=== PATIENT | male | born 1930 | race Caucasian/White ===

== ENCOUNTER 2018-02-26 09:32 | Observation (INO) ==
[2018-02-26] MEDS ORDERED: 0.9 % Sodium Chloride 1,000 ML IVC ONE (09:46)
--- NOTE | 2018-02-26 09:49 | Emergency Department Note ---
Disposition Clinical Impression: Hyponatremia Spine fracture Qualifiers: Encounter type: subsequent encounter Fracture of vertebra location: lumbar Lumbar vertebra fracture level: L1 Fracture morphology: unspecified fracture morphology Fracture healing: with routine healing Diarrhea Qualifiers: Diarrhea type: unspecified type Qualified Code(s): R19.7 - Diarrhea, unspecified Disposition: Admitted As Inpatient Condition: Good Time of Disposition: 11:49 General Adult HPI - General Stated complaint: bowel movement after taking laxative Time Seen by Provider: 02/26/18 09:39 Source: patient Mode of arrival: wheelchair Limitations: no limitations Nursing Notes Reviewed: Yes Vital Signs Reviewed: Yes - History of Present Illness HPI Narrative: Patient presents to the ED the chief complaint of diarrhea and back pain. Patient states that he started having back pain earlier this month. Has seen pain management in the past. This pain was different. After extensive medical record review, the patient has had an MRI that showed possible discitis, osteomyelitis L1-L2. He subsequently had a CT guided disc biopsy, which preliminary results do not show any infection but the final results are not back. He states that he has not had any known fall or injury. One of his CAT scan showed a possible fracture at L1. States it is been treated with pain medication, which caused him to get constipated. Was here in the ER a few days ago and prescribed GoLYTELY. States that he started taking it as prescribed and as of last night. Has had approximately 20 episodes of diarrhea associated with abdominal cramping. States he is feeling lightheaded and dizzy. States he still has back pain and nothing has been able to keep it under control. No fever or chills. No chest pain or shortness of breath. Some nausea but no vomiting. Also complaining of pain and swelling in both of his legs with equal bilaterally. No history of CHF. No melena or hematochezia Pain Scale: 9 - Related Data Home Medications Medication Instructions Recorded Confirmed Finasteride [Proscar] 5 mg PO DAILY 02/26/18 02/26/18 Gabapentin [Neurontin] 300 mg PO TID 02/26/18 02/26/18 Ibuprofen [Ibuprofen] 800 mg PO TID PRN 02/26/18 02/26/18 Losartan Potassium [Cozaar] 100 mg PO DAILY 02/26/18 02/26/18 Tamsulosin [Flomax] 0.4 mg PO DAILY 02/26/18 02/26/18 Previous Rx's Medication Instructions Recorded HYDROcodone/Acet 5/325 mg [[place] 1 tab PO Q6H PRN 2 Days #8 tab 02/10/18 5-325 mg] Allergies Allergy/AdvReac Type Severity Reaction Status Date / Time morphine AdvReac Vomiting Verified 02/26/18 09:52 Review of Systems: As reviewed in the HPI. All other systems reviewed are negative or normal. Past Medical History - Past Medical History Attestation: Yes The following information was validated with the patient. Source: patient Medical history: Reports: GERD, hyperlipidemia, hypertension Psychiatric history: Reports: no psych history - Social History Smoking Status: Former smoker Smokeless Tobacco Status: No Alcohol use: Reports: rarely Drug use: Reports: none Physical Exam CONSTITUTIONAL: [well appearing, alert and in no acute distress but does appear to be in pain] EYES: [EOMI, clear conjunctiva, PERRLA] HENT: [Normocephalic, atraumatic, dry mucus membranes, normal oropharynx] NECK: [normal inspection, full ROM, trachea midline, no obvious swelling] PULMONARY: [normal lung sounds bilaterally, normal chest rise and fall, no respiratory distress or stridor, no wheezes, no rales, no rhonchi CARDIOVASCULAR: [regular rate, regular rhythm, normal heart sounds, no murmurs, distal extremities are warm and well perfused] GASTROINSTESTINAL: [soft, mild distention (reports improving), mild diffuse tenderness, non-rigid, no guarding, no rebound, normal bowel sounds] GENITOURINARY/RECTAL: [deferred] NEUROLOGIC: [Alert, oriented x3, normal speech, moves all extremities] EXTREMITIES: [Normal inspection, full ROM, no tenderness, 1-2+ pedal edema, normal capillary refill] MUSCULOSKELETAL: [no gross deformities, atraumatic] SKIN: [No cyanosis, no diaphoresis, normal color, warm, no rash] PSYCHIATRIC: [normal mood and affect] Course Course Narrative: Patient presenting with back pain and diarrhea after GoLYTELY use. Essentially having intractable back pain. Medical record review does show potential fracture at L1. He developed constipation from opioids and has subsequently developed diarrhea from treatment. He appears uncomfortable. After further laboratory analysis. His sodium has been low and is continuing to drop. He does feel tired and weak. We will recheck labs and likely admit - Reevaluation(s) Reevaluation #1: Patient is hyponatremic and hypochloremic. BUN/creatinine ratio is elevated. We will admit for dehydration and pain control. Vital Signs Temperature 98.5 F 02/26/18 09:35 Pulse Rate 74 02/26/18 09:35 Respiratory Rate 16 02/26/18 09:35 Blood Pressure 180/87 02/26/18 09:35 O2 Sat by Pulse Oximetry 97 02/26/18 09:35 Temperature 97.9 F 02/26/18 12:37 Pulse Rate 71 02/26/18 12:37 Respiratory Rate 14 02/26/18 12:37 Blood Pressure 158/77 02/26/18 12:37 O2 Sat by Pulse Oximetry 98 02/26/18 12:37 Oxygen Delivery Oxygen Delivery Room Air Medical Decision Making - Lab Data Result diagrams: 02/26/18 09:46 02/26/18 09:46 Lab Results 02/26/18 02/26/18 02/26/18 Range/Units 09:46 09:46 09:47 WBC 9.6 (4.3-11.1) K/mcL RBC 3.44 L (4.19-5.50) M/mcL Hgb 10.5 L (12.9-16.9) g/dL Hct 30.3 L (37.5-50.1) % MCV 88.1 (83.0-100.0) fL MCH 30.5 (28.0-33.3) pg MCHC 34.7 (31.6-35.5) g/dL RDW 12.1 (11.5-14.5) % Plt Count 344 (140-400) K/mcL MPV 8.4 L (9.4-12.4) fL Immature Gran % 0.5 (0-4) % Seg Neutrophils % 76.0 % Lymphocytes % 13.1 % Monocytes % 10.1 % Eosinophils % 0.2 % Basophils % 0.1 % Neutrophils # 7.3 (1.6-8.9) K/mcL Lymphocytes # 1.3 (0.6-4.6) K/mcL Monocytes # 1.0 (0.0-1.3) K/mcL Eosinophils # 0.0 (0.0-0.6) K/mcL Basophils # 0.0 (0.0-0.2) K/mcL ESR 60 H (0-10) mm/hr Sodium 122 L (136-145) mEq/L Potassium 4.3 (3.5-5.1) mEq/L Chloride 88 L (98-107) mEq/L Carbon Dioxide 27 (23-29) mEq/L BUN 22 (8-23) mg/dL Creatinine 0.82 (0.70-1.30) mg/dL Est GFR ( Amer) > 60 (> 60) Est GFR (Non-Af Amer) > 60 (> 60) BUN/Creatinine Ratio 27 H (6-26) Glucose 120 H (70-105) mg/dL Calculated Osmolality 259 L (280-300) Calcium 8.7 (8.6-10.3) mg/dL Phosphorus (2.7-4.5) mg/dL Magnesium (1.6-2.6) mg/dL Total Bilirubin 0.5 (0.3-1.0) mg/dL AST 15 (13-39) Units/L ALT 14 (7-52) Units/L Alkaline Phosphatase 56 (34-104) Units/L Troponin I (< 0.04) ng/mL C-Reactive Protein (Less than 10) mg/L B-Natriuretic Peptide (Less than 100) pg/mL Serum Total Protein 6.5 (6.4-8.9) g/dL Albumin 3.3 L (3.5-5.7) g/dL Globulin 3.2 (2.4-3.5) g/dL Albumin/Globulin Ratio 1.0 L (1.1-2.2) Lipase 14 (11-82) Units/L 02/26/18 02/26/18 Range/Units 09:47 10:10 WBC (4.3-11.1) K/mcL RBC (4.19-5.50) M/mcL Hgb (12.9-16.9) g/dL Hct (37.5-50.1) % MCV (83.0-100.0) fL MCH (28.0-33.3) pg MCHC (31.6-35.5) g/dL RDW (11.5-14.5) % Plt Count (140-400) K/mcL MPV (9.4-12.4) fL Immature Gran % (0-4) % Seg Neutrophils % % Lymphocytes % % Monocytes % % Eosinophils % % Basophils % % Neutrophils # (1.6-8.9) K/mcL Lymphocytes # (0.6-4.6) K/mcL Monocytes # (0.0-1.3) K/mcL Eosinophils # (0.0-0.6) K/mcL Basophils # (0.0-0.2) K/mcL ESR (0-10) mm/hr Sodium (136-145) mEq/L Potassium (3.5-5.1) mEq/L Chloride (98-107) mEq/L Carbon Dioxide (23-29) mEq/L BUN (8-23) mg/dL Creatinine (0.70-1.30) mg/dL Est GFR ( Amer) (> 60) Est GFR (Non-Af Amer) (> 60) BUN/Creatinine Ratio (6-26) Glucose (70-105) mg/dL Calculated Osmolality (280-300) Calcium (8.6-10.3) mg/dL Phosphorus 3.7 (2.7-4.5) mg/dL Magnesium 1.7 (1.6-2.6) mg/dL Total Bilirubin (0.3-1.0) mg/dL AST (13-39) Units/L ALT (7-52) Units/L Alkaline Phosphatase (34-104) Units/L Troponin I < 0.03 (< 0.04) ng/mL C-Reactive Protein 63 H (Less than 10) mg/L B-Natriuretic Peptide 38 (Less than 100) pg/mL Serum Total Protein (6.4-8.9) g/dL Albumin (3.5-5.7) g/dL Globulin (2.4-3.5) g/dL Albumin/Globulin Ratio (1.1-2.2) Lipase (11-82) Units/L Attestation Statement - Attestation Attestation: I examined this patient and my medical decision-making was reviewed with the Resident Physician. I agree with the documented findings, disposition and treatment plan as described except to the extent set forth below. Findings consistent with back pain. Patient is currently being worked up for possible ostial myelitis. I would defer antibiotic therapy pending cultures at this time. The patient's back pain seems to be worsening. He concurrently has some nonspecific diarrheal complaints. We will admit for further management and workup as well as pain control.
[2018-02-26] MEDS ORDERED: Ondansetron 4 MG/2 ML VIAL IVP ONE (10:11)
[2018-02-26] MEDS ORDERED: Orphenadrine 60 MG/2 ML VIAL IV ONE (10:11)
[2018-02-26] MEDS ORDERED: *HR* HYDROmorphone (PF) 1 MG/ML SYRINGE IVP ONE (10:11)
[2018-02-26 10:16] LABS: Basophils % 0.1 %; Eosinophils % 0.2 %; Hematocrit 30.3 % (37.5-50.1); Hemoglobin 10.5 g/dL (12.9-16.9); Immature Granulocytes % 0.5 % (0-4); Lymphocytes # 1.3 K/mcL (0.6-4.6); Lymphocytes % 13.1 %; Mean Corpuscular HGB Conc 34.7 g/dL (31.6-35.5); Mean Corpuscular Hemoglobin 30.5 pg (28.0-33.3); Mean Corpuscular Volume 88.1 fL (83.0-100.0); Mean Platelet Volume 8.4 fL (9.4-12.4); Monocytes % 10.1 %; Neutrophils # 7.3 K/mcL (1.6-8.9); Platelet Count 344 K/mcL (140-400); Red Blood Count 3.44 M/mcL (4.19-5.50); Red Cell Distribution Width 12.1 % (11.5-14.5)
[2018-02-26 10:37] LABS: C-Reactive Protein 63 mg/L (Less than 10); Magnesium 1.7 mg/dL (1.6-2.6); Phosphorous 3.7 mg/dL (2.7-4.5)
[2018-02-26 10:37] LABS: Alanine Aminotransferase 14 Units/L (7-52); Albumin 3.3 g/dL (3.5-5.7); Alkaline Phosphatase 56 Units/L (34-104); Aspartate Amino Transferase 15 Units/L (13-39); BUN/Creatinine Ratio 27 (6-26); Bilirubin,Total 0.5 mg/dL (0.3-1.0); Blood Urea Nitrogen 22 mg/dL (8-23); Calcium 8.7 mg/dL (8.6-10.3); Carbon Dioxide 27 mEq/L (23-29); Chloride 88 mEq/L (98-107); Globulin 3.2 g/dL (2.4-3.5); Glucose 120 mg/dL (70-105); Lipase 14 Units/L (11-82); Osmolality,Calculated 259 (280-300); Potassium 4.3 mEq/L (3.5-5.1); Sodium 122 mEq/L (136-145); Total Protein 6.5 g/dL (6.4-8.9); eGFR For Non-African Americans > 60 (> 60)
[2018-02-26 10:38] LABS: Troponin I < 0.03 ng/mL (< 0.04)
[2018-02-26] MEDS ORDERED: *HR* LORazepam 0.5 MG TABLET PO ONE (11:40)
[2018-02-26 12:01] LABS: Bilirubin,Urine Negative (Negative); Blood,Urine Negative (Negative); Clarity,Urine Clear (Clear); Color,Urine Yellow (Yellow); Glucose,Urine (UA) Normal (Normal); Ketones,Urine Negative (Negative); Leukocyte Esterase,Urine Negative (Negative); Nitrite,Urine Negative (Negative); Protein,Urine Negative (Neg-Trace); Specific Gravity,Urine 1.013 (1.010-1.025)
[2018-02-26 12:39] VITALS: BP 158/77
--- NOTE | 2018-02-26 12:56 | Internal Med History&Physical ---
Date of Encounter: 02/26/18 Time of Encounter: 12:56 Internal Medicine - H&P: HPI History of present illness: Mr. Burkett is a 87 year old male Past Med Surg Social Fam HX - Past Medical History Medical history: GERD, hyperlipidemia, hypertension Additional medical history: prostate enlargement Psychiatric history: no psych history - Past Surgical History Additional surgical history: cervical disc surgery. pilonidal cyst - Social History Smoking Status: Former smoker Smokeless Tobacco Status: No Alcohol use: rarely Drug use: none Internal Medicine - H&P: Meds HYDROcodone/Acet 5/325 mg [[place] 5-325 mg] 1 tab PO Q6H PRN 2 Days #8 tab [Rx] Finasteride [Proscar] 5 mg PO DAILY 02/26/18 [History] Gabapentin [Neurontin] 300 mg PO TID 02/26/18 [History] Ibuprofen [Ibuprofen] 800 mg PO TID PRN 02/26/18 [History] Losartan Potassium [Cozaar] 100 mg PO DAILY 02/26/18 [History] Tamsulosin [Flomax] 0.4 mg PO DAILY 02/26/18 [History] 3 Allergy/AdvReac Type Severity Reaction Status Date / Time morphine AdvReac Vomiting Verified 02/26/18 09:52 All Systems PM: A 10-system review of systems was performed and is negative for pertinent findings except as documented above in the HPI. - Constitutional Vitals: Temp Pulse Resp BP Pulse Ox 97.9 F 71 14 158/77 98 02/26/18 12:37 02/26/18 12:37 02/26/18 12:37 02/26/18 12:37 02/26/18 12:37 Internal Med - H&P Results - Labs CBC & Chem 7: 02/26/18 09:46 02/26/18 09:46 Labs: Urine 02/26/18 Range/Units 11:46 Urine Color Yellow (Yellow) Urine Clarity Clear (Clear) Urine pH 6.0 (5.0-8.0) pH Units Ur Specific [place] 1.013 (1.010-1.025) Urine Protein Negative (Neg-Trace) mg/dL Urine Glucose (UA) Normal (Normal) mg/dL - Time Spent With Patient Total time spent is greater than 50% in coordination of care (as documented) at patient's floor/unit and/or counseling patient:
--- NOTE | 2018-02-26 14:03 | Event Note ---
Date of Encounter: 02/26/18 Time of Encounter: 13:59 Patient arrived on the floor from ED for treatment of hyponatremia with a sodium level of 122. 87M with CBP, DDD, spinal stenosis and HTN has low normal Na level 132-135 at baseline. Recently started on opioids for back pain, constipated since 02/09/18, started golytely on 02/25 AM, and had 20+ BM by 02/26 AM. He came to ER for back pain for which he received IV Dilaudid. Back pain resolved. Diarrhea has resolved as of this morning. He was admitted for IV hydration and close monitoring due to hyponatremia. On arrival to the floor, he stated that he was feeling well, and would rather not stay in the hospital. I spent more than 25 min in F2F counseling, advised admission and coordinating care on the floor. He decided to leave AMA. I advised for them to get Na level checked 02/27 AM and follow with PCP the same day. He has received 1 L of IVF in ER, and I expect Na level to be better tomorrow if indeed the cause is dehydration and volume depletion as suspected. If Na level is lower tomorrow, they agree to be readmitted.
[2018-02-27 01:38] LABS: Acinetobacter baumannii by PCR Not Detected (Not Detect); Candida albicans by PCR Not Detected (Not Detect); Candida glabrata by PCR Not Detected (Not Detect); Candida krusei by PCR Not Detected (Not Detect); Candida parapsilosis by PCR Not Detected (Not Detect); Candida tropicalis by PCR Not Detected (Not Detect); Enterobacter cloacae Cmplx PCR Not Detected (Not Detect); Enterobacteriaceae by PCR Not Detected (Not Detect); Enterococcus by PCR Not Detected (Not Detect); Escherichia coli by PCR Not Detected (Not Detect); Klebsiella oxytoca by PCR Not Detected (Not Detect); Klebsiella pneumoniae by PCR Not Detected (Not Detect); Proteus by PCR Not Detected (Not Detect); Pseudomonas aeruginosa by PCR Not Detected (Not Detect); Serratia marcescens by PCR Not Detected (Not Detect); Staphylococcus aureus by PCR Not Detected (Not Detect); Staphylococcus by PCR Not Detected (Not Detect); Streptococcus agalactiae(B)PCR Not Detected (Not Detect); Streptococcus by PCR DETECTED (Not Detect); Streptococcus pneumoniae PCR Not Detected (Not Detect); Streptococcus pyogenes (A) PCR Not Detected (Not Detect); blaKPC Carbapenem-Resist Gene Not Detected (Not Detect); mecA Methicillin-Resist Gene Not Detected (Not Detect); vanA/B Vancomycin-Resist Genes Not Detected (Not Detect)
--- NOTE | 2018-03-01 07:39 | Electrocardiograph Report ---
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
== END 2018-02-26 14:17 | disposition home or self-care (01) ==
LOC: 3ANU 09:32 → EMEROOARM 09:32 → 3ANU 12:08
PROVIDERS: ADMIT Internal Medicine; ATTEND Internal Medicine

== ENCOUNTER 2018-02-27 16:29 | Inpatient (IN) ==
--- NOTE | 2018-02-27 17:44 | Emergency Department Note ---
Disposition Clinical Impression: Osteomyelitis Disposition: Still a Patient Back Pain HPI - General Chief Complaint: ED Back Pain/Injury Stated Complaint: "blood infection" Time Seen by Provider: 02/27/18 17:08 - History of Present Illness HPI Narrative: 87 YO M presenting with back pain since 02/09/18, positive blood cultures for streptococcus, and bone biopsy showing strep gallolyticus. Patient initially presented with back pain 02/12 which has been getting progressively worse. 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 Patient was admitted on 02/26/18 to hospital for hyponatremia ( 122) but left yesterday AMA. However he returned today when his PCP called him with results of bone biopsy. Pt Subjective Complaint: back pain Onset (ago): month(s) Duration: constant Similar Symptoms Previously: No Location: lumbar spine Pain Severity: moderate, severe Quality: unable to describe Radiation: none Improves with: none - Related Data Home Medications Medication Instructions Recorded Confirmed Finasteride [Proscar] 5 mg PO DAILY 02/26/18 02/26/18 Gabapentin [Neurontin] 300 mg PO TID 02/26/18 02/26/18 Ibuprofen [Ibuprofen] 800 mg PO TID PRN 02/26/18 02/26/18 Losartan Potassium [Cozaar] 100 mg PO DAILY 02/26/18 02/26/18 Tamsulosin [Flomax] 0.4 mg PO DAILY 02/26/18 02/26/18 HYDROcodone/Acet 10/325 mg [[place] 1 tab PO Q6HR PRN 02/27/18 02/27/18 10-325 mg] Allergies Allergy/AdvReac Type Severity Reaction Status Date / Time morphine AdvReac Vomiting Verified 02/27/18 16:30 Constitutional: Denies: fever, chills, weakness, weight change, night sweats Musculoskeletal: Reports: back pain Past Medical History - Past Medical History Medical history: Reports: aortic aneurysm, GERD, hyperlipidemia, hypertension Psychiatric history: Reports: no psych history - Social History Smoking Status: Former smoker Smokeless Tobacco Status: No Alcohol use: Reports: rarely Drug use: Reports: none Physical Exam - General Limitations: no limitations General appearance: alert, in no apparent distress - Chest Chest inspection: Present: normal inspection - Respiratory Respiratory exam: Present: normal lung sounds bilaterally - Cardiovascular Cardiovascular exam: Present: regular rate, normal rhythm - Neurological Exam Neurological exam: Present: alert, oriented X3, CN II-XII intact - Psychiatric Psychiatric exam: Present: normal affect, normal mood Course Course Narrative: Based on bone biopsy showing strep patient has osteomyelitis of the vertebrae. Will admit the patient so he can be put on an antibiotic regimen. - Reevaluation(s) Reevaluation #1: Patient admitted under hospitalist service. Patient left AMA yesterday. Spoke to hospitliasts and they were oaky to accept him as long a we consulted Dr. Howell in Ortho for treatment plan. Spoke to Dr. Howell and he was okay for patient to be admitted on antibiotics. Vital Signs Temperature 98.3 F 02/27/18 16:37 Pulse Rate 73 02/27/18 16:37 Respiratory Rate 16 02/27/18 16:37 Blood Pressure 149/77 02/27/18 16:37 O2 Sat by Pulse Oximetry 98 02/27/18 16:37 Temperature 98.3 F 02/27/18 17:29 Pulse Rate 73 02/27/18 17:29 Respiratory Rate 16 02/27/18 17:29 Blood Pressure 149/77 02/27/18 17:29 O2 Sat by Pulse Oximetry 98 02/27/18 17:29 Oxygen Delivery Oxygen Delivery Room Air
--- NOTE | 2018-02-27 17:49 | Emergency Department Note ---
Disposition Clinical Impression: Positive blood culture Disposition: Still a Patient Forms: ED Satisfaction Letter General Adult HPI - General Chief complaint: ED Back Pain/Injury Stated complaint: "blood infection" Time Seen by Provider: 02/27/18 17:08 - History of Present Illness Pain Scale: 8 - Related Data Home Medications Medication Instructions Recorded Confirmed Finasteride [Proscar] 5 mg PO DAILY 02/26/18 02/26/18 Gabapentin [Neurontin] 300 mg PO TID 02/26/18 02/26/18 Ibuprofen [Ibuprofen] 800 mg PO TID PRN 02/26/18 02/26/18 Losartan Potassium [Cozaar] 100 mg PO DAILY 02/26/18 02/26/18 Tamsulosin [Flomax] 0.4 mg PO DAILY 02/26/18 02/26/18 Previous Rx's Medication Instructions Recorded HYDROcodone/Acet 5/325 mg [[place] 1 tab PO Q6H PRN 2 Days #8 tab 02/10/18 5-325 mg] Allergies Allergy/AdvReac Type Severity Reaction Status Date / Time morphine AdvReac Vomiting Verified 02/27/18 16:30 Constitutional: Denies: fever, chills, weakness, weight change, night sweats Musculoskeletal: Reports: back pain Past Medical History - Past Medical History Medical history: Reports: aortic aneurysm, GERD, hyperlipidemia, hypertension Psychiatric history: Reports: no psych history - Social History Smoking Status: Former smoker Smokeless Tobacco Status: No Alcohol use: Reports: rarely Drug use: Reports: none Physical Exam - General General appearance: alert, in no apparent distress Course - Reevaluation(s) Reevaluation #1: ED ATTESTATION NOTE: I examined this patient and my medical decision-making was reviewed with the Resident Physician/[employer] SUPERVISOR/PA/Student. I have personally performed a face to face evaluation on this patient & I agree with the documented findings, disposition and treatment plan as described except to the extent set forth below. Patient was seen with [facility] DR. SONDRA CALVIN. please see copy of her note for details of this encounter Briefly: A 7-year-old male brought in for intractable pain [address] Guerra and Dr. Lowe please see copy the notes for details on encounter patient was discharged home results from spine biopsy showed positive growth staff in addition to 1 out of 2 positive blood cultures patient having continued pain in his back patient reporting for observation and empiric antibiotics. Admission disposition pending. Patient is awake and alert is not exhibiting any objective signs of sepsis at this time. Time: 17:47 Vital Signs Temperature 98.3 F 02/27/18 16:37 Pulse Rate 73 02/27/18 16:37 Respiratory Rate 16 02/27/18 16:37 Blood Pressure 149/77 02/27/18 16:37 O2 Sat by Pulse Oximetry 98 02/27/18 16:37 Temperature 98.3 F 02/27/18 17:29 Pulse Rate 73 02/27/18 17:29 Respiratory Rate 16 02/27/18 17:29 Blood Pressure 149/77 02/27/18 17:29 O2 Sat by Pulse Oximetry 98 02/27/18 17:29 Oxygen Delivery Oxygen Delivery Room Air
[2018-02-27 18:09] LABS: Basophils % 0.1 %; Eosinophils % 0.4 %; Hematocrit 31.1 % (37.5-50.1); Hemoglobin 10.7 g/dL (12.9-16.9); Immature Granulocytes % 0.5 % (0-4); Lymphocytes # 1.1 K/mcL (0.6-4.6); Lymphocytes % 13.8 %; Mean Corpuscular HGB Conc 34.4 g/dL (31.6-35.5); Mean Corpuscular Hemoglobin 30.7 pg (28.0-33.3); Mean Corpuscular Volume 89.4 fL (83.0-100.0); Mean Platelet Volume 8.6 fL (9.4-12.4); Monocytes # 0.8 K/mcL (0.0-1.3); Monocytes % 9.1 %; Neutrophils # 6.3 K/mcL (1.6-8.9); Platelet Count 337 K/mcL (140-400); Red Blood Count 3.48 M/mcL (4.19-5.50); Red Cell Distribution Width 12.1 % (11.5-14.5); Segmented Neutrophils % 76.1 %
[2018-02-27 18:34] LABS: BUN/Creatinine Ratio 24 (6-26); Blood Urea Nitrogen 17 mg/dL (8-23); Calcium 8.9 mg/dL (8.6-10.3); Carbon Dioxide 29 mEq/L (23-29); Chloride 90 mEq/L (98-107); Glucose 113 mg/dL (70-105); Osmolality,Calculated 258 (280-300); Sodium 123 mEq/L (136-145); eGFR For Non-African Americans > 60 (> 60)
[2018-02-27] MEDS ORDERED: Naloxone 0.4 MG/ML INJ IVP PRN (21:02)
--- NOTE | 2018-02-27 21:21 | Internal Med History&Physical ---
Date of Encounter: 02/28/18 Time of Encounter: 20:30 Internal Medicine - H&P: HPI Chief complaint: osteomyelitis, hyponatremia Admitted From: Emergency Dept Plans for Post Hospital Care: Home History of present illness: Mr. Burkett is a 87 year old male Patient presented with back pain that started February 09. He does not recall any particular event that would have preceded the pain. He is normally in good health, does not take very many medications. He has never had pain like this before. Pain does not radiate, although initially it did seem to radiate down his leg. He has seen pain management for this, and has even had a bone biopsy performed. The results of the biopsy came back on the day of his admission, and indicated he has likely osteomyelitis. Of note, patient was in the emergency room yesterday, was admitted but left AMA because he stated that he felt fine. Yesterday he was found to have a sodium of 122 and that was the reason for admission. Today his sodium is slightly improved at 123. He has some history of hyponatremia, but not usually this low. Upon my assessment, patient states he is feeling okay, he denies nausea, vomiting, diarrhea, constipation. His last emergency room visit patient was given GoLYTELY because he was constipated at that time. Over the weekend he had several bouts of diarrhea which is now resolved. He had been given pain meds for his back prior to that which may have led to his constipation. Past Med Surg Social Fam HX - Past Medical History Medical history: aortic aneurysm, GERD, hyperlipidemia, hypertension Additional medical history: prostate enlargement Psychiatric history: no psych history - Past Surgical History Additional surgical history: cervical disc surgery. pilonidal cyst - Social History Smoking Status: Former smoker Smokeless Tobacco Status: No Alcohol use: rarely Drug use: none - Family History Father Living Status: Cause of : cerebral hemorrhage Internal Medicine - H&P: Meds Finasteride [Proscar] 5 mg PO DAILY 02/26/18 [History] Gabapentin [Neurontin] 300 mg PO TID 02/26/18 [History] Ibuprofen [Ibuprofen] 800 mg PO TID PRN 02/26/18 [History] Losartan Potassium [Cozaar] 100 mg PO DAILY 02/26/18 [History] Tamsulosin [Flomax] 0.4 mg PO DAILY 02/26/18 [History] HYDROcodone/Acet 10/325 mg [[place] 10-325 mg] 1 tab PO Q6HR PRN 02/27/18 [History ] 3 Allergy/AdvReac Type Severity Reaction Status Date / Time morphine AdvReac Vomiting Verified 02/27/18 16:30 All Systems PM: A 10-system review of systems was performed and is negative for pertinent findings except as documented above in the HPI. - Constitutional Vitals: Temp Pulse Resp BP Pulse Ox 98.3 F 69 16 155/87 98 02/27/18 20:04 02/27/18 20:04 02/27/18 20:04 02/27/18 20:04 02/27/18 20:04 General appearance: Present: cooperative, A&O X 3, pleasant, no acute distress, answers questions appropriately Exam: Patient answering questions appropriately follows commands oriented 3 - Head Head exam: Present: normal inspection - Eye Eye exam: Present: EOMI, normal appearance - Respiratory Respiratory exam: Present: CTAB. Absent: decreased breath sounds, respiratory distress, wheezes - Cardiovascular Cardiovascular exam: Present: RRR, systolic murmur. Absent: diastolic murmur Additional comments: systolic grade 2 murmur - GI/Abdominal GI/Abdominal exam: Present: normal bowel sounds, soft. Absent: tenderness - Extremities Exam Extremities exam: Present: pedal edema, warm, radial pulses palpable and symmetrical. Absent: tenderness Additional comments: 1+ pitting edema bilaterally in lower extremities - Back Exam Back exam: Absent: CVA tenderness (L), CVA tenderness (R), paraspinal tenderness , rash noted, tenderness, vertebral tenderness - Neurological Exam Neurological exam: Present: no focal deficits, strengths equal and symetr throughout. Absent: motor sensory deficit, facial droop, speech deficit - Skin Skin exam: Present: dry, normal color, warm Internal Med - H&P Results - Labs CBC & Chem 7: 02/28/18 01:07 02/28/18 01:07 - Assessment and plan (1) Osteomyelitis Current Visit: Yes Status: Acute Assessment and plan: Patient presented with osteomyelitis of his spine, cultures obtained on the from his bone biopsy throughout Strep gallolyticus. Patient was notified at home, after he left the hospital AMA the day before. He came into the hospital for further treatment. Vancomycin IV Follow-up repeat blood cultures drawn during this admission Dr. Gonzalez of orthopedic surgery was notified from the ER, will consult on the patient. Infectious disease consult requested from the emergency room, follow-up recommendations Monitor for worsening signs of infection. Qualifiers: Osteomyelitis type: other acute Osteomyelitis location: other site Qualified Code(s): M86.18 - Other acute osteomyelitis, other site (2) Hyponatremia Current Visit: No Status: Acute Assessment and plan: Patient's sodium was 123 today, 122 yesterday. Patient has history of mild hyponatremia. Continue to monitor with every 6 hours sodiums Obtain urine sodium and urine osmolality Fluid restriction for now, holding IV fluids Check TSH in the morning Cautiously monitor sodium rise as to avoid central pontine myelinolysis (3) Hypertension Current Visit: Yes Status: Acute Assessment and plan: Patient has history of blood pressure, takes losartan at home. Currently blood pressure is well controlled. Continue to monitor Continue home meds Qualifiers: Hypertension type: essential hypertension Qualified Code(s): I10 - Essential (primary) hypertension (4) BPH (benign prostatic hyperplasia) Current Visit: Yes Status: Acute Assessment and plan: Patient takes Flomax and finasteride at home Continue home meds Qualifiers: Lower urinary tract symptom detail: unspecified Qualified Code(s): N40.1 - Benign prostatic hyperplasia with lower urinary tract symptoms (5) DVT prophylaxis Current Visit: Yes Status: Acute Assessment and plan: Heparin subcutaneous - Time Spent With Patient Total time spent is greater than 50% in coordination of care (as documented) at patient's floor/unit and/or counseling patient: Greater than 35 minutes
[2018-02-27] MEDS: OXYCODONE Oral CONC 10 MG/0.5 ML ORAL.SYG SL PRN (21:25)
[2018-02-27] MEDS: Ibuprofen 400 MG TABLET PO PRN (22:44)
[2018-02-28 02:19] LABS: Hematocrit 27.2 % (37.5-50.1); Hemoglobin 9.2 g/dL (12.9-16.9); Mean Corpuscular HGB Conc 33.8 g/dL (31.6-35.5); Mean Corpuscular Hemoglobin 29.8 pg (28.0-33.3); Platelet Count 315 K/mcL (140-400); Red Blood Count 3.09 M/mcL (4.19-5.50)
[2018-02-28 02:32] LABS: BUN/Creatinine Ratio 20 (6-26); Blood Urea Nitrogen 15 mg/dL (8-23); Calcium 8.5 mg/dL (8.6-10.3); Carbon Dioxide 29 mEq/L (23-29); Chloride 92 mEq/L (98-107); Glucose 114 mg/dL (70-105); Osmolality,Calculated 262 (280-300); Potassium 4.4 mEq/L (3.5-5.1); Sodium 125 mEq/L (136-145); eGFR For Non-African Americans > 60 (> 60)
[2018-02-28] MEDS: *HR* Heparin 5,000 UNIT/ML VIAL SQ SCH ×2 (06:41→18:10)
[2018-02-28] MEDS: Ibuprofen 400 MG TABLET PO PRN ×3 (06:56→21:02)
[2018-02-28 06:59] LABS: BUN/Creatinine Ratio 17 (6-26); Blood Urea Nitrogen 13 mg/dL (8-23); Calcium 8.9 mg/dL (8.6-10.3); Carbon Dioxide 29 mEq/L (23-29); Chloride 94 mEq/L (98-107); Glucose 105 mg/dL (70-105); Osmolality,Calculated 264 (280-300); Potassium 4.4 mEq/L (3.5-5.1); Sodium 127 mEq/L (136-145); eGFR For Non-African Americans > 60 (> 60)
[2018-02-28 07:14] LABS: Thyroid Stimulating Hormone 1.248 mcIU/mL (0.340-5.600)
[2018-02-28] MEDS: Finasteride 5 MG TABLET PO SCH (09:09)
[2018-02-28] MEDS: OXYCODONE Oral CONC 10 MG/0.5 ML ORAL.SYG SL PRN ×2 (10:53→18:10)
--- NOTE | 2018-02-28 13:36 | Infectious Disease Consult ---
Date of Encounter: 02/28/18 Time of Encounter: 11:30 Assessment and Plan (1) Bacteremia Status: Acute Assessment and plan: Causative organism: Strep species, final ID and sensitivities pending, but likely S. gallolyticus based on bone cultures. Source unclear: OM vs. other with seeding of the spine. Concern for intra- abdominal source with possible malignancy given the causative organism. Blood cultures drawn 02/26/18 are positive 1/2 sets for Strep species per PCR. Repeat blood cultures drawn 02/27/18 are pending x [address] of the abdomen and pelvis 02/24/18 was negative for acute findings in the abdomen and pelvis, but did show a 2.1cm round lesion in the tail of pancreas that appeared grossly stable since previous exam, but assessment was limited without IV contrast. Recommend GI consult for evaluation of possible colonic malignancy and pancreas lesion given the causative organism with unclear source. Check ESR and CRP. Discontinue Vancomycin. Start Rocephin 2 grams IV daily. Duration of treatment depends on the clinical picture, but likely 6-8 weeks. Avoid insertion of long-term IV access until blood cultures are negative x 48 hours. services host to assist with discharge planning. Further antibiotic and OPAT recommendations to follow pending clinical outcomes and additional culture results. (2) Osteomyelitis Status: Acute Assessment and plan: Location: L1, L2. Causative organism: S. gallolyticus. Source unclear. The patient's symptoms started prior to the SI joint injection so I do not think that is the source. I am concerned for seeding of the spine from bacteremia of unclear source. MRI of the L-spine 02/20/18 showed osteomyelitis/discitis L1-L2. Status post bone biopsy 02/23/18. 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 Recommend Dr. Gonzalez to evaluate. Pain management per the primary team. Discontinue Vancomycin. Start Rocephin 2 grams IV daily. Duration of treatment depends on the clinical picture, but likely 6-8 weeks. Further OPAT and antibiotic recommendations to follow pending clinical outcomes and cultures results. Qualifiers: Osteomyelitis type: other acute Osteomyelitis location: other site Qualified Code(s): M86.18 - Other acute osteomyelitis, other site (3) Constipation Status: Acute Assessment and plan: Etiology unclear: Opioid induced vs. other. CT of the abdomen and pelvis 02/24/18 did not show any colonic mass, but given the causative organism of his bacteremia and osteomyelitis, concern for intra- abdominal source. Recommend GI consult. Bowel regimen per the primary team. Qualifiers: Constipation type: unspecified constipation type Qualified Code(s): K59.00 - Constipation, unspecified (4) Hyponatremia Status: Acute Assessment and plan: Etiology unclear. Further workup and management per the primary team. (5) Hypertension Status: Chronic Qualifiers: Hypertension type: essential hypertension Qualified Code(s): I10 - Essential (primary) hypertension (6) BPH (benign prostatic hyperplasia) Status: Chronic Qualifiers: Lower urinary tract symptom detail: unspecified Qualified Code(s): N40.1 - Benign prostatic hyperplasia with lower urinary tract symptoms Infectious Disease HPI - Data of Consult Patient: new to practice Consult date: 02/28/18 Requesting Physician: Nanda Gonsales MD Primary Care Provider: Flaco Robertson MD - Consult Narrative Reason for consult: Discitis History of present illness: Mr. Burkett is a 87 year old male with a past medical history of AAA, GERD, hyperlipidemia, and hypertension. The patient was admitted to the hospital February 27 for bacteremia and discitis. We are consulted February 28 for antibiotic recommendations for osteomyelitis at L1-L2 and bacteremia. Briefly, the patient is an 87-year-old male with past medical history as stated above. The patient presented to the emergency department after he was contacted by the infectious disease department to present to the ER for positive blood and bone cultures. Upon arrival to the ER, the patient was afebrile hemodynamically stable. Laboratory studies revealed a normal white blood cell count with normal kidney function. Repeat blood cultures were obtained 2 sets and are pending. He was started on IV vancomycin and admitted to the hospital for further evaluation. Since admission, the patient has remained afebrile hemodynamically stable. His white blood cell count has remained normal. Currently, he is on IV vancomycin. We have been asked to evaluate and make further recommendations. During my exam today, the patient states that he had sudden onset of back pain on February 05. He was evaluated in the emergency department on February 09. He underwent a CT of the chest, abdomen and pelvis that was essentially negative for any acute abnormality, but did show colonic diverticulosis without evidence of diverticulitis. He was discharged home with instructions to follow-up with his PCP. He reports presented to the emergency department again on February 12 with complaints of back pain. He was again discharged home and scheduled for follow-up with pain management. On February 15, he saw Dr. Cui in the office and underwent an SI joint injection. He reports no relief with that injection. He was again evaluated in the ER on February 17 and was seen by Dr. Cui again in the office on February 20. He underwent an MRI of the L- spine that showed osteomyelitis/discitis of L1-L2. He underwent a bone biopsy on February 23. Pathology was negative for osteomyelitis, but the culture grew out strep bowel icterus. He was evaluated by his PCP on February 23 due to constipation that was thought to be opioid induced as he had not had a bowel movement for 8 days. He was again evaluated on February 24 in the emergency department with complaints of back pain and constipation. He was given GoLYTELY and MiraLAX which resulted in diarrhea. He again went to the ER on February 26 and was noted to have hyponatremia. He was admitted to the hospital over the weekend, but signed out AMA. Yesterday, we were contacted by his who asked if his previously scheduled appointment with the ID office was necessary as he had been contacted and told that his bone biopsy was negative for infection. Upon my review of his cultures, they were noted to have been positive and I called the patient and advised to come back to the ER. The patient tells me that other than the back pain he has been in his usual state of health. He denies any fevers or chills or rigors. He denies any headache or neck pain. He denies any chest pain, shortness of breath, or cough. He denies any nausea or vomiting. He reports constipation since the back pain started, but states he is not having any issues with this before that. He denies any abdominal pain, but does report abdominal bloating. He denies any appetite changes or urinary frequency. He denies any dysuria or hematuria. He denies any pain in his other joints or extremities. He denies oral thrush or new skin lesions. The patient lives at home with his . 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 Denies any tobacco, alcohol, or illicit drug use. He does have a dog at home. He denies any known history of infectious diseases. He reports he last traveled in December when he went over to [place] with his . CC: Nanda Gonsales MD Past Med Surg Social Fam HX - Past Medical History Attestation: Yes The following information was validated with the patient. Source: patient, old records reviewed, nursing notes reviewed Medical history: aortic aneurysm, GERD, hyperlipidemia, hypertension Additional medical history: prostate enlargement Psychiatric history: no psych history - Past Surgical History Surgical History: no surgical history Additional surgical history: cervical disc surgery. pilonidal cyst - Social History Smoking Status: Former smoker Smokeless Tobacco Status: No Alcohol use: rarely Drug use: none Occupational status: employed Current living situation: Home - Independent Activity Level: Independent ambulation Recent Out of Country Travel Within the Last 8 Weeks: No Exposure or Possible Exposure to Illness During Travel: No - Family History Father Living Status: Cause of : cerebral hemorrhage Infectious Disease-CN:Meds Finasteride [Proscar] 5 mg PO DAILY 02/26/18 [History] Gabapentin [Neurontin] 300 mg PO TID 02/26/18 [History] Ibuprofen [Ibuprofen] 800 mg PO TID PRN 02/26/18 [History] Losartan Potassium [Cozaar] 100 mg PO DAILY 02/26/18 [History] Tamsulosin [Flomax] 0.4 mg PO DAILY 02/26/18 [History] HYDROcodone/Acet 10/325 mg [[place] 10-325 mg] 1 tab PO Q6HR PRN 02/27/18 [History ] cefTRIAXone [Rocephin] 2,000 mg IVPB DAILY #42 vial 03/01/18 [Rx] 3 Allergy/AdvReac Type Severity Reaction Status Date / Time morphine AdvReac Vomiting Verified 02/27/18 16:30 All systems: reviewed and no additional remarkable complaints except as stated Exam - Constitutional Vitals: Temp Pulse Resp BP Pulse Ox 98.4 F 67 16 166/83 97 02/28/18 12:05 02/28/18 12:05 02/28/18 12:05 02/28/18 12:05 02/28/18 12:05 General appearance: average body habitus, cooperative, no acute distress - Head Head exam: Present: atraumatic, normal inspection, normocephalic - Eye Eye exam: Present: EOMI, normal appearance, PERRL Pupils: Present: normal accommodation - ENT ENT exam: Present: mucous membranes moist - Neck Neck exam: Present: normal inspection - Respiratory Respiratory exam: Present: CTAB. Absent: rales, respiratory distress, rhonchi, wheezes - Cardiovascular Cardiovascular exam: Present: RRR, +S1, +S2 - GI/Abdominal GI/Abdominal exam: Present: distended, normal bowel sounds, soft. Absent: tenderness - Extremities Exam Extremities exam: Present: normal inspection. Absent: joint swelling, pedal edema, tenderness - Back Exam Back exam: Present: normal inspection. Absent: paraspinal tenderness, vertebral tenderness - Neurological Exam Neurological exam: Present: alert, oriented X3, no focal deficits - Psychiatric Psychiatric exam: Present: normal affect, normal mood - Skin Skin exam: Present: dry, intact, normal color, warm Infectious Disease CN: Results - Labs CBC & Chem 7: 03/01/18 00:58 03/01/18 00:58 Cultures: Cultures 02/27/18 17:57 Blood Culture - Preliminary Peripheral Venipuncture Culture is incubating and being continuously monitored for growth. Final report to follow. 02/27/18 17:50 Blood Culture - Preliminary Peripheral Venipuncture Culture is incubating and being continuously monitored for growth. Final report to follow. Consult Discharge Plan - Plan Referrals: Svitlana Garcia CNP [Advanced Practice Nurse] - 03/16/18 9:20 am Flaco Robertson MD [Primary Care Provider] - Prescriptions: cefTRIAXone [Rocephin] 2,000 mg IVPB DAILY #42 vial - Attending Attestation I examined this patient and my medical decision-making was reviewed with Svitlana Garcia CNP. I agree with the documented findings, disposition and treatment plan as described except to the extent set forth below. This is an addendum to original report dictated by Svitlana Garcia CNP. Please refer to Svitlana's note for full detail. Patient is an 87-year-old otherwise healthy gentleman who looks great for his age. He started having acute sudden back pain early February of this year. Patient was evaluated and had surgical bone biopsy and cultures on February 23 which grew Streptococcus gallolyticus Patient also was bacteremia, gram- positive cocci on February 26 it. Further questioning patient has been having severe constipation without bowel movements and had to have an enema and the second time it was 7 days and had a repeat peak and a month. Patient denies any weight loss denies any night sweats denies any nausea or vomiting denies any abdominal pain denies any other complaints. Assessment and plan: Osteomyelitis/discitis L1 - L2: The causative organism is Streptococcus, gallolyticus concern for colonic malignancy. Repeat cultures have been done and are still growing. Patient will likely need 6-8 weeks of IV antibiotics. We will put her PICC line once cultures from the blood have been negative for at least 48 hours. Consult to GI and spoke with Dr. Brunson regarding the patient and we will prep him for colonoscopy before he leaves. Monitor labs and for drug toxicity Check baseline inflammatory markers
--- NOTE | 2018-02-28 17:30 | Internal Med Progress Note ---
Hospitalist Progress Note - Encounter Date of Encounter: 02/28/18 Time of Encounter: 11:00 - Subjective Interval History: Patient seen and examined at bedside . Denies any pain or discomfort - Exam Vitals: Temp Pulse Resp BP Pulse Ox 98.2 F 68 16 163/75 98 02/28/18 15:39 02/28/18 15:39 02/28/18 15:39 02/28/18 15:39 02/28/18 15:39 Exam: General appearance: Present: cooperative, A&O X 3, pleasant, no acute distress, answers questions appropriately Exam: Patient answering questions appropriately follows commands oriented 3 - Head Head exam: Present: normal inspection - Eye Eye exam: Present: EOMI, normal appearance - Respiratory Respiratory exam: Present: CTAB. Absent: decreased breath sounds, respiratory distress, wheezes - Cardiovascular Cardiovascular exam: Present: RRR, systolic murmur. Absent: diastolic murmur Additional comments: systolic grade 2 murmur - GI/Abdominal GI/Abdominal exam: Present: normal bowel sounds, soft distended . Absent: tenderness - Extremities Exam Extremities exam: Present: pedal edema, warm, radial pulses palpable and symmetrical. Absent: tenderness Additional comments: 1+ pitting edema bilaterally in lower extremities - Back Exam Back exam: Absent: CVA tenderness (L), CVA tenderness (R), paraspinal tenderness , rash noted, tenderness, vertebral tenderness - Neurological Exam Neurological exam: Present: no focal deficits, strengths equal and symetr throughout. Absent: motor sensory deficit, facial droop, speech deficit - Assessment and Plan (1) Bacteremia Current Visit: Yes Status: Acute Assessment and Plan: Infectious disease consulted - according to note suspect strep species - likely strep gallolyticus based on bone cultures source is unclear- ID- OM vs other with seeding to spine- ID concern for intra- abdominal source with possible malignancy given the causative organism. Blood culture drawn 02/26/18 positive 12 for strep Repeat blood culture drawn 02/27/[address] of the abdomen and pelvis 02/24/18 was negative for acute findings in the abdomen and pelvis, but did show a 2.1cm round lesion in the tail of pancreas that appeared grossly stable since previous exam, but assessment was limited without IV contrast. ID recommending GI consult for possible evaluation - colonic malignancy / pancreatic lesion ? Vancomycin Discontinued per ID Rocephin started 2 grams IV daily (2) Osteomyelitis Current Visit: Yes Status: Acute Assessment and Plan: 1 Osteomyelitis of spine L1,L2 -cultures obtained bone biopsy throughout Strep gallolyticus. Patient was notified at home, after he left the hospital AMA the day before. He came into the hospital for further treatment. Intially started on Vancomycin ID consulted switched to Rocephin Repeat blood culture Dr Dean consulted ID consulted (3) BPH (benign prostatic hyperplasia) Current Visit: Yes Status: Chronic Assessment and Plan: cont home meds (4) Hypertension Current Visit: Yes Status: Chronic Assessment and Plan: cont with losartan- IV hydralazine as needed for systolic > 180 (5) Constipation Current Visit: No Status: Acute Assessment and Plan: 1 Patient was seen Tuesday in ED was given Go bhanu at home had stool all day Sat No BM Tuesday Cont to [place] of constipation,Abd soft distended BS X4 we will give 1/2 bottle mag citrate (6) Hyponatremia Current Visit: No Status: Acute Assessment and Plan: Improving 127 today cont to monitor (7) DVT prophylaxis Current Visit: Yes Status: Acute Assessment and Plan: Heparin subque - Time Spent with Patient Total time spent is greater than 50% in coordination of care (as documented) at patient's floor/unit and/or counseling patient: Internal Medicine: Result - Labs CBC & Chem 7: 02/28/18 01:07 02/28/18 06:13 Consult Discharge Plan - Plan Referrals: Flaco Robertson MD [Primary Care Provider] - (2) Osteomyelitis Qualifiers: Osteomyelitis type: other acute Osteomyelitis location: other site Qualified Code(s): M86.18 - Other acute osteomyelitis, other site (3) BPH (benign prostatic hyperplasia) Qualifiers: Lower urinary tract symptom detail: unspecified Qualified Code(s): N40.1 - Benign prostatic hyperplasia with lower urinary tract symptoms (4) Hypertension Qualifiers: Hypertension type: essential hypertension Qualified Code(s): I10 - Essential (primary) hypertension (5) Constipation Qualifiers: Constipation type: unspecified constipation type Qualified Code(s): K59.00 - Constipation, unspecified
[2018-02-28] MEDS ORDERED: Acetaminophen 325 MG TABLET PO PRN (20:57)
[2018-02-28] MEDS ORDERED: Melatonin 3 MG TABLET PO PRN (21:01)
[2018-02-28] MEDS: Gabapentin 300 MG CAPSULE PO SCH (22:31)
[2018-03-01 02:20] LABS: Basophils % 0.1 %; Eosinophils % 0.1 %; Hematocrit 28.5 % (37.5-50.1); Hemoglobin 9.9 g/dL (12.9-16.9); Immature Granulocytes % 0.4 % (0-4); Lymphocytes # 1.5 K/mcL (0.6-4.6); Lymphocytes % 19.6 %; Mean Corpuscular HGB Conc 34.7 g/dL (31.6-35.5); Mean Corpuscular Hemoglobin 30.7 pg (28.0-33.3); Mean Corpuscular Volume 88.5 fL (83.0-100.0); Mean Platelet Volume 9.1 fL (9.4-12.4); Monocytes # 0.7 K/mcL (0.0-1.3); Monocytes % 9.5 %; Neutrophils # 5.2 K/mcL (1.6-8.9); Platelet Count 310 K/mcL (140-400); Red Blood Count 3.22 M/mcL (4.19-5.50); Segmented Neutrophils % 70.3 %
[2018-03-01 02:40] LABS: BUN/Creatinine Ratio 17 (6-26); Blood Urea Nitrogen 12 mg/dL (8-23); Calcium 8.5 mg/dL (8.6-10.3); Carbon Dioxide 27 mEq/L (23-29); Chloride 94 mEq/L (98-107); Glucose 106 mg/dL (70-105); Osmolality,Calculated 264 (280-300); Potassium 4.4 mEq/L (3.5-5.1); Sodium 127 mEq/L (136-145); eGFR For Non-African Americans > 60 (> 60)
[2018-03-01] MEDS: *HR* Heparin 5,000 UNIT/ML VIAL SQ SCH ×2 (05:18→18:06)
[2018-03-01] MEDS: OXYCODONE Oral CONC 10 MG/0.5 ML ORAL.SYG SL PRN ×2 (05:19→15:48)
[2018-03-01] MEDS: cefTRIAXone 2,000 MG in Water for inj. (sterile) 20 ML 20 ML IVP SCH (07:47)
[2018-03-01] MEDS: Gabapentin 300 MG CAPSULE PO SCH (07:48)
[2018-03-01] MEDS: Finasteride 5 MG TABLET PO SCH (07:48)
[2018-03-01] MEDS: *HR* HYDROcodone/Acet 7.5/325 mg TABLET PO PRN ×2 (07:55→18:05)
[2018-03-01] MEDS ORDERED: Aminoglycoside Consult 1 EACH MC ONE (08:07)
--- NOTE | 2018-03-01 13:43 | Infectious Disease Progress No ---
Date of Encounter: 03/01/18 Time of Encounter: 10:30 - Assessment and Plan (1) Bacteremia Current Visit: Yes Status: Acute Causative organism: Strep species, final ID and sensitivities pending, but likely S. gallolyticus based on bone cultures. Source unclear: OM vs. other with seeding of the spine. Concern for intra- abdominal source with possible malignancy given the causative organism. Blood cultures drawn 02/26/18 are positive 1/2 sets for Strep species per PCR. Repeat blood cultures drawn 02/27/18 are NGTD x [address] of the abdomen and pelvis 02/24/18 was negative for acute findings in the abdomen and pelvis, but did show a 2.1cm round lesion in the tail of pancreas that appeared grossly stable since previous exam, but assessment was limited without IV contrast. Recommend GI consult for evaluation of possible colonic malignancy and pancreas lesion given the causative organism with unclear source. Discussed with the GI team and they will see him tomorrow. Check ESR and CRP. --> ESR 82, CRP 43. Continue Rocephin 2 grams IV daily. Duration of treatment depends on the clinical picture, but likely 6-8 weeks. Consult VAT for IV line placement. shipping services sales representative to assist with discharge planning. Will need weekly CBC, BUN/Cr, ESR, and CRP. Will need weekly IV care per protocol. Follow up with ID 03/16/18 at 0920. (2) Osteomyelitis Current Visit: Yes Status: Acute Location: L1, L2. Causative organism: S. gallolyticus. Source unclear. The patient's symptoms started prior to the SI joint injection so I do not think that is the source. I am concerned for seeding of the spine from bacteremia of unclear source. MRI of the L-spine 02/20/18 showed osteomyelitis/discitis L1-L2. Status post bone biopsy 02/23/18. 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 Recommend Dr. Gonzalez to evaluate. Pain management per the primary team. Continue Rocephin 2 grams IV daily. Duration of treatment depends on the clinical picture, but likely 6-8 weeks. Additional OPAT recommendations as above. Qualifiers: Osteomyelitis type: other acute Osteomyelitis location: other site Qualified Code(s): M86.18 - Other acute osteomyelitis, other site (3) Constipation Current Visit: No Status: Acute Etiology unclear: Opioid induced vs. other. CT of the abdomen and pelvis 02/24/18 did not show any colonic mass, but given the causative organism of his bacteremia and osteomyelitis, concern for intra- abdominal source. Recommend GI consult. Discussed with the GI team. Bowel regimen per the primary team. Qualifiers: Constipation type: unspecified constipation type Qualified Code(s): K59.00 - Constipation, unspecified (4) Hyponatremia Current Visit: No Status: Acute Etiology unclear. Further workup and management per the primary team. (5) Hypertension Current Visit: Yes Status: Chronic Qualifiers: Hypertension type: essential hypertension Qualified Code(s): I10 - Essential (primary) hypertension (6) BPH (benign prostatic hyperplasia) Current Visit: Yes Status: Chronic Qualifiers: Lower urinary tract symptom detail: unspecified Qualified Code(s): N40.1 - Benign prostatic hyperplasia with lower urinary tract symptoms - Subjective Interval history: Patient seen and examined. No acute events noted overnight. Patient lying in bed with at bedside. Denies fevers, chills, or rigors. Denies chest pain, shortness of breath, or cough. Denies nausea, vomiting, or diarrhea. Denies abdominal pain, but reports abdominal distention secondary to constipation. States he has not had a BM in 4 days. Denies appetite changes. Denies oral thrush or skin lesions. Reports persistent pain in his back, improved since admission, but still painful with movement or weight-bearing. Infect Dis PN-Objective Data - Labs CBC & Chem 7: 03/01/18 00:58 03/01/18 00:58 Labs: Laboratory Results - last 24 hr 03/01/18 03/01/18 03/01/18 00:58 00:58 10:50 WBC 7.5 RBC 3.22 L Hgb 9.9 L Hct 28.5 L MCV 88.5 MCH 30.7 MCHC 34.7 RDW 12.0 Plt Count 310 MPV 9.1 L Immature Gran % 0.4 Seg Neutrophils % 70.3 Lymphocytes % 19.6 Monocytes % 9.5 Eosinophils % 0.1 Basophils % 0.1 Neutrophils # 5.2 Lymphocytes # 1.5 Monocytes # 0.7 Eosinophils # 0.0 Basophils # 0.0 Sodium 127 L Potassium 4.4 Chloride 94 L Carbon Dioxide 27 BUN 12 Creatinine 0.71 Est GFR ( Amer) > 60 Est GFR (Non-Af Amer) > 60 BUN/Creatinine Ratio 17 Glucose 106 H Calculated Osmolality 264 L Calcium 8.5 L Vancomycin Trough 5 Exam - Constitutional Vitals: Temp Pulse Resp BP Pulse Ox 97.6 F 80 16 165/58 94 03/01/18 11:25 03/01/18 11:25 03/01/18 11:25 03/01/18 11:25 03/01/18 11:25 General appearance: average body habitus, cooperative, no acute distress - Head Head exam: Present: atraumatic, normal inspection, normocephalic - Eye Eye exam: Present: EOMI, normal appearance, PERRL Pupils: Present: normal accommodation - ENT ENT exam: Present: mucous membranes moist - Neck Neck exam: Present: normal inspection - Respiratory Respiratory exam: Present: CTAB. Absent: rales, respiratory distress, rhonchi, wheezes - Cardiovascular Cardiovascular exam: Present: RRR, +S1, +S2 - GI/Abdominal GI/Abdominal exam: Present: distended, normal bowel sounds, soft. Absent: tenderness - Extremities Exam Extremities exam: Present: normal inspection. Absent: joint swelling, pedal edema, tenderness - Back Exam Back exam: Present: normal inspection. Absent: paraspinal tenderness, vertebral tenderness - Neurological Exam Neurological exam: Present: alert, oriented X3, no focal deficits - Psychiatric Psychiatric exam: Present: normal affect, normal mood - Skin Skin exam: Present: dry, intact, normal color, warm Consult Discharge Plan - Plan Referrals: Flaco Robertson MD [Primary Care Provider] - Svitlana Garcia CNP [Advanced Practice Nurse] - 03/16/18 9:20 am Prescriptions: cefTRIAXone [Rocephin] 2,000 mg IVPB DAILY #42 vial - Attending Attestation I examined this patient and my medical decision-making was reviewed with the Resident Physician. I agree with the documented findings, disposition and treatment plan as described except to the extent set forth below.
--- NOTE | 2018-03-01 19:47 | Internal Med Progress Note ---
Hospitalist Progress Note - Encounter Date of Encounter: 03/01/18 Time of Encounter: 11:00 - Subjective Interval History: Patient seen and examined at bedside . Complains of constipation and is passing gas - Exam Vitals: Temp Pulse Resp BP Pulse Ox 99.3 F 86 16 131/76 95 03/01/18 19:12 03/01/18 19:12 03/01/18 19:12 03/01/18 19:12 03/01/18 19:12 Exam: General appearance: Present: cooperative, A&O X 3, pleasant, no acute distress, answers questions appropriately Exam: Patient answering questions appropriately follows commands oriented 3 - Head Head exam: Present: normal inspection - Eye Eye exam: Present: EOMI, normal appearance - Respiratory Respiratory exam: Present: CTAB. Absent: decreased breath sounds, respiratory distress, wheezes - Cardiovascular Cardiovascular exam: Present: RRR, systolic murmur. Absent: diastolic murmur Additional comments: systolic grade 2 murmur - GI/Abdominal GI/Abdominal exam: Present: normal bowel sounds, soft distended . Absent: tenderness - Extremities Exam Extremities exam: Present: pedal edema, warm, radial pulses palpable and symmetrical. Absent: tenderness Additional comments: 1+ pitting edema bilaterally in lower extremities - Back Exam Back exam: Absent: CVA tenderness (L), CVA tenderness (R), paraspinal tenderness , rash noted, tenderness, vertebral tenderness - Neurological Exam Neurological exam: Present: no focal deficits, strengths equal and symetr throughout. Absent: motor sensory deficit, facial droop, speech deficit - Assessment and Plan (1) Bacteremia Current Visit: Yes Status: Acute Assessment and Plan: Infectious disease consulted - according to note suspect strep species - likely strep gallolyticus based on bone cultures source is unclear- ID- OM vs other with seeding to spine- ID concern for intra- abdominal source with possible malignancy given the causative organism. Blood culture drawn 02/26/18 positive 12 for strep Repeat blood culture drawn 02/27/[address] of the abdomen and pelvis 02/24/18 was negative for acute findings in the abdomen and pelvis, but did show a 2.1cm round lesion in the tail of pancreas that appeared grossly stable since previous exam, but assessment was limited without IV contrast. ID recommending GI consult for possible evaluation they will see patient in am - colonic malignancy /pancreatic lesion ? Vancomycin Discontinued per ID Rocephin started 2 grams IV daily - recommending cont Rocephin for approx 6-1 weeks Consult VAT for IV line placement. social human services assistants to assist with discharge planning. Will need weekly CBC, BUN/Cr, ESR, and CRP. Will need weekly IV care per protocol. Follow up with ID 03/16/18 at 0920. (2) Osteomyelitis Current Visit: Yes Status: Acute Assessment and Plan: 1 Osteomyelitis of spine L1,L2 -cultures obtained bone biopsy throughout Strep gallolyticus. Patient was notified at home, after he left the hospital AMA the day before. He came into the hospital for further treatment. Intially started on Vancomycin ID consulted switched to Rocephin Repeat blood culture Dr Dean consulted ID consulted -Cont Rocephin for 6-8 weeks Consult VAT for IV line placement. social human services assistants to assist with discharge planning. Will need weekly CBC, BUN/Cr, ESR, and CRP. Will need weekly IV care per protocol. Follow up with ID 03/16/18 at 0920. (3) BPH (benign prostatic hyperplasia) Current Visit: Yes Status: Chronic Assessment and Plan: cont home meds (4) Hypertension Current Visit: Yes Status: Chronic Assessment and Plan: cont with losartan- IV hydralazine as needed for systolic > 180 (5) Constipation Current Visit: No Status: Acute Assessment and Plan: 1 Patient was seen Tuesday in ED was given Go bhanu at home had stool all day Sat No BM Tuesday Cont to [place] of constipation,Abd soft distended BS X4 Has been passing gas will cont with Miralax as well as stool softeners- patient is taking pain medications (6) Hyponatremia Current Visit: No Status: Acute Assessment and Plan: Improving 127 today cont to monitor - appears this chronic and his baseline is around 132 (7) DVT prophylaxis Current Visit: Yes Status: Acute Assessment and Plan: Heparin subque - Time Spent with Patient Total time spent is greater than 50% in coordination of care (as documented) at patient's floor/unit and/or counseling patient: Internal Medicine: Result - Labs CBC & Chem 7: 03/01/18 00:58 03/01/18 00:58 Labs: Short CBC 03/01/18 Range/Units 00:58 WBC 7.5 (4.3-11.1) K/mcL Hgb 9.9 L (12.9-16.9) g/dL Hct 28.5 L (37.5-50.1) % Plt Count 310 (140-400) K/mcL Neutrophils # 5.2 (1.6-8.9) K/mcL BMP 03/01/18 00:58 Sodium 127 L Potassium 4.4 Chloride 94 L Carbon Dioxide 27 BUN 12 Creatinine 0.71 Glucose 106 H Calcium 8.5 L Consult Discharge Plan - Plan Referrals: Svitlana Garcia CNP [Advanced Practice Nurse] - 03/16/18 9:20 am Flaco Robertson MD [Primary Care Provider] - Prescriptions: cefTRIAXone [Rocephin] 2,000 mg IVPB DAILY #42 vial (2) Osteomyelitis Qualifiers: Osteomyelitis type: other acute Osteomyelitis location: other site Qualified Code(s): M86.18 - Other acute osteomyelitis, other site (3) BPH (benign prostatic hyperplasia) Qualifiers: Lower urinary tract symptom detail: unspecified Qualified Code(s): N40.1 - Benign prostatic hyperplasia with lower urinary tract symptoms (4) Hypertension Qualifiers: Hypertension type: essential hypertension Qualified Code(s): I10 - Essential (primary) hypertension (5) Constipation Qualifiers: Constipation type: unspecified constipation type Qualified Code(s): K59.00 - Constipation, unspecified
[2018-03-02] MEDS: *HR* HYDROcodone/Acet 7.5/325 mg TABLET PO PRN ×2 (00:22→17:42)
[2018-03-02] MEDS ORDERED: Milk and Molasses Enema 200 ML RC ONE (02:40)
[2018-03-02] MEDS ORDERED: Simethicone 80 MG TAB.CHEW PO PRN (02:41)
[2018-03-02] MEDS: OXYCODONE Oral CONC 10 MG/0.5 ML ORAL.SYG SL PRN ×3 (03:02→20:02)
[2018-03-02 03:19] LABS: Basophils % 0.3 %; Eosinophils % 0.4 %; Hematocrit 31.1 % (37.5-50.1); Hemoglobin 10.6 g/dL (12.9-16.9); Immature Granulocytes % 0.4 % (0-4); Lymphocytes # 2.1 K/mcL (0.6-4.6); Lymphocytes % 28.3 %; Mean Corpuscular HGB Conc 34.1 g/dL (31.6-35.5); Mean Corpuscular Hemoglobin 30.4 pg (28.0-33.3); Mean Corpuscular Volume 89.1 fL (83.0-100.0); Mean Platelet Volume 8.4 fL (9.4-12.4); Monocytes # 0.9 K/mcL (0.0-1.3); Monocytes % 11.6 %; Neutrophils # 4.3 K/mcL (1.6-8.9); Platelet Count 312 K/mcL (140-400); Red Blood Count 3.49 M/mcL (4.19-5.50); Red Cell Distribution Width 12.2 % (11.5-14.5)
[2018-03-02 03:42] LABS: BUN/Creatinine Ratio 17 (6-26); Blood Urea Nitrogen 13 mg/dL (8-23); Carbon Dioxide 27 mEq/L (23-29); Chloride 93 mEq/L (98-107); Glucose 114 mg/dL (70-105); Osmolality,Calculated 265 (280-300); Potassium 4.4 mEq/L (3.5-5.1); Sodium 127 mEq/L (136-145); eGFR For Non-African Americans > 60 (> 60)
[2018-03-02] MEDS: *HR* Heparin 5,000 UNIT/ML VIAL SQ SCH ×3 (06:26→17:43)
--- NOTE | 2018-03-02 08:52 | Internal Med Progress Note ---
Hospitalist Progress Note - Encounter Date of Encounter: 03/02/18 Time of Encounter: 08:49 - Subjective Interval History: Patient seen and examined at bedside . Complains of constipation and is passing gas He was given a enema overnight - Exam Vitals: Temp Pulse Resp BP Pulse Ox 98.3 F 76 16 159/86 97 03/02/18 07:10 03/02/18 07:10 03/02/18 07:10 03/02/18 07:10 03/02/18 07:10 Exam: General appearance: Present: cooperative, A&O X 3, pleasant, no acute distress, answers questions appropriately Exam: Patient answering questions appropriately follows commands oriented 3 - Head Head exam: Present: normal inspection - Eye Eye exam: Present: EOMI, normal appearance - Respiratory Respiratory exam: Present: CTAB. Absent: decreased breath sounds, respiratory distress, wheezes - Cardiovascular Cardiovascular exam: Present: RRR, systolic murmur. Absent: diastolic murmur Additional comments: systolic grade 2 murmur - GI/Abdominal GI/Abdominal exam: Present: normal bowel sounds, soft distended . Absent: tenderness - Extremities Exam Extremities exam: Present: pedal edema, warm, radial pulses palpable and symmetrical. Absent: tenderness Additional comments: 1+ pitting edema bilaterally in lower extremities - Back Exam Back exam: Absent: CVA tenderness (L), CVA tenderness (R), paraspinal tenderness , rash noted, tenderness, vertebral tenderness - Neurological Exam Neurological exam: Present: no focal deficits, strengths equal and symetr throughout. Absent: motor sensory deficit, facial droop, speech deficit - Assessment and Plan (1) Bacteremia Current Visit: Yes Status: Acute Assessment and Plan: Infectious disease consulted - according to note suspect strep species - likely strep gallolyticus based on bone cultures source is unclear- ID- OM vs other with seeding to spine- ID concern for intra- abdominal source with possible malignancy given the causative organism. Blood culture drawn 02/26/18 positive 07/05 for strep Repeat blood culture drawn 02/27/[address] of the abdomen and pelvis 02/24/18 was negative for acute findings in the abdomen and pelvis, but did show a 2.1cm round lesion in the tail of pancreas that appeared grossly stable since previous exam, but assessment was limited without IV contrast. ID recommending GI consult for possible evaluation they will see patient in am - colonic malignancy /pancreatic lesion ? Vancomycin Discontinued per ID Rocephin started 2 grams IV daily - recommending cont Rocephin for approx 6-1 weeks Consult VAT for IV line placement. director financial services to assist with discharge planning. Will need weekly CBC, BUN/Cr, ESR, and CRP. Will need weekly IV care per protocol. Follow up with ID 03/16/18 at 0920. (2) Osteomyelitis Current Visit: Yes Status: Acute Assessment and Plan: 1 Osteomyelitis of spine L1,L2 -cultures obtained bone biopsy throughout Strep gallolyticus. Patient was notified at home, after he left the hospital AMA the day before. He came into the hospital for further treatment. Intially started on Vancomycin ID consulted switched to Rocephin Repeat blood culture Dr Dean consulted ID consulted -Cont Rocephin for 6-8 weeks Consult VAT for IV line placement. director financial services to assist with discharge planning. Will need weekly CBC, BUN/Cr, ESR, and CRP. Will need weekly IV care per protocol. Follow up with ID 03/16/18 at 0920. (3) BPH (benign prostatic hyperplasia) Current Visit: Yes Status: Chronic Assessment and Plan: cont home meds (4) Hypertension Current Visit: Yes Status: Chronic Assessment and Plan: we will switch to norvasc 5mg daily to protect kidney will be on skilled nursing vanc for approx 6 weeks (5) Constipation Current Visit: No Status: Acute Assessment and Plan: 1 Patient was seen Tuesday in ED was given Go bhanu at home had stool all day Sat No BM Tuesday Cont to [place] of constipation,Abd soft distended BS X4 Has been passing gas will cont with Miralax as well as stool softeners- patient is taking pain medications He was given enema with little relief- will obtain KUB (6) Hyponatremia Current Visit: No Status: Acute Assessment and Plan: Improving 127 today cont to monitor - appears this chronic and his baseline is around 132- will add salt tab daily and monitor closely (7) DVT prophylaxis Current Visit: Yes Status: Acute Assessment and Plan: Heparin subque - Time Spent with Patient Total time spent is greater than 50% in coordination of care (as documented) at patient's floor/unit and/or counseling patient: Internal Medicine: Result - Labs CBC & Chem 7: 03/02/18 03:13 03/02/18 03:13 Labs: Short CBC 03/02/18 Range/Units 03:13 WBC 7.3 (4.3-11.1) K/mcL Hgb 10.6 L (12.9-16.9) g/dL Hct 31.1 L (37.5-50.1) % Plt Count 312 (140-400) K/mcL Neutrophils # 4.3 (1.6-8.9) K/mcL BMP 03/02/18 03:13 Sodium 127 L Potassium 4.4 Chloride 93 L Carbon Dioxide 27 BUN 13 Creatinine 0.78 Glucose 114 H Calcium 9.0 Consult Discharge Plan - Plan Referrals: Svitlana Garcia CORE CHECKER [Advanced Practice Nurse] - 03/16/18 9:20 am Flaco Robertson MD [Primary Care Provider] - Prescriptions: cefTRIAXone [Rocephin] 2,000 mg IVPB DAILY #42 vial (2) Osteomyelitis Qualifiers: Osteomyelitis type: other acute Osteomyelitis location: other site Qualified Code(s): M86.18 - Other acute osteomyelitis, other site (3) BPH (benign prostatic hyperplasia) Qualifiers: Lower urinary tract symptom detail: unspecified Qualified Code(s): N40.1 - Benign prostatic hyperplasia with lower urinary tract symptoms (4) Hypertension Qualifiers: Hypertension type: essential hypertension Qualified Code(s): I10 - Essential (primary) hypertension (5) Constipation Qualifiers: Constipation type: unspecified constipation type Qualified Code(s): K59.00 - Constipation, unspecified
--- NOTE | 2018-03-02 09:05 | Gastroenterology Consult Note ---
<Danilo Becker - Last Filed: 03/02/18 18:43> Date of Encounter: 03/02/18 Time of Encounter: 09:03 - Assessment and plan (1) Bacteremia Current Visit: Yes Status: Acute Assessment and plan: Possibly secondary to strep gallolyticus based on bone CX - Blood CX 02/26/18: positive 1/2 for strep - Repeat blood CX 02/27/18: pending - CT abdomen 02/24: 2.1cm round lesion in the tail of pancreas, grossly stable since previous exam - Patient was originally on vancomycin; rocephin 2g IV daily has been started; will continue for 6-8w - Plan is to perform colonoscopy tomorrow morning. NPO at midnight (2) Osteomyelitis Current Visit: Yes Status: Acute Assessment and plan: Osteomyelitis of spine L1, L2 -cultures obtained bone biopsy throughout Strep gallolyticus - Intially started on Vancomycin; ID consulted switched to Rocephin - ID consulted -Cont Rocephin for 6-8 weeks - Spinal surgery consulted Qualifiers: Osteomyelitis type: other acute Osteomyelitis location: other site Qualified Code(s): M86.18 - Other acute osteomyelitis, other site (3) Constipation Current Visit: No Status: Acute Assessment and plan: Continue Miralax and stool softeners Qualifiers: Constipation type: unspecified constipation type Qualified Code(s): K59.00 - Constipation, unspecified - Time Spent With Patient Total time spent is greater than 50% in coordination of care (as documented) at patient's floor/unit and/or counseling patient: GI History of Present Illness - Data of Consult Requesting Physician: Nanda Gonsales MD - Consult Narrative Reason for consult: Strep bovis bacteremia History of present illness: Mr. Burkett is a 87 year old male with a PMH of aortic aneurysm, GERD, HLD, HTN , and BPH who presented to [facility] with the chief complaint of back pain that had been going on since february 09. He denied any precipitating events. He denied any prior history of pain like this. A bone biopsy was performed by pain management, which indicated that he likely had osteomyelitis. Patient initially had left AMA because he said that he felt fine. He was found to have a sodium of 122 and was readmitted. Patient admitted to having constipation, but denied N/V/D. Past Med Surg Social Fam HX - Past Medical History Medical history: aortic aneurysm, GERD, hyperlipidemia, hypertension Additional medical history: prostate enlargement Psychiatric history: no psych history - Past Surgical History Surgical History: no surgical history Additional surgical history: cervical disc surgery. pilonidal cyst - Social History Smoking Status: Former smoker Smokeless Tobacco Status: No Alcohol use: rarely Drug use: none - Family History Father Living Status: Cause of : cerebral hemorrhage - Constitutional Vitals: Temp Pulse Resp BP Pulse Ox 98.3 F 76 16 159/86 97 03/02/18 07:10 03/02/18 07:10 03/02/18 07:10 03/02/18 07:10 03/02/18 07:10 General appearance: Present: cooperative, A&O X 3, no acute distress, answers questions appropriately - Respiratory Respiratory exam: Present: CTAB - Cardiovascular Cardiovascular exam: Present: RRR, +S1, +S2 - GI/Abdominal GI/Abdominal exam: Present: normal bowel sounds, soft, no peritoneal signs - Neurological Exam Neurological exam: Present: no focal deficits - Skin Skin exam: Present: dry, intact, normal color, warm Results - Labs CBC & Chem 7: 03/02/18 03:13 03/02/18 03:13 Labs: Last Result ESR 82 mm/hr (0-10) H 02/28/18 01:07 Calcium 9.0 mg/dL (8.6-10.3) 03/02/18 03:13 C-Reactive Protein 43 mg/L (Less than 10) H 02/28/18 06:13 Entire Visit Hgb 10.6 g/dL (12.9-16.9) L 03/02/18 03:13 Hct 31.1 % (37.5-50.1) L 03/02/18 03:13 Consult Discharge Plan - Plan Referrals: Svitlana Garcia CNP [Advanced Practice Nurse] - 03/16/18 9:20 am Flaco Robertson MD [Primary Care Provider] - Prescriptions: cefTRIAXone [Rocephin] 2,000 mg IVPB DAILY #42 vial <Florentin Shi - Last Filed: 03/02/18 23:05> Date of Encounter: 03/02/18 Time of Encounter: 18:00 - Time Spent With Patient Total time spent is greater than 50% in coordination of care (as documented) at patient's floor/unit and/or counseling patient: GI History of Present Illness - Data of Consult Requesting Physician: Nanda Gonsales MD - Consult Narrative History of present illness: Mr. Burkett is a 87 year old male - Constitutional Vitals: Temp Pulse Resp BP Pulse Ox 97.7 F 74 16 164/84 94 03/02/18 20:26 03/02/18 20:26 03/02/18 20:26 03/02/18 20:26 03/02/18 20:26 Results - Labs CBC & Chem 7: 03/02/18 03:13 03/02/18 03:13 Labs: Last Result ESR 82 mm/hr (0-10) H 02/28/18 01:07 Calcium 9.0 mg/dL (8.6-10.3) 03/02/18 03:13 C-Reactive Protein 43 mg/L (Less than 10) H 02/28/18 06:13 Entire Visit Hgb 10.6 g/dL (12.9-16.9) L 03/02/18 03:13 Hct 31.1 % (37.5-50.1) L 03/02/18 03:13 - Impressions Impressions KUB X-Ray 03/02/18 08:47 IMPRESSION: Mild constipation. D/ / 03/02/2018 14:01:32 Marah Smith MD / abigail Interpreting Provider: Marah Smith MD - Attending Attestation I have personally performed a face to face evaluation on this patient. I have reviewed and agree with the care plan. History and Exam by me shows: Pt seen. o/E : bad soft. A: Strep Bovis bacteremia r/o gI pathology Rec: Colon am
[2018-03-02] MEDS: cefTRIAXone 2,000 MG in Water for inj. (sterile) 20 ML 20 ML IVP SCH (09:08)
[2018-03-02] MEDS: Finasteride 5 MG TABLET PO SCH (09:09)
[2018-03-02] MEDS: amLODIPine 5 MG TABLET PO SCH (09:09)
--- NOTE | 2018-03-02 13:37 | Infectious Disease Progress No ---
Date of Encounter: 03/02/18 Time of Encounter: 09:45 - Assessment and Plan (1) Bacteremia Current Visit: Yes Status: Acute Causative organism: Strep species, final ID and sensitivities pending, but likely S. gallolyticus based on bone cultures. Source unclear: OM vs. other with seeding of the spine. Concern for intra- abdominal source with possible malignancy given the causative organism. Blood cultures drawn 02/26/18 are positive 1/2 sets for Strep species per PCR. Repeat blood cultures drawn 02/27/18 are NGTD x [address] of the abdomen and pelvis 02/24/18 was negative for acute findings in the abdomen and pelvis, but did show a 2.1cm round lesion in the tail of pancreas that appeared grossly stable since previous exam, but assessment was limited without IV contrast. Recommend GI consult for evaluation of possible colonic malignancy and pancreas lesion given the causative organism with unclear source. Check ESR and CRP. --> ESR 82, CRP 43. Continue Rocephin 2 grams IV daily. Duration of treatment depends on the clinical picture, but likely 6-8 weeks. Midline placed 03/01/18. check services clerk to assist with discharge planning. Will need weekly CBC, BUN/Cr, ESR, and CRP. Will need weekly IV care per protocol. Follow up with ID 03/16/18 at 0920. (2) Osteomyelitis Current Visit: Yes Status: Acute Location: L1, L2. Causative organism: S. gallolyticus. Source unclear. The patient's symptoms started prior to the SI joint injection so I do not think that is the source. I am concerned for seeding of the spine from bacteremia of unclear source. MRI of the L-spine 02/20/18 showed osteomyelitis/discitis L1-L2. Status post bone biopsy 02/23/18. 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 Recommend Dr. Gonzalez to evaluate. Pain management per the primary team. Continue Rocephin 2 grams IV daily. Duration of treatment depends on the clinical picture, but likely 6-8 weeks. Additional OPAT recommendations as above. Qualifiers: Osteomyelitis type: other acute Osteomyelitis location: other site Qualified Code(s): M86.18 - Other acute osteomyelitis, other site (3) Constipation Current Visit: No Status: Acute Etiology unclear: Opioid induced vs. other. CT of the abdomen and pelvis 02/24/18 did not show any colonic mass, but given the causative organism of his bacteremia and osteomyelitis, concern for intra- abdominal source. GI consulted. Recommendations noted. Bowel regimen per the primary team. Qualifiers: Constipation type: unspecified constipation type Qualified Code(s): K59.00 - Constipation, unspecified (4) Hyponatremia Current Visit: No Status: Acute Etiology unclear. Further workup and management per the primary team. (5) Hypertension Current Visit: Yes Status: Chronic Qualifiers: Hypertension type: essential hypertension Qualified Code(s): I10 - Essential (primary) hypertension (6) BPH (benign prostatic hyperplasia) Current Visit: Yes Status: Chronic Qualifiers: Lower urinary tract symptom detail: unspecified Qualified Code(s): N40.1 - Benign prostatic hyperplasia with lower urinary tract symptoms - Subjective Interval history: Patient seen and examined. No acute events noted overnight. Patient lying in bed with at bedside. Denies fevers, chills, or rigors. Denies chest pain, shortness of breath, or cough. Denies nausea, vomiting, or diarrhea. Denies abdominal pain, but reports abdominal distention secondary to constipation. States he has not had a BM in 4 days. Received an enema last night with little to no results. Denies appetite changes. Denies oral thrush or skin lesions. Reports persistent pain in his back, improved since admission, but still painful with movement or weight-bearing. Infect Dis PN-Objective Data - Labs CBC & Chem 7: 03/02/18 03:13 03/02/18 03:13 Labs: Laboratory Results - last 24 hr 03/02/18 03/02/18 03:13 03:13 WBC 7.3 RBC 3.49 L Hgb 10.6 L Hct 31.1 L MCV 89.1 MCH 30.4 MCHC 34.1 RDW 12.2 Plt Count 312 MPV 8.4 L Immature Gran % 0.4 Seg Neutrophils % 59.0 Lymphocytes % 28.3 Monocytes % 11.6 Eosinophils % 0.4 Basophils % 0.3 Neutrophils # 4.3 Lymphocytes # 2.1 Monocytes # 0.9 Eosinophils # 0.0 Basophils # 0.0 Sodium 127 L Potassium 4.4 Chloride 93 L Carbon Dioxide 27 BUN 13 Creatinine 0.78 Est GFR ( Amer) > 60 Est GFR (Non-Af Amer) > 60 BUN/Creatinine Ratio 17 Glucose 114 H Calculated Osmolality 265 L Calcium 9.0 - Impressions Impressions KUB X-Ray 03/02/18 08:47 IMPRESSION: Mild constipation. D/ / Marah Smith MD / Marah Smith MD Interpreting Provider: Marah Smith MD Exam - Constitutional Vitals: Temp Pulse Resp BP Pulse Ox 97.7 F 79 20 169/83 97 03/02/18 11:36 03/02/18 11:36 03/02/18 11:36 03/02/18 11:36 03/02/18 11:36 General appearance: average body habitus, cooperative, no acute distress - Head Head exam: Present: atraumatic, normal inspection, normocephalic - Eye Eye exam: Present: EOMI, normal appearance, PERRL Pupils: Present: normal accommodation Additional comments: No subconjunctival hemorrhage noted. - ENT ENT exam: Present: mucous membranes moist - Neck Neck exam: Present: normal inspection - Respiratory Respiratory exam: Present: CTAB. Absent: rales, respiratory distress, rhonchi, wheezes - Cardiovascular Cardiovascular exam: Present: RRR, +S1, +S2 - GI/Abdominal GI/Abdominal exam: Present: distended, normal bowel sounds, soft. Absent: tenderness - Extremities Exam Extremities exam: Present: normal inspection, pedal edema (Trace BLE). Absent: joint swelling, tenderness - Back Exam Back exam: Present: normal inspection. Absent: paraspinal tenderness, vertebral tenderness - Neurological Exam Neurological exam: Present: alert, oriented X3, no focal deficits - Psychiatric Psychiatric exam: Present: normal affect, normal mood - Skin Skin exam: Present: dry, intact, normal color, warm Consult Discharge Plan - Plan Referrals: Svitlana Garcia CNP [Advanced Practice Nurse] - 03/16/18 9:20 am Flaco Robertson MD [Primary Care Provider] - Prescriptions: cefTRIAXone [Rocephin] 2,000 mg IVPB DAILY #42 vial - Attending Attestation I examined this patient and my medical decision-making was reviewed with the Resident Physician. I agree with the documented findings, disposition and treatment plan as described except to the extent set forth below.
[2018-03-02] MEDS ORDERED: SODIUM CHLORIDE/NAHCO3/KCL/PEG 4,000 ML SOLN.RECON PO ONE (18:32)
[2018-03-03] MEDS: *HR* HYDROcodone/Acet 7.5/325 mg TABLET PO PRN (01:39)
[2018-03-03 01:42] LABS: Basophils % 0.2 %; Eosinophils % 0.4 %; Hematocrit 30.6 % (37.5-50.1); Hemoglobin 10.5 g/dL (12.9-16.9); Immature Granulocytes % 0.2 % (0-4); Lymphocytes # 1.3 K/mcL (0.6-4.6); Lymphocytes % 16.5 %; Mean Corpuscular HGB Conc 34.3 g/dL (31.6-35.5); Mean Corpuscular Hemoglobin 30.5 pg (28.0-33.3); Mean Platelet Volume 8.6 fL (9.4-12.4); Monocytes # 0.9 K/mcL (0.0-1.3); Monocytes % 10.7 %; Neutrophils # 5.8 K/mcL (1.6-8.9); Platelet Count 302 K/mcL (140-400); Red Blood Count 3.44 M/mcL (4.19-5.50); Red Cell Distribution Width 12.3 % (11.5-14.5)
[2018-03-03 01:57] LABS: BUN/Creatinine Ratio 16 (6-26); Blood Urea Nitrogen 12 mg/dL (8-23); Calcium 8.9 mg/dL (8.6-10.3); Carbon Dioxide 27 mEq/L (23-29); Chloride 90 mEq/L (98-107); Glucose 117 mg/dL (70-105); Osmolality,Calculated 259 (280-300); Potassium 4.2 mEq/L (3.5-5.1); Sodium 124 mEq/L (136-145); eGFR For Non-African Americans > 60 (> 60)
[2018-03-03] MEDS: *HR* Heparin 5,000 UNIT/ML VIAL SQ SCH ×2 (06:41→17:37)
[2018-03-03] MEDS: OXYCODONE Oral CONC 10 MG/0.5 ML ORAL.SYG SL PRN ×3 (06:42→22:46)
[2018-03-03] MEDS: Finasteride 5 MG TABLET PO SCH (10:00)
[2018-03-03] MEDS: amLODIPine 5 MG TABLET PO SCH (10:00)
[2018-03-03] MEDS: cefTRIAXone 2,000 MG in Water for inj. (sterile) 20 ML 20 ML IVP SCH (10:01)
--- NOTE | 2018-03-03 10:13 | Infectious Disease Progress No ---
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 Source unclear: OM vs. other with seeding of the spine. Concern for intra- abdominal source with possible malignancy given the causative organism. Blood cultures drawn 02/26/18 are positive 1/2 sets for Strep species per PCR. Repeat blood cultures drawn 02/27/18 are NGTD x [address] of the abdomen and pelvis 02/24/18 was negative for acute findings in the abdomen and pelvis, but did show a 2.1cm round lesion in the tail of pancreas that appeared grossly stable since previous exam, but assessment was limited without IV contrast. Recommend GI consult for evaluation of possible colonic malignancy and pancreas lesion given the causative organism with unclear source. Check ESR and CRP. --> ESR 82, CRP 43. Continue Rocephin 2 grams IV daily. Duration of treatment depends on the clinical picture, but likely 6-8 weeks. Midline placed 03/01/18. instructional media services technician to assist with discharge planning. Will need weekly CBC, BUN/Cr, ESR, and CRP. Will need weekly IV care per protocol. Follow up with ID 03/16/18 at 0920. (2) Osteomyelitis Current Visit: Yes Status: Acute Location: L1, L2. Causative organism: S. gallolyticus. Source unclear. The patient's symptoms started prior to the SI joint injection so I do not think that is the source. I am concerned for seeding of the spine from bacteremia of unclear source. MRI of the L-spine 02/20/18 showed osteomyelitis/discitis L1-L2. Status post bone biopsy 02/23/18. 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 Recommend Dr. Gonzalez to evaluate. Pain management per the primary team. Continue Rocephin 2 grams IV daily. Duration of treatment depends on the clinical picture, but likely 6-8 weeks. Additional OPAT recommendations as above. Qualifiers: Osteomyelitis type: other acute Osteomyelitis location: other site Qualified Code(s): M86.18 - Other acute osteomyelitis, other site (3) Constipation Current Visit: No Status: Acute Etiology unclear: Opioid induced vs. other. CT of the abdomen and pelvis 02/24/18 did not show any colonic mass, but given the causative organism of his bacteremia and osteomyelitis, concern for intra- abdominal source. KUB 03/02/18 showed mild constipation. GI consulted. Recommendations noted. Planning for colonoscopy today. Bowel regimen per the primary team. Improved. Started having bowel movements overnight, but not clear. C-scope re- scheduled to this afternoon. Qualifiers: Constipation type: unspecified constipation type Qualified Code(s): K59.00 - Constipation, unspecified (4) Hyponatremia Current Visit: No Status: Acute Etiology unclear. Further workup and management per the primary team. (5) Hypertension Current Visit: Yes Status: Chronic Qualifiers: Hypertension type: essential hypertension Qualified Code(s): I10 - Essential (primary) hypertension (6) BPH (benign prostatic hyperplasia) Current Visit: Yes Status: Chronic Qualifiers: Lower urinary tract symptom detail: unspecified Qualified Code(s): N40.1 - Benign prostatic hyperplasia with lower urinary tract symptoms - Subjective Interval history: Patient seen and examined. No acute events noted overnight. Patient ambulating in the room. Denies fevers, chills, or rigors. Denies chest pain, shortness of breath, or cough. Denies nausea, vomiting, or diarrhea. Denies abdominal pain. Had multiple bowel movements overnight secondary to bowel prep for colonoscopy. Denies appetite changes. Denies oral thrush or skin lesions. Reports persistent pain in his back, improved since admission. Infect Dis PN-Objective Data - Labs CBC & Chem 7: 03/03/18 01:17 03/03/18 01:17 Labs: Laboratory Results - last 24 hr 03/03/18 03/03/18 01:17 01:17 WBC 8.1 RBC 3.44 L Hgb 10.5 L Hct 30.6 L MCV 89.0 MCH 30.5 MCHC 34.3 RDW 12.3 Plt Count 302 MPV 8.6 L Immature Gran % 0.2 Seg Neutrophils % 72.0 Lymphocytes % 16.5 Monocytes % 10.7 Eosinophils % 0.4 Basophils % 0.2 Neutrophils # 5.8 Lymphocytes # 1.3 Monocytes # 0.9 Eosinophils # 0.0 Basophils # 0.0 Sodium 124 L Potassium 4.2 Chloride 90 L Carbon Dioxide 27 BUN 12 Creatinine 0.74 Est GFR ( Amer) > 60 Est GFR (Non-Af Amer) > 60 BUN/Creatinine Ratio 16 Glucose 117 H Calculated Osmolality 259 L Calcium 8.9 - Impressions Impressions KUB X-Ray 03/02/18 08:47 IMPRESSION: Mild constipation. D/ / 03/02/2018 14:01:32 Marah Smith MD / abigail Interpreting Provider: Marah Smith MD Exam - Constitutional Vitals: Temp Pulse Resp BP Pulse Ox 98.6 F 69 18 161/53 95 03/03/18 06:41 03/03/18 06:41 03/03/18 06:41 03/03/18 06:41 03/03/18 06:41 General appearance: average body habitus, cooperative, no acute distress - Head Head exam: Present: atraumatic, normal inspection, normocephalic - Eye Eye exam: Present: EOMI, normal appearance, PERRL Pupils: Present: normal accommodation - ENT ENT exam: Present: mucous membranes moist - Neck Neck exam: Present: normal inspection - Respiratory Respiratory exam: Present: CTAB. Absent: rales, respiratory distress, rhonchi, wheezes - Cardiovascular Cardiovascular exam: Present: +S1, +S2, systolic murmur - GI/Abdominal GI/Abdominal exam: Present: distended, normal bowel sounds, soft. Absent: tenderness - Extremities Exam Extremities exam: Present: normal inspection, pedal edema (Trace BLE). Absent: joint swelling, tenderness - Back Exam Back exam: Present: normal inspection. Absent: paraspinal tenderness, vertebral tenderness - Neurological Exam Neurological exam: Present: alert, normal gait, oriented X3, no focal deficits - Psychiatric Psychiatric exam: Present: normal affect, normal mood - Skin Skin exam: Present: dry, intact, normal color, warm Consult Discharge Plan - Plan Referrals: Svitlana Garcia CNP [Advanced Practice Nurse] - 03/16/18 9:20 am Flaco Robertson MD [Primary Care Provider] - Prescriptions: cefTRIAXone [Rocephin] 2,000 mg IVPB DAILY #42 vial - Attending Attestation I examined this patient and my medical decision-making was reviewed with Svitlana Garcia CNP. I agree with the documented findings, disposition and treatment plan as described except to the extent set forth below.
--- NOTE | 2018-03-03 16:32 | Internal Med Progress Note ---
Hospitalist Progress Note - Encounter Date of Encounter: 03/03/18 Time of Encounter: 08:30 - Subjective Interval History: Patient seen and examined at bedside . Patient receiving bowel prep for colonoscopy today. Denies any CP or SOB, complains of being tired - Exam Vitals: Temp Pulse Resp BP Pulse Ox 98.4 F 88 18 147/71 96 03/03/18 15:17 03/03/18 15:17 03/03/18 15:17 03/03/18 15:17 03/03/18 15:17 Exam: General appearance: Present: cooperative, A&O X 3, pleasant, no acute distress, answers questions appropriately Exam: Patient answering questions appropriately follows commands oriented 3 - Head Head exam: Present: normal inspection - Eye Eye exam: Present: EOMI, normal appearance - Respiratory Respiratory exam: Present: CTAB. Absent: decreased breath sounds, respiratory distress, wheezes - Cardiovascular Cardiovascular exam: Present: RRR, systolic murmur. Absent: diastolic murmur Additional comments: systolic grade 2 murmur - GI/Abdominal GI/Abdominal exam: Present: normal bowel sounds, soft distended . Absent: tenderness - Extremities Exam Extremities exam: Present: pedal edema, warm, radial pulses palpable and symmetrical. Absent: tenderness Additional comments: 1+ pitting edema bilaterally in lower extremities - Back Exam Back exam: Absent: CVA tenderness (L), CVA tenderness (R), paraspinal tenderness , rash noted, tenderness, vertebral tenderness - Neurological Exam Neurological exam: Present: no focal deficits, strengths equal and symetr throughout. Absent: motor sensory deficit, facial droop, speech deficit - Assessment and Plan (1) Bacteremia Current Visit: Yes Status: Acute Assessment and Plan: Infectious disease consulted - according to note suspect strep species - likely strep gallolyticus based on bone cultures source is unclear- ID- OM vs other with seeding to spine- ID concern for intra- abdominal source with possible malignancy given the causative organism. Blood culture drawn 02/26/18 positive 12 for strep Repeat blood culture drawn 02/27/[address] of the abdomen and pelvis 02/24/18 was negative for acute findings in the abdomen and pelvis, but did show a 2.1cm round lesion in the tail of pancreas that appeared grossly stable since previous exam, but assessment was limited without IV contrast. ID recommending GI consult for possible evaluation - colonic malignancy / pancreatic lesion ? He will undergo colonoscopy today Vancomycin Discontinued per ID Rocephin started 2 grams IV daily - recommending cont Rocephin for approx 6- weeks PIC line placement. inpatient services rn to assist with discharge planning. Will need weekly CBC, BUN/Cr, ESR, and CRP. Will need weekly IV care per protocol. Follow up with ID 03/16/18 at 0920. (2) Osteomyelitis Current Visit: Yes Status: Acute Assessment and Plan: 1 Osteomyelitis of spine L1,L2 -cultures obtained bone biopsy throughout Strep gallolyticus. Patient was notified at home, after he left the hospital AMA the day before. He came into the hospital for further treatment. Intially started on Vancomycin ID consulted switched to Rocephin Repeat blood culture Dr Dean consulted ID consulted -Cont Rocephin for 6-8 weeks Consult VAT for IV line placement. inpatient services rn to assist with discharge planning. Will need weekly CBC, BUN/Cr, ESR, and CRP. Will need weekly IV care per protocol. Follow up with ID 03/16/18 at 0920. (3) BPH (benign prostatic hyperplasia) Current Visit: Yes Status: Chronic Assessment and Plan: cont home meds (4) Hypertension Current Visit: Yes Status: Chronic Assessment and Plan: we will switch to norvasc 5mg daily to protect kidney (5) Constipation Current Visit: No Status: Acute Assessment and Plan: 1 Patient was seen Tuesday in ED was given Go bhanu at home had stool all day Sat No BM Tuesday Cont to [place] of constipation,Abd soft distended BS X4 Has been passing gas will cont with Miralax as well as stool softeners- patient is taking pain medications KUB did show some constipation GI consulted he undergoing colonoscopy will need colon prep (6) Hyponatremia Current Visit: No Status: Acute Assessment and Plan: - appears this chronic and his baseline is around 132- cont salt tab daily- fluid restriction monitor closely (7) DVT prophylaxis Current Visit: Yes Status: Acute Assessment and Plan: Heparin subque - Time Spent with Patient Total time spent is greater than 50% in coordination of care (as documented) at patient's floor/unit and/or counseling patient: Internal Medicine: Result - Labs CBC & Chem 7: 03/03/18 01:17 03/03/18 01:17 Labs: Short CBC 03/03/18 Range/Units 01:17 WBC 8.1 (4.3-11.1) K/mcL Hgb 10.5 L (12.9-16.9) g/dL Hct 30.6 L (37.5-50.1) % Plt Count 302 (140-400) K/mcL Neutrophils # 5.8 (1.6-8.9) K/mcL BMP 03/03/18 01:17 Sodium 124 L Potassium 4.2 Chloride 90 L Carbon Dioxide 27 BUN 12 Creatinine 0.74 Glucose 117 H Calcium 8.9 Consult Discharge Plan - Plan Referrals: Svitlana Garcia CNP [Advanced Practice Nurse] - 03/16/18 9:20 am Flaco Robertson MD [Primary Care Provider] - Prescriptions: cefTRIAXone [Rocephin] 2,000 mg IVPB DAILY #42 vial (2) Osteomyelitis Qualifiers: Osteomyelitis type: other acute Osteomyelitis location: other site Qualified Code(s): M86.18 - Other acute osteomyelitis, other site (3) BPH (benign prostatic hyperplasia) Qualifiers: Lower urinary tract symptom detail: unspecified (4) Hypertension Qualifiers: Hypertension type: essential hypertension Qualified Code(s): I10 - Essential (primary) hypertension (5) Constipation Qualifiers: Constipation type: unspecified constipation type Qualified Code(s): K59.00 - Constipation, unspecified
[2018-03-03] MEDS ORDERED: Polyethylene Glycol 3350 255 GM POWDER PO ONE (17:00)
[2018-03-04] MEDS: OXYCODONE Oral CONC 10 MG/0.5 ML ORAL.SYG SL PRN ×2 (04:43→17:57)
[2018-03-04] MEDS: *HR* Heparin 5,000 UNIT/ML VIAL SQ SCH ×2 (06:06→17:53)
--- NOTE | 2018-03-04 07:53 | Anesthesia Evaluation PreOp ---
Date of Encounter: 03/04/18 Time of Encounter: 07:50 - Past History Planned Operation: Colonoscopy Cardiac History: HTN, Hyperlipidemia, Other (Hx AAA) Pulmonary History: Former smoker CHILD SUPPORT AGENT History: Denies Any Significant HX Other Medical History: GERD Anesthesia History: No Prior Anesthetic Complications Alcohol Use: rarely Drug use: none Medications and Allergies Finasteride [Proscar] 5 mg PO DAILY 02/26/18 [History] Gabapentin [Neurontin] 300 mg PO TID 02/26/18 [History] Ibuprofen [Ibuprofen] 800 mg PO TID PRN 02/26/18 [History] Losartan Potassium [Cozaar] 100 mg PO DAILY 02/26/18 [History] Tamsulosin [Flomax] 0.4 mg PO DAILY 02/26/18 [History] HYDROcodone/Acet 10/325 mg [Mary D 10-325 mg] 1 tab PO Q6HR PRN 02/27/18 [History ] cefTRIAXone [Rocephin] 2,000 mg IVPB DAILY #42 vial 03/01/18 [Rx] 3 Allergy/AdvReac Type Severity Reaction Status Date / Time morphine AdvReac Vomiting Verified 02/27/18 16:30 - Meds/Allergy Pre-op Review Medications Reviewed: Yes Allergies Reviewed: Yes Beta Blockers on Current Med List: No Anesthesia Results - Labs 03/03/18 01:17 03/03/18 01:17 Laboratory Tests 01/26/17 03/03/18 03/03/18 16:06 01:17 01:17 Hgb 10.5 L Hct 30.6 L Plt Count 302 Sodium 124 L Potassium 4.2 BUN 12 POC Creatinine 0.90 - Imaging EKG: report reviewed (SR) Anesthesia Exam O2 Sat O2 Sat by Pulse Oximetry 96 O2 Sat by Pulse Oximetry 95 O2 Sat by Pulse Oximetry 97 O2 Sat by Pulse Oximetry 96 O2 Sat by Pulse Oximetry 98 Vital Signs Temp Pulse Resp BP Pulse Ox 98.3 F 73 16 149/77 98 02/27/18 16:37 02/27/18 16:37 02/27/18 16:37 02/27/18 16:37 02/27/18 16:37 Height: 5'11 Weight: 183 lbs NPO (# of Hours): MN Pain Scale: 0 - HEENT Pupil (Motor): Pupils equal, EOMI Oral Opening: Greater than 3 - CHILD SUPPORT AGENT LOC: Oriented CHILD SUPPORT AGENT Motor: Normal RUE, Normal LUE, Normal RLE, Normal LLE, Normal Face CHILD SUPPORT AGENT Sensory: Normal: RUE, LUE, RLE, LLE, Face - Cardiac Rhythm: Regular Murmur: None JVD: No Carotid Bruit: No - Pulmonary Breath Sounds: bilateral Clear Respiratory Effort: Symmetrical Anesthesia Assess/Plan ASA Score: 3 (HTN AAA) Modified Steff Scale for Level of Consciousness: Cooperative, oriented, and tranquil Anesthetic Plan: MAC Monitoring Plan: Standard Monitors Recovery Plan: Other (Discussed MAC, agrees to proceed)
[2018-03-04] MEDS ORDERED: Propofol 500 MG/50 ML INFUS..BTL ONE (08:14)
[2018-03-04] MEDS ORDERED: Lidocaine -MPF 2% 2 ML VIAL ONE (08:14)
[2018-03-04] MEDS: cefTRIAXone 2,000 MG in Water for inj. (sterile) 20 ML 20 ML IVP SCH (09:27)
[2018-03-04] MEDS: Finasteride 5 MG TABLET PO SCH (09:28)
[2018-03-04] MEDS: amLODIPine 5 MG TABLET PO SCH (09:28)
[2018-03-04 09:39] LABS: Basophils % 0.1 %; Eosinophils % 0.1 %; Hematocrit 26.8 % (37.5-50.1); Hemoglobin 9.2 g/dL (12.9-16.9); Immature Granulocytes % 0.3 % (0-4); Lymphocytes # 0.8 K/mcL (0.6-4.6); Lymphocytes % 11.4 %; Mean Corpuscular HGB Conc 34.3 g/dL (31.6-35.5); Mean Corpuscular Hemoglobin 30.7 pg (28.0-33.3); Mean Corpuscular Volume 89.3 fL (83.0-100.0); Mean Platelet Volume 8.2 fL (9.4-12.4); Monocytes # 0.7 K/mcL (0.0-1.3); Neutrophils # 5.3 K/mcL (1.6-8.9); Platelet Count 231 K/mcL (140-400); Red Cell Distribution Width 12.2 % (11.5-14.5); Segmented Neutrophils % 78.1 %
[2018-03-04 09:59] LABS: BUN/Creatinine Ratio 14 (6-26); Blood Urea Nitrogen 10 mg/dL (8-23); Calcium 8.6 mg/dL (8.6-10.3); Carbon Dioxide 28 mEq/L (23-29); Chloride 93 mEq/L (98-107); Glucose 120 mg/dL (70-105); Osmolality,Calculated 266 (280-300); Sodium 128 mEq/L (136-145); eGFR For Non-African Americans > 60 (> 60)
--- NOTE | 2018-03-04 10:21 | Anesthesia Evaluation Post Op ---
Date of Encounter: 03/04/18 Time of Encounter: 09:00 - Vital Signs Vital Signs: Vital Signs/O2 Sat/Glucose, Most Current Temp Pulse Resp BP Pulse Ox 03/04/18 08:00 98.9 F 82 16 159/73 97 - Lungs Lungs: Clear Ascult./Percussion - Airway Airway: Non-obstructed - Cardiovascular Regular Rate - Mental Status Mental Status: Alert & Oriented, Answers Appropriately - Pain Pain Scale: 0 - Nausea Vomiting Nausea Vomiting: Not Present - Hydration Hydration: NPO - Discharge PostOp Status: Transfer Patient to floor
[2018-03-04] MEDS: *HR* HYDROcodone/Acet 7.5/325 mg TABLET PO PRN (10:44)
--- NOTE | 2018-03-04 16:54 | Internal Med Progress Note ---
Hospitalist Progress Note - Encounter Date of Encounter: 03/04/18 Time of Encounter: 16:50 - Subjective Interval History: Patient seen and examined at bedside . Patient underwent Colonoscopy and tolerated procedure well - Exam Vitals: Temp Pulse Resp BP Pulse Ox 98.3 F 102 18 151/73 94 03/04/18 12:25 03/04/18 12:25 03/04/18 12:25 03/04/18 12:25 03/04/18 12:25 Exam: General appearance: Present: cooperative, A&O X 3, pleasant, no acute distress, answers questions appropriately Exam: Patient answering questions appropriately follows commands oriented 3 - Head Head exam: Present: normal inspection - Eye Eye exam: Present: EOMI, normal appearance - Respiratory Respiratory exam: Present: CTAB. Absent: decreased breath sounds, respiratory distress, wheezes - Cardiovascular Cardiovascular exam: Present: RRR, systolic murmur. Absent: diastolic murmur Additional comments: systolic grade 2 murmur - GI/Abdominal GI/Abdominal exam: Present: normal bowel sounds, soft distended . Absent: tenderness - Extremities Exam Extremities exam: Present: pedal edema, warm, radial pulses palpable and symmetrical. Absent: tenderness Additional comments: 1+ pitting edema bilaterally in lower extremities - Back Exam Back exam: Absent: CVA tenderness (L), CVA tenderness (R), paraspinal tenderness , rash noted, tenderness, vertebral tenderness - Neurological Exam Neurological exam: Present: no focal deficits, strengths equal and symetr throughout. Absent: motor sensory deficit, facial droop, speech deficit - Assessment and Plan (1) Bacteremia Current Visit: Yes Status: Acute Assessment and Plan: Infectious disease consulted - according to note suspect strep species - likely strep gallolyticus based on bone cultures source is unclear- ID- OM vs other with seeding to spine- ID concern for intra- abdominal source with possible malignancy given the causative organism. Blood culture drawn 02/26/18 positive 12 for strep Repeat blood culture drawn 02/27/[address] of the abdomen and pelvis 02/24/18 was negative for acute findings in the abdomen and pelvis, but did show a 2.1cm round lesion in the tail of pancreas that appeared grossly stable since previous exam, but assessment was limited without IV contrast. ID recommending GI consult for possible evaluation - colonic malignancy / pancreatic lesion-colonoscopy results - multiple small and large mouthed diverticula were found in the sigmoid colon a 30mm polypoid lesion was found in the mid ascending colon. this was biopsied and Dr Dean consulted Dr Dean will see patient as outpatient Vancomycin Discontinued per ID Rocephin started 2 grams IV daily - recommending cont Rocephin for approx 6- weeks PIC line placement. senior administrative services officer to assist with discharge planning. Will need weekly CBC, BUN/Cr, ESR, and CRP. Will need weekly IV care per protocol. Follow up with ID 03/16/18 at 0920. (2) Osteomyelitis Current Visit: Yes Status: Acute Assessment and Plan: 1 Osteomyelitis of spine L1,L2 -cultures obtained bone biopsy throughout Strep gallolyticus. Patient was notified at home, after he left the hospital AMA the day before. He came into the hospital for further treatment. Intially started on Vancomycin ID consulted switched to Rocephin Repeat blood culture Dr Dean consulted ID consulted -Cont Rocephin for 6-8 weeks Consult VAT for IV line placement.-completed senior administrative services officer to assist with discharge planning. Will need weekly CBC, BUN/Cr, ESR, and CRP. Will need weekly IV care per protocol. Follow up with ID 03/16/18 at 0920. (3) BPH (benign prostatic hyperplasia) Current Visit: Yes Status: Chronic Assessment and Plan: cont home meds (4) Hypertension Current Visit: Yes Status: Chronic Assessment and Plan: we will switch to norvasc 5mg daily to protect kidney (5) Constipation Current Visit: No Status: Acute Assessment and Plan: 1 Patient was seen Tuesday in ED was given Go bhanu at home had stool all day Sat No BM Tuesday Cont to [place] of constipation,Abd soft distended BS X4 Has been passing gas will cont with Miralax as well as stool softeners- patient is taking pain medications KUB did show some constipation He was given colonoscopy prep and sx improved we will cont with coalce and miralax (6) Hyponatremia Current Visit: No Status: Acute Assessment and Plan: - appears this chronic and his baseline is around 132- increase salt tab to BID - fluid restriction monitor closely (7) DVT prophylaxis Current Visit: Yes Status: Acute Assessment and Plan: Heparin subque - Time Spent with Patient Total time spent is greater than 50% in coordination of care (as documented) at patient's floor/unit and/or counseling patient: Internal Medicine: Result - Labs CBC & Chem 7: 03/04/18 07:42 03/04/18 07:42 Labs: Short CBC 03/04/18 Range/Units 07:42 WBC 6.8 (4.3-11.1) K/mcL Hgb 9.2 L (12.9-16.9) g/dL Hct 26.8 L (37.5-50.1) % Plt Count 231 (140-400) K/mcL Neutrophils # 5.3 (1.6-8.9) K/mcL BMP 03/04/18 07:42 Sodium 128 L Potassium 4.0 Chloride 93 L Carbon Dioxide 28 BUN 10 Creatinine 0.73 Glucose 120 H Calcium 8.6 Consult Discharge Plan - Plan Referrals: Oscar Dean MD [Partnered Physician] - (Web request sent 03/04/18 at 1500. Enrique' s office will call and schedule an appointment with patient. ) Svitlana Garcia CNP [Advanced Practice Nurse] - 03/16/18 9:20 am Flaco Robertson MD [Primary Care Provider] - Prescriptions: cefTRIAXone [Rocephin] 2,000 mg IVPB DAILY #42 vial (2) Osteomyelitis Qualifiers: Osteomyelitis type: other acute Osteomyelitis location: other site Qualified Code(s): M86.18 - Other acute osteomyelitis, other site (3) BPH (benign prostatic hyperplasia) Qualifiers: Lower urinary tract symptom detail: unspecified (4) Hypertension Qualifiers: Hypertension type: essential hypertension Qualified Code(s): I10 - Essential (primary) hypertension (5) Constipation Qualifiers: Constipation type: unspecified constipation type Qualified Code(s): K59.00 - Constipation, unspecified
[2018-03-04] MEDS: Sennosides/Docusate Sodium TABLET PO SCH (21:08)
[2018-03-05] MEDS: *HR* HYDROcodone/Acet 7.5/325 mg TABLET PO PRN ×2 (02:16→09:09)
[2018-03-05] MEDS: OXYCODONE Oral CONC 10 MG/0.5 ML ORAL.SYG SL PRN ×2 (05:12→12:31)
[2018-03-05] MEDS: *HR* Heparin 5,000 UNIT/ML VIAL SQ SCH (05:13)
--- NOTE | 2018-03-05 08:19 | Discharge Summary ---
- NOTES TO OUTPATIENT PROVIDER Notes to Outpatient Provider: he is receiving 6 weeks IV Rocephin for osteomyelitis in back follow up with ID. Has had low sodium- on salt tabs- monitor chem 7. EGD did show 30mm polypoid lesion in ascending colon, follow up with Dr Nunez- outpatient Orders not resulted at time of discharge: Pending orders 03/04/18 08:40 Surgical Pathology [PTH] Routine 03/05/18 07:05 CBC [Complete Blood Count] [HEME] Routine Chem 7 [Basic Metabolic Panel] Routine Date of Encounter: 03/05/18 Time of Encounter: 08:11 - Discharge Diagnosis (1) Bacteremia Priority: Primary Status: Acute (2) Osteomyelitis Priority: Primary Status: Acute Qualifiers: Osteomyelitis type: other acute Osteomyelitis location: other site Qualified Code(s): M86.18 - Other acute osteomyelitis, other site (3) BPH (benign prostatic hyperplasia) Priority: Secondary Status: Chronic Qualifiers: Lower urinary tract symptom presence: unspecified whether lower urinary tract symptoms present Qualified Code(s): N40.0 - Benign prostatic hyperplasia without lower urinary tract symptoms (4) Hypertension Priority: Secondary Status: Chronic Qualifiers: Hypertension type: essential hypertension Qualified Code(s): I10 - Essential (primary) hypertension Hospital course: Mr. Burkett is a 87 year old male pst medical hx of AAA GERD HLD HTN The patient was admitted to the hospital February 27 for for bacteremia and MRI of the L-spine 02/20/18 osteomylitis of L1-L2 . ID was consulted bone biopsy . 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 concerned for seeding of the spine from bacteremia of unclear source. He was placed on Rocephin and GI consulted for coloscopy. Patient did have some constipation from narcotic use. He also had hyponatremia which appears to ce somewhat chronic however he is significantly lower than his baseline. He was placed on fluid restriction and given salt Tabs which slowly increased sodium. Colonoscopy did reveal a 30 mm polypoid lesion in the mid ascending colon. Dr Nunez consulted and will see patient as outpatient Patient is currently hemodynamically stable - he will have home prashant for IV infusion 6 weeks . He will follow up with surgery, ID and his PCP. I did send him home with percocet prescription for pain, Oarrs report has been reviewed . I also sent prescription for pericolace miralax and salt tabs - Time Spent with Patient Total time spent providing and/or coordinating discharge services: - Discharge Medications Prescriptions: Oxycodone HCl/Acetaminophen [Percocet 5-325 mg Tablet] 1 each PO Q6HR 4 Days # 20 tablet cefTRIAXone [Rocephin] 2,000 mg IVPB DAILY #42 vial Polyethylene Glycol 3350 [MiraLAX] 17 gm PO DAILY #30 powd.pack Sennosides/Docusate Sodium [Senna Plus] 1 each PO BID #30 tablet Simethicone [Gas-X] 80 mg PO TID PRN #30 tab.chew PRN Reason: Dyspepsia Sodium Chloride 1,000 mg MC BID 3 Days #6 tablet.valentine Home Medications: Finasteride [Proscar] 5 mg PO DAILY 02/26/18 [History] Gabapentin [Neurontin] 300 mg PO TID 02/26/18 [History] Ibuprofen [Ibuprofen] 800 mg PO TID PRN 02/26/18 [History] Losartan Potassium [Cozaar] 100 mg PO DAILY 02/26/18 [History] Tamsulosin [Flomax] 0.4 mg PO DAILY 02/26/18 [History] HYDROcodone/Acet 10/325 mg [[place] 10-325 mg] 1 tab PO Q6HR PRN 02/27/18 [History ] cefTRIAXone [Rocephin] 2,000 mg IVPB DAILY #42 vial 03/01/18 [Rx] Oxycodone HCl/Acetaminophen [Percocet 5-325 mg Tablet] 1 each PO Q6HR 4 Days # 20 tablet 03/05/18 [Rx] Polyethylene Glycol 3350 [MiraLAX] 17 gm PO DAILY #30 powd.pack 03/05/18 [Rx] Sennosides/Docusate Sodium [Senna Plus] 1 each PO BID #30 tablet 03/05/18 [Rx] Simethicone [Gas-X] 80 mg PO TID PRN #30 tab.chew 03/05/18 [Rx] Sodium Chloride 1,000 mg MC BID 3 Days #6 tablet.valentine 03/05/18 [Rx] Allergies/Adverse Reactions: 3 Allergy/AdvReac Type Severity Reaction Status Date / Time morphine AdvReac Vomiting Verified 02/27/18 16:30 Date of admission: 02/28/18 12:41 Primary care physician: Flaco Robertson MD Consults: 03/01/18 14:00 Consult to Gastroenterology [CONS] Routine Consulting Provider: Gastroenterology [facility] Reason for Consult: Concern for colonic malignancy due to Strep bacteremia Time Notified: 14:01 Call Completed: Yes Consult to Invasive Line Access Team [CONS] Routine Reason for Consult: Rocephin 6 weeks Line Type: Midline 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 Med/Antibiotic Time Notified: 14:00 Call Completed: Yes Discharging clinician: Saira Mast Anticipated date of discharge: 03/05/18 - Constitutional Vitals: Temp Pulse Resp BP Pulse Ox 99.3 F 81 18 150/75 96 03/05/18 06:58 03/05/18 06:58 03/05/18 06:58 03/05/18 06:58 03/05/18 06:58 General appearance: Present: cooperative, A&O X 3, pleasant, no acute distress, answers questions appropriately Exam: General appearance: Present: cooperative, A&O X 3, pleasant, no acute distress, answers questions appropriately Exam: Patient answering questions appropriately follows commands oriented 3 - Head Head exam: Present: normal inspection - Eye Eye exam: Present: EOMI, normal appearance - Respiratory Respiratory exam: Present: CTAB. Absent: decreased breath sounds, respiratory distress, wheezes - Cardiovascular Cardiovascular exam: Present: RRR, systolic murmur. Absent: diastolic murmur Additional comments: systolic grade 2 murmur - GI/Abdominal GI/Abdominal exam: Present: normal bowel sounds, soft distended . Absent: tenderness - Extremities Exam Extremities exam: Present: pedal edema, warm, radial pulses palpable and symmetrical. Absent: tenderness Additional comments: 1+ pitting edema bilaterally in lower extremities - Back Exam Back exam: Absent: CVA tenderness (L), CVA tenderness (R), paraspinal tenderness , rash noted, tenderness, vertebral tenderness - Neurological Exam Neurological exam: Present: no focal deficits, strengths equal and symetr throughout. Absent: motor sensory deficit, facial droop, speech deficit - Patient Status Disposition: Home Health Service Condition: Good Functional capacity at discharge: independent ambulation Overall status at discharge: patient is back to baseline - Discharge Instructions Follow Up With: Oscar Nunez MD [Partnered Physician] - (Web request sent 03/04/18 at 1500. Enrique' s office will call and schedule an appointment with patient. ) Svitlana Garcia CNP [Advanced Practice Nurse] - 03/16/18 9:20 am Flaco Robertson MD [Primary Care Provider] -
[2018-03-05] MEDS: Sennosides/Docusate Sodium TABLET PO SCH (08:45)
[2018-03-05] MEDS: Finasteride 5 MG TABLET PO SCH (08:46)
[2018-03-05] MEDS: amLODIPine 5 MG TABLET PO SCH (08:46)
[2018-03-05] MEDS: cefTRIAXone 2,000 MG in Water for inj. (sterile) 20 ML 20 ML IVP SCH (08:46)
[2018-03-05 10:45] LABS: Basophils % 0.4 %; Eosinophils % 0.7 %; Hematocrit 30.3 % (37.5-50.1); Hemoglobin 10.2 g/dL (12.9-16.9); Immature Granulocytes % 0.4 % (0-4); Immature Platelets 1.3 % (1.1-6.1); Lymphocytes # 1.3 K/mcL (0.6-4.6); Lymphocytes % 21.9 %; Mean Corpuscular HGB Conc 33.7 g/dL (31.6-35.5); Mean Corpuscular Hemoglobin 30.4 pg (28.0-33.3); Mean Corpuscular Volume 90.2 fL (83.0-100.0); Monocytes # 0.6 K/mcL (0.0-1.3); Monocytes % 11.2 %; Neutrophils # 3.7 K/mcL (1.6-8.9); Platelet Count 296 K/mcL (140-400); Red Blood Count 3.36 M/mcL (4.19-5.50); Red Cell Distribution Width 12.3 % (11.5-14.5); Segmented Neutrophils % 65.4 %
[2018-03-05 10:55] LABS: BUN/Creatinine Ratio 14 (6-26); Blood Urea Nitrogen 11 mg/dL (8-23); Calcium 8.9 mg/dL (8.6-10.3); Carbon Dioxide 26 mEq/L (23-29); Chloride 95 mEq/L (98-107); Glucose 137 mg/dL (70-105); Osmolality,Calculated 270 (280-300); Potassium 3.8 mEq/L (3.5-5.1); Sodium 129 mEq/L (136-145); eGFR For Non-African Americans > 60 (> 60)
[2018-03-05 11:04] VITALS: BP 126/76
--- NOTE | 2018-03-05 11:29 | Physician Discharge Referral ---
Home Health/Hosp Referral Info Transfer to: Home Health Attending Provider: Saira Mast Provider in Charge Post Discharge: PCP - Diagnosis (1) Bacteremia Priority: Primary Status: Acute (2) Osteomyelitis Priority: Primary Status: Acute (3) BPH (benign prostatic hyperplasia) Priority: Secondary Status: Chronic (4) Hypertension Priority: Secondary Status: Chronic - Respiratory Orders Smoking Cessation: Smoking cessation has been advised. For more information, call the [place] Tobacco Quit Line at 1-064-INYH-NOW. - Diet/Nutrition Diet/Nutrition Orders: Regular - Activity Activity Orders: Up ad daniel - Services Needed Following services are medically necessary services: Nursing, Home Infusion - Transfer Medications Prescriptions: Oxycodone HCl/Acetaminophen [Percocet 5-325 mg Tablet] 1 each PO Q6HR 4 Days # 20 tablet cefTRIAXone [Rocephin] 2,000 mg IVPB DAILY #42 vial Polyethylene Glycol 3350 [MiraLAX] 17 gm PO DAILY #30 powd.pack Sennosides/Docusate Sodium [Senna Plus] 1 each PO BID #30 tablet Simethicone [Gas-X] 80 mg PO TID PRN #30 tab.chew PRN Reason: Dyspepsia Sodium Chloride 1,000 mg MC BID 3 Days #6 tablet.valentine Home Medications: Finasteride [Proscar] 5 mg PO DAILY 02/26/18 [History] Gabapentin [Neurontin] 300 mg PO TID 02/26/18 [History] Ibuprofen [Ibuprofen] 800 mg PO TID PRN 02/26/18 [History] Losartan Potassium [Cozaar] 100 mg PO DAILY 02/26/18 [History] Tamsulosin [Flomax] 0.4 mg PO DAILY 02/26/18 [History] HYDROcodone/Acet 10/325 mg [[place] 10-325 mg] 1 tab PO Q6HR PRN 02/27/18 [History ] cefTRIAXone [Rocephin] 2,000 mg IVPB DAILY #42 vial 03/01/18 [Rx] Oxycodone HCl/Acetaminophen [Percocet 5-325 mg Tablet] 1 each PO Q6HR 4 Days # 20 tablet 03/05/18 [Rx] Polyethylene Glycol 3350 [MiraLAX] 17 gm PO DAILY #30 powd.pack 03/05/18 [Rx] Sennosides/Docusate Sodium [Senna Plus] 1 each PO BID #30 tablet 03/05/18 [Rx] Simethicone [Gas-X] 80 mg PO TID PRN #30 tab.chew 03/05/18 [Rx] Sodium Chloride 1,000 mg MC BID 3 Days #6 tablet.valentine 03/05/18 [Rx] Allergies/Adverse Reactions: 3 Allergy/AdvReac Type Severity Reaction Status Date / Time morphine AdvReac Vomiting Verified 02/27/18 16:30 Certification: Further, I certify that my clinical findings support that this patient is homebound (i.e. absences from home require considerable and taxing effort and are for medical reasons or yazdanism services or infrequently or short duration when for other reasons) because: Homebound Reason: Leaving home requires considerable and taxing effort due to condition Attestation: My signature below is to certify that this patient is under my care and that I, or nurse practitioner, or a physician's offset press assistant working with me, has a face-to -face encounter with this patient.
== END 2018-03-05 12:57 | disposition home health service (06) | DRG 540 ==
LOC: 3NENU 16:29 → EMEROOARM 16:29 → 3NENU 19:51
PROVIDERS: ADMIT Internal Medicine; ATTEND Internal Medicine
PROC: ENDOCBX (2018-03-04 08:00)

== ENCOUNTER 2018-03-30 17:04 | Inpatient (IN) ==
[2018-03-30] MEDS ORDERED: *HR* FentaNYL (PF) 100 MCG/2 ML VIAL IVP ONE ×2 (17:21→23:21)
--- NOTE | 2018-03-30 17:22 | Emergency Department Note ---
Disposition Clinical Impression: Lower extremity edema, Lumbar back pain Osteomyelitis Qualifiers: Osteomyelitis type: unspecified type Osteomyelitis location: unspecified site Qualified Code(s): M86.9 - Osteomyelitis, unspecified Hypertension Qualifiers: Hypertension type: unspecified Qualified Code(s): I10 - Essential (primary) hypertension Disposition: Admitted As Inpatient Condition: Fair Forms: ED Satisfaction Letter Time of Disposition: 17:28 Back Pain HPI - General Chief Complaint: ED Back Pain/Injury Stated Complaint: Back Pain From Dr Shipley for Admission Time Seen by Provider: 03/30/18 17:11 Source: patient, family Mode of arrival: ambulatory Limitations: no limitations Nursing Notes Reviewed: Yes Vital Signs Reviewed: Yes - History of Present Illness HPI Narrative: Patient presenting to the ED at the request of his primary care physician and infectious disease for admission. 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 Patient had a biopsy from his spine that showed sensitivity to Rocephin. He has been on that for 4 weeks. He has not had any pain relief. Denies any fever. Back pain has been chronic and unchanged. No numbness, weakness or tingling in his extremities. He has had bilateral pedal edema which is been ongoing for the last several weeks. His primary care physician just discontinued his amlodipine. Secondary to this and started him on another medication. States that he called his primary care physician today and was seen and they spoke with infectious disease who recommended coming to the ER for admission. - Related Data Home Medications Medication Instructions Recorded Confirmed Finasteride [Proscar] 5 mg PO DAILY 02/26/18 03/22/18 Ibuprofen [Ibuprofen] 800 mg PO TID PRN 02/26/18 03/22/18 Tamsulosin [Flomax] 0.4 mg PO DAILY 02/26/18 03/22/18 Pregabalin [Lyrica] 50 mg PO DAILY 03/22/18 03/22/18 amLODIPine [Norvasc] 5 mg PO DAILY 03/22/18 03/22/18 Previous Rx's Medication Instructions Recorded cefTRIAXone [Rocephin] 2,000 mg IVPB DAILY #42 vial 03/01/18 Oxycodone HCl/Acetaminophen 1 each PO Q6HR 4 Days #20 tablet 03/05/18 [Percocet 5-325 mg Tablet] Polyethylene Glycol 3350 [MiraLAX] 17 gm PO DAILY #30 powd.pack 03/05/18 Sennosides/Docusate Sodium [Senna 1 each PO BID #30 tablet 03/05/18 Plus] Simethicone [Gas-X] 80 mg PO TID PRN #30 tab.chew 03/05/18 Sodium Chloride 1,000 mg MC BID 3 Days #6 03/05/18 tablet.valentine OxyCODONE Immed Rel [Roxicodone 10 10 mg PO Q6H 1 Days #4 tab 03/27/18 MG] Allergies Allergy/AdvReac Type Severity Reaction Status Date / Time morphine AdvReac Vomiting Verified 03/28/18 21:40 Review of Systems: As reviewed in the HPI. All other systems reviewed are negative or normal. Past Medical History - Past Medical History Attestation: Yes The following information was validated with the patient. Source: patient Medical history: Reports: aortic aneurysm, cancer, GERD, hyperlipidemia, hypertension Surgical history: Reports: no surgical history Psychiatric history: Reports: no psych history - Social History Smoking Status: Former smoker Smokeless Tobacco Status: No Alcohol use: Reports: rarely Drug use: Reports: none Physical Exam CONSTITUTIONAL: [well appearing, alert and in no acute distress] EYES: [EOMI, clear conjunctiva, PERRLA] HENT: [Normocephalic, atraumatic, moist mucus membranes, normal oropharynx] NECK: [normal inspection, full ROM, trachea midline, no obvious swelling] PULMONARY: [normal lung sounds bilaterally, normal chest rise and fall, no respiratory distress or stridor, no wheezes, no rales, no rhonchi CARDIOVASCULAR: [regular rate, regular rhythm, normal heart sounds, no murmurs, distal extremities are warm and well perfused] GASTROINSTESTINAL: [soft, non-tender, non-rigid, non-distended, no guarding, no rebound, normal bowel sounds] GENITOURINARY/RECTAL: [deferred] NEUROLOGIC: [Alert, oriented x3, normal speech, moves all extremities] EXTREMITIES: [Normal inspection, full ROM, no tenderness, no pedal edema, normal capillary refill] MUSCULOSKELETAL: [no gross deformities, atraumatic, midline and bilateral lumbar back pain that is unchanged from previous] SKIN: [No cyanosis, no diaphoresis, normal color, warm, no rash] PSYCHIATRIC: [normal mood and affect] Course Course Narrative: Patient presenting for admission for infectious disease consult. Basic labs and inflammatory markers ordered. Blood cultures ordered. Patient admitted to the hospitalist service Vital Signs Temperature 97.8 F 03/30/18 17:08 Pulse Rate 67 03/30/18 17:08 Respiratory Rate 16 03/30/18 17:08 Blood Pressure 168/99 03/30/18 17:08 O2 Sat by Pulse Oximetry 98 03/30/18 17:08 Temperature 97.8 F 03/30/18 17:08 Pulse Rate 67 03/30/18 17:08 Respiratory Rate 16 03/30/18 17:08 Blood Pressure 168/99 03/30/18 17:08 O2 Sat by Pulse Oximetry 98 03/30/18 17:08 Oxygen Delivery Oxygen Delivery Room Air
[2018-03-30 17:52] LABS: Basophils % 0.3 %; Eosinophils # 0.1 K/mcL (0.0-0.6); Eosinophils % 1.2 %; Hematocrit 29.2 % (37.5-50.1); Hemoglobin 9.6 g/dL (12.9-16.9); Immature Granulocytes % 0.3 % (0-4); Lymphocytes # 1.1 K/mcL (0.6-4.6); Lymphocytes % 18.8 %; Mean Corpuscular HGB Conc 32.9 g/dL (31.6-35.5); Mean Corpuscular Hemoglobin 28.9 pg (28.0-33.3); Mean Platelet Volume 8.8 fL (9.4-12.4); Monocytes # 0.6 K/mcL (0.0-1.3); Monocytes % 10.7 %; Neutrophils # 4.1 K/mcL (1.6-8.9); Platelet Count 207 K/mcL (140-400); Red Blood Count 3.32 M/mcL (4.19-5.50); Red Cell Distribution Width 12.5 % (11.5-14.5); Segmented Neutrophils % 68.7 %
[2018-03-30 18:12] LABS: BUN/Creatinine Ratio 19 (6-26); Blood Urea Nitrogen 15 mg/dL (8-23); Calcium 9.1 mg/dL (8.6-10.3); Carbon Dioxide 29 mEq/L (23-29); Chloride 91 mEq/L (98-107); Glucose 132 mg/dL (70-105); Osmolality,Calculated 265 (280-300); Sodium 126 mEq/L (136-145); eGFR For Non-African Americans > 60 (> 60)
[2018-03-30] MEDS ORDERED: Bisacodyl 10 MG RECTAL SUPPOSITORY RC PRN (18:46)
[2018-03-30] MEDS ORDERED: Naloxone 0.4 MG/ML INJ IVP PRN (18:53)
[2018-03-30] MEDS ORDERED: Acetaminophen 325 MG TABLET PO PRN (19:03)
[2018-03-30 19:24] LABS: C-Reactive Protein 38 mg/L (Less than 10)
--- NOTE | 2018-03-30 20:13 | Internal Med History&Physical ---
Date of Encounter: 03/30/18 Time of Encounter: 19:00 Internal Medicine - H&P: HPI Chief complaint: Severe low back pain Admitted From: Home Plans for Post Hospital Care: Home History of present illness: The patient is an 87-year-old man. It was on February 09 of this year when he suddenly developed her low back pain. MRI of lumbar spine done on February 20 revealed vertebral osteomyelitis in the area of L1-L2. 2 days later he had a biopsy of that lesion. It showed infection with strep gallolyticus. The patient was put on IV Rocephin at 2 g every morning. He is supervised by Dr. Aguero, infectious disease. He had a colonoscopy done on March 04. It showed humor of the ascending colon. The patient is scheduled for abdominal surgery on April 03. The patient started seeing his oncologist, Dr Kearney shortly after colonoscopy. He has had worsening of his low back pain for the last 5 days; especially in the last 24 hours. He takes when necessary oxycodone at home. He does have severe constipation. He could not move his bowels for 18 days recently. His last bowel movement was about 5 days ago. Denies abdominal pain , nausea and vomiting. He has normal urination. He developed swelling of his lower legs/feet recently. His amlodipine was discontinued yesterday. The patient was put on twice a day labetalol tablets. Denies fever and chills. He may have lost a few pounds from his weight recently. He has been treated for hypertension and BPH. REVIEW OF SYSTEMS: All 14 organ systems were reviewed by me with the patient. Positive and pertinent negative findings are listed above. The rest of organ systems is negative. PHYSICAL EXAM: Skin: Free of rash and discoloration. Musculoskeletal: He has tenderness at palpation of upper portion of lumbar spine. Eyes: Sclera is white. There is no discharge from eyes. ENMT: Oral/pharyngeal mucosa is normal in appearance. There is no discharge from nose or ears. Respiratory: Normal breath sounds with no crackles and wheezes bilaterally. CV: Heart is regular with no gallop or murmur. He does have mild swelling of lower legs/feet. GI: Abdomen is flat and soft with no palpable mass or visceromegaly. : There is no tenderness in patient's flanks bilaterally. Neuro exam: He has good strength in upper and lower extremities. He has normal eye movements. Psychiatric: He has normal affect. His thought process is appropriate to the situation. His hemoglobin is 9.6; with normal WBC and platelet count. Biochemistry panel reveals sodium of 126 with a potassium of 4.0. BUN and creatinine are 15 and 0.79 respectively. Random glucose is 132. Calcium is 9.1. A/P: Intractable low back pain secondary to vertebral osteomyelitis. I will switch him to scheduled OxyContin with when necessary Ultracet. Severe constipation. Secondary to opiates. We will give him double dose of MiraLAX and rectal Dulcolax. Hyponatremia. Chronic/asymptomatic. We will give him 2 L of IV normal saline. The fluid should help some for his constipation. His hyponatremia is likely secondary to his underlying malignancy. Mild anemia. Likely secondary to his underlying malignancy. Vertebral osteomyelitis of lumbar spine. We will continue IV Rocephin. Infectious diseases is consulted. Hypertension. We will continue labetalol. BPH. We will continue Flomax and Proscar. Past Med Surg Social Fam HX - Past Medical History Medical history: aortic aneurysm, cancer, GERD, hyperlipidemia, hypertension Additional medical history: prostate enlargement Psychiatric history: no psych history - Past Surgical History Surgical History: no surgical history Additional surgical history: cervical disc surgery. pilonidal cyst - Social History Smoking Status: Former smoker Smokeless Tobacco Status: No Alcohol use: rarely Drug use: none - Family History Father History Unknown: Yes Living Status: Mother Living Status: Internal Medicine - H&P: Meds Finasteride [Proscar] 5 mg PO DAILY 02/26/18 [History] Ibuprofen [Ibuprofen] 800 mg PO TID PRN 02/26/18 [History] Tamsulosin [Flomax] 0.4 mg PO DAILY 02/26/18 [History] cefTRIAXone [Rocephin] 2,000 mg IVPB DAILY #42 vial 03/01/18 [Rx] Oxycodone HCl/Acetaminophen [Percocet 5-325 mg Tablet] 1 each PO Q6HR 4 Days # 20 tablet 03/05/18 [Rx] Polyethylene Glycol 3350 [MiraLAX] 17 gm PO DAILY #30 powd.pack 03/05/18 [Rx] Sennosides/Docusate Sodium [Senna Plus] 1 each PO BID #30 tablet 03/05/18 [Rx] Simethicone [Gas-X] 80 mg PO TID PRN #30 tab.chew 03/05/18 [Rx] Sodium Chloride 1,000 mg MC BID 3 Days #6 tablet.valentine 03/05/18 [Rx] Pregabalin [Lyrica] 50 mg PO DAILY 03/22/18 [History] amLODIPine [Norvasc] 5 mg PO DAILY 03/22/18 [History] OxyCODONE Immed Rel [Roxicodone 10 MG] 10 mg PO Q6H 1 Days #4 tab 03/27/18 [Rx] 3 Allergy/AdvReac Type Severity Reaction Status Date / Time morphine AdvReac Vomiting Verified 03/30/18 17:37 - Constitutional Vitals: Temp Pulse Resp BP Pulse Ox 98.7 F 73 14 165/82 96 03/30/18 19:51 03/30/18 19:51 03/30/18 19:51 03/30/18 19:51 03/30/18 19:51 General appearance: Present: A&O X 3, answers questions appropriately Exam: xx Internal Med - H&P Results - Labs CBC & Chem 7: 03/30/18 17:36 03/30/18 17:36 - Assessment and plan (1) Low back pain Current Visit: Yes Status: Acute Qualifiers: Chronicity: acute Back pain laterality: midline Sciatica presence: without sciatica Qualified Code(s): M54.5 - Low back pain (2) Constipation due to opioid therapy Current Visit: Yes Status: Acute (3) Hyponatremia Current Visit: Yes Status: Acute (4) Anemia Current Visit: Yes Status: Acute Qualifiers: Anemia type: other cause Other causes of anemia: other cause, not classified Qualified Code(s): D64.89 - Other specified anemias (5) Vertebral osteomyelitis Current Visit: Yes Status: Acute (6) Hypertension Current Visit: Yes Status: Chronic Qualifiers: Hypertension type: essential hypertension Qualified Code(s): I10 - Essential (primary) hypertension (7) BPH without urinary obstruction Current Visit: Yes Status: Acute - Time Spent With Patient Total time spent is greater than 50% in coordination of care (as documented) at patient's floor/unit and/or counseling patient: 25 - 35 minutes
[2018-03-30] MEDS: traMADol 50 MG TABLET PO PRN (20:15)
[2018-03-30] MEDS: 0.9 % Sodium Chloride 1,000 ML IVC SCH (20:16)
[2018-03-30] MEDS: *HR* OxyCODONE ER (12 HR) 20 MG TABLET PO SCH (21:50)
[2018-03-30] MEDS ORDERED: Milk and Molasses Enema 200 ML RC ONE (23:21)
[2018-03-31] MEDS: *HR* OxyCODONE ER (12 HR) 20 MG TABLET PO SCH (05:41)
[2018-03-31] MEDS ORDERED: *HR* OxyCODONE ER (12 HR) 20 MG TABLET PO SCH (06:00)
[2018-03-31] MEDS ORDERED: Simethicone 80 MG TAB.CHEW PO PRN (06:39)
[2018-03-31] MEDS: Finasteride 5 MG TABLET PO SCH (08:21)
[2018-03-31] MEDS: traMADol 50 MG TABLET PO PRN (08:21)
[2018-03-31] MEDS: cefTRIAXone 2,000 MG in Water for inj. (sterile) 20 ML 20 ML IVPB SCH (08:24)
[2018-03-31] MEDS: 0.9 % Sodium Chloride 1,000 ML IVC SCH (08:29)
[2018-03-31] MEDS ORDERED: Sennosides/Docusate Sodium TABLET PO SCH (09:00)
[2018-03-31] MEDS: *HR* OxyCODONE Immed Rel 5 MG TABLET PO PRN ×3 (11:43→20:22)
--- NOTE | 2018-03-31 13:14 | Event Note ---
Date of Encounter: 03/31/18 Time of Encounter: 13:11 Spoke with hospitalist (I am at [place] [facility] and unable to see patient). He is in for intractable back pain. Will start clears tomorrow and do bowel prep (miralax bowel prep) and dulcolax po. If patient is not clear stools tuesday will repeat bowel prep until clear. Will still keep on OR schedule for Tuesday afternoon for colon resection and re-evaluate tuesday am. NPO midnight Tuesday -> Tuesday.
[2018-03-31] MEDS ORDERED: Gadolinium Contrast Agent (WT Based) IV PRN (15:04)
[2018-03-31] MEDS: *HR* OxyCODONE ER (12 HR) 10 MG TABLET PO SCH (17:45)
--- NOTE | 2018-03-31 18:02 | Infectious Disease Consult ---
Date of Encounter: 03/31/18 Time of Encounter: 18:00 Assessment and Plan (1) Osteomyelitis Status: Acute Assessment and plan: Location: L1, L2. Causative organism: S. gallolyticus. Source unclear. The patient's symptoms started prior to the SI joint injection so I do not think that is the source. I am concerned for seeding of the spine from bacteremia of unclear source. MRI of the L-spine 02/20/18 showed osteomyelitis/discitis L1-L2. Status post bone biopsy 02/23/18. 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 Was discharged on Rocephin 2 g IV daily with plan to treat for at least 6 weeks Patient was also evaluated by GI because Streptococcus gallolyticus is associated with colon malignancy Continue to have worsening back pain and worsening inflammatory markers so patient was asked to come to the ED for evaluation and was admitted At this point I will repeat MRI of the back Consult orthopedics Check inflammatory markers Continue Rocephin for now Might need to repeat a biopsy if there are new findings on the MRI Qualifiers: Osteomyelitis type: unspecified type Osteomyelitis location: unspecified site Qualified Code(s): M86.9 - Osteomyelitis, unspecified (2) Primary adenocarcinoma of ascending colon Status: Acute Assessment and plan: Well to moderately differentiated adenocarcinoma of the ascending colon with carcinoma limited to the mucosa. Patient was scheduled for surgery 04/03/2018 Surgery has been consulted and appreciate Dr. Cates's recommendation Patient has been started on clear liquid diet and bowel prep Per hematology/oncology prognosis is good and his situation (3) BPH without urinary obstruction Status: Acute Infectious Disease HPI - Data of Consult Patient: known to practice within the last 3 years Consult date: 03/31/18 Requesting Physician: Aakash Durand Primary Care Provider: Flaco Robertson MD - Consult Narrative Reason for consult: osteomyelitis History of present illness: Mr. Burkett is a 87 year old male Patient is an 87-year-old gentleman well-known to our service that was sent here as directed admission for worsening back pain and increasing inflammatory markers. We were asked to see him for antibiotics recommendation and further testing. Briefly, the patient is an 87-year-old male with past medical history as stated below. The patient was admitted to the hospital 02/27/18 for bacteremia and discitis. Initially, the patient was evaluated multiple times in the emergency department and by an original pain management for this sudden onset of back pain that occurred back at the beginning of February. The patient had undergone an MRI that showed findings consistent with osteomyelitis. He underwent a CT- guided bone biopsy on February 23 that came back positive for strep gallolyticus per culture. He was evaluated in the emergency department on February 26 and was noted to have hyponatremia. Blood cultures were obtained at that time, but before the cultures came back positive, the patient signed out AMA. Our office was actually contacted by the patient's who wanted to know if his referral appointment with us was still necessary since they were told that his bone cultures were negative. I got in and reviewed the chart and he was noted to have positive bone cultures. I called him personally and advised patient to come to the ER for admission. Upon arrival to the ER, the patient was afebrile hemodynamically stable. Laboratory studies revealed a normal white blood cell count and normal kidney function. Repeat blood cultures obtained 02/27/18 were negative. The patient's review of systems was positive for persistent constipation since the onset of back pain, which was originally thought to have been an secondary to chronic opioid use. Based on the type of bacteria but came back on the cultures, there was a high index of suspicion for malignancy, so we had GI see the patient and he underwent a colonoscopy that was positive for adenocarcinoma of the ascending colon. He has been referred to Gen. surgery scheduled to go a colectomy on April 03. He was discharged home to complete a 6 -8 week course of IV Rocephin. While at home patient continued to have worsening back pain and his inflammatory markers continue to increase. I did receive a phone call from hematology/oncology because they were concerned about the patient. My theory was it is either there is multiple organisms and Rocephin was not working or the other option would be that he continues to have seeding of his back and there is source control issue. Patient eventually came to the hospital for evaluation Currently patient is actually standing up side his bed tells me he continues to have significant back pain. is at bedside. They were a little bit unhappy with the fact that somebody put him on clear liquid diet and she saying that his surgery is not till Tuesday he is given a be completely weak and unable to recall her because of not feeding him. CC: Aakash Durand Past Med Surg Social Fam HX - Past Medical History Medical history: aortic aneurysm, cancer, GERD, hyperlipidemia, hypertension Additional medical history: prostate enlargement Psychiatric history: no psych history - Past Surgical History Surgical History: no surgical history Additional surgical history: cervical disc surgery. pilonidal cyst - Social History Smoking Status: Former smoker Smokeless Tobacco Status: No Alcohol use: rarely Drug use: none - Family History Father History Unknown: Yes Living Status: Mother Living Status: Infectious Disease-CN:Meds Finasteride [Proscar] 5 mg PO DAILY 02/26/18 [History] Tamsulosin [Flomax] 0.4 mg PO DAILY 02/26/18 [History] cefTRIAXone [Rocephin] 2,000 mg IVPB DAILY #42 vial 03/01/18 [Rx] Polyethylene Glycol 3350 [MiraLAX] 17 gm PO DAILY #30 powd.pack 03/05/18 [Rx] Sennosides/Docusate Sodium [Senna Plus] 1 each PO BID #30 tablet 03/05/18 [Rx] Simethicone [Gas-X] 80 mg PO TID PRN #30 tab.chew 03/05/18 [Rx] OxyCODONE Immed Rel [Roxicodone 10 MG] 10 - 20 mg PO Q6H PRN 03/30/18 [History] Sodium Chloride 1,000 mg MC DAILY 03/30/18 [History] 3 Allergy/AdvReac Type Severity Reaction Status Date / Time morphine AdvReac Vomiting Verified 03/30/18 17:37 Review of systems: 10 point review of systems done, negative other for what is mentioned in history of present illness Exam - Constitutional Vitals: Temp Pulse Resp BP Pulse Ox 98.4 F 78 17 163/83 97 03/31/18 15:52 03/31/18 15:52 03/31/18 15:52 03/31/18 15:52 03/31/18 15:52 General appearance: no acute distress, no febrile - Head Head exam: Present: atraumatic, normocephalic - Eye Eye exam: Present: EOMI, PERRL, sclera anicteric - ENT ENT exam: Present: mucous membranes dry Additional comments: No oral lesions - Neck Neck exam: Present: full ROM. Absent: meningismus - Respiratory Respiratory exam: Present: CTAB. Absent: wheezes - Cardiovascular Cardiovascular exam: Present: RRR, +S1, +S2 - GI/Abdominal GI/Abdominal exam: Present: distended, tenderness. Absent: firm, guarding - Extremities Exam Extremities exam: Present: normal inspection. Absent: joint swelling - Back Exam Additional comments: Tenderness over the thoracic or lumbar spine - Neurological Exam Neurological exam: Present: alert, oriented X3 Additional comments: No focal deficit lower extremity - Psychiatric Psychiatric exam: Present: normal affect, normal mood - Skin Skin exam: Present: normal color. Absent: rash Infectious Disease CN: Results - Labs CBC & Chem 7: 03/30/18 17:36 03/30/18 17:36 Consult Discharge Plan - Plan Referrals: Flaco Robertson MD [Primary Care Provider] -
[2018-03-31] MEDS ORDERED: traMADol 50 MG TABLET PO ONE (22:38)
--- NOTE | 2018-03-31 23:18 | Internal Med Progress Note ---
Hospitalist Progress Note - Encounter Date of Encounter: 03/31/18 Time of Encounter: 15:00 - Subjective Interval History: SUBJECTIVE: The patient continues to have significant low back pain. OxyContin 20 mg by mouth twice a day and when necessary Ultracet did not help his pain. He ambulates on his own. He continues to be constipated. Denies nausea and vomiting. OBJECTIVE: Skin: Free of rash and discoloration. ENMT: Oral/pharyngeal mucosa is normal in appearance. Eyes: Sclera is white. There is no discharge from eyes. Respiratory: Normal breath sounds; no crackles or wheezes. CV: Heart is regular; no gallop or murmur. GI: Abdomen is soft and not tender. There is no palpable mass or visceromegaly. Neuro: There is no focal deficits. ASSESSMENT AND PLAN: Intractable low back pain secondary to vertebral osteomyelitis. I increased his dose of OxyContin - 30 mg by mouth twice a day. I stopped Ultracet. He will get when necessary Roxicodone at 5 mg every 4 hours, if needed. We will try lidocaine patch. We did MRI of lumbar spine. It showed severe inflammatory changes without any evidence for compression fracture or severe spinal canal stenosis. We appreciate help from infectious diseases. Severe constipation. He had one watery bowel movement last night. He will get MiraLAX bowel prep tomorrow. Dulcolax 10 mg by mouth daily. Clear liquids. Adenocarcinoma of ascending colon. The patient is scheduled for surgery on April 03. I discussed my findings with Dr. Cates, the general surgeon who is to do surgery. The patient will be in the hospital when getting bowel prep for the surgery. - Exam Vitals: Temp Pulse Resp BP Pulse Ox 98.0 F 70 16 175/67 97 03/31/18 21:28 03/31/18 21:28 03/31/18 21:28 03/31/18 21:28 03/31/18 15:52 Exam: xx - Assessment and Plan (1) Low back pain Current Visit: Yes Status: Acute (2) Constipation due to opioid therapy Current Visit: Yes Status: Acute (3) Hyponatremia Current Visit: Yes Status: Acute (4) Anemia Current Visit: Yes Status: Acute (5) Vertebral osteomyelitis Current Visit: Yes Status: Acute (6) Hypertension Current Visit: Yes Status: Chronic (7) BPH without urinary obstruction Current Visit: Yes Status: Acute - Time Spent with Patient Total time spent is greater than 50% in coordination of care (as documented) at patient's floor/unit and/or counseling patient: 25 - 35 minutes Plan of Care Discussed with: patient (and family..) Internal Medicine: Result - Labs CBC & Chem 7: 03/30/18 17:36 03/30/18 17:36 Consult Discharge Plan - Plan Referrals: Flaco Robertson MD [Primary Care Provider] - (1) Low back pain Qualifiers: Chronicity: acute Back pain laterality: midline Sciatica presence: without sciatica Qualified Code(s): M54.5 - Low back pain (4) Anemia Qualifiers: Anemia type: other cause Other causes of anemia: other cause, not classified Qualified Code(s): D64.89 - Other specified anemias (6) Hypertension Qualifiers: Hypertension type: essential hypertension Qualified Code(s): I10 - Essential (primary) hypertension
[2018-04-01] MEDS: *HR* OxyCODONE Immed Rel 5 MG TABLET PO PRN ×2 (00:21→12:40)
[2018-04-01] MEDS: *HR* OxyCODONE ER (12 HR) 10 MG TABLET PO SCH ×2 (05:16→17:41)
[2018-04-01 07:47] LABS: Basophils % 0.4 %; Eosinophils # 0.1 K/mcL (0.0-0.6); Eosinophils % 1.9 %; Hematocrit 26.6 % (37.5-50.1); Hemoglobin 8.8 g/dL (12.9-16.9); Immature Granulocytes % 0.2 % (0-4); Lymphocytes # 1.3 K/mcL (0.6-4.6); Lymphocytes % 27.1 %; Mean Corpuscular HGB Conc 33.1 g/dL (31.6-35.5); Mean Corpuscular Volume 87.8 fL (83.0-100.0); Monocytes # 0.6 K/mcL (0.0-1.3); Monocytes % 13.4 %; Neutrophils # 2.7 K/mcL (1.6-8.9); Platelet Count 183 K/mcL (140-400); Red Blood Count 3.03 M/mcL (4.19-5.50); Red Cell Distribution Width 12.8 % (11.5-14.5)
[2018-04-01 07:57] LABS: BUN/Creatinine Ratio 13 (6-26); Blood Urea Nitrogen 8 mg/dL (8-23); Calcium 8.7 mg/dL (8.6-10.3); Carbon Dioxide 29 mEq/L (23-29); Chloride 95 mEq/L (98-107); Glucose 94 mg/dL (70-105); Magnesium 1.8 mg/dL (1.6-2.6); Osmolality,Calculated 266 (280-300); Potassium 4.2 mEq/L (3.5-5.1); Sodium 129 mEq/L (136-145); eGFR For Non-African Americans > 60 (> 60)
[2018-04-01] MEDS ORDERED: Polyethylene Glycol 3350 255 GM POWDER PO ONE (09:00)
[2018-04-01] MEDS: Finasteride 5 MG TABLET PO SCH (10:52)
[2018-04-01] MEDS: cefTRIAXone 2,000 MG in Water for inj. (sterile) 20 ML 20 ML IVPB SCH (10:52)
--- NOTE | 2018-04-01 15:10 | Emergency Department Note ---
Disposition Clinical Impression: Lower extremity edema, Lumbar back pain Osteomyelitis Qualifiers: Osteomyelitis type: unspecified type Osteomyelitis location: unspecified site Qualified Code(s): M86.9 - Osteomyelitis, unspecified Hypertension Qualifiers: Hypertension type: essential hypertension Qualified Code(s): I10 - Essential ( primary) hypertension Disposition: Admitted As Inpatient Condition: Fair General Adult HPI - General Chief complaint: ED Back Pain/Injury Stated complaint: Back Pain From Dr Shipley for Admission Time Seen by Provider: 03/30/18 17:11 Source: patient, family Mode of arrival: ambulatory Limitations: no limitations - History of Present Illness Pain Scale: 4 - Related Data Home Medications Medication Instructions Recorded Confirmed Finasteride [Proscar] 5 mg PO DAILY 02/26/18 03/30/18 Tamsulosin [Flomax] 0.4 mg PO DAILY 02/26/18 03/30/18 OxyCODONE Immed Rel [Roxicodone 10 10 - 20 mg PO Q6H PRN 03/30/18 03/30/18 MG] Sodium Chloride 1,000 mg MC DAILY 03/30/18 03/30/18 Previous Rx's Medication Instructions Recorded cefTRIAXone [Rocephin] 2,000 mg IVPB DAILY #42 vial 03/01/18 Polyethylene Glycol 3350 [MiraLAX] 17 gm PO DAILY #30 powd.pack 03/05/18 Sennosides/Docusate Sodium [Senna 1 each PO BID #30 tablet 03/05/18 Plus] Simethicone [Gas-X] 80 mg PO TID PRN #30 tab.chew 03/05/18 Allergies Allergy/AdvReac Type Severity Reaction Status Date / Time morphine AdvReac Vomiting Verified 03/30/18 17:37 Past Medical History - Past Medical History Medical history: Reports: aortic aneurysm, cancer, GERD, hyperlipidemia, hypertension Surgical history: Reports: no surgical history Psychiatric history: Reports: no psych history - Social History Smoking Status: Former smoker Smokeless Tobacco Status: No Alcohol use: Reports: rarely Drug use: Reports: none Physical Exam - General Limitations: no limitations General appearance: alert Course Vital Signs Temperature 97.8 F 03/30/18 17:08 Pulse Rate 67 03/30/18 17:08 Respiratory Rate 16 03/30/18 17:08 Blood Pressure 168/99 03/30/18 17:08 O2 Sat by Pulse Oximetry 98 03/30/18 17:08 Temperature 98.0 F 04/01/18 11:06 Pulse Rate 78 04/01/18 11:06 Respiratory Rate 18 04/01/18 11:06 Blood Pressure 163/76 04/01/18 11:06 O2 Sat by Pulse Oximetry 97 04/01/18 11:06 Oxygen Delivery Oxygen Delivery Room Air Medical Decision Making - Lab Data Result diagrams: 04/01/18 07:24 04/01/18 07:24 Lab Results 03/30/18 03/30/18 03/30/18 Range/Units 17:36 17:36 17:36 WBC 5.9 (4.3-11.1) K/mcL RBC 3.32 L (4.19-5.50) M/mcL Hgb 9.6 L (12.9-16.9) g/dL Hct 29.2 L (37.5-50.1) % MCV 88.0 (83.0-100.0) fL MCH 28.9 (28.0-33.3) pg MCHC 32.9 (31.6-35.5) g/dL RDW 12.5 (11.5-14.5) % Plt Count 207 (140-400) K/mcL MPV 8.8 L (9.4-12.4) fL Immature Gran % 0.3 (0-4) % Seg Neutrophils % 68.7 % Lymphocytes % 18.8 % Monocytes % 10.7 % Eosinophils % 1.2 % Basophils % 0.3 % Neutrophils # 4.1 (1.6-8.9) K/mcL Lymphocytes # 1.1 (0.6-4.6) K/mcL Monocytes # 0.6 (0.0-1.3) K/mcL Eosinophils # 0.1 (0.0-0.6) K/mcL Basophils # 0.0 (0.0-0.2) K/mcL ESR 68 H (0-10) mm/hr Sodium 126 L (136-145) mEq/L Potassium 4.0 (3.5-5.1) mEq/L Chloride 91 L (98-107) mEq/L Carbon Dioxide 29 (23-29) mEq/L BUN 15 (8-23) mg/dL Creatinine 0.79 (0.70-1.30) mg/dL Est GFR ( Amer) > 60 (> 60) Est GFR (Non-Af Amer) > 60 (> 60) BUN/Creatinine Ratio 19 (6-26) Glucose 132 H (70-105) mg/dL Calculated Osmolality 265 L (280-300) Calcium 9.1 (8.6-10.3) mg/dL C-Reactive Protein 38 H (Less than 10) mg/L 03/31/18 03/31/18 Range/Units 16:25 16:25 WBC (4.3-11.1) K/mcL RBC (4.19-5.50) M/mcL Hgb (12.9-16.9) g/dL Hct (37.5-50.1) % MCV (83.0-100.0) fL MCH (28.0-33.3) pg MCHC (31.6-35.5) g/dL RDW (11.5-14.5) % Plt Count (140-400) K/mcL MPV (9.4-12.4) fL Immature Gran % (0-4) % Seg Neutrophils % % Lymphocytes % % Monocytes % % Eosinophils % % Basophils % % Neutrophils # (1.6-8.9) K/mcL Lymphocytes # (0.6-4.6) K/mcL Monocytes # (0.0-1.3) K/mcL Eosinophils # (0.0-0.6) K/mcL Basophils # (0.0-0.2) K/mcL ESR 63 H (0-10) mm/hr Sodium (136-145) mEq/L Potassium (3.5-5.1) mEq/L Chloride (98-107) mEq/L Carbon Dioxide (23-29) mEq/L BUN (8-23) mg/dL Creatinine (0.70-1.30) mg/dL Est GFR ( Amer) (> 60) Est GFR (Non-Af Amer) (> 60) BUN/Creatinine Ratio (6-26) Glucose (70-105) mg/dL Calculated Osmolality (280-300) Calcium (8.6-10.3) mg/dL C-Reactive Protein 29 H (Less than 10) mg/L Attestation Statement - Attestation Attestation: I examined this patient and my medical decision-making was reviewed with the Resident Physician. I agree with the documented findings, disposition and treatment plan as described.
[2018-04-01] MEDS: *HR* Heparin 5,000 UNIT/ML VIAL SQ SCH (17:41)
--- NOTE | 2018-04-01 18:19 | Internal Med Progress Note ---
Hospitalist Progress Note - Encounter Date of Encounter: 04/01/18 Time of Encounter: 18:17 - Subjective Interval History: SUBJECTIVE: He is a low back pain seems to be under better control. He is on increased dose of OxyContin - 30 mg by mouth twice a day. He takes when necessary oxycodone at lower dose of 5 mg. He ambulates on his own. He started MiraLAX bowel prep today morning. He had a large amount of soft stool in the early afternoon. Denies having significant abdominal pain. Denies nausea and vomiting. OBJECTIVE: Skin: Free of rash and discoloration. ENMT: Oral/pharyngeal mucosa is normal in appearance. Eyes: Sclera is white. There is no discharge from eyes. Respiratory: Normal breath sounds; no crackles or wheezes. CV: Heart is regular; no gallop or murmur. GI: Abdomen is soft and not tender. There is no palpable mass or visceromegaly. Neuro: There is no focal deficits. ASSESSMENT AND PLAN: Intractable low back pain secondary to vertebral osteomyelitis. We will continue OxyContin at 30 mg by mouth twice a day. I stopped Ultracet. We will continue when necessary Roxicodone at 5 mg every 4 hours. He is on lidocaine patch. See results of CT and MRI of lumbar spine. See infectious diseases consult. Severe constipation. Secondary to taking narcotic medications. We got some success with MiraLAX bowel prep and scheduled Dulcolax tablets. We may need to repeat MiraLAX bowel prep tomorrow - to get him ready for abdominal surgery scheduled for Tuesday. Adenocarcinoma of ascending colon. The patient is scheduled for surgery on April 03. I discussed my findings with Dr. Cates, the general surgeon who is to do surgery. The patient will be in the hospital, when getting bowel prep for the surgery. - Exam Vitals: Temp Pulse Resp BP Pulse Ox 98.3 F 77 16 164/80 97 04/01/18 16:51 04/01/18 16:51 04/01/18 16:51 04/01/18 16:51 04/01/18 16:51 Exam: xx - Assessment and Plan (1) Low back pain Current Visit: Yes Status: Acute (2) Vertebral osteomyelitis Current Visit: Yes Status: Acute (3) Adenocarcinoma of colon Current Visit: Yes Status: Acute (4) Constipation due to opioid therapy Current Visit: Yes Status: Acute (5) Hyponatremia Current Visit: Yes Status: Acute (6) Anemia Current Visit: Yes Status: Acute (7) Hypertension Current Visit: Yes Status: Chronic (8) BPH without urinary obstruction Current Visit: Yes Status: Acute - Time Spent with Patient Total time spent is greater than 50% in coordination of care (as documented) at patient's floor/unit and/or counseling patient: 25 - 35 minutes Plan of Care Discussed with: patient Internal Medicine: Result - Labs CBC & Chem 7: 04/01/18 07:24 04/01/18 07:24 Labs: Short CBC 04/01/18 Range/Units 07:24 WBC 4.7 (4.3-11.1) K/mcL Hgb 8.8 L (12.9-16.9) g/dL Hct 26.6 L (37.5-50.1) % Plt Count 183 (140-400) K/mcL Neutrophils # 2.7 (1.6-8.9) K/mcL BMP 04/01/18 07:24 Sodium 129 L Potassium 4.2 Chloride 95 L Carbon Dioxide 29 BUN 8 Creatinine 0.62 L Glucose 94 Calcium 8.7 Consult Discharge Plan - Plan Referrals: Flaco Robertson MD [Primary Care Provider] - (1) Low back pain Qualifiers: Chronicity: acute Back pain laterality: midline Sciatica presence: without sciatica Qualified Code(s): M54.5 - Low back pain (6) Anemia Qualifiers: Anemia type: other cause Other causes of anemia: other cause, not classified Qualified Code(s): D64.89 - Other specified anemias (7) Hypertension Qualifiers: Hypertension type: essential hypertension Qualified Code(s): I10 - Essential (primary) hypertension
[2018-04-02] MEDS: *HR* OxyCODONE Immed Rel 5 MG TABLET PO PRN ×2 (00:20→04:51)
[2018-04-02] MEDS: *HR* OxyCODONE ER (12 HR) 10 MG TABLET PO SCH ×2 (06:16→17:29)
[2018-04-02] MEDS: *HR* Heparin 5,000 UNIT/ML VIAL SQ SCH ×2 (06:16→17:29)
[2018-04-02 06:33] LABS: Basophils % 0.2 %; Eosinophils # 0.1 K/mcL (0.0-0.6); Hematocrit 30.6 % (37.5-50.1); Hemoglobin 10.3 g/dL (12.9-16.9); Immature Granulocytes % 0.2 % (0-4); Lymphocytes # 1.3 K/mcL (0.6-4.6); Lymphocytes % 25.5 %; Mean Corpuscular HGB Conc 33.7 g/dL (31.6-35.5); Mean Corpuscular Hemoglobin 29.1 pg (28.0-33.3); Mean Corpuscular Volume 86.4 fL (83.0-100.0); Mean Platelet Volume 8.6 fL (9.4-12.4); Monocytes # 0.8 K/mcL (0.0-1.3); Monocytes % 14.3 %; Neutrophils # 3.1 K/mcL (1.6-8.9); Platelet Count 222 K/mcL (140-400); Red Blood Count 3.54 M/mcL (4.19-5.50); Red Cell Distribution Width 12.3 % (11.5-14.5); Segmented Neutrophils % 58.8 %
[2018-04-02 06:59] LABS: BUN/Creatinine Ratio 11 (6-26); Blood Urea Nitrogen 7 mg/dL (8-23); Calcium 9.1 mg/dL (8.6-10.3); Carbon Dioxide 31 mEq/L (23-29); Chloride 94 mEq/L (98-107); Glucose 78 mg/dL (70-105); Magnesium 1.8 mg/dL (1.6-2.6); Osmolality,Calculated 267 (280-300); Potassium 4.1 mEq/L (3.5-5.1); Sodium 130 mEq/L (136-145); eGFR For Non-African Americans > 60 (> 60)
[2018-04-02] MEDS: cefTRIAXone 2,000 MG in Water for inj. (sterile) 20 ML 20 ML IVPB SCH (09:47)
[2018-04-02] MEDS: Finasteride 5 MG TABLET PO SCH (09:48)
[2018-04-02] MEDS ORDERED: Polyethylene Glycol 3350 255 GM POWDER PO ONE (09:55)
[2018-04-02] MEDS: Furosemide 20 MG TABLET PO SCH (10:08)
--- NOTE | 2018-04-02 15:39 | Internal Med Progress Note ---
Hospitalist Progress Note - Encounter Date of Encounter: 04/02/18 Time of Encounter: 15:00 - Subjective Interval History: SUBJECTIVE: He is a low back pain seems to be under better control. He is on increased dose of OxyContin - 30 mg by mouth twice a day. He takes when necessary oxycodone at lower dose of 5 mg. He ambulates on his own. He had MiraLAX bowel prep yesterday. We decided to give him and another one today morning. He made large amounts of stool yesterday and today morning. However, he continues to expel fair amounts of pasty brown stool. Denies abdominal pain, nausea and vomiting. He has no problems with urination. OBJECTIVE: Skin: Free of rash and discoloration. ENMT: Oral/pharyngeal mucosa is normal in appearance. Eyes: Sclera is white. There is no discharge from eyes. Respiratory: Normal breath sounds; no crackles or wheezes. CV: Heart is regular; no gallop or murmur. GI: Abdomen is soft and not tender. There is no palpable mass or visceromegaly. Neuro: There is no focal deficits. ASSESSMENT AND PLAN: Intractable low back pain secondary to vertebral osteomyelitis. We will continue OxyContin at 30 mg by mouth twice a day. We will continue when necessary Roxicodone at 5 mg every 4 hours. He is on lidocaine patch. See results of CT and MRI of lumbar spine. See infectious diseases consult. Severe constipation. Secondary to taking narcotic medications. We got some success with MiraLAX bowel prep and scheduled Dulcolax tablets. We decided to repeat it today - to get him ready for abdominal surgery scheduled for Tuesday. Adenocarcinoma of ascending colon. The patient is scheduled for surgery on April 03. I discussed my findings with Dr. Cates, the general surgeon who is to do surgery. The patient will be in the hospital, when getting bowel prep for the surgery. He is scheduled to be nothing by mouth after midnight. - Exam Vitals: Temp Pulse Resp BP Pulse Ox 98.0 F 81 16 162/83 96 04/02/18 15:03 04/02/18 15:03 04/02/18 15:03 04/02/18 15:03 04/02/18 15:03 Exam: xx - Assessment and Plan (1) Low back pain Current Visit: Yes Status: Acute (2) Vertebral osteomyelitis Current Visit: Yes Status: Acute (3) Adenocarcinoma of colon Current Visit: Yes Status: Acute (4) Constipation due to opioid therapy Current Visit: Yes Status: Acute (5) Hyponatremia Current Visit: Yes Status: Acute (6) Anemia Current Visit: Yes Status: Acute (7) Hypertension Current Visit: Yes Status: Chronic (8) BPH without urinary obstruction Current Visit: Yes Status: Acute - Time Spent with Patient Total time spent is greater than 50% in coordination of care (as documented) at patient's floor/unit and/or counseling patient: 25 - 35 minutes Plan of Care Discussed with: patient (and nurse..) Internal Medicine: Result - Labs CBC & Chem 7: 04/02/18 06:14 04/02/18 06:14 Labs: Short CBC 04/02/18 Range/Units 06:14 WBC 5.3 (4.3-11.1) K/mcL Hgb 10.3 L D (12.9-16.9) g/dL Hct 30.6 L (37.5-50.1) % Plt Count 222 (140-400) K/mcL Neutrophils # 3.1 (1.6-8.9) K/mcL BMP 04/02/18 06:14 Sodium 130 L Potassium 4.1 Chloride 94 L Carbon Dioxide 31 H BUN 7 L Creatinine 0.64 L Glucose 78 Calcium 9.1 Consult Discharge Plan - Plan Referrals: Flaco Robertson MD [Primary Care Provider] - (1) Low back pain Qualifiers: Chronicity: acute Back pain laterality: midline Sciatica presence: without sciatica Qualified Code(s): M54.5 - Low back pain (6) Anemia Qualifiers: Anemia type: other cause Other causes of anemia: other cause, not classified Qualified Code(s): D64.89 - Other specified anemias (7) Hypertension Qualifiers: Hypertension type: essential hypertension Qualified Code(s): I10 - Essential (primary) hypertension
[2018-04-03] MEDS: *HR* OxyCODONE Immed Rel 5 MG TABLET PO PRN ×2 (01:20→13:33)
[2018-04-03 05:28] LABS: Basophils % 0.4 %; Eosinophils # 0.1 K/mcL (0.0-0.6); Eosinophils % 1.4 %; Hematocrit 28.8 % (37.5-50.1); Hemoglobin 9.5 g/dL (12.9-16.9); Immature Granulocytes % 0.2 % (0-4); Lymphocytes # 1.4 K/mcL (0.6-4.6); Mean Corpuscular Hemoglobin 28.7 pg (28.0-33.3); Mean Platelet Volume 8.7 fL (9.4-12.4); Monocytes # 0.7 K/mcL (0.0-1.3); Monocytes % 13.9 %; Neutrophils # 2.9 K/mcL (1.6-8.9); Platelet Count 217 K/mcL (140-400); Red Blood Count 3.31 M/mcL (4.19-5.50); Red Cell Distribution Width 12.4 % (11.5-14.5); Segmented Neutrophils % 57.1 %
[2018-04-03 05:54] LABS: BUN/Creatinine Ratio 9 (6-26); Blood Urea Nitrogen 6 mg/dL (8-23); Calcium 9.4 mg/dL (8.6-10.3); Carbon Dioxide 29 mEq/L (23-29); Chloride 94 mEq/L (98-107); Glucose 108 mg/dL (70-105); Osmolality,Calculated 266 (280-300); Potassium 4.2 mEq/L (3.5-5.1); Sodium 129 mEq/L (136-145); eGFR For Non-African Americans > 60 (> 60)
[2018-04-03] MEDS: *HR* OxyCODONE ER (12 HR) 10 MG TABLET PO SCH ×2 (06:18→17:19)
[2018-04-03] MEDS: *HR* Heparin 5,000 UNIT/ML VIAL SQ SCH ×2 (06:18→17:20)
[2018-04-03] MEDS: Furosemide 20 MG TABLET PO SCH (08:37)
[2018-04-03] MEDS: Finasteride 5 MG TABLET PO SCH (08:37)
[2018-04-03] MEDS: cefTRIAXone 2,000 MG in Water for inj. (sterile) 20 ML 20 ML IVPB SCH (08:38)
--- NOTE | 2018-04-03 09:22 | General Surgery Consult Note ---
Addendum entered and electronically signed by Maya Couch 04/03/18 16:44: We appreciate Dr Gonzalez's recommendations - plan for OR as add on tomorrow with Dr Cates for a open partial colectomy. Patient may have clear liquids today and NPO at midnight. I discussed this with patient and his - they are agreeable. I reviewed the risk and he signed the consent form. Original Note: <Chelly Denson - Last Filed: 04/03/18 09:52> Date of Encounter: 04/03/18 Time of Encounter: 09:09 Assessment and Plan (1) Adenocarcinoma of colon Current Visit: Yes Status: Acute Surgery for today has been cancelled d/t abnormal MRI. Dr. Howell has been notified. Recommend patient remain NPO until seen by Dr. Howell. Further recommendations pending neuro/spine plan (2) Osteomyelitis Current Visit: Yes Status: Acute See A/P above MR/MR lumbar spine wo/w con IMPRESSION: Severe discitis/osteomyelitis at L1-L2. There is surrounding paravertebral phlegmon at this level with associated inflammation of both psoas muscles. No paraspinal or psoas abscess is identified however. There is mild enhancing tissue within the epidural space circumferentially at L1-L2 compatible with extension of the infectious process. No epidural abscess however is appreciated. Moderate central canal stenosis at L2-L3 and L3-L4. Mild central canal stenosis at L1-L2 and L4-L5. Severe diffuse degenerative disc disease within the lumbar spine with associated moderate multilevel neural foraminal stenosis. Qualifiers: Osteomyelitis type: unspecified type Osteomyelitis location: unspecified site Qualified Code(s): M86.9 - Osteomyelitis, unspecified History of Present Illness Consult date: 03/31/18 (Dr. Krissy Cates) Reason for consult: other Requesting physician: Debra Aguero History of present illness: Kvng is an 87-year-old male admitted on 03/31 2018 for severe low back pain. He has a known descending colon mass for which he had seen Dr. Cates on and is recommended to undergo open versus robotic right colectomy. He has a known history of osteomyelitis that is been followed by ID feels it was okay to proceed with colectomy. He was on the schedule for April 03, 2018 to allow more time for antibiotic treatment however given his severe low back pain , a CT of the abdomen and pelvis as well as an MRI was completed which noted a possible phlegmon. Dr. Gonzalez has been consulted. Surgery has been consulted accordingly regarding his planned elective case on April 03, 2018. He denies fever, chills, nausea, vomiting, constipation, diarrhea, abdominal pain, changes in urinary signs or symptoms endorses chronic frequent urination and nighttime urination). He reports severe low back pain that is worse than normal. He denies recent falls. He endorses continued leg pain and joint pain when walking. Past Med Surg Social Fam HX - Past Medical History Medical history: aortic aneurysm, cancer, GERD, hyperlipidemia, hypertension Additional medical history: prostate enlargement Psychiatric history: no psych history - Past Surgical History Surgical History: no surgical history Additional surgical history: cervical disc surgery. pilonidal cyst - Social History Smoking Status: Former smoker Smokeless Tobacco Status: No Alcohol use: rarely Drug use: none - Family History Father History Unknown: Yes Living Status: Mother Living Status: Medications and Allergies Finasteride [Proscar] 5 mg PO DAILY 02/26/18 [History] Tamsulosin [Flomax] 0.4 mg PO DAILY 02/26/18 [History] cefTRIAXone [Rocephin] 2,000 mg IVPB DAILY #42 vial 03/01/18 [Rx] Polyethylene Glycol 3350 [MiraLAX] 17 gm PO DAILY #30 powd.pack 03/05/18 [Rx] Sennosides/Docusate Sodium [Senna Plus] 1 each PO BID #30 tablet 03/05/18 [Rx] Simethicone [Gas-X] 80 mg PO TID PRN #30 tab.chew 03/05/18 [Rx] OxyCODONE Immed Rel [Roxicodone 10 MG] 10 - 20 mg PO Q6H PRN 03/30/18 [History] Sodium Chloride 1,000 mg MC DAILY 03/30/18 [History] Labetalol [Trandate] 100 mg PO BID 04/02/18 [History] 3 Allergy/AdvReac Type Severity Reaction Status Date / Time morphine AdvReac Vomiting Verified 03/30/18 17:37 Review of Systems All systems PM: reviewed and no additional remarkable complaints except as stated All systems PM: The remainder of the systems were reviewed and are negative General Surgery Exam Initial Vital Signs Temp Pulse Resp BP Pulse Ox 97.8 F 67 16 168/99 98 03/30/18 17:08 03/30/18 17:08 03/30/18 17:08 03/30/18 17:08 03/30/18 17:08 Vital Signs Temp Pulse Resp BP Pulse Ox 04/03/18 06:31 98.4 F 75 14 139/73 97 04/03/18 02:47 98.9 F 70 14 132/65 96 04/02/18 22:15 98.4 F 81 15 145/81 97 04/02/18 18:44 98.9 F 78 15 161/83 98 04/02/18 15:03 98.0 F 81 16 162/83 96 04/02/18 10:24 98.1 F 85 16 167/88 98 Intake and Output 04/02/18 04/03/18 04/03/18 23:59 07:59 15:59 Intake Total 700 / 700 0 / 0 Output Total 600 / 600 1150 / 1150 Balance 100 / 100 -1150 / -1150 Intake: Oral 700 / 700 0 / 0 Output: Urine 600 / 600 550 / 550 Stool 600 / 600 Other: Meal Dinner Stool Size Small Stool Consistency liquid liquid Stool Color Brown Brown # Voids 1 # Bowel Movements 1 0 Weight 79.2 kg 79 kg Blood Glucose* 116 Patient Weight 04/03/18 23:59 Weight 79 kg VITAL SIGNS: Reviewed. See [facility] GENERAL: In no apparent distress. HEENT: Normocephalic, atraumatic, pupils are equal and reactive, there is no neck adenopathy or JVD noted. CHEST/RESPIRATORY: The thorax is free from signs of trauma. Lung sounds: clear to auscultation, normal respiratory effort CARDIAC: Regular rate and rhythm. Normal S1 and S2, without murmurs, gallops, or rubs. VASCULAR: No Edema. 2+ peripheral pulses. ABDOMEN: soft, distended, active bowel sounds, nontender MUSCULOSKELETAL: sitting upright in the bed. NEUROLOGIC EXAM: Alert and oriented x 3. Speech normal. Follows commands. PSYCHIATRIC: Mood normal. SKIN: No rash or lesions. Exam Initial Vital Signs Temp Pulse Resp BP Pulse Ox 97.8 F 67 16 168/99 98 03/30/18 17:08 03/30/18 17:08 03/30/18 17:08 03/30/18 17:08 03/30/18 17:08 Results - Labs 04/03/18 05:04 04/03/18 05:04 Abnormal lab results RBC 3.31 M/mcL (4.19-5.50) L 04/03/18 05:04 Hgb 9.5 g/dL (12.9-16.9) L 04/03/18 05:04 Hct 28.8 % (37.5-50.1) L 04/03/18 05:04 MPV 8.7 fL (9.4-12.4) L 04/03/18 05:04 ESR 63 mm/hr (0-10) H 03/31/18 16:25 Sodium 129 mEq/L (136-145) L 04/03/18 05:04 Chloride 94 mEq/L (98-107) L 04/03/18 05:04 BUN 6 mg/dL (8-23) L 04/03/18 05:04 Creatinine 0.66 mg/dL (0.70-1.30) L 04/03/18 05:04 Glucose 108 mg/dL (70-105) H 04/03/18 05:04 POC Glucose 116 mg/dL (70-99) H 04/03/18 05:14 Calculated Osmolality 266 (280-300) L 04/03/18 05:04 C-Reactive Protein 29 mg/L (Less than 10) H 03/31/18 16:25 Diabetes panel 04/03/18 Range/Units 05:04 Sodium 129 L (136-145) mEq/L Potassium 4.2 (3.5-5.1) mEq/L Chloride 94 L (98-107) mEq/L Carbon Dioxide 29 (23-29) mEq/L BUN 6 L (8-23) mg/dL Creatinine 0.66 L (0.70-1.30) mg/dL Glucose 108 H (70-105) mg/dL Calcium 9.4 (8.6-10.3) mg/dL Calcium panel 04/03/18 Range/Units 05:04 Calcium 9.4 (8.6-10.3) mg/dL Pituitary panel 04/03/18 Range/Units 05:04 Sodium 129 L (136-145) mEq/L Potassium 4.2 (3.5-5.1) mEq/L Chloride 94 L (98-107) mEq/L Carbon Dioxide 29 (23-29) mEq/L BUN 6 L (8-23) mg/dL Creatinine 0.66 L (0.70-1.30) mg/dL Glucose 108 H (70-105) mg/dL Calcium 9.4 (8.6-10.3) mg/dL Adrenal panel 04/03/18 Range/Units 05:04 Sodium 129 L (136-145) mEq/L Potassium 4.2 (3.5-5.1) mEq/L Chloride 94 L (98-107) mEq/L Carbon Dioxide 29 (23-29) mEq/L BUN 6 L (8-23) mg/dL Creatinine 0.66 L (0.70-1.30) mg/dL Glucose 108 H (70-105) mg/dL Calcium 9.4 (8.6-10.3) mg/dL All other labs normal. Consult Discharge Plan - Plan Referrals: Flaco Robertson MD [Primary Care Provider] - <Krissy Cates - Last Filed: 04/05/18 13:36> Date of Encounter: 04/03/18 Assessment and Plan (1) DVT prophylaxis Current Visit: No Status: Acute (2) Vertebral osteomyelitis Current Visit: Yes Status: Acute (3) Adenocarcinoma of colon Current Visit: Yes Status: Acute patient with midascending colon cancer. was planning colectomy today but in light of MRI findings will hold surgery and consult ortho spine. continue npo until Dr Gonzalez input patient has already been consented and discussion regarding surgical intervention done as outpatient Review of Systems All systems PM: The remainder of the systems were reviewed and are negative General Surgery Exam Initial Vital Signs Temp Pulse Resp BP Pulse Ox 97.8 F 67 16 168/99 98 03/30/18 17:08 03/30/18 17:08 03/30/18 17:08 03/30/18 17:08 03/30/18 17:08 Exam Initial Vital Signs Temp Pulse Resp BP Pulse Ox 97.8 F 67 16 168/99 98 03/30/18 17:08 03/30/18 17:08 03/30/18 17:08 03/30/18 17:08 03/30/18 17:08 Results - Labs 04/05/18 05:36 04/05/18 05:36 Abnormal lab results RBC 2.95 M/mcL (4.19-5.50) L 04/05/18 05:36 Hgb 8.5 g/dL (12.9-16.9) L 04/05/18 05:36 Hct 25.9 % (37.5-50.1) L 04/05/18 05:36 MPV 8.9 fL (9.4-12.4) L 04/05/18 05:36 ESR 63 mm/hr (0-10) H 03/31/18 16:25 Sodium 130 mEq/L (136-145) L 04/05/18 05:36 Creatinine 0.67 mg/dL (0.70-1.30) L 04/05/18 05:36 Glucose 133 mg/dL (70-105) H 04/05/18 05:36 POC Glucose 131 mg/dL (70-99) H 04/05/18 05:55 Calculated Osmolality 271 (280-300) L 04/05/18 05:36 Calcium 8.4 mg/dL (8.6-10.3) L 04/05/18 05:36 C-Reactive Protein 29 mg/L (Less than 10) H 03/31/18 16:25 Diabetes panel 04/05/18 Range/Units 05:36 Sodium 130 L (136-145) mEq/L Potassium 4.3 (3.5-5.1) mEq/L Chloride 98 (98-107) mEq/L Carbon Dioxide 23 (23-29) mEq/L BUN 11 (8-23) mg/dL Creatinine 0.67 L (0.70-1.30) mg/dL Glucose 133 H (70-105) mg/dL Calcium 8.4 L (8.6-10.3) mg/dL Calcium panel 04/05/18 04/05/18 Range/Units 05:36 05:36 Calcium 8.4 L (8.6-10.3) mg/dL Phosphorus 4.4 (2.7-4.5) mg/dL Pituitary panel 04/05/18 Range/Units 05:36 Sodium 130 L (136-145) mEq/L Potassium 4.3 (3.5-5.1) mEq/L Chloride 98 (98-107) mEq/L Carbon Dioxide 23 (23-29) mEq/L BUN 11 (8-23) mg/dL Creatinine 0.67 L (0.70-1.30) mg/dL Glucose 133 H (70-105) mg/dL Calcium 8.4 L (8.6-10.3) mg/dL Adrenal panel 04/05/18 Range/Units 05:36 Sodium 130 L (136-145) mEq/L Potassium 4.3 (3.5-5.1) mEq/L Chloride 98 (98-107) mEq/L Carbon Dioxide 23 (23-29) mEq/L BUN 11 (8-23) mg/dL Creatinine 0.67 L (0.70-1.30) mg/dL Glucose 133 H (70-105) mg/dL Calcium 8.4 L (8.6-10.3) mg/dL All other labs normal. - Attending Attestation I have personally performed a face to face evaluation on this patient. I have reviewed and agree with the care plan. History and Exam by me shows:
--- NOTE | 2018-04-03 16:15 | Spinal Consult Note ---
Date of Encounter: 04/03/18 Time of Encounter: 16:12 Assessment and Plan (1) Discitis of lumbar region Current Visit: Yes Status: Chronic On examination he is awake and alert in mild distress secondary to back pain. Afebrile vital signs stable. He has mild limitation with range of motion of his lumbar spine. His hips move symmetrically. He has not had a negative straight leg raise. He is neurovascularly intact with regard to his bilateral lower extremities. He is able to heel walk and toe walk. Has no clubbing cyanosis or edema. MRI of the lumbar spine reveals evidence of discitis/osteomyelitis at the L1-2 level. There is some paravertebral soft tissue extension to the psoas muscles. There is no epidural abscess. There is no impending collapse/destruction of the vertebrae. Multilevel degenerative changes. Laboratory indices including ESR and CRP were reviewed temporally. The overall trend from his initial laboratory markers is that they are stable or trending downward. These were reviewed in conjunction with Dr. Cates. This suggests some response to antibiotic treatment. Impression: 1) adenocarcinoma of the colon 2) discitis/osteomyelitis L1 to with soft tissue/psoas involvement Plan: The patient has known causative organism and I agree with continued intravenous antibiotics for approximately 8 week course. I also am in agreement with following serial infectious markers such as CRP, ESR, CBC with differential to assess response to treatment. As long as they are stable and are trending downward I see no reason not to proceed with elective colectomy as this may lower the risk of getting superinfection with additional organisms. The only reason to delay surgery from my standpoint is that the patient was actively septic/toxic or bacteremic, and the patient is clinically stable and afebrile and does not exhibit these concerns. His back pain is likely to improve as he continues to respond to antibiotic treatment and his infection improves. I agree with continued analgesics at this time. A repeat MRI of the lumbar spine with contrast would be reasonable in the next 3 weeks to assess for any significant changes. He should follow-up in my office as an outpatient around that time for review after the affirmation study. History of Present Illness Chief complaint: Back pain HPI: Mr. Burkett is a 87 year old male Who is admitted with back pain who has known colon CA and has been on intravenous antibiotics for discitis and osteomyelitis per the infectious disease service. Patient has planned partial colectomy plan with Dr. Eddy, but MRI evaluation revealed continuation of the discitis and osteomyelitis and concerning findings. We are asked to see regarding current treatment plan for his back pain and spinal issues. He denies fevers, chills or bladder or urinary incontinence. He denies weakness in the lower extremities. Past Med Surg Social Fam HX - Past Medical History Medical history: aortic aneurysm, cancer, GERD, hyperlipidemia, hypertension Additional medical history: prostate enlargement Psychiatric history: no psych history - Past Surgical History Surgical History: no surgical history Additional surgical history: cervical disc surgery. pilonidal cyst - Social History Smoking Status: Former smoker Smokeless Tobacco Status: No Alcohol use: rarely Drug use: none - Family History Father History Unknown: Yes Living Status: Mother Living Status: Medications and Allergies Finasteride [Proscar] 5 mg PO DAILY 02/26/18 [History] Tamsulosin [Flomax] 0.4 mg PO DAILY 02/26/18 [History] cefTRIAXone [Rocephin] 2,000 mg IVPB DAILY #42 vial 03/01/18 [Rx] Polyethylene Glycol 3350 [MiraLAX] 17 gm PO DAILY #30 powd.pack 03/05/18 [Rx] Sennosides/Docusate Sodium [Senna Plus] 1 each PO BID #30 tablet 03/05/18 [Rx] Simethicone [Gas-X] 80 mg PO TID PRN #30 tab.chew 03/05/18 [Rx] OxyCODONE Immed Rel [Roxicodone 10 MG] 10 - 20 mg PO Q6H PRN 03/30/18 [History] Sodium Chloride 1,000 mg MC DAILY 03/30/18 [History] Labetalol [Trandate] 100 mg PO BID 04/02/18 [History] 3 Allergy/AdvReac Type Severity Reaction Status Date / Time morphine AdvReac Vomiting Verified 03/30/18 17:37 Results - Labs Result Diagrams: 04/03/18 05:04 04/03/18 05:04 Labs: Abnormal lab results RBC 3.31 M/mcL (4.19-5.50) L 04/03/18 05:04 Hgb 9.5 g/dL (12.9-16.9) L 04/03/18 05:04 Hct 28.8 % (37.5-50.1) L 04/03/18 05:04 MPV 8.7 fL (9.4-12.4) L 04/03/18 05:04 ESR 63 mm/hr (0-10) H 03/31/18 16:25 Sodium 129 mEq/L (136-145) L 04/03/18 05:04 Chloride 94 mEq/L (98-107) L 04/03/18 05:04 BUN 6 mg/dL (8-23) L 04/03/18 05:04 Creatinine 0.66 mg/dL (0.70-1.30) L 04/03/18 05:04 Glucose 108 mg/dL (70-105) H 04/03/18 05:04 POC Glucose 116 mg/dL (70-99) H 04/03/18 05:14 Calculated Osmolality 266 (280-300) L 04/03/18 05:04 C-Reactive Protein 29 mg/L (Less than 10) H 03/31/18 16:25 H & H 04/03/18 Range/Units 05:04 Hgb 9.5 L (12.9-16.9) g/dL Hct 28.8 L (37.5-50.1) % All other labs normal. Consult Discharge Plan - Plan Referrals: Flaco Robertson MD [Primary Care Provider] -
--- NOTE | 2018-04-03 16:53 | Infectious Disease Progress No ---
Date of Encounter: 04/03/18 Time of Encounter: 11:00 - Assessment and Plan (1) Osteomyelitis Current Visit: Yes Status: Acute Location: L1, L2. Causative organism: S. gallolyticus. Likely secondary to seeding from the abdomen given the patient's recent finding of colon cancer. MRI of the L-spine 02/20/18 showed osteomyelitis/discitis L1-L2. Status post bone biopsy 02/23/18. 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 Pathology was positive for Adenocarcinom. Continue to have worsening back pain and worsening inflammatory markers so patient was asked to come to the ED for evaluation and was admitted. MRI of the lumbar spine showed severe discitis/Tristin minus that L1-L2 with surrounding paravertebral phlegmon at this level with associated inflammation of both psoas muscles. No paraspinal or psoas abscess was identified. There was also noted to be mild enhancing tissue within the epidural space circumferentially at L1-L2 compatible with extension of the infectious process, but no epidural abscess was appreciated. Consult orthopedics. Dr. Aguero spoke with Dr. Gonzalez. We will await his recommendations. Check inflammatory markers. --> improved from last week. Discontinue Rocephin. Start PCN G 4 million units Q4H. Duration of treatment depends on the clinical picture. Monitor renal function and dose-adjust antibiotics. Qualifiers: Osteomyelitis type: unspecified type Osteomyelitis location: unspecified site Qualified Code(s): M86.9 - Osteomyelitis, unspecified (2) Bacteremia Current Visit: No Status: Resolved Causative organism: S. gallolyticus. Source likely intra-abdominal. Blood cultures drawn 03/30/18 are NGTD x 2 sets. (3) Lumbar back pain Current Visit: Yes Status: Acute Likely secondary to discitis/osteomyelitis. Pain management per the primary team. (4) Anemia Current Visit: Yes Status: Acute Qualifiers: Anemia type: other cause Other causes of anemia: other cause, not classified Qualified Code(s): D64.89 - Other specified anemias (5) BPH without urinary obstruction Current Visit: Yes Status: Acute (6) Adenocarcinoma of colon Current Visit: Yes Status: Acute General surgery consulted to perform colectomy. Surgery on hold pending evaluation by Ortho-Spine. - Subjective Interval history: Patient seen and examined. No acute events noted overnight. Patient states overall he feels okay. He states his back pain was improved yesterday, but he had an acute onset of worsening pain overnight. Denies any fevers or chills or rigors. Denies chest pain, shortness of breath, or cough. Denies nausea, vomiting, diarrhea, constipation. He does report multiple loose stools during bowel prep for possible surgery today. He denies any urinary complaints. He denies any numbness or tingling or incontinence. He denies any oral thrush or any skin lesions. Infect Dis PN-Objective Data - Labs CBC & Chem 7: 04/04/18 07:26 04/04/18 07:26 Labs: Laboratory Results - last 24 hr 04/03/18 04/03/18 04/03/18 05:04 05:04 05:14 WBC 5.1 RBC 3.31 L Hgb 9.5 L Hct 28.8 L MCV 87.0 MCH 28.7 MCHC 33.0 RDW 12.4 Plt Count 217 MPV 8.7 L Immature Gran % 0.2 Seg Neutrophils % 57.1 Lymphocytes % 27.0 Monocytes % 13.9 Eosinophils % 1.4 Basophils % 0.4 Neutrophils # 2.9 Lymphocytes # 1.4 Monocytes # 0.7 Eosinophils # 0.1 Basophils # 0.0 Sodium 129 L Potassium 4.2 Chloride 94 L Carbon Dioxide 29 BUN 6 L Creatinine 0.66 L Est GFR ( Amer) > 60 Est GFR (Non-Af Amer) > 60 BUN/Creatinine Ratio 9 Glucose 108 H POC Glucose 116 H Calculated Osmolality 266 L Calcium 9.4 Magnesium 2.0 Exam - Constitutional Vitals: Temp Pulse Resp BP Pulse Ox 98.2 F 70 14 126/63 96 04/03/18 14:38 04/03/18 14:38 04/03/18 14:38 04/03/18 14:38 04/03/18 14:38 General appearance: average body habitus, cooperative, no acute distress - Head Head exam: Present: atraumatic, normal inspection, normocephalic - Eye Eye exam: Present: EOMI, normal appearance, PERRL Pupils: Present: normal accommodation - ENT ENT exam: Present: mucous membranes moist - Neck Neck exam: Present: normal inspection - Respiratory Respiratory exam: Present: CTAB. Absent: rales, respiratory distress, rhonchi, wheezes - Cardiovascular Cardiovascular exam: Present: RRR, +S1, +S2 - GI/Abdominal GI/Abdominal exam: Present: distended, normal bowel sounds, soft. Absent: tenderness - Extremities Exam Extremities exam: Present: normal inspection. Absent: joint swelling, pedal edema, tenderness - Back Exam Back exam: Present: normal inspection. Absent: paraspinal tenderness, vertebral tenderness - Neurological Exam Neurological exam: Present: alert, oriented X3, no focal deficits - Psychiatric Psychiatric exam: Present: normal affect, normal mood - Skin Skin exam: Present: dry, intact, normal color, warm Consult Discharge Plan - Plan Referrals: Flaco Robertson MD [Primary Care Provider] - - Attending Attestation I examined this patient and my medical decision-making was reviewed with the Resident Physician. I agree with the documented findings, disposition and treatment plan as described except to the extent set forth below.
--- NOTE | 2018-04-03 17:50 | Internal Med Progress Note ---
Hospitalist Progress Note - Encounter Date of Encounter: 04/03/18 Time of Encounter: 17:49 - Subjective Interval History: SUBJECTIVE: His low back pain seems to be under fair control. He is on increased dose of OxyContin - 30 mg by mouth twice a day. He takes when necessary oxycodone at lower dose of 5 mg. He ambulates on his own. His low back pain has been radiating to the upper portions of his posterior thighs since yesterday afternoon. It started yesterday afternoon, when he was straining with his bowel movement. Denies chest pain. Denies difficulty breathing. Denies abdominal pain, nausea and vomiting. He makes good amounts of urine. OBJECTIVE: Skin: Free of rash and discoloration. ENMT: Oral/pharyngeal mucosa is normal in appearance. Eyes: Sclera is white. There is no discharge from eyes. Respiratory: Normal breath sounds; no crackles or wheezes. CV: Heart is regular; no gallop or murmur. GI: Abdomen is soft and not tender. There is no palpable mass or visceromegaly. Neuro: There is no focal deficits. ASSESSMENT AND PLAN: Intractable low back pain secondary to vertebral osteomyelitis. We will continue OxyContin at 30 mg by mouth twice a day. We will continue when necessary Roxicodone at 5 mg every 4 hours. He is on lidocaine patch. See results of CT and MRI of lumbar spine. See infectious diseases consult. His surgery has been canceled; awaiting evaluation of his spine by Dr. Gonzalez, orthopedic surgery. We will keep him on clear liquids. Severe constipation. Secondary to taking narcotic medications. He was getting MiraLAX bowel prep for the last 2 days. He still seems to be pretty clear. Adenocarcinoma of ascending colon. The surgery is on hold pending evaluation by Dr. Gonzalez, orthopedic surgery. - Exam Vitals: Temp Pulse Resp BP Pulse Ox 98.2 F 70 14 126/63 96 04/03/18 14:38 04/03/18 14:38 04/03/18 14:38 04/03/18 14:38 04/03/18 14:38 Exam: xx - Assessment and Plan (1) Low back pain Current Visit: Yes Status: Acute (2) Vertebral osteomyelitis Current Visit: Yes Status: Acute (3) Adenocarcinoma of colon Current Visit: Yes Status: Acute (4) Constipation due to opioid therapy Current Visit: Yes Status: Acute (5) Hyponatremia Current Visit: Yes Status: Acute (6) Anemia Current Visit: Yes Status: Acute (7) Hypertension Current Visit: Yes Status: Chronic (8) BPH without urinary obstruction Current Visit: Yes Status: Acute - Time Spent with Patient Total time spent is greater than 50% in coordination of care (as documented) at patient's floor/unit and/or counseling patient: 25 - 35 minutes Plan of Care Discussed with: patient (family and nurse..) Internal Medicine: Result - Labs CBC & Chem 7: 04/03/18 05:04 04/03/18 05:04 Labs: Short CBC 04/03/18 Range/Units 05:04 WBC 5.1 (4.3-11.1) K/mcL Hgb 9.5 L (12.9-16.9) g/dL Hct 28.8 L (37.5-50.1) % Plt Count 217 (140-400) K/mcL Neutrophils # 2.9 (1.6-8.9) K/mcL BMP 04/03/18 05:04 Sodium 129 L Potassium 4.2 Chloride 94 L Carbon Dioxide 29 BUN 6 L Creatinine 0.66 L Glucose 108 H Calcium 9.4 Consult Discharge Plan - Plan Referrals: Flaco Robertson MD [Primary Care Provider] - (1) Low back pain Qualifiers: Chronicity: acute Back pain laterality: midline Sciatica presence: without sciatica Qualified Code(s): M54.5 - Low back pain (6) Anemia Qualifiers: Anemia type: other cause Other causes of anemia: other cause, not classified Qualified Code(s): D64.89 - Other specified anemias (7) Hypertension Qualifiers: Hypertension type: essential hypertension Qualified Code(s): I10 - Essential (primary) hypertension
--- NOTE | 2018-04-03 20:11 | Anesthesia Evaluation PreOp ---
Date of Encounter: 04/03/18 Time of Encounter: 20:10 - Past History Planned Operation: Open R colectomy Cardiac History: HTN, Hyperlipidemia, Other (thoracic aortic aneurysm 4.7cm stable) Pulmonary History: Former smoker COPPER TAPPER History: Denies Any Significant HX Other Medical History: GERD, Other (colon ca) Anesthesia History: No Prior Anesthetic Complications, Past Anesthesia ( colonoscopy, pilonidal cystectomy, cervical disc) Alcohol Use: rarely Drug use: none Medications and Allergies Finasteride [Proscar] 5 mg PO DAILY 02/26/18 [History] Tamsulosin [Flomax] 0.4 mg PO DAILY 02/26/18 [History] cefTRIAXone [Rocephin] 2,000 mg IVPB DAILY #42 vial 03/01/18 [Rx] Polyethylene Glycol 3350 [MiraLAX] 17 gm PO DAILY #30 powd.pack 03/05/18 [Rx] Sennosides/Docusate Sodium [Senna Plus] 1 each PO BID #30 tablet 03/05/18 [Rx] Simethicone [Gas-X] 80 mg PO TID PRN #30 tab.chew 03/05/18 [Rx] OxyCODONE Immed Rel [Roxicodone 10 MG] 10 - 20 mg PO Q6H PRN 03/30/18 [History] Sodium Chloride 1,000 mg MC DAILY 03/30/18 [History] Labetalol [Trandate] 100 mg PO BID 04/02/18 [History] 3 Allergy/AdvReac Type Severity Reaction Status Date / Time morphine AdvReac Vomiting Verified 03/30/18 17:37 - Meds/Allergy Pre-op Review Medications Reviewed: Yes Allergies Reviewed: Yes Beta Blockers on Current Med List: No Anesthesia Results - Labs 04/03/18 05:04 04/03/18 05:04 - Imaging EKG: report reviewed (SINUS RHYTHM WITH FIRST DEGREE AV BLOCK MARKED LEFT AXIS DEVIATION POSSIBLE SEPTAL MYOCARDIAL INFARCTION, PROBABLY OLD Electronically Signed On 03-31-2018 0:40:31 EDT by Sindy Larson) Anesthesia Exam Vital Signs/O2 Sat, Most Current Temp Pulse Resp BP Pulse Ox 98.5 F 68 16 134/62 98 04/03/18 18:49 04/03/18 18:49 04/03/18 18:49 04/03/18 18:49 04/03/18 18:49 Weight: 79kg NPO (# of Hours): MN - HEENT Pupil (Motor): Pupils equal, EOMI Mallampati: III Teeth: Edentulous Denture Type: Upper: Complete, Lower: Complete Oral Opening: Greater than 3 - COPPER TAPPER LOC: Oriented COPPER TAPPER Motor: Normal RUE, Normal LUE, Normal RLE, Normal LLE, Normal Face COPPER TAPPER Sensory: Normal: RUE, LUE, RLE, LLE, Face - Cardiac Rhythm: Regular - Pulmonary Breath Sounds: bilateral Clear Respiratory Effort: Symmetrical Anesthesia Assess/Plan ASA Score: 3 (colon ca,HTN, hyperlipidemia, 4.7 thoracic aortic aneurysm) Modified Orla Scale for Level of Consciousness: Cooperative, oriented, and tranquil Anesthetic Plan: General Monitoring Plan: Standard Monitors, A-Line
[2018-04-03] MEDS: Penicillin G Potassium 4,000,000 UNIT in 0.9 % Sodium Chloride 100 ML IVPB SCH (22:02)
[2018-04-04] MEDS: *HR* OxyCODONE Immed Rel 5 MG TABLET PO PRN ×3 (00:44→13:16)
[2018-04-04] MEDS: Penicillin G Potassium 4,000,000 UNIT in 0.9 % Sodium Chloride 100 ML IVPB SCH ×3 (01:56→11:24)
[2018-04-04] MEDS: *HR* OxyCODONE ER (12 HR) 10 MG TABLET PO SCH (05:57)
[2018-04-04] MEDS: Finasteride 5 MG TABLET PO SCH (08:06)
[2018-04-04] MEDS: Furosemide 20 MG TABLET PO SCH (08:06)
[2018-04-04 08:19] LABS: BUN/Creatinine Ratio 10 (6-26); Blood Urea Nitrogen 7 mg/dL (8-23); Calcium 8.9 mg/dL (8.6-10.3); Carbon Dioxide 29 mEq/L (23-29); Chloride 95 mEq/L (98-107); Glucose 115 mg/dL (70-105); Magnesium 1.9 mg/dL (1.6-2.6); Osmolality,Calculated 269 (280-300); Sodium 130 mEq/L (136-145); eGFR For Non-African Americans > 60 (> 60)
[2018-04-04 08:37] LABS: Basophils % 0.5 %; Eosinophils # 0.1 K/mcL (0.0-0.6); Eosinophils % 1.9 %; Hematocrit 25.7 % (37.5-50.1); Hemoglobin 8.6 g/dL (12.9-16.9); Immature Granulocytes % 0.2 % (0-4); Lymphocytes # 0.9 K/mcL (0.6-4.6); Lymphocytes % 21.5 %; Mean Corpuscular HGB Conc 33.5 g/dL (31.6-35.5); Mean Corpuscular Hemoglobin 28.9 pg (28.0-33.3); Mean Corpuscular Volume 86.2 fL (83.0-100.0); Monocytes # 0.6 K/mcL (0.0-1.3); Monocytes % 14.8 %; Neutrophils # 2.6 K/mcL (1.6-8.9); Platelet Count 192 K/mcL (140-400); Red Blood Count 2.98 M/mcL (4.19-5.50); Red Cell Distribution Width 12.8 % (11.5-14.5); Segmented Neutrophils % 61.1 %
--- NOTE | 2018-04-04 11:56 | Event Note ---
Date of Encounter: 04/04/18 Time of Encounter: 11:30 Patient reports a liquid output with small amounts of Brown flex. He is adamantly refusing postponing surgery. I did review the risks of an incompletely clear: with him including increased risk for stool spillage and postoperative infection. Patient acknowledges understanding of risks and wishes to proceed. We did place an order for a double volume enema to be given per rectum at this time. Further reviewed with patient that his procedure will be an open right colon. Patient is agreeable to proceed.
--- NOTE | 2018-04-04 12:54 | Internal Med Progress Note ---
Hospitalist Progress Note - Encounter Date of Encounter: 04/06/18 Time of Encounter: 13:42 - Subjective Interval History: Patient complains of distension, denies abdominal pain, n/v, diarrhea. - Exam Vitals: Temp Pulse Resp BP Pulse Ox 98.2 F 66 14 135/69 98 04/04/18 11:05 04/04/18 11:05 04/04/18 11:05 04/04/18 11:05 04/04/18 11:05 Exam: Gen: NAD, pleasant CVS: RRR Lungs: CTAB Abd: soft, limited palpation as patient with typical post-op tenderness in mid abdomen, normal bowel sounds. Mildly distended abdomen. Ext: no cyanosis, no edema - Assessment and Plan (1) Hypertension Current Visit: Yes Status: Chronic Assessment and Plan: PO Labetolol (2) Low back pain Current Visit: Yes Status: Acute Assessment and Plan: Intractable low back pain secondary to vertebral osteomyelitis and discitis. See results of CT and MRI of lumbar spine. See infectious diseases consult. Continue antibiotics and pain medications. (3) Constipation due to opioid therapy Current Visit: Yes Status: Acute Assessment and Plan: Colace NPO for likely surgery today (4) Hyponatremia Current Visit: Yes Status: Acute Assessment and Plan: Continue to monitor. (5) Anemia Current Visit: Yes Status: Acute Assessment and Plan: Stable, will recheck in AM. 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 s/p right open colectomy 04/04/18 Biopsy results pending. - Time Spent with Patient Total time spent is greater than 50% in coordination of care (as documented) at patient's floor/unit and/or counseling patient: Internal Medicine: Result - Labs CBC & Chem 7: 04/06/18 06:05 04/06/18 06:05 Labs: Short CBC 04/04/18 Range/Units 07:26 WBC 4.3 (4.3-11.1) K/mcL Hgb 8.6 L (12.9-16.9) g/dL Hct 25.7 L (37.5-50.1) % Plt Count 192 (140-400) K/mcL Neutrophils # 2.6 (1.6-8.9) K/mcL BMP 04/04/18 07:26 Sodium 130 L Potassium 4.0 Chloride 95 L Carbon Dioxide 29 BUN 7 L Creatinine 0.71 Glucose 115 H Calcium 8.9 Consult Discharge Plan - Plan Referrals: Flaco oRbertson MD [Primary Care Provider] - (1) Hypertension Qualifiers: Hypertension type: essential hypertension Qualified Code(s): I10 - Essential (primary) hypertension (2) Low back pain Qualifiers: Chronicity: acute Back pain laterality: midline Sciatica presence: without sciatica Qualified Code(s): M54.5 - Low back pain (5) Anemia Qualifiers: Anemia type: other cause Other causes of anemia: other cause, not classified Qualified Code(s): D64.89 - Other specified anemias
[2018-04-04] MEDS ORDERED: Neostigmine Methylsulfate 3 MG/3 ML SYRINGE ONE ×2 (15:52→17:47)
[2018-04-04] MEDS ORDERED: Lidocaine -MPF 4% 5 ML AMPUL ONE (15:52)
[2018-04-04] MEDS ORDERED: *HR* FentaNYL (PF) 100 MCG/2 ML VIAL ONE (15:52)
[2018-04-04] MEDS ORDERED: Ondansetron 4 MG/2 ML VIAL ONE (15:52)
[2018-04-04] MEDS ORDERED: Lidocaine -MPF 2% 2 ML VIAL ONE (15:52)
[2018-04-04] MEDS ORDERED: *HR* Succinylcholine 200 MG/10 ML VIAL IVP ONE (15:52)
[2018-04-04] MEDS ORDERED: *HR* Rocuronium Bromide 50 MG/5 ML VIAL ONE (15:52)
[2018-04-04] MEDS ORDERED: Dexamethasone 4 MG/ML VIAL ONE ×2 (15:52→18:08)
[2018-04-04] MEDS ORDERED: *HR* Propofol 200 MG/20 ML VIAL IVP ONE (15:53)
[2018-04-04] MEDS ORDERED: *HR* HYDROmorphone 2 MG/ML SYRINGE ONE (16:38)
[2018-04-04] MEDS ORDERED: Acetaminophen IV 1,000 MG/100 ML INFUS..BTL ONE (16:38)
[2018-04-04] MEDS ORDERED: *HR* PHENYLEPHRINE 1,000 MCG/10 ML SYRINGE IVP ONE (17:03)
[2018-04-04] MEDS ORDERED: *HR* Labetalol 20 MG/4 ML SYRINGE IVP PRN (17:52)
[2018-04-04] MEDS ORDERED: Ondansetron 4 MG/2 ML VIAL IVP PRN ×2 (17:52→19:51)
[2018-04-04] MEDS ORDERED: ROPIVACAINE HCL/PF 0.5% 30 ML VIAL ONE (18:08)
--- NOTE | 2018-04-04 18:33 | Operative Note ---
Date of procedure: 04/04/18 Pre-op diagnosis: ascending colon cancer Post-op diagnosis: same Procedure: Open right colectomy Complications: none immediate Anesthesia: HEATHERA Surgeon: Krissy Cates Was there an contact center assistant present: Yes Electric Power Line Repairer: Janeth Wharton Estimated blood loss (cc): 10 Specimen: right colon Condition: stable Disposition: PACU Procedure in Detail: Patient was brought into the operating suite and placed supine on the operating table. Sign in was performed and everyone was in agreement. Anesthesia was induced and patient was endotracheally intubated by anesthesia without incident. Melissa catheter was placed by the circulating nurse. An NG tube was placed by anesthesia. The abdomen was shaved. The abdomen was prepped and draped in the usual sterile fashion. Timeout was performed again everyone was in agreement. Midline incision through the skin into the subcutaneous tissue was made with a 15 blade. The fascia was split with the Bovie. Kike's are placed on either side of the fascia for retraction and the abdominal incision along the fascia was extended with the Bovie. Bookwalter was placed for exposure and retraction. Small bowel was placed in the left lower quadrant with a wet towel. The tattoo at the mid to distal descending colon was identified. The right colon was taken down off the right lateral sidewall beginning at the white line of [place] in a distal to proximal direction down around the cecum. The right colon was elevated off the retroperitoneum with gentle blunt dissection and the Bovie. The duodenum was located and kept out of harm's way. The middle colic vessels were located and an opening in the mesentery beneath the transverse colon at the right branch of the middle colic vessel was made with the Bovie. An opening in the omentum at the site was made with the Bovie and impact LigaSure. The transverse colon was transected with a linear JILLIAN-75 stapler blue load. A site of the distal small bowel was chosen for transection this was several centimeters away from the cecum and an opening in the mesentery beneath the small bowel was made with the Bovie. The small bowel was transected with the linear JILLIAN-75 stapler blue load. The mesentery of the right colon and proximal transverse colon was taken down with the impact LigaSure. The specimen was placed off to the back table for pathology. A side- to-side small bowel to transverse colon anastomosis was constructed first with a linear JILLIAN-75 stapler blue load then a TX-60 stapler blue load closing the common channel. The common staple line was reinforced with 3-0 silk figure-of- eight stitches. A 3-0 silk crotch stitch was placed. The abdomen was irrigated with sterile saline. The omentum was wrapped around the anastomosis and the bowel placed back within the abdominal cavity. [place]'s are placed on either side of the fascia for retraction and the fascia was reapproximated with 2 separate #1 non-looped PDS running stitches meeting in the middle. The subcutaneous tissue was irrigated with sterile saline. The subcutaneous tissue was reapproximated with 3-0 Vicryl interrupted stitches. The skin was closed with lizzette. 4 x 4 gauze and Medipore tape were applied as a dressing. All lap and instrument counts are correct at the end of the case and the patient tolerated the procedure well. The Melissa catheter remained with the patient. The patient was awoken by anesthesia and extubated without incident. Patient was taken to PACU in stable condition.
[2018-04-04] MEDS: *HR* HYDROmorphone (PF) 1 MG/ML SYRINGE IVP PRN ×2 (18:46→18:56)
--- NOTE | 2018-04-04 18:47 | Anesthesia Procedures ---
Date of Encounter: 04/04/18 Time of Encounter: 18:25 Procedures: Anesthesia - Nerve Block Procedure Date: 04/04/18 Time: 18:25 Allergies/Adv Reactions: morphine Pre-op Diagnosis: colon ca Surgical Procedure: open colectomy Checklist: Correct Patient Identifier, Correct procedure, History checked Blood Thinner: No Monitor Applied: EKG, BP, Pulse Oximetry Supplemental Oxygen via Nasal Cannula (L/min): 2 (GETA) Indication: Post Op Analgesia Pre-op Neuro Deficits: No Block Type: Other (bilateral tap 30ml each side) Catheter placed: No Sterile Technique: Yes Ultrasound used: Yes Anatomy identified: Yes Visual spread of Local: Yes Neuro Stimulation: No Blood on Needle Aspiration: No Smooth Injection of Local: Yes Pain with Injection of Local: No Prep: Chlorhexadine Needle: 21 x 100 mm Stimuplex (echogenic) Local: Ropivacaine (0.25%), Other (decadron 8mg per side) Volume (cc): 60 Number of Attempts: 1 Complications: None/effective block Vitals: see anesthetic record
--- NOTE | 2018-04-04 19:17 | Anesthesia Evaluation Post Op ---
Date of Encounter: 04/04/18 Time of Encounter: 19:16 - Discharge PostOp Status: Transfer Patient to floor (Patient's vital signs have been reviewed. Patient is stable postoperatively and has adequately recovered from anesthesia. Patient is determined to have stable airway patency and respiratory function including respiratory rate and oxygen saturation. Patient has a stable heart rate, blood pressure and adequate hydration. Patients mental status is acceptable. Patients temperature is appropriate. Pain and nausea are adequately controlled.)
[2018-04-04] MEDS ORDERED: *HR* HYDROmorphone 20 MG/20 ML PCA IVC PRN (19:51)
[2018-04-04] MEDS ORDERED: Naloxone 0.4 MG/ML INJ IVP PRN (19:51)
[2018-04-04] MEDS: 0.9 % Sodium Chloride 1,000 ML IVC SCH (21:07)
[2018-04-04] MEDS: *HR* HYDROmorphone 20 MG/20 ML PCA IVC PRN (21:38)
[2018-04-05] MEDS: Penicillin G Potassium 4,000,000 UNIT in 0.9 % Sodium Chloride 100 ML IVPB SCH ×7 (00:19→22:20)
[2018-04-05] MEDS: Acetaminophen IV 1,000 MG/100 ML INFUS..BTL IVPB SCH ×4 (00:33→23:33)
[2018-04-05] MEDS: *HR* Heparin 5,000 UNIT/ML VIAL SQ SCH ×2 (06:06→18:03)
[2018-04-05 06:30] LABS: Hematocrit 25.9 % (37.5-50.1); Hemoglobin 8.5 g/dL (12.9-16.9); Immature Granulocytes % 0.5 % (0-4); Lymphocytes # 0.6 K/mcL (0.6-4.6); Lymphocytes % 9.6 %; Mean Corpuscular HGB Conc 32.8 g/dL (31.6-35.5); Mean Corpuscular Hemoglobin 28.8 pg (28.0-33.3); Mean Corpuscular Volume 87.8 fL (83.0-100.0); Mean Platelet Volume 8.9 fL (9.4-12.4); Monocytes # 0.2 K/mcL (0.0-1.3); Monocytes % 3.2 %; Neutrophils # 5.2 K/mcL (1.6-8.9); Platelet Count 195 K/mcL (140-400); Red Blood Count 2.95 M/mcL (4.19-5.50); Red Cell Distribution Width 12.5 % (11.5-14.5); Segmented Neutrophils % 86.7 %
[2018-04-05] MEDS: Famotidine 20 MG/2 ML VIAL IVP SCH ×2 (06:38→18:03)
[2018-04-05 06:45] LABS: Magnesium 1.8 mg/dL (1.6-2.6); Phosphorous 4.4 mg/dL (2.7-4.5)
[2018-04-05 06:47] LABS: BUN/Creatinine Ratio 16 (6-26); Blood Urea Nitrogen 11 mg/dL (8-23); Calcium 8.4 mg/dL (8.6-10.3); Carbon Dioxide 23 mEq/L (23-29); Chloride 98 mEq/L (98-107); Glucose 133 mg/dL (70-105); Osmolality,Calculated 271 (280-300); Potassium 4.3 mEq/L (3.5-5.1); Sodium 130 mEq/L (136-145); eGFR For Non-African Americans > 60 (> 60)
[2018-04-05] MEDS: Finasteride 5 MG TABLET PO SCH (09:11)
--- NOTE | 2018-04-05 10:05 | General Surgery Progress Note ---
Date of Encounter: 04/05/18 Time of Encounter: 09:45 - Assessment and Plan (1) Adenocarcinoma of colon Current Visit: Yes Status: Acute POD #1 Open right colectomy with Dr. Cates Pathology pending May have limited clear liquids today- 200ml every 8 hours IV fluids- 75ml/hour Supportive care/pain control Out of bed to chair with assistance Continue Melissa catheter for strict I&Os/hx of BPH PPI therapy daily DVT prophylaxis IS every 1 hour while awake Abdominal binder Daily incision care Repeat am labs- CBC, BMP (2) Vertebral osteomyelitis Current Visit: Yes Status: Acute Spine recommendations: continue IV antibiotics, serial lab markers, repeat MRI in 3 weeks and follow-up in outpatient office. No acute indication for surgical intervention at this time (3) DVT prophylaxis Current Visit: No Status: Acute Heparin 5,000 units SQ twice daily for DVT prophylaxis EPCDs to bilateral lower extremities for DVT prophylaxis Ambulate TID with assistance Subjective Patient reports: no new complaints, still having pain (minimal, expected post- operative), no flatus, no bowel movement, afebrile, other (Patient out of bed to chair with no complaints) Objective Vital Signs - Last 8 Hours Temp Pulse Resp BP Pulse Ox 04/05/18 07:17 98.8 F 79 18 118/60 94 04/05/18 03:20 98.8 F 81 16 112/61 94 Intake and Output 04/04/18 04/05/18 04/05/18 23:59 07:59 15:59 Intake Total 200 / 200 420 / 420 100 / 100 Output Total 310 / 310 400 / 400 825 / 825 Balance -110 / -110 20 / 20 -725 / -725 Intake: IV Fluids 300 / 300 100 / 100 Ofirmev 1,000 mg/100 ml 1,000 100 / 100 100 / 100 mg In 100 ml @ 400 mls/hr IVPB Q8HR [place] Rx#:[id number] Pfizerpen 4,000,000 UNIT In 0.9 200 / 200 % Sodium Chloride 100 ML @ 100 mls/hr IVPB Q4HR [place] Rx#: [id number] Oral 200 / 200 120 / 120 Output: Urine 200 / 200 Estimated Blood Loss Urine Amount (Catheter) 300 / 300 Catheter 200 / 200 825 / 825 Other: Weight 81.5 kg Blood Glucose* 131 Patient Weight 04/05/18 23:59 Weight 81.5 kg - General physical appearance well developed, well nourished, no distress - Eyes normal ocular movement - ENT normal mucosa, atraumatic, normocephalic - Neck Neck exam: trachea midline - Respiratory normal respiratory effort, clear to auscultation - Cardiovascular Cardiovascular exam: Present: RRR, murmurs - Abdomen Abdomen: Present: soft, tender (expected post-operative tenderness, minimal) - Incision Incision: Present: clean and dry, intact - Genitourinary other (Melissa catheter to SD with clear, yellow urine noted (1025ml since midnight)) - Neurologic CN 2-12 grossly intact - Psychiatric oriented to time, oriented to person, oriented to place, speech is normal, memory intact - Labs 04/05/18 05:36 04/05/18 05:36 Diabetes panel 04/05/18 Range/Units 05:36 Sodium 130 L (136-145) mEq/L Potassium 4.3 (3.5-5.1) mEq/L Chloride 98 (98-107) mEq/L Carbon Dioxide 23 (23-29) mEq/L BUN 11 (8-23) mg/dL Creatinine 0.67 L (0.70-1.30) mg/dL Glucose 133 H (70-105) mg/dL Calcium 8.4 L (8.6-10.3) mg/dL Calcium panel 04/05/18 04/05/18 Range/Units 05:36 05:36 Calcium 8.4 L (8.6-10.3) mg/dL Phosphorus 4.4 (2.7-4.5) mg/dL Pituitary panel 04/05/18 Range/Units 05:36 Sodium 130 L (136-145) mEq/L Potassium 4.3 (3.5-5.1) mEq/L Chloride 98 (98-107) mEq/L Carbon Dioxide 23 (23-29) mEq/L BUN 11 (8-23) mg/dL Creatinine 0.67 L (0.70-1.30) mg/dL Glucose 133 H (70-105) mg/dL Calcium 8.4 L (8.6-10.3) mg/dL Adrenal panel 04/05/18 Range/Units 05:36 Sodium 130 L (136-145) mEq/L Potassium 4.3 (3.5-5.1) mEq/L Chloride 98 (98-107) mEq/L Carbon Dioxide 23 (23-29) mEq/L BUN 11 (8-23) mg/dL Creatinine 0.67 L (0.70-1.30) mg/dL Glucose 133 H (70-105) mg/dL Calcium 8.4 L (8.6-10.3) mg/dL Consult Discharge Plan - Plan Referrals: Flaco Robertson MD [Primary Care Provider] -
--- NOTE | 2018-04-05 13:44 | Infectious Disease Progress No ---
Date of Encounter: 04/05/18 Time of Encounter: 11:40 - Assessment and Plan (1) Osteomyelitis Current Visit: Yes Status: Acute Location: L1, L2. Causative organism: S. gallolyticus. Likely secondary to seeding from the abdomen given the patient's recent finding of colon cancer. MRI of the L-spine 02/20/18 showed osteomyelitis/discitis L1-L2. Status post bone biopsy 02/23/18. 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 Pathology was positive for Adenocarcinoma. Continue to have worsening back pain and worsening inflammatory markers so patient was asked to come to the ED for evaluation and was admitted. MRI of the lumbar spine showed severe discitis/Tristin minus that L1-L2 with surrounding paravertebral phlegmon at this level with associated inflammation of both psoas muscles. No paraspinal or psoas abscess was identified. There was also noted to be mild enhancing tissue within the epidural space circumferentially at L1-L2 compatible with extension of the infectious process, but no epidural abscess was appreciated. Ortho-spine consulted. No surgical intervention required at this time. Check inflammatory markers. --> improved from last week. Continue PCN G 4 million units Q4H. Duration of treatment depends on the clinical picture. Monitor renal function and dose-adjust antibiotics. Qualifiers: Osteomyelitis type: unspecified type Osteomyelitis location: unspecified site Qualified Code(s): M86.9 - Osteomyelitis, unspecified (2) Bacteremia Current Visit: No Status: Resolved Causative organism: S. gallolyticus. Source likely intra-abdominal. Blood cultures drawn 03/30/18 are negative x 2 sets. (3) Lumbar back pain Current Visit: Yes Status: Acute Likely secondary to discitis/osteomyelitis. Improved. Pain management per the primary team. (4) Anemia Current Visit: Yes Status: Acute Qualifiers: Anemia type: other cause Other causes of anemia: other cause, not classified Qualified Code(s): D64.89 - Other specified anemias (5) BPH without urinary obstruction Current Visit: Yes Status: Acute (6) Adenocarcinoma of colon Current Visit: Yes Status: Resolved General surgery consulted to perform colectomy. Status post open colectomy 04/04/[address] Cates. - Subjective Interval history: Patient seen and examined. Status post open colectomy 04/04/18. No acute events noted overnight. Patient states overall he feels okay. He states his back pain is improved and he is having minimal pain at the surgical site. Denies any fevers or chills or rigors. Denies chest pain, shortness of breath, or cough. Denies nausea, vomiting, diarrhea, constipation. No BM or flatus since surgery. He denies any urinary complaints. He denies any numbness or tingling or incontinence. He denies any oral thrush or any skin lesions. Infect Dis PN-Objective Data - Labs CBC & Chem 7: 04/06/18 06:05 04/06/18 06:05 Labs: Laboratory Results - last 24 hr 04/04/18 04/04/18 04/05/18 05:52 11:07 00:01 WBC RBC Hgb Hct MCV MCH MCHC RDW Plt Count MPV Immature Gran % Seg Neutrophils % Lymphocytes % Monocytes % Eosinophils % Basophils % Neutrophils # Lymphocytes # Monocytes # Eosinophils # Basophils # Sodium Potassium Chloride Carbon Dioxide BUN Creatinine Est GFR ( Amer) Est GFR (Non-Af Amer) BUN/Creatinine Ratio Glucose POC Glucose 113 H 127 H 131 H Calculated Osmolality Calcium Phosphorus Magnesium 04/05/18 04/05/18 04/05/18 05:36 05:36 05:36 WBC 6.0 RBC 2.95 L Hgb 8.5 L Hct 25.9 L MCV 87.8 MCH 28.8 MCHC 32.8 RDW 12.5 Plt Count 195 MPV 8.9 L Immature Gran % 0.5 Seg Neutrophils % 86.7 Lymphocytes % 9.6 Monocytes % 3.2 Eosinophils % 0.0 Basophils % 0.0 Neutrophils # 5.2 Lymphocytes # 0.6 Monocytes # 0.2 Eosinophils # 0.0 Basophils # 0.0 Sodium 130 L Potassium 4.3 Chloride 98 Carbon Dioxide 23 BUN 11 Creatinine 0.67 L Est GFR ( Amer) > 60 Est GFR (Non-Af Amer) > 60 BUN/Creatinine Ratio 16 Glucose 133 H POC Glucose Calculated Osmolality 271 L Calcium 8.4 L Phosphorus 4.4 Magnesium 1.8 04/05/18 05:55 WBC RBC Hgb Hct MCV MCH MCHC RDW Plt Count MPV Immature Gran % Seg Neutrophils % Lymphocytes % Monocytes % Eosinophils % Basophils % Neutrophils # Lymphocytes # Monocytes # Eosinophils # Basophils # Sodium Potassium Chloride Carbon Dioxide BUN Creatinine Est GFR ( Amer) Est GFR (Non-Af Amer) BUN/Creatinine Ratio Glucose POC Glucose 131 H Calculated Osmolality Calcium Phosphorus Magnesium Exam - Constitutional Vitals: Temp Pulse Resp BP Pulse Ox 98.2 F 69 16 118/79 93 04/05/18 11:21 04/05/18 11:21 04/05/18 11:21 04/05/18 11:21 04/05/18 11:21 General appearance: average body habitus, cooperative, no acute distress - Head Head exam: Present: atraumatic, normal inspection, normocephalic - Eye Eye exam: Present: EOMI, normal appearance, PERRL Pupils: Present: normal accommodation - ENT ENT exam: Present: mucous membranes moist - Neck Neck exam: Present: normal inspection - Respiratory Respiratory exam: Present: CTAB. Absent: rales, respiratory distress, rhonchi, wheezes - Cardiovascular Cardiovascular exam: Present: RRR, +S1, +S2 - GI/Abdominal GI/Abdominal exam: Present: distended, hypoactive bowel sounds, soft, tenderness (generalized, mild) Additional comments: Midline abdominal incision with dressing intact. Abdominal binder intact. - Extremities Exam Extremities exam: Present: normal inspection. Absent: joint swelling, pedal edema, tenderness - Neurological Exam Neurological exam: Present: alert, oriented X3, no focal deficits - Psychiatric Psychiatric exam: Present: normal affect, normal mood - Skin Skin exam: Present: dry, intact, normal color, warm Consult Discharge Plan - Plan Referrals: Flaco Robertson MD [Primary Care Provider] - - Attending Attestation I examined this patient and my medical decision-making was reviewed with the Resident Physician. I agree with the documented findings, disposition and treatment plan as described except to the extent set forth below.
[2018-04-05] MEDS: 0.9 % Sodium Chloride 1,000 ML IVC SCH (13:45)
--- NOTE | 2018-04-05 13:47 | Internal Med Progress Note ---
Hospitalist Progress Note - Encounter Date of Encounter: 04/05/18 Time of Encounter: 13:47 - Exam Vitals: Temp Pulse Resp BP Pulse Ox 98.2 F 69 16 118/79 93 04/05/18 11:21 04/05/18 11:21 04/05/18 11:21 04/05/18 11:21 04/05/18 11:21 Exam: Gen: NAD, pleasant CVS: RRR Lungs: CTAB Abd: soft, limited palpation as patient with typical post-op tenderness in mid abdomen, normal bowel sounds. Mildly distended abdomen. Ext: no cyanosis, no edema - Assessment and Plan (1) Low back pain Current Visit: Yes Status: Acute Assessment and Plan: Intractable low back pain secondary to vertebral osteomyelitis and discitis. See results of CT and MRI of lumbar spine. See infectious diseases consult. He is POD #1 open right colectomy. States his symptoms are much better now. He is also on a Dilaudid [employer]. (2) Hypertension Current Visit: Yes Status: Chronic Assessment and Plan: Labetolol PO (3) Constipation due to opioid therapy Current Visit: Yes Status: Acute Assessment and Plan: Colace He is being advanced to clear liquid diet. (4) Hyponatremia Current Visit: Yes Status: Acute (5) Anemia Current Visit: Yes Status: Acute Assessment and Plan: Stable, will recheck in AM. (6) Vertebral osteomyelitis Current Visit: Yes Status: Acute Assessment and Plan: As seen on MRI 02/20/18 with discitis Secondary to S gallolyticus, Currently on Penicillin G 4 million units q4h ID following, recommendations appreciated (7) BPH without urinary obstruction Current Visit: Yes Status: Acute Assessment and Plan: Flomax, finesteride (8) Adenocarcinoma of colon Current Visit: Yes Status: Acute Assessment and Plan: See above. s/p right open colectomy 04/04/18 Biopsy results pending. (9) Bacteremia Current Visit: No Status: Resolved Assessment and Plan: Secondary to S. gallolyticus. 03/30/18 blood cultures negative ID following, recommendations appreciated. - Time Spent with Patient Total time spent is greater than 50% in coordination of care (as documented) at patient's floor/unit and/or counseling patient: Internal Medicine: Result - Labs CBC & Chem 7: 04/05/18 05:36 04/05/18 05:36 Labs: Short CBC 10/03/18 Range/Units 05:36 WBC 6.0 (4.3-11.1) K/mcL Hgb 8.5 L (12.9-16.9) g/dL Hct 25.9 L (37.5-50.1) % Plt Count 195 (140-400) K/mcL Neutrophils # 5.2 (1.6-8.9) K/mcL BMP 04/05/18 05:36 Sodium 130 L Potassium 4.3 Chloride 98 Carbon Dioxide 23 BUN 11 Creatinine 0.67 L Glucose 133 H Calcium 8.4 L Consult Discharge Plan - Plan Referrals: Flaco Robertson MD [Primary Care Provider] - (1) Low back pain Qualifiers: Chronicity: acute Back pain laterality: midline Sciatica presence: without sciatica Qualified Code(s): M54.5 - Low back pain (2) Hypertension Qualifiers: Hypertension type: essential hypertension Qualified Code(s): I10 - Essential (primary) hypertension (5) Anemia Qualifiers: Anemia type: other cause Other causes of anemia: other cause, not classified Qualified Code(s): D64.89 - Other specified anemias
[2018-04-05] MEDS: Simethicone 80 MG TAB.CHEW PO PRN (22:31)
[2018-04-06] MEDS: Penicillin G Potassium 4,000,000 UNIT in 0.9 % Sodium Chloride 100 ML IVPB SCH ×6 (03:56→21:05)
[2018-04-06] MEDS: 0.9 % Sodium Chloride 1,000 ML IVC SCH (03:56)
[2018-04-06] MEDS: *HR* Heparin 5,000 UNIT/ML VIAL SQ SCH ×2 (05:58→18:49)
[2018-04-06] MEDS: Famotidine 20 MG/2 ML VIAL IVP SCH ×2 (05:58→18:49)
[2018-04-06 06:19] LABS: Basophils % 0.2 %; Eosinophils % 0.7 %; Hematocrit 28.6 % (37.5-50.1); Hemoglobin 9.2 g/dL (12.9-16.9); Immature Granulocytes % 0.5 % (0-4); Lymphocytes # 1.5 K/mcL (0.6-4.6); Lymphocytes % 23.9 %; Mean Corpuscular HGB Conc 32.2 g/dL (31.6-35.5); Mean Corpuscular Hemoglobin 28.7 pg (28.0-33.3); Mean Corpuscular Volume 89.1 fL (83.0-100.0); Mean Platelet Volume 8.5 fL (9.4-12.4); Monocytes # 0.6 K/mcL (0.0-1.3); Monocytes % 9.3 %; Platelet Count 201 K/mcL (140-400); Red Blood Count 3.21 M/mcL (4.19-5.50); Red Cell Distribution Width 12.7 % (11.5-14.5); Segmented Neutrophils % 65.4 %
[2018-04-06 06:34] LABS: BUN/Creatinine Ratio 24 (6-26); Blood Urea Nitrogen 15 mg/dL (8-23); Calcium 8.5 mg/dL (8.6-10.3); Carbon Dioxide 26 mEq/L (23-29); Chloride 99 mEq/L (98-107); Glucose 101 mg/dL (70-105); Osmolality,Calculated 275 (280-300); Sodium 132 mEq/L (136-145); eGFR For Non-African Americans > 60 (> 60)
[2018-04-06] MEDS: *HR* HYDROmorphone 20 MG/20 ML PCA IVC PRN (06:51)
--- NOTE | 2018-04-06 08:21 | General Surgery Progress Note ---
Date of Encounter: 04/06/18 Time of Encounter: 08:18 - Assessment and Plan (1) DVT prophylaxis Current Visit: No Status: Acute heparin sq (2) Vertebral osteomyelitis Current Visit: Yes Status: Acute continue antibiotics and management per ID appreciate ortho spine input (3) Adenocarcinoma of colon Current Visit: Yes Status: Resolved await pathology (4) S/P right colectomy Current Visit: Yes Status: Acute pod 2 open right colectomy over last 24 hrs patient has become more distended with increased abdominal pain CT shows postoperative ileus which is not an unexpected event given his surgery and other comorbidities ngt to LIWS await return of bowel function, currently no flatus prn antiemetics decrease ivf to 60 cc/hr PICC/TPN continue gaytan for accurate I/O's serial abdominal exams (5) Ileus, postoperative Current Visit: Yes Status: Acute placing ngt to liws, hob [address] and start TPN (6) Hypertension Current Visit: Yes Status: Chronic stop po lopressor, start scheduled iv lopressor, monitor prn hydralazine Qualifiers: Hypertension type: essential hypertension Qualified Code(s): I10 - Essential (primary) hypertension (7) BPH (benign prostatic hyperplasia) Current Visit: No Status: Chronic ok to hold home meds due to ileus Qualifiers: Lower urinary tract symptom presence: unspecified whether lower urinary tract symptoms present Qualified Code(s): N40.0 - Benign prostatic hyperplasia without lower urinary tract symptoms Subjective Narrative: no nausea or emesis, distended, some abdominal and back pain, less distended currently than overnight, no flatus or bm Objective Vital Signs - Last 8 Hours Temp Pulse Resp BP Pulse Ox 04/06/18 06:38 98.3 F 75 15 178/85 93 Intake and Output 04/05/18 04/06/18 04/06/18 23:59 07:59 15:59 Intake Total 450 / 450 1100 / 1100 Output Total 1050 / 1050 Balance 450 / 450 50 / 50 Intake: IV Fluids 400 / 400 1100 / 1100 0.9 % Sodium Chloride 1,000 ML 1000 / 1000 @ 75 mls/hr IVC .[id number] [place] Rx #:[id number] Ofirmev 1,000 mg/100 ml 1,000 200 / 200 mg In 100 ml @ 400 mls/hr IVPB Q8HR [place] Rx#:[id number] Pfizerpen 4,000,000 UNIT In 0.9 200 / 200 100 / 100 % Sodium Chloride 100 ML @ 100 mls/hr IVPB Q4HR [place] Rx#: [id number] Oral 50 / 50 0 / 0 Output: Catheter 1050 / 1050 Other: Meal Dinner Percent of Meal Consumed 0% # Bowel Movements 0 Blood Glucose* 105 - General physical appearance well developed, no distress, moderate pain - Eyes PERRL, normal ocular movement - ENT normal mucosa, normocephalic - Neck Neck exam: trachea midline - Respiratory normal expansion, clear to auscultation - Cardiovascular Cardiovascular exam: Present: RRR, no murmurs/rubs/gallops - Abdomen Abdomen: Present: bowel sounds present, soft, distended, tender. Absent: guarding, rebound - Incision Incision: Present: clean and dry, intact - Integumentary no rash, no growths - Neurologic CN 2-12 grossly intact - Musculoskeletal normal posture - Psychiatric oriented to time, oriented to person, oriented to place, speech is normal, memory intact - Labs 04/06/18 06:05 04/06/18 06:05 Vital Signs Temp Pulse Resp BP Pulse Ox 04/06/18 06:38 98.3 F 75 15 178/85 93 04/05/18 20:00 97.8 F 69 15 152/70 97 04/05/18 15:05 98.0 F 63 15 143/73 95 04/05/18 11:21 98.2 F 69 16 118/79 93 Intake and Output 04/05/18 04/06/18 04/06/18 23:59 07:59 15:59 Intake Total 450 / 450 1100 / 1100 Output Total 1050 / 1050 Balance 450 / 450 50 / 50 Intake: IV Fluids 400 / 400 1100 / 1100 0.9 % Sodium Chloride 1,000 ML 1000 / 1000 @ 75 mls/hr IVC .[id number] [facility] Rx #:[id number] Ofirmev 1,000 mg/100 ml 1,000 200 / 200 mg In 100 ml @ 400 mls/hr IVPB Q8HR [facility] Rx#:[id number] Pfizerpen 4,000,000 UNIT In 0.9 200 / 200 100 / 100 % Sodium Chloride 100 ML @ 100 mls/hr IVPB Q4HR [facility] Rx#: [id number] Oral 50 / 50 0 / 0 Output: Catheter 1050 / 1050 Other: Meal Dinner Percent of Meal Consumed 0% # Bowel Movements 0 Blood Glucose* 105 Short CBC 04/06/18 Range/Units 06:05 WBC 6.1 (4.3-11.1) K/mcL Hgb 9.2 L (12.9-16.9) g/dL Hct 28.6 L (37.5-50.1) % Plt Count 201 (140-400) K/mcL Neutrophils # 4.0 (1.6-8.9) K/mcL BMP 04/06/18 Range/Units 06:05 Sodium 132 L (136-145) mEq/L Potassium 4.0 (3.5-5.1) mEq/L Chloride 99 (98-107) mEq/L Carbon Dioxide 26 (23-29) mEq/L BUN 15 (8-23) mg/dL Creatinine 0.62 L (0.70-1.30) mg/dL Glucose 101 (70-105) mg/dL Calcium 8.5 L (8.6-10.3) mg/dL - Imaging CT scan - abdomen: report reviewed, image reviewed CT scan - pelvis: report reviewed, image reviewed Consult Discharge Plan - Plan Referrals: Flaco Robertson MD [Primary Care Provider] -
[2018-04-06] MEDS ORDERED: 0.9 % Sodium Chloride 1,000 ML IVC SCH (08:28)
[2018-04-06] MEDS ORDERED: *HR* Metoprolol 5 MG/5 ML VIAL IVP SCH ×2 (08:30→14:00)
[2018-04-06] MEDS: Acetaminophen IV 1,000 MG/100 ML INFUS..BTL IVPB SCH ×3 (08:45→23:49)
[2018-04-06] MEDS ORDERED: Lidocaine -MPF 1% 5 ML AMPUL INFILT ONE (08:56)
[2018-04-06] MEDS ORDERED: D10% in Water 500 ML IVC PRN (11:07)
--- NOTE | 2018-04-06 11:33 | Internal Med Progress Note ---
Hospitalist Progress Note - Encounter Date of Encounter: 04/06/18 Time of Encounter: 11:45 - Subjective Interval History: Patient had distension and KUB this AM images was consistent with ileus. He is now NPO. Complains of distension, otherwise no complaints. - Exam Vitals: Temp Pulse Resp BP Pulse Ox 98.0 F 70 14 159/79 93 04/06/18 10:01 04/06/18 10:01 04/06/18 10:01 04/06/18 10:01 04/06/18 10:01 Exam: Gen: NAD, pleasant CVS: RRR Lungs: CTAB Abd: soft, limited palpation as patient with typical post-op tenderness in mid abdomen, normal bowel sounds. Mildly distended abdomen. Ext: no cyanosis, no edema - Assessment and Plan (1) Low back pain Current Visit: Yes Status: Acute Assessment and Plan: Intractable low back pain secondary to vertebral osteomyelitis and discitis. See results of CT and MRI of lumbar spine. See infectious diseases consult. He is POD #2 open right colectomy. States his symptoms are much better now. He is also on a Dilaudid [employer]GRAM [employer]EL[employer]MENT [employer]IST. (2) Hypertension Current Visit: Yes Status: Chronic Assessment and Plan: Was on PO Labetolol Since NPO right now, will switch to IV antihypertensives. (3) Constipation due to opioid therapy Current Visit: Yes Status: Acute Assessment and Plan: Colace Currently patient NPO for post op ileus. (4) Hyponatremia Current Visit: Yes Status: Acute Assessment and Plan: improved today to 132. Plan is for TPN, will monitor. (5) Anemia Current Visit: Yes Status: Acute Assessment and Plan: Stable, will recheck in AM. 8.5 yesterday, today 9.2 (6) Vertebral osteomyelitis Current Visit: Yes Status: Acute Assessment and Plan: As seen on MRI 02/20/18 with discitis Secondary to S gallolyticus, Currently on Penicillin G 4 million units q4h ID following, recommendations appreciated (7) BPH without urinary obstruction Current Visit: Yes Status: Acute Assessment and Plan: Flomax, finesteride (8) Adenocarcinoma of colon Current Visit: Yes Status: Resolved Assessment and Plan: See above. s/p right open colectomy 04/04/18 Biopsy results pending. (9) Bacteremia Current Visit: No Status: Resolved Assessment and Plan: Secondary to S. gallolyticus. 03/30/18 blood cultures negative ID following, recommendations appreciated. (10) Ileus, postoperative Current Visit: Yes Status: Acute Assessment and Plan: Now NPO PICC placement for TPN - Time Spent with Patient Total time spent is greater than 50% in coordination of care (as documented) at patient's floor/unit and/or counseling patient: Internal Medicine: Result - Labs CBC & Chem 7: 04/06/18 06:05 04/06/18 06:05 Labs: Short CBC 04/06/18 Range/Units 06:05 WBC 6.1 (4.3-11.1) K/mcL Hgb 9.2 L (12.9-16.9) g/dL Hct 28.6 L (37.5-50.1) % Plt Count 201 (140-400) K/mcL Neutrophils # 4.0 (1.6-8.9) K/mcL BMP 04/06/18 06:05 Sodium 132 L Potassium 4.0 Chloride 99 Carbon Dioxide 26 BUN 15 Creatinine 0.62 L Glucose 101 Calcium 8.5 L - Impressions Impressions Abdomen/Pelvis CT 04/06/18 06:57 IMPRESSION: 1. Interval laparotomy with changes suggestive of right hemicolectomy. There is some residual pockets of free intraperitoneal air and small amount of free fluid. 2. Mild small bowel ileus. 3. Stable benign findings including bilateral renal cysts and left lobe of liver cyst. 4. Redemonstration of L1-L2 destructive changes centered at the disc space as described above. Suggestive of discitis/osteomyelitis. D/ / Terry Michelle MD / Terry Michelle MD Interpreting Provider: Terry Michelle MD Consult Discharge Plan - Plan Referrals: Flaco Robertson MD [Primary Care Provider] - (1) Low back pain Qualifiers: Chronicity: acute Back pain laterality: midline Sciatica presence: without sciatica Qualified Code(s): M54.5 - Low back pain (2) Hypertension Qualifiers: Hypertension type: essential hypertension Qualified Code(s): I10 - Essential (primary) hypertension (5) Anemia Qualifiers: Anemia type: other cause Other causes of anemia: other cause, not classified Qualified Code(s): D64.89 - Other specified anemias
[2018-04-06] MEDS: Finasteride 5 MG TABLET PO SCH (14:39)
--- NOTE | 2018-04-06 15:31 | Infectious Disease Progress No ---
Date of Encounter: 04/06/18 Time of Encounter: 15:30 - Assessment and Plan (1) Osteomyelitis Current Visit: Yes Status: Acute Location: L1, L2. Causative organism: S. gallolyticus. Likely secondary to seeding from the abdomen given the patient's recent finding of colon cancer. MRI of the L-spine 02/20/18 showed osteomyelitis/discitis L1-L2. Status post bone biopsy 02/23/18. 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 Pathology was positive for Adenocarcinoma. Continue to have worsening back pain and worsening inflammatory markers so patient was asked to come to the ED for evaluation and was admitted. MRI of the lumbar spine showed severe discitis/Tristin minus that L1-L2 with surrounding paravertebral phlegmon at this level with associated inflammation of both psoas muscles. No paraspinal or psoas abscess was identified. There was also noted to be mild enhancing tissue within the epidural space circumferentially at L1-L2 compatible with extension of the infectious process, but no epidural abscess was appreciated. Ortho-spine consulted. No surgical intervention required at this time. Check inflammatory markers. --> improved from last week. Continue PCN G 4 million units Q4H. Duration of treatment depends on the clinical picture. Monitor renal function and dose-adjust antibiotics. Qualifiers: Osteomyelitis type: unspecified type Osteomyelitis location: unspecified site Qualified Code(s): M86.9 - Osteomyelitis, unspecified (2) Bacteremia Current Visit: No Status: Resolved Causative organism: S. gallolyticus. Source likely intra-abdominal. Blood cultures drawn 03/30/18 are negative x 2 sets. (3) Lumbar back pain Current Visit: Yes Status: Acute Likely secondary to discitis/osteomyelitis. Improved. Pain management per the primary team. (4) Anemia Current Visit: Yes Status: Acute Qualifiers: Anemia type: other cause Other causes of anemia: other cause, not classified Qualified Code(s): D64.89 - Other specified anemias (5) BPH without urinary obstruction Current Visit: Yes Status: Acute (6) Adenocarcinoma of colon Current Visit: Yes Status: Resolved General surgery consulted to perform colectomy. Status post open colectomy 04/04/[address] Cates. - Subjective Interval history: Patient seen and examined. Status post open colectomy 04/04/18. Was having abdominal pain and distention. Repeat CT scan revealed ileus Status post NG tube placement and patient tells me he is feeling better. 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 Still not passing any gas Rest of the review of systems unremarkable Infect Dis PN-Objective Data - Labs CBC & Chem 7: 04/06/18 06:05 04/06/18 06:05 Labs: Laboratory Results - last 24 hr 04/05/18 04/05/18 04/06/18 11:16 17:06 06:05 WBC 6.1 RBC 3.21 L Hgb 9.2 L Hct 28.6 L MCV 89.1 MCH 28.7 MCHC 32.2 RDW 12.7 Plt Count 201 MPV 8.5 L Immature Gran % 0.5 Seg Neutrophils % 65.4 Lymphocytes % 23.9 Monocytes % 9.3 Eosinophils % 0.7 Basophils % 0.2 Neutrophils # 4.0 Lymphocytes # 1.5 Monocytes # 0.6 Eosinophils # 0.0 Basophils # 0.0 Sodium Potassium Chloride Carbon Dioxide BUN Creatinine Est GFR ( Amer) Est GFR (Non-Af Amer) BUN/Creatinine Ratio Glucose POC Glucose 123 H 105 H Calculated Osmolality Calcium 04/06/18 06:05 WBC RBC Hgb Hct MCV MCH MCHC RDW Plt Count MPV Immature Gran % Seg Neutrophils % Lymphocytes % Monocytes % Eosinophils % Basophils % Neutrophils # Lymphocytes # Monocytes # Eosinophils # Basophils # Sodium 132 L Potassium 4.0 Chloride 99 Carbon Dioxide 26 BUN 15 Creatinine 0.62 L Est GFR ( Amer) > 60 Est GFR (Non-Af Amer) > 60 BUN/Creatinine Ratio 24 Glucose 101 POC Glucose Calculated Osmolality 275 L Calcium 8.5 L - Impressions Impressions Abdomen/Pelvis CT 04/06/18 06:57 IMPRESSION: 1. Interval laparotomy with changes suggestive of right hemicolectomy. There is some residual pockets of free intraperitoneal air and small amount of free fluid. 2. Mild small bowel ileus. 3. Stable benign findings including bilateral renal cysts and left lobe of liver cyst. 4. Redemonstration of L1-L2 destructive changes centered at the disc space as described above. Suggestive of discitis/osteomyelitis. D/ / Terry Michelle MD / Terry Michelle MD Interpreting Provider: Terry Michelle MD X-Ray 04/06/18 11:05 IMPRESSION: Side port of NG tube lies within the distal esophagus. NGT should be advanced at least 6 cm. The findings were sent to the Radiology Results Communication [facility] at 11:34 am on 04/06/2018to be communicated to a licensed caregiver. D/ / Kavon Real MD / Kavon Real MD Interpreting Provider: Kavon Real MD Exam - Constitutional Vitals: Temp Pulse Resp BP Pulse Ox 98.2 F 78 16 186/81 93 04/06/18 14:08 04/06/18 14:08 04/06/18 14:08 04/06/18 14:08 04/06/18 14:08 General appearance: no acute distress, no febrile - Head Head exam: Present: atraumatic, normocephalic - Respiratory Respiratory exam: Present: CTAB. Absent: wheezes - Cardiovascular Cardiovascular exam: Present: RRR, +S1, +S2 - GI/Abdominal GI/Abdominal exam: Present: distended, hypoactive bowel sounds, tenderness - Extremities Exam Extremities exam: Present: full ROM, normal inspection - Neurological Exam Neurological exam: Present: alert, oriented X3 Consult Discharge Plan - Plan Referrals: Flaco Robertson MD [Primary Care Provider] -
[2018-04-06] MEDS: *HR* Metoprolol 5 MG/5 ML VIAL IVP SCH ×3 (16:02→23:49)
[2018-04-06] MEDS ORDERED: Clinimix E 5%-15% SOLUTION 2,000 ML with MVI, adult with vitamin K 10 ML, Trace Eleme... IVC SCH (17:00)
[2018-04-06] MEDS: Simethicone 80 MG TAB.CHEW PO PRN (22:06)
[2018-04-07] MEDS ORDERED: Chloraseptic Spray 177 ML BOTTLE MM PRN (00:16)
[2018-04-07] MEDS: Penicillin G Potassium 4,000,000 UNIT in 0.9 % Sodium Chloride 100 ML IVPB SCH ×7 (00:33→23:49)
[2018-04-07 02:08] LABS: Basophils % 0.1 %; Eosinophils % 0.5 %; Hematocrit 27.6 % (37.5-50.1); Hemoglobin 8.8 g/dL (12.9-16.9); Immature Granulocytes % 0.4 % (0-4); Lymphocytes # 1.4 K/mcL (0.6-4.6); Mean Corpuscular HGB Conc 31.9 g/dL (31.6-35.5); Mean Corpuscular Hemoglobin 28.3 pg (28.0-33.3); Mean Corpuscular Volume 88.7 fL (83.0-100.0); Mean Platelet Volume 8.9 fL (9.4-12.4); Monocytes # 0.8 K/mcL (0.0-1.3); Monocytes % 10.1 %; Neutrophils # 5.3 K/mcL (1.6-8.9); Platelet Count 217 K/mcL (140-400); Red Blood Count 3.11 M/mcL (4.19-5.50); Red Cell Distribution Width 12.6 % (11.5-14.5); Segmented Neutrophils % 70.9 %
[2018-04-07 02:24] LABS: Alanine Aminotransferase 7 Units/L (7-52); Albumin 2.7 g/dL (3.5-5.7); Albumin/Globulin Ratio 1.1 (1.1-2.2); Alkaline Phosphatase 55 Units/L (34-104); Aspartate Amino Transferase 14 Units/L (13-39); BUN/Creatinine Ratio 22 (6-26); Bilirubin,Total 0.3 mg/dL (0.3-1.0); Blood Urea Nitrogen 13 mg/dL (8-23); Calcium 8.2 mg/dL (8.6-10.3); Carbon Dioxide 29 mEq/L (23-29); Chloride 97 mEq/L (98-107); Globulin 2.5 g/dL (2.4-3.5); Glucose 140 mg/dL (70-105); Magnesium 1.8 mg/dL (1.6-2.6); Osmolality,Calculated 274 (280-300); Potassium 3.9 mEq/L (3.5-5.1); Sodium 131 mEq/L (136-145); Total Protein 5.2 g/dL (6.4-8.9); Triglycerides 105 mg/dL (< 150); eGFR For Non-African Americans > 60 (> 60)
[2018-04-07 02:25] LABS: BUN/Creatinine Ratio 22 (6-26); Blood Urea Nitrogen 13 mg/dL (8-23); Calcium 8.2 mg/dL (8.6-10.3); Carbon Dioxide 29 mEq/L (23-29); Chloride 97 mEq/L (98-107); Glucose 140 mg/dL (70-105); Osmolality,Calculated 274 (280-300); Potassium 3.9 mEq/L (3.5-5.1); Sodium 131 mEq/L (136-145); eGFR For Non-African Americans > 60 (> 60)
[2018-04-07 05:40] LABS: VBG Ionized Calcium 1.16 mmol/L (1.15-1.35)
[2018-04-07] MEDS: Famotidine 20 MG/2 ML VIAL IVP SCH ×2 (06:08→17:48)
[2018-04-07] MEDS: *HR* Metoprolol 5 MG/5 ML VIAL IVP SCH ×4 (06:08→23:48)
[2018-04-07] MEDS: *HR* Heparin 5,000 UNIT/ML VIAL SQ SCH ×2 (06:08→17:44)
[2018-04-07] MEDS: Simethicone 80 MG TAB.CHEW PO PRN (06:15)
[2018-04-07] MEDS ORDERED: 0.9 % Sodium Chloride 1,000 ML IVC SCH (07:20)
[2018-04-07] MEDS ORDERED: Furosemide 20 MG/2 ML VIAL IVP ONE (07:20)
[2018-04-07] MEDS: Acetaminophen IV 1,000 MG/100 ML INFUS..BTL IVPB SCH ×3 (08:32→23:22)
[2018-04-07] MEDS ORDERED: Bisacodyl 10 MG RECTAL SUPPOSITORY RC ONE (09:00)
--- NOTE | 2018-04-07 10:17 | Internal Med Progress Note ---
Hospitalist Progress Note - Encounter Date of Encounter: 04/07/18 Time of Encounter: 10:17 - Subjective Interval History: He is seen and examined at the bedside POD 3 He is yet to have a BM Now on TPN, no new complains - Exam Vitals: Temp Pulse Resp BP Pulse Ox 98.7 F 65 14 154/81 97 04/07/18 02:34 04/07/18 02:34 04/07/18 02:34 04/07/18 02:34 04/07/18 02:34 Exam: General: Alert and oriented. Skin:Normal color, no rash. Cardiovascular:Normal S1 & S2, no rubs, murmurs or gallops. No JVD. Rhythm irregular. Lungs:Breath sounds distant and decreased, no wheezes or crackles. Abdomen:Soft, non-tender, no rigidity. BS present, dressing intact, not tender Extremities:No deformity, tenderness, clubbing. 2+ pitting edema to bilateral lower extremities. Neurological:Normal cognition and motor skills. Pulses:Carotid and radial pulses normal +2. : gaytan with clear urine Rest of the physical exam is non contributory. - Assessment and Plan (1) Hypertension Current Visit: Yes Status: Chronic Assessment and Plan: Uncontrolled on current regimen, po meds on hold since patient is NPO and has an NG tube Continue hydralazine and metoprolol 15 and 10mg q6hr respectively Ensure pain control and titrate meds prn (2) Low back pain Current Visit: Yes Status: Acute Assessment and Plan: Intractable low back pain secondary to vertebral osteomyelitis and discitis. See results of CT and MRI of lumbar spine. See infectious diseases consult. Continue antibiotics and pain medications. (3) Constipation due to opioid therapy Current Visit: Yes Status: Acute Assessment and Plan: Colace NPO due to ileus (4) Hyponatremia Current Visit: Yes Status: Acute Assessment and Plan: Continue to monitor. Stable at between 130-132 (5) Anemia Current Visit: Yes Status: Acute Assessment and Plan: Stable, continue to monito, HB between 8-9 for the past 72 hrs (6) Vertebral osteomyelitis Current Visit: Yes Status: Acute Assessment and Plan: As seen on MRI 02/20/18 with discitis Secondary to S gallolyticus, Currently on Penicillin G 4 million units q4h ID following, recommendations appreciated (7) BPH without urinary obstruction Current Visit: Yes Status: Chronic Assessment and Plan: Flomax, finesteride (8) Adenocarcinoma of colon Current Visit: Yes Status: Acute Assessment and Plan: See above. s/p right open colectomy 04/04/18 Biopsy results pending. (9) Ileus, postoperative Current Visit: Yes Status: Acute Assessment and Plan: Has BM, no flatus, no BM Continue NPO status, mgt per surgery - Time Spent with Patient Total time spent is greater than 50% in coordination of care (as documented) at patient's floor/unit and/or counseling patient: Plan of Care Discussed with: patient Internal Medicine: Result - Labs CBC & Chem 7: 04/07/18 01:08 04/07/18 01:08 Labs: Short CBC 04/07/18 Range/Units 01:08 WBC 7.5 (4.3-11.1) K/mcL Hgb 8.8 L (12.9-16.9) g/dL Hct 27.6 L (37.5-50.1) % Plt Count 217 (140-400) K/mcL Neutrophils # 5.3 (1.6-8.9) K/mcL BMP 04/07/18 04/07/18 01:08 01:08 Sodium 131 L 131 L Potassium 3.9 3.9 Chloride 97 L 97 L Carbon Dioxide 29 29 BUN 13 13 Creatinine 0.58 L 0.58 L Glucose 140 H 140 H Calcium 8.2 L 8.2 L Liver Function 04/07/18 Range/Units 01:08 Total Bilirubin 0.3 (0.3-1.0) mg/dL AST 14 (13-39) Units/L ALT 7 (7-52) Units/L Alkaline Phosphatase 55 (34-104) Units/L Albumin 2.7 L (3.5-5.7) g/dL - Impressions Impressions KUB X-Ray 04/06/18 11:05 IMPRESSION: Side port of NG tube lies within the distal esophagus. NGT should be advanced at least 6 cm. The findings were sent to the Radiology Results Communication [facility] at 11:34 am on 04/06/2018to be communicated to a licensed caregiver. D/ / Kavon Real MD / Kavon Real MD Interpreting Provider: Kavon Real MD Consult Discharge Plan - Plan Referrals: Flaco Robertson MD [Primary Care Provider] - (1) Hypertension Qualifiers: Hypertension type: essential hypertension Qualified Code(s): I10 - Essential (primary) hypertension (2) Low back pain Qualifiers: Chronicity: acute Back pain laterality: midline Sciatica presence: without sciatica Qualified Code(s): M54.5 - Low back pain (5) Anemia Qualifiers: Anemia type: other cause Other causes of anemia: other cause, not classified Qualified Code(s): D64.89 - Other specified anemias
[2018-04-07] MEDS: Finasteride 5 MG TABLET PO SCH (10:57)
[2018-04-07] MEDS: Metoclopramide 10 MG/2 ML VIAL IVP SCH ×4 (10:59→23:48)
[2018-04-07] MEDS: Lidocaine Viscous Oral Soln 15 ML SOLUTION MM SCH ×3 (11:00→20:14)
[2018-04-07] MEDS: *HR* FentaNYL PATCH 25 MCG PATCH TD SCH (12:36)
--- NOTE | 2018-04-07 13:21 | General Surgery Progress Note ---
Date of Encounter: 04/07/18 Time of Encounter: 07:20 - Assessment and Plan (1) DVT prophylaxis Current Visit: No Status: Acute heparin sq (2) Vertebral osteomyelitis Current Visit: Yes Status: Acute continue antibiotics and management per ID appreciate ortho spine input (3) Adenocarcinoma of colon Current Visit: Yes Status: Resolved await pathology (4) S/P right colectomy Current Visit: Yes Status: Acute pod 3 open right colectomy continue ngt to LIWS await return of bowel function, currently no flatus prn antiemetics PICC/TPN continue gaytan for accurate I/O's serial abdominal exams ambulate/OOB to chair BID (5) Ileus, postoperative Current Visit: Yes Status: Acute continue ngt to liws, hob 30 npo except ice continue TPN ileus is not an unexpected outcome of surgery (6) Hypertension Current Visit: Yes Status: Chronic increased scheduled iv lopressor, monitor prn hydralazine Qualifiers: Hypertension type: essential hypertension Qualified Code(s): I10 - Essential (primary) hypertension (7) BPH (benign prostatic hyperplasia) Current Visit: No Status: Chronic ok to hold home meds due to ileus Qualifiers: Lower urinary tract symptom presence: unspecified whether lower urinary tract symptoms present Qualified Code(s): N40.0 - Benign prostatic hyperplasia without lower urinary tract symptoms Subjective Patient reports: feels better, still having pain, pain is less, no flatus, no bowel movement, afebrile Narrative: still distended but less so than yesterday Objective Vital Signs - Last 8 Hours Temp Pulse Resp BP Pulse Ox 04/07/18 12:00 75 167/82 04/07/18 10:00 98.4 F 67 12 174/88 97 Intake and Output 04/06/18 04/07/18 04/07/18 23:59 07:59 15:59 Intake Total 926 / 926 550 / 550 200 / 200 Output Total 1475 / 1475 935 / 935 1219 / 1219 Balance -549 / -549 -385 / -385 -1019 / -1019 Intake: IV Fluids 926 / 926 550 / 550 200 / 200 0.9 % Sodium Chloride 1,000 ML 526 / 526 @ 75 mls/hr IVC .[id number] [facility] Rx #:[id number] Ofirmev 1,000 mg/100 ml 1,000 100 / 100 100 / 100 100 / 100 mg In 100 ml @ 400 mls/hr IVPB Q8HR [facility] Rx#:[id number] Intralipid 20% 250 ML @ 21 mls/ 250 / 250 hr IVPB DAILY@1700 [facility] Rx#: [id number] Pfizerpen 4,000,000 UNIT In 0.9 300 / 300 200 / 200 100 / 100 % Sodium Chloride 100 ML @ 100 mls/hr IVPB Q4HR [facility] Rx#: [id number] Oral 0 / 0 0 / 0 Output: Urine 650 / 650 Gastric Tube Lavage Amount 50 / 50 85 / 85 Right Nare 50 / 50 85 / 85 Catheter 775 / 775 850 / 850 1219 / 1219 Urethral (Gaytan) 775 / 775 Gastric Drainage 0 / 0 Other: # Bowel Movements 0 0 Weight 80.4 kg Blood Glucose* 136 115 163 Patient Weight 04/07/18 23:59 Weight 80.4 kg - General physical appearance well developed, well nourished, no distress - Eyes normal ocular movement - ENT normal mucosa - Neck Neck exam: trachea midline - Respiratory normal expansion, normal respiratory effort - Cardiovascular Cardiovascular exam: Present: RRR, no murmurs/rubs/gallops - Abdomen Abdomen: Present: bowel sounds present, soft, tender (generalized expected post op tenderness). Absent: guarding, rebound - Incision Incision: Present: clean and dry, intact - Integumentary no rash, no growths - Neurologic CN 2-12 grossly intact - Musculoskeletal normal posture - Psychiatric oriented to time, oriented to person, oriented to place, speech is normal, memory intact - Labs 04/07/18 01:08 04/07/18 01:08 Short CBC 04/07/18 Range/Units 01:08 WBC 7.5 (4.3-11.1) K/mcL Hgb 8.8 L (12.9-16.9) g/dL Hct 27.6 L (37.5-50.1) % Plt Count 217 (140-400) K/mcL Neutrophils # 5.3 (1.6-8.9) K/mcL BMP 04/07/18 04/07/18 Range/Units 01:08 01:08 Sodium 131 L 131 L (136-145) mEq/L Potassium 3.9 3.9 (3.5-5.1) mEq/L Chloride 97 L 97 L (98-107) mEq/L Carbon Dioxide 29 29 (23-29) mEq/L BUN 13 13 (8-23) mg/dL Creatinine 0.58 L 0.58 L (0.70-1.30) mg/dL Glucose 140 H 140 H (70-105) mg/dL Calcium 8.2 L 8.2 L (8.6-10.3) mg/dL Liver Function 04/07/18 Range/Units 01:08 Total Bilirubin 0.3 (0.3-1.0) mg/dL AST 14 (13-39) Units/L ALT 7 (7-52) Units/L Alkaline Phosphatase 55 (34-104) Units/L Albumin 2.7 L (3.5-5.7) g/dL Vital Signs Temp Pulse Resp BP Pulse Ox 04/07/18 12:00 75 167/82 04/07/18 10:00 98.4 F 67 12 174/88 97 04/07/18 02:34 98.7 F 65 14 154/81 97 04/06/18 23:12 98.4 F 77 14 156/79 97 04/06/18 18:54 76 172/77 04/06/18 14:08 98.2 F 78 16 186/81 93 Intake and Output 04/06/18 04/07/18 04/07/18 23:59 07:59 15:59 Intake Total 926 / 926 550 / 550 200 / 200 Output Total 1475 / 1475 935 / 935 1219 / 1219 Balance -549 / -549 -385 / -385 -1019 / -1019 Intake: IV Fluids 926 / 926 550 / 550 200 / 200 0.9 % Sodium Chloride 1,000 ML 526 / 526 @ 75 mls/hr IVC .[id number] [facility] Rx #:[id number] Ofirmev 1,000 mg/100 ml 1,000 100 / 100 100 / 100 100 / 100 mg In 100 ml @ 400 mls/hr IVPB Q8HR [facility] Rx#:[id number] Intralipid 20% 250 ML @ 21 mls/ 250 / 250 hr IVPB DAILY@1700 [facility] Rx#: [id number] Pfizerpen 4,000,000 UNIT In 0.9 300 / 300 200 / 200 100 / 100 % Sodium Chloride 100 ML @ 100 mls/hr IVPB Q4HR [facility] Rx#: [id number] Oral 0 / 0 0 / 0 Output: Urine 650 / 650 Gastric Tube Lavage Amount 50 / 50 85 / 85 Right Nare 50 / 50 85 / 85 Catheter 775 / 775 850 / 850 1219 / 1219 Urethral (Gaytan) 775 / 775 Gastric Drainage 0 / 0 Other: # Bowel Movements 0 0 Weight 80.4 kg Blood Glucose* 136 115 163 Patient Weight 04/07/18 23:59 Weight 80.4 kg Consult Discharge Plan - Plan Referrals: Flaco Robertson MD [Primary Care Provider] -
--- NOTE | 2018-04-07 13:54 | Infectious Disease Progress No ---
Date of Encounter: 04/07/18 Time of Encounter: 13:52 - Assessment and Plan (1) Osteomyelitis Current Visit: Yes Status: Acute Location: L1, L2. Causative organism: S. gallolyticus. Likely secondary to seeding from the abdomen given the patient's recent finding of colon cancer. MRI of the L-spine 02/20/18 showed osteomyelitis/discitis L1-L2. Status post bone biopsy 02/23/18. 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 Pathology was positive for Adenocarcinoma. Continue to have worsening back pain and worsening inflammatory markers so patient was asked to come to the ED for evaluation and was admitted. MRI of the lumbar spine showed severe discitis/Tristin minus that L1-L2 with surrounding paravertebral phlegmon at this level with associated inflammation of both psoas muscles. No paraspinal or psoas abscess was identified. There was also noted to be mild enhancing tissue within the epidural space circumferentially at L1-L2 compatible with extension of the infectious process, but no epidural abscess was appreciated. Ortho-spine consulted. No surgical intervention required at this time. Check inflammatory markers. --> improved from last week. Continue PCN G 4 million units Q4H. Duration of treatment depends on the clinical picture, but likely a total of 6- 8 weeks. Monitor renal function and dose-adjust antibiotics. Qualifiers: Osteomyelitis type: unspecified type Osteomyelitis location: unspecified site Qualified Code(s): M86.9 - Osteomyelitis, unspecified (2) Bacteremia Current Visit: No Status: Resolved Causative organism: S. gallolyticus. Source likely intra-abdominal. Blood cultures drawn 03/30/18 are negative x 2 sets. (3) Lumbar back pain Current Visit: Yes Status: Acute Likely secondary to discitis/osteomyelitis. Improved. Pain management per the primary team. (4) Anemia Current Visit: Yes Status: Acute Qualifiers: Anemia type: other cause Other causes of anemia: other cause, not classified Qualified Code(s): D64.89 - Other specified anemias (5) BPH without urinary obstruction Current Visit: Yes Status: Chronic (6) Adenocarcinoma of colon Current Visit: Yes Status: Acute General surgery consulted to perform colectomy. Status post open colectomy 04/04/[address] Catse. (7) Ileus, postoperative Current Visit: Yes Status: Acute CT of the abdomen and pelvis 04/06/18 showed findings consistent with mild post- op ileus. NG tube placed to LIWS. Management per the general surgery team. - Subjective Interval history: Patient seen and examined. Status post open colectomy 04/04/18. No acute events noted overnight. Patient states overall he feels okay. He states his back pain is improved and he is having minimal pain at the surgical site. Denies any fevers or chills or rigors. Denies chest pain, shortness of breath, or cough. Denies vomiting, diarrhea, constipation. BM this morning. Had some nausea earlier, but none at this time. He denies any urinary complaints. He denies any numbness or tingling or incontinence. He denies any oral thrush or any skin lesions. Infect Dis PN-Objective Data - Labs CBC & Chem 7: 04/07/18 01:08 04/07/18 01:08 Labs: Laboratory Results - last 24 hr 04/06/18 04/06/18 04/07/18 17:11 23:11 01:08 WBC 7.5 RBC 3.11 L Hgb 8.8 L Hct 27.6 L MCV 88.7 MCH 28.3 MCHC 31.9 RDW 12.6 Plt Count 217 MPV 8.9 L Immature Gran % 0.4 Seg Neutrophils % 70.9 Lymphocytes % 18.0 Monocytes % 10.1 Eosinophils % 0.5 Basophils % 0.1 Neutrophils # 5.3 Lymphocytes # 1.4 Monocytes # 0.8 Eosinophils # 0.0 Basophils # 0.0 Sodium Potassium Chloride Carbon Dioxide BUN Creatinine Est GFR ( Amer) Est GFR (Non-Af Amer) BUN/Creatinine Ratio Glucose POC Glucose 95 136 H Calculated Osmolality Calcium Venous Ioniz Calcium Phosphorus Magnesium Total Bilirubin AST ALT Alkaline Phosphatase Serum Total Protein Albumin Globulin Albumin/Globulin Ratio Triglycerides 04/07/18 04/07/18 04/07/18 01:08 01:08 05:22 WBC RBC Hgb Hct MCV MCH MCHC RDW Plt Count MPV Immature Gran % Seg Neutrophils % Lymphocytes % Monocytes % Eosinophils % Basophils % Neutrophils # Lymphocytes # Monocytes # Eosinophils # Basophils # Sodium 131 L 131 L Potassium 3.9 3.9 Chloride 97 L 97 L Carbon Dioxide 29 29 BUN 13 13 Creatinine 0.58 L 0.58 L Est GFR ( Amer) > 60 > 60 Est GFR (Non-Af Amer) > 60 > 60 BUN/Creatinine Ratio 22 22 Glucose 140 H 140 H POC Glucose 137 H Calculated Osmolality 274 L 274 L Calcium 8.2 L 8.2 L Venous Ioniz Calcium Phosphorus 3.0 Magnesium 1.8 Total Bilirubin 0.3 AST 14 ALT 7 Alkaline Phosphatase 55 Serum Total Protein 5.2 L Albumin 2.7 L Globulin 2.5 Albumin/Globulin Ratio 1.1 Triglycerides 105 04/07/18 04/07/18 04/07/18 05:34 07:30 11:48 WBC RBC Hgb Hct MCV MCH MCHC RDW Plt Count MPV Immature Gran % Seg Neutrophils % Lymphocytes % Monocytes % Eosinophils % Basophils % Neutrophils # Lymphocytes # Monocytes # Eosinophils # Basophils # Sodium Potassium Chloride Carbon Dioxide BUN Creatinine Est GFR ( Amer) Est GFR (Non-Af Amer) BUN/Creatinine Ratio Glucose POC Glucose 115 H 163 H Calculated Osmolality Calcium Venous Ioniz Calcium 1.16 Phosphorus Magnesium Total Bilirubin AST ALT Alkaline Phosphatase Serum Total Protein Albumin Globulin Albumin/Globulin Ratio Triglycerides Exam - Constitutional Vitals: Temp Pulse Resp BP Pulse Ox 98.4 F 75 12 167/82 97 04/07/18 10:00 04/07/18 12:00 04/07/18 10:00 04/07/18 12:00 04/07/18 10:00 General appearance: average body habitus, cooperative, no acute distress - Head Head exam: Present: atraumatic, normal inspection, normocephalic - Eye Eye exam: Present: EOMI, normal appearance, PERRL Pupils: Present: normal accommodation - ENT ENT exam: Present: mucous membranes moist - Neck Neck exam: Present: normal inspection - Respiratory Respiratory exam: Present: CTAB. Absent: rales, respiratory distress, rhonchi, wheezes - Cardiovascular Cardiovascular exam: Present: RRR, +S1, +S2 - GI/Abdominal GI/Abdominal exam: Present: distended, normal bowel sounds, soft. Absent: tenderness Additional comments: Midline abdominal incision dressing C/D/I. Abdominal binder intact. NG tube to LIWS. Melissa catheter noted to be draining clear yellow urine. - Extremities Exam Extremities exam: Present: normal inspection. Absent: joint swelling, pedal edema, tenderness - Neurological Exam Neurological exam: Present: alert, oriented X3, no focal deficits - Psychiatric Psychiatric exam: Present: normal affect, normal mood - Skin Skin exam: Present: dry, intact, normal color, warm Consult Discharge Plan - Plan Referrals: Flaco Robertson MD [Primary Care Provider] - - Attending Attestation I examined this patient and my medical decision-making was reviewed with the Resident Physician. I agree with the documented findings, disposition and treatment plan as described except to the extent set forth below.
[2018-04-07] MEDS ORDERED: Clinimix E 5%-15% SOLUTION 2,000 ML with MVI, adult with vitamin K 10 ML, Trace Eleme... IVC SCH (17:00)
[2018-04-07] MEDS: OXYCODONE Oral CONC 10 MG/0.5 ML ORAL.SYG SL PRN (20:14)
[2018-04-08 01:34] LABS: Basophils % 0.1 %; Eosinophils # 0.1 K/mcL (0.0-0.6); Eosinophils % 0.9 %; Hematocrit 26.6 % (37.5-50.1); Hemoglobin 8.8 g/dL (12.9-16.9); Immature Granulocytes % 0.3 % (0-4); Lymphocytes # 1.5 K/mcL (0.6-4.6); Lymphocytes % 21.6 %; Mean Corpuscular HGB Conc 33.1 g/dL (31.6-35.5); Mean Corpuscular Volume 87.8 fL (83.0-100.0); Mean Platelet Volume 8.7 fL (9.4-12.4); Monocytes # 0.8 K/mcL (0.0-1.3); Monocytes % 11.1 %; Neutrophils # 4.5 K/mcL (1.6-8.9); Platelet Count 216 K/mcL (140-400); Red Blood Count 3.03 M/mcL (4.19-5.50); Red Cell Distribution Width 12.5 % (11.5-14.5)
[2018-04-08 01:52] LABS: Magnesium 1.7 mg/dL (1.6-2.6); Phosphorous 3.1 mg/dL (2.7-4.5)
[2018-04-08 01:56] LABS: Alanine Aminotransferase 7 Units/L (7-52); Albumin 2.8 g/dL (3.5-5.7); Albumin/Globulin Ratio 1.1 (1.1-2.2); Alkaline Phosphatase 55 Units/L (34-104); Aspartate Amino Transferase 13 Units/L (13-39); BUN/Creatinine Ratio 26 (6-26); Bilirubin,Direct 0.1 mg/dL (0.0-0.2); Bilirubin,Indirect 0.2 mg/dL (0.0-1.2); Bilirubin,Total 0.3 mg/dL (0.3-1.0); Blood Urea Nitrogen 14 mg/dL (8-23); Calcium 8.3 mg/dL (8.6-10.3); Carbon Dioxide 28 mEq/L (23-29); Chloride 97 mEq/L (98-107); Chol/HDL Ratio 3.2 (0-4.9); Cholesterol 112 mg/dL (< 200); Globulin 2.5 g/dL (2.4-3.5); Glucose 128 mg/dL (70-105); HDL Cholesterol 35 mg/dL (40-59); LDL Cholesterol,Calculated 55 mg/dL (0-99); Osmolality,Calculated 274 (280-300); Potassium 3.5 mEq/L (3.5-5.1); Sodium 131 mEq/L (136-145); Total Protein 5.3 g/dL (6.4-8.9); Triglycerides 108 mg/dL (< 150); eGFR For Non-African Americans > 60 (> 60)
[2018-04-08] MEDS: Penicillin G Potassium 4,000,000 UNIT in 0.9 % Sodium Chloride 100 ML IVPB SCH ×5 (04:07→20:54)
[2018-04-08] MEDS: *HR* Metoprolol 5 MG/5 ML VIAL IVP SCH ×3 (05:14→17:13)
[2018-04-08] MEDS: Famotidine 20 MG/2 ML VIAL IVP SCH ×2 (05:15→17:13)
[2018-04-08] MEDS: Metoclopramide 10 MG/2 ML VIAL IVP SCH ×4 (05:15→17:13)
[2018-04-08] MEDS: *HR* Heparin 5,000 UNIT/ML VIAL SQ SCH ×2 (05:15→17:12)
[2018-04-08] MEDS: OXYCODONE Oral CONC 10 MG/0.5 ML ORAL.SYG SL PRN ×4 (05:59→22:23)
[2018-04-08] MEDS: Finasteride 5 MG TABLET PO SCH (09:24)
[2018-04-08] MEDS: Acetaminophen IV 1,000 MG/100 ML INFUS..BTL IVPB SCH ×2 (09:25→15:57)
[2018-04-08] MEDS: Lidocaine Viscous Oral Soln 15 ML SOLUTION MM SCH ×3 (09:26→20:54)
--- NOTE | 2018-04-08 09:26 | Internal Med Progress Note ---
Hospitalist Progress Note - Encounter Date of Encounter: 04/08/18 Time of Encounter: 09:26 - Subjective Interval History: He is seen and examined at the bedside with his partner POD 4 s/p R hemicolectomy for suspected adenocarcinoma, he also had bacteremia , which has resolevd and vertebral OM which is improving He had one episode of flatus yesterday and had 2 'smears" of BM as documented after a suppository he is frustrated about his "tubes" and inability to eat He denies any new complains Blood pressure control is not optimal, he denies active pain - Exam Vitals: Temp Pulse Resp BP Pulse Ox 98.8 F 65 16 163/80 96 04/08/18 07:21 04/08/18 07:21 04/08/18 07:21 04/08/18 07:21 04/08/18 07:21 Exam: General: Alert and oriented. Skin:Normal color, no rash. Cardiovascular:Normal S1 & S2, no rubs, murmurs or gallops. No JVD. Rhythm regular Lungs:CTAB Abdomen:Soft, non-tender, no rigidity. BS present, dressing intact, not tender Extremities:No deformity, tenderness, clubbing. No edema Neurological:Normal cognition and motor skills. Pulses:Carotid and radial pulses normal +2. : gaytan with clear urine Rest of the physical exam is non contributory. - Assessment and Plan (1) Hypertension Current Visit: Yes Status: Chronic Assessment and Plan: Uncontrolled on current regimen, po meds on hold since patient is NPO and has an NG tube Continue hydralazine and metoprolol 15 and 10mg q6hr respectively Increased hydralazine to 15mg q6hr prn Ensure pain control and titrate meds prn (2) Low back pain Current Visit: Yes Status: Acute Assessment and Plan: Intractable low back pain secondary to vertebral osteomyelitis and discitis. See results of CT and MRI of lumbar spine. See infectious diseases consult. Continue antibiotics and pain medications. (3) Constipation due to opioid therapy Current Visit: Yes Status: Acute Assessment and Plan: Colace NPO due to ileus (4) Hyponatremia Current Visit: Yes Status: Acute Assessment and Plan: Continue to monitor. Stable at between 130-132 (5) Anemia Current Visit: Yes Status: Acute Assessment and Plan: Stable, continue to monito, HB between 8-9 for the past 72 hrs (6) Vertebral osteomyelitis Current Visit: Yes Status: Acute Assessment and Plan: As seen on MRI 02/20/18 with discitis Secondary to S gallolyticus, bacteremia resolved since last admission and there was no bacteremia in this admission Currently on Penicillin G 4 million units q4h ID following, recommendations appreciated (7) BPH without urinary obstruction Current Visit: Yes Status: Chronic Assessment and Plan: Flomax, finesteride (8) Adenocarcinoma of colon Current Visit: Yes Status: Acute Assessment and Plan: See above. s/p right open colectomy 04/04/18 Biopsy results pending. (9) Ileus, postoperative Current Visit: Yes Status: Acute Assessment and Plan: Has BM, no flatus, no BM Continue NPO status, mgt per surgery - Time Spent with Patient Total time spent is greater than 50% in coordination of care (as documented) at patient's floor/unit and/or counseling patient: Plan of Care Discussed with: patient Internal Medicine: Result - Labs CBC & Chem 7: 04/08/18 01:20 04/08/18 01:20 Labs: Short CBC 04/08/18 Range/Units 01:20 WBC 6.8 (4.3-11.1) K/mcL Hgb 8.8 L (12.9-16.9) g/dL Hct 26.6 L (37.5-50.1) % Plt Count 216 (140-400) K/mcL Neutrophils # 4.5 (1.6-8.9) K/mcL BMP 04/08/18 01:20 Sodium 131 L Potassium 3.5 Chloride 97 L Carbon Dioxide 28 BUN 14 Creatinine 0.54 L Glucose 128 H Calcium 8.3 L Liver Function 04/08/18 Range/Units 01:20 Total Bilirubin 0.3 (0.3-1.0) mg/dL Direct Bilirubin 0.1 (0.0-0.2) mg/dL AST 13 (13-39) Units/L ALT 7 (7-52) Units/L Alkaline Phosphatase 55 (34-104) Units/L Albumin 2.8 L (3.5-5.7) g/dL Consult Discharge Plan - Plan Referrals: Flaco Robertson MD [Primary Care Provider] - (1) Hypertension Qualifiers: Hypertension type: essential hypertension Qualified Code(s): I10 - Essential (primary) hypertension (2) Low back pain Qualifiers: Chronicity: acute Back pain laterality: midline Sciatica presence: without sciatica Qualified Code(s): M54.5 - Low back pain (5) Anemia Qualifiers: Anemia type: other cause Other causes of anemia: other cause, not classified Qualified Code(s): D64.89 - Other specified anemias
--- NOTE | 2018-04-08 11:19 | General Surgery Progress Note ---
<Maya Couch - Last Filed: 04/08/18 13:20> Date of Encounter: 04/08/18 Time of Encounter: 11:17 - Assessment and Plan (1) S/P right colectomy Current Visit: Yes Status: Acute POD 4 open right colectomy for colon adenocarcinoma - currently NPO except ice and Popsicle ( not red) ; awaiting return of bowel function - NG out put 85 ml yesterday dark, none yet today - increased reglan - continue supportive care and pain management - continue TPN - start daily suppository - continue gaytan - serial abdominal exams - prn anitemetics - ambulate and up to chair bid (2) Primary adenocarcinoma of ascending colon Current Visit: Yes Status: Acute see above (3) Ileus, postoperative Current Visit: No Status: Acute common complication of surgical procedure - see above (4) Anxiety Current Visit: Yes Status: Acute Agitation over medical conditions - start ativan 0.5 q6 prn anxiety and insomnia Subjective Patient reports: still having pain (He rates back pain worse than abdominal pain -both worse with movement. No nausea. Patient expresses wis to leave), no flatus, no bowel movement, afebrile Objective Vital Signs - Last 8 Hours Temp Pulse Resp BP Pulse Ox 04/08/18 10:55 98.4 F 67 16 161/82 97 04/08/18 07:21 98.8 F 65 16 163/80 96 04/08/18 03:28 98.8 F 78 14 164/83 97 Intake and Output 04/07/18 04/08/18 04/08/18 23:59 07:59 15:59 Intake Total 400 / 400 200 / 200 350 / 350 Output Total 750 / 750 450 / 450 250 / 250 Balance -350 / -350 -250 / -250 100 / 100 Intake: IV Fluids 400 / 400 200 / 200 350 / 350 Ofirmev 1,000 mg/100 ml 1,000 200 / 200 100 / 100 mg In 100 ml @ 400 mls/hr IVPB Q8HR [facility] Rx#:[id number] Intralipid 20% 250 ML @ 21 mls/ 250 / 250 hr IVPB DAILY@1700 [facility] Rx#: [id number] Pfizerpen 4,000,000 UNIT In 0.9 200 / 200 200 / 200 % Sodium Chloride 100 ML @ 100 mls/hr IVPB Q4HR [facility] Rx#: [id number] Oral 0 / 0 0 / 0 Output: Urine 400 / 400 250 / 250 Catheter 450 / 450 Gastric Drainage 350 / 350 Other: Meal NPO Stool Size Small Stool Consistency soft Stool Characteristics [place] Stool Color Brown # Bowel Movements 0 0 Blood Glucose* 140 151 134 - General physical appearance well developed, well nourished, moderate distress - Eyes normal ocular movement - ENT normal pinna, normal nares, normal mucosa, no congestion - Respiratory normal expansion, normal respiratory effort, clear to auscultation - Cardiovascular Cardiovascular exam: Present: RRR, no murmurs/rubs/gallops - Abdomen Abdomen: Present: bowel sounds present (decreased), soft Abdominal Tenderness: epigastic Hernia: none - Incision Incision: Present: clean and dry, intact, approximated. Absent: swollen, inflamed - Integumentary no rash, no growths, no abnormal pigmentation - Neurologic CN 2-12 grossly intact, normal coordination, normal sensation - Musculoskeletal normal posture - Psychiatric oriented to time, oriented to person, oriented to place, speech is normal, memory intact, other (agitated) - Labs 04/08/18 01:20 04/08/18 01:20 Diabetes panel 04/08/18 Range/Units 01:20 Sodium 131 L (136-145) mEq/L Potassium 3.5 (3.5-5.1) mEq/L Chloride 97 L (98-107) mEq/L Carbon Dioxide 28 (23-29) mEq/L BUN 14 (8-23) mg/dL Creatinine 0.54 L (0.70-1.30) mg/dL Glucose 128 H (70-105) mg/dL Calcium 8.3 L (8.6-10.3) mg/dL AST 13 (13-39) Units/L ALT 7 (7-52) Units/L Alkaline Phosphatase 55 (34-104) Units/L Albumin 2.8 L (3.5-5.7) g/dL Triglycerides 108 (< 150) mg/dL HDL Cholesterol 35 L (40-59) mg/dL Calcium panel 04/08/18 04/08/18 Range/Units 01:20 01:20 Calcium 8.3 L (8.6-10.3) mg/dL Phosphorus 3.1 (2.7-4.5) mg/dL Albumin 2.8 L (3.5-5.7) g/dL Pituitary panel 04/08/18 Range/Units 01:20 Sodium 131 L (136-145) mEq/L Potassium 3.5 (3.5-5.1) mEq/L Chloride 97 L (98-107) mEq/L Carbon Dioxide 28 (23-29) mEq/L BUN 14 (8-23) mg/dL Creatinine 0.54 L (0.70-1.30) mg/dL Glucose 128 H (70-105) mg/dL Calcium 8.3 L (8.6-10.3) mg/dL Adrenal panel 04/08/18 Range/Units 01:20 Sodium 131 L (136-145) mEq/L Potassium 3.5 (3.5-5.1) mEq/L Chloride 97 L (98-107) mEq/L Carbon Dioxide 28 (23-29) mEq/L BUN 14 (8-23) mg/dL Creatinine 0.54 L (0.70-1.30) mg/dL Glucose 128 H (70-105) mg/dL Calcium 8.3 L (8.6-10.3) mg/dL Total Bilirubin 0.3 (0.3-1.0) mg/dL AST 13 (13-39) Units/L ALT 7 (7-52) Units/L Alkaline Phosphatase 55 (34-104) Units/L Albumin 2.8 L (3.5-5.7) g/dL Consult Discharge Plan - Plan Referrals: Flaco Robertson MD [Primary Care Provider] - <Curtis Henry - Last Filed: 04/09/18 07:02> Date of Encounter: 04/08/18 Objective Vital Signs - Last 8 Hours Temp Pulse Resp BP Pulse Ox 04/09/18 04:10 98.5 F 71 16 164/84 97 Intake and Output 04/08/18 04/08/18 04/09/18 15:59 23:59 07:59 Intake Total 550 / 550 360 / 360 0 / 0 Output Total 850 / 850 350 / 350 950 / 950 Balance -300 / -300 -950 / -950 Intake: IV Fluids 550 / 550 300 / 300 Ofirmev 1,000 mg/100 ml 1,000 100 / 100 100 / 100 mg In 100 ml @ 400 mls/hr IVPB Q8HR [facility] Rx#:[id number] Intralipid 20% 250 ML @ 21 mls/ 250 / 250 hr IVPB DAILY@1700 [facility] Rx#: [id number] Pfizerpen 4,000,000 UNIT In 0.9 200 / 200 200 / 200 % Sodium Chloride 100 ML @ 100 mls/hr IVPB Q4HR [facility] Rx#: [id number] Oral 60 / 60 0 / 0 Output: Urine 250 / 250 Catheter 250 / 250 750 / 750 Gastric Drainage 600 / 600 100 / 100 200 / 200 Other: Meal NPO npo Percent of Meal Consumed 0% 0% Stool Size Small Stool Characteristics Mucoid [place] Stool Color Brown Weight 81.8 kg Blood Glucose* 160 152 163 Patient Weight 04/09/18 23:59 Weight 81.8 kg - Labs 04/08/18 01:20 04/08/18 01:20 - Attending Attestation I examined this patient and my medical decision-making was reviewed with the Resident Physician. I agree with the documented findings, disposition and treatment plan as described except to the extent set forth below. Review the above assessment and evaluation and agree with the above-mentioned plan.
[2018-04-08] MEDS: *HR* LORazepam 2 MG/ML VIAL IVP PRN ×2 (14:54→20:57)
[2018-04-08] MEDS: Bisacodyl 10 MG RECTAL SUPPOSITORY RC SCH (14:57)
[2018-04-08] MEDS ORDERED: PARENTERAL AMINO ACID 10% IVC SCH (17:00)
[2018-04-08] MEDS ORDERED: CLINIMIX E IVC SCH (17:00)
[2018-04-08] MEDS ORDERED: [UNRECOGNIZED DRUG - OTHER] IVC SCH (17:00)
[2018-04-08] MEDS ORDERED: MVI IVC SCH (17:00)
[2018-04-09] MEDS: Acetaminophen IV 1,000 MG/100 ML INFUS..BTL IVPB SCH ×4 (00:23→23:48)
[2018-04-09] MEDS: OXYCODONE Oral CONC 10 MG/0.5 ML ORAL.SYG SL PRN ×4 (02:00→17:02)
[2018-04-09] MEDS: Penicillin G Potassium 4,000,000 UNIT in 0.9 % Sodium Chloride 100 ML IVPB SCH ×6 (04:19→19:47)
[2018-04-09] MEDS: *HR* Metoprolol 5 MG/5 ML VIAL IVP SCH ×5 (04:25→23:44)
[2018-04-09] MEDS: Metoclopramide 10 MG/2 ML VIAL IVP SCH ×5 (04:25→23:41)
[2018-04-09] MEDS: *HR* Heparin 5,000 UNIT/ML VIAL SQ SCH ×2 (06:10→17:04)
[2018-04-09] MEDS: Famotidine 20 MG/2 ML VIAL IVP SCH ×2 (06:13→17:04)
[2018-04-09] MEDS: Finasteride 5 MG TABLET PO SCH (08:17)
[2018-04-09] MEDS: Lidocaine Viscous Oral Soln 15 ML SOLUTION MM SCH ×3 (08:17→19:48)
[2018-04-09] MEDS: Bisacodyl 10 MG RECTAL SUPPOSITORY RC SCH ×2 (08:40→15:03)
--- NOTE | 2018-04-09 09:01 | Internal Med Progress Note ---
Hospitalist Progress Note - Encounter Date of Encounter: 04/09/18 Time of Encounter: 08:55 - Subjective Interval History: He is seen and examined at the bedside POD 5 s/p R hemicolectomy for suspected adenocarcinoma, he also had bacteremia , which has resolved and vertebral OM which is improving He denies any new complains He is still NPO and asking to have his NG tube out He did have some smears following rectal suppositories Surgery is co-managing Patient is hemodynamically stable at this time of review - Exam Vitals: Temp Pulse Resp BP Pulse Ox 98.4 F 70 16 150/74 97 04/09/18 08:33 04/09/18 08:33 04/09/18 08:33 04/09/18 08:33 04/09/18 08:33 Exam: General: Alert and oriented. Skin:Normal color, no rash. Cardiovascular:Normal S1 & S2, no rubs, murmurs or gallops. No JVD. Rhythm regular Lungs:CTAB Abdomen:Soft, non-tender, no rigidity. BS present in all quadrants, dressing intact, not tender Extremities:No deformity, tenderness, clubbing. No edema Neurological:Normal cognition and motor skills. Pulses:Carotid and radial pulses normal +2. : gaytan with clear urine - Assessment and Plan (1) Hypertension Current Visit: Yes Status: Chronic Assessment and Plan: Now controlled on current regimen, po meds on hold since patient is NPO and has an NG tube Continue hydralazine and metoprolol 15 and 15mg q6hr respectively Ensure pain control and titrate meds prn (2) Low back pain Current Visit: Yes Status: Acute Assessment and Plan: Intractable low back pain secondary to vertebral osteomyelitis and discitis. See results of CT and MRI of lumbar spine. See infectious diseases consult. Pain is improving, Continue antibiotics and pain medications. (3) Constipation due to opioid therapy Current Visit: Yes Status: Acute Assessment and Plan: Colace NPO due to ileus (4) Hyponatremia Current Visit: Yes Status: Acute Assessment and Plan: Continue to monitor. Stable at between 130-132 (5) Anemia Current Visit: Yes Status: Acute Assessment and Plan: Stable, continue to monitor, HB between 8-9 for the past 72 hrs (6) Vertebral osteomyelitis Current Visit: Yes Status: Acute Assessment and Plan: As seen on MRI 02/20/18 with discitis Secondary to S gallolyticus, bacteremia resolved since last admission and there was no bacteremia in this admission Currently on Penicillin G 4 million units q4h ID following, recommendations appreciated (7) BPH without urinary obstruction Current Visit: Yes Status: Chronic Assessment and Plan: Flomax, finesteride (8) Adenocarcinoma of colon Current Visit: Yes Status: Acute Assessment and Plan: See above. s/p right open colectomy 04/04/18 Biopsy results pending. (9) Ileus, postoperative Current Visit: Yes Status: Acute Assessment and Plan: Has BM, no flatus, no BM Continue NPO status, mgt per surgery - Time Spent with Patient Total time spent is greater than 50% in coordination of care (as documented) at patient's floor/unit and/or counseling patient: Plan of Care Discussed with: patient Internal Medicine: Result - Labs CBC & Chem 7: 04/08/18 01:20 04/09/18 10:00 Consult Discharge Plan - Plan Referrals: Flaco Robertson MD [Primary Care Provider] - (1) Hypertension Qualifiers: Hypertension type: essential hypertension Qualified Code(s): I10 - Essential (primary) hypertension (2) Low back pain Qualifiers: Chronicity: acute Back pain laterality: midline Sciatica presence: without sciatica Qualified Code(s): M54.5 - Low back pain (5) Anemia Qualifiers: Anemia type: other cause Other causes of anemia: other cause, not classified Qualified Code(s): D64.89 - Other specified anemias
[2018-04-09 10:28] LABS: BUN/Creatinine Ratio 34 (6-26); Blood Urea Nitrogen 19 mg/dL (8-23); Calcium 8.3 mg/dL (8.6-10.3); Carbon Dioxide 28 mEq/L (23-29); Chloride 96 mEq/L (98-107); Glucose 135 mg/dL (70-105); Magnesium 1.7 mg/dL (1.6-2.6); Osmolality,Calculated 276 (280-300); Phosphorous 3.5 mg/dL (2.7-4.5); Potassium 3.8 mEq/L (3.5-5.1); Sodium 131 mEq/L (136-145); eGFR For Non-African Americans > 60 (> 60)
[2018-04-09] MEDS: *HR* LORazepam 2 MG/ML VIAL IVP PRN ×2 (11:16→23:37)
--- NOTE | 2018-04-09 12:27 | General Surgery Progress Note ---
Date of Encounter: 04/09/18 Time of Encounter: 12:24 - Assessment and Plan (1) S/P right colectomy Current Visit: Yes Status: Acute Postoperative day 5 from open right colectomy. NG tube still in place. Due to minimal NG tube output will place NG tube to gravity drainage. Can continue with Reglan. Waiting for bowel return. Continue with Melissa catheter at this time. Patient is getting daily suppositories. Continue with out of bed and ambulation. Subjective Patient reports: other (Patient agitated. Complains of issues with the NG tube. Denies any nausea or vomiting. Admits to some mild distention. States he has passed flatus and had a bowel movement following suppository yesterday.) Objective Vital Signs - Last 8 Hours Temp Pulse Resp BP Pulse Ox 04/09/18 08:33 98.4 F 70 16 150/74 97 Intake and Output 04/08/18 04/09/18 04/09/18 23:59 07:59 15:59 Intake Total 360 / 360 200 / 200 100 / 100 Output Total 350 / 350 950 / 950 700 / 700 Balance -750 / -750 -600 / -600 Intake: IV Fluids 300 / 300 200 / 200 100 / 100 Ofirmev 1,000 mg/100 ml 1,000 100 / 100 100 / 100 100 / 100 mg In 100 ml @ 400 mls/hr IVPB Q8HR [facility] Rx#:[id number] Pfizerpen 4,000,000 UNIT In 0.9 200 / 200 100 / 100 % Sodium Chloride 100 ML @ 100 mls/hr IVPB Q4HR [facility] Rx#: [id number] Oral 60 / 60 0 / 0 0 / 0 Output: Catheter 250 / 250 750 / 750 400 / 400 Gastric Drainage 100 / 100 200 / 200 300 / 300 Other: Meal npo Percent of Meal Consumed 0% Stool Size Small Stool Characteristics Mucoid [place] Stool Color Brown Weight 81.8 kg Blood Glucose* 152 163 135 Patient Weight 04/09/18 23:59 Weight 81.8 kg - General physical appearance no distress - Abdomen Abdomen: Present: bowel sounds present, soft, distended (Mild distention) - Labs 04/08/18 01:20 04/09/18 10:00 Diabetes panel 04/09/18 Range/Units 10:00 Sodium 131 L (136-145) mEq/L Potassium 3.8 (3.5-5.1) mEq/L Chloride 96 L (98-107) mEq/L Carbon Dioxide 28 (23-29) mEq/L BUN 19 (8-23) mg/dL Creatinine 0.56 L (0.70-1.30) mg/dL Glucose 135 H (70-105) mg/dL Calcium 8.3 L (8.6-10.3) mg/dL Calcium panel 04/09/18 Range/Units 10:00 Calcium 8.3 L (8.6-10.3) mg/dL Phosphorus 3.5 (2.7-4.5) mg/dL Pituitary panel 04/09/18 Range/Units 10:00 Sodium 131 L (136-145) mEq/L Potassium 3.8 (3.5-5.1) mEq/L Chloride 96 L (98-107) mEq/L Carbon Dioxide 28 (23-29) mEq/L BUN 19 (8-23) mg/dL Creatinine 0.56 L (0.70-1.30) mg/dL Glucose 135 H (70-105) mg/dL Calcium 8.3 L (8.6-10.3) mg/dL Adrenal panel 04/09/18 Range/Units 10:00 Sodium 131 L (136-145) mEq/L Potassium 3.8 (3.5-5.1) mEq/L Chloride 96 L (98-107) mEq/L Carbon Dioxide 28 (23-29) mEq/L BUN 19 (8-23) mg/dL Creatinine 0.56 L (0.70-1.30) mg/dL Glucose 135 H (70-105) mg/dL Calcium 8.3 L (8.6-10.3) mg/dL Consult Discharge Plan - Plan Referrals: Flaco Robertson MD [Primary Care Provider] -
[2018-04-09] MEDS ORDERED: MVI IVC SCH (17:00)
[2018-04-09] MEDS ORDERED: [UNRECOGNIZED DRUG - OTHER] IVC SCH (17:00)
[2018-04-09] MEDS ORDERED: PARENTERAL AMINO ACID 10% IVC SCH (17:00)
[2018-04-09] MEDS ORDERED: CLINIMIX E IVC SCH (17:00)
[2018-04-09] MEDS: *HR* Morphine Soln 10 MG/5 ML UDC PO PRN (20:22)
[2018-04-09] MEDS ORDERED: Ketorolac 30 MG/ML VIAL IVP ONE (21:09)
[2018-04-10] MEDS: Penicillin G Potassium 4,000,000 UNIT in 0.9 % Sodium Chloride 100 ML IVPB SCH ×6 (00:07→22:51)
[2018-04-10 03:31] LABS: Basophils % 0.2 %; Eosinophils % 0.7 %; Hematocrit 25.4 % (37.5-50.1); Hemoglobin 8.1 g/dL (12.9-16.9); Immature Granulocytes % 0.4 % (0-4); Lymphocytes # 1.3 K/mcL (0.6-4.6); Lymphocytes % 22.3 %; Mean Corpuscular HGB Conc 31.9 g/dL (31.6-35.5); Mean Corpuscular Volume 87.9 fL (83.0-100.0); Mean Platelet Volume 8.9 fL (9.4-12.4); Monocytes # 0.9 K/mcL (0.0-1.3); Monocytes % 15.6 %; Neutrophils # 3.5 K/mcL (1.6-8.9); Platelet Count 206 K/mcL (140-400); Red Blood Count 2.89 M/mcL (4.19-5.50); Red Cell Distribution Width 12.7 % (11.5-14.5); Segmented Neutrophils % 60.8 %
[2018-04-10 03:46] LABS: Magnesium 1.7 mg/dL (1.6-2.6); Phosphorous 3.5 mg/dL (2.7-4.5)
[2018-04-10 03:47] LABS: BUN/Creatinine Ratio 37 (6-26); Blood Urea Nitrogen 20 mg/dL (8-23); Calcium 8.1 mg/dL (8.6-10.3); Carbon Dioxide 28 mEq/L (23-29); Chloride 98 mEq/L (98-107); Glucose 107 mg/dL (70-105); Osmolality,Calculated 273 (280-300); Potassium 3.6 mEq/L (3.5-5.1); Sodium 130 mEq/L (136-145); eGFR For Non-African Americans > 60 (> 60)
[2018-04-10] MEDS: OXYCODONE Oral CONC 10 MG/0.5 ML ORAL.SYG SL PRN ×3 (04:19→18:52)
[2018-04-10] MEDS: *HR* Heparin 5,000 UNIT/ML VIAL SQ SCH ×2 (05:13→17:17)
[2018-04-10] MEDS: Famotidine 20 MG/2 ML VIAL IVP SCH ×2 (05:14→17:12)
[2018-04-10] MEDS: *HR* Metoprolol 5 MG/5 ML VIAL IVP SCH ×3 (05:18→17:10)
[2018-04-10] MEDS: Metoclopramide 10 MG/2 ML VIAL IVP SCH ×3 (05:19→17:13)
[2018-04-10] MEDS: *HR* Morphine Soln 10 MG/5 ML UDC PO PRN (06:50)
[2018-04-10] MEDS: Acetaminophen IV 1,000 MG/100 ML INFUS..BTL IVPB SCH ×2 (08:10→16:49)
[2018-04-10] MEDS: Finasteride 5 MG TABLET PO SCH (08:14)
[2018-04-10] MEDS: Lidocaine Viscous Oral Soln 15 ML SOLUTION MM SCH ×3 (08:19→22:51)
[2018-04-10] MEDS: *HR* LORazepam 2 MG/ML VIAL IVP PRN (09:19)
--- NOTE | 2018-04-10 11:33 | Internal Med Progress Note ---
Hospitalist Progress Note - Encounter Date of Encounter: 04/10/18 Time of Encounter: 11:33 - Subjective Interval History: He is seen and examined at the bedside POD 6 s/p R hemicolectomy for suspected adenocarcinoma, he also had bacteremia , which has resolved and vertebral OM which is improving Patient is not having any new complains Yet to have a BM, passing flatus NG tube has been disconnected from suction, patient is still frustrated about having an NG tube in, he is ambulatory and does get OOB to chair He also reports one episode of cough that he feels worsened his abdominal pain, abdomen looks a bit more distended than on exam 04/09 Surgery is following and patient is still on TPN, he is afebrile - Exam Vitals: Temp Pulse Resp BP Pulse Ox 98.3 F 66 15 126/65 97 04/10/18 11:09 04/10/18 11:09 04/10/18 11:09 04/10/18 11:09 04/10/18 11:09 Exam: General: Alert and oriented. Skin:Normal color, no rash. HEENT: NG tube, on gravity Cardiovascular:Normal S1 & S2, no rubs, murmurs or gallops. No JVD. Rhythm regular Lungs:CTAB Abdomen:Soft, mildly distended non-tender, no rigidity. BS present in all quadrants Extremities:No deformity, tenderness, clubbing. No edema Neurological:Normal cognition and motor skills. Pulses:Carotid and radial pulses normal +2. : gaytan with clear urine - Assessment and Plan (1) Hypertension Current Visit: Yes Status: Chronic Assessment and Plan: Now controlled on current regimen, po meds on hold since patient is NPO and has an NG tube Continue hydralazine and metoprolol 15 and 15mg q6hr respectively Ensure pain control and titrate meds prn (2) Low back pain Current Visit: Yes Status: Acute Assessment and Plan: Intractable low back pain secondary to vertebral osteomyelitis and discitis. See results of CT and MRI of lumbar spine. See infectious diseases consult. Pain is improving, Continue antibiotics and pain medications. (3) Constipation due to opioid therapy Current Visit: Yes Status: Acute Assessment and Plan: Colace NPO due to ileus (4) Hyponatremia Current Visit: Yes Status: Acute Assessment and Plan: Continue to monitor. Stable at between 130-132 (5) Anemia Current Visit: Yes Status: Acute Assessment and Plan: Stable, continue to monitor, HB between 8-9 for > 4 days, HB 8.1 this a.m, continue to monitor (6) Vertebral osteomyelitis Current Visit: Yes Status: Acute Assessment and Plan: As seen on MRI 02/20/18 with discitis Secondary to S gallolyticus, bacteremia resolved since last admission and there was no bacteremia in this admission Currently on Penicillin G 4 million units q4h ID following, recommendations appreciated (7) BPH without urinary obstruction Current Visit: Yes Status: Chronic Assessment and Plan: Flomax, finesteride (8) Adenocarcinoma of colon Current Visit: Yes Status: Acute Assessment and Plan: See above. s/p right open colectomy 04/04/18 Biopsy results still pending. (9) Ileus, postoperative Current Visit: Yes Status: Acute Assessment and Plan: POD 6 Has BM, no flatus, no BM Continue NPO status, mgt per surgery - Time Spent with Patient Total time spent is greater than 50% in coordination of care (as documented) at patient's floor/unit and/or counseling patient: Plan of Care Discussed with: patient Internal Medicine: Result - Labs CBC & Chem 7: 04/10/18 03:00 04/10/18 03:00 Labs: Short CBC 04/10/18 Range/Units 03:00 WBC 5.7 (4.3-11.1) K/mcL Hgb 8.1 L (12.9-16.9) g/dL Hct 25.4 L (37.5-50.1) % Plt Count 206 (140-400) K/mcL Neutrophils # 3.5 (1.6-8.9) K/mcL BMP 04/10/18 03:00 Sodium 130 L Potassium 3.6 Chloride 98 Carbon Dioxide 28 BUN 20 Creatinine 0.54 L Glucose 107 H Calcium 8.1 L Consult Discharge Plan - Plan Referrals: Flaco Robertson MD [Primary Care Provider] - (1) Hypertension Qualifiers: Hypertension type: essential hypertension Qualified Code(s): I10 - Essential (primary) hypertension (2) Low back pain Qualifiers: Chronicity: acute Back pain laterality: midline Sciatica presence: without sciatica Qualified Code(s): M54.5 - Low back pain (5) Anemia Qualifiers: Anemia type: other cause Other causes of anemia: other cause, not classified Qualified Code(s): D64.89 - Other specified anemias
[2018-04-10] MEDS: *HR* FentaNYL PATCH 25 MCG PATCH TD SCH (11:42)
--- NOTE | 2018-04-10 12:55 | Infectious Disease Progress No ---
Date of Encounter: 04/10/18 Time of Encounter: 12:53 - Assessment and Plan (1) Osteomyelitis Current Visit: Yes Status: Acute Location: L1, L2. Causative organism: S. gallolyticus. Likely secondary to seeding from the abdomen given the patient's recent finding of colon cancer. MRI of the L-spine 02/20/18 showed osteomyelitis/discitis L1-L2. Status post bone biopsy 02/23/18. 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 Pathology was positive for Adenocarcinoma. Continue to have worsening back pain and worsening inflammatory markers so patient was asked to come to the ED for evaluation and was admitted. MRI of the lumbar spine showed severe discitis/[place]ristin minus that L1-L2 with surrounding paravertebral phlegmon at this level with associated inflammation of both psoas muscles. No paraspinal or psoas abscess was identified. There was also noted to be mild enhancing tissue within the epidural space circumferentially at L1-L2 compatible with extension of the infectious process, but no epidural abscess was appreciated. Ortho-spine consulted. No surgical intervention required at this time. Repeat ESR and CRP/ Continue PCN G 4 million units Q4H. Duration of treatment depends on the clinical picture, but likely a total of 6- 8 weeks. Monitor renal function and dose-adjust antibiotics. Qualifiers: Osteomyelitis type: unspecified type Osteomyelitis location: unspecified site Qualified Code(s): M86.9 - Osteomyelitis, unspecified (2) Bacteremia Current Visit: No Status: Resolved Causative organism: S. gallolyticus. Source likely intra-abdominal. Blood cultures drawn 03/30/18 are negative x 2 sets. (3) Lumbar back pain Current Visit: Yes Status: Acute Likely secondary to discitis/osteomyelitis. Improved. Pain management per the primary team. (4) Anemia Current Visit: Yes Status: Acute Qualifiers: Anemia type: other cause Other causes of anemia: other cause, not classified Qualified Code(s): D64.89 - Other specified anemias (5) BPH without urinary obstruction Current Visit: Yes Status: Chronic (6) Adenocarcinoma of colon Current Visit: Yes Status: Acute General surgery consulted to perform colectomy. Status post open colectomy 04/04/[address] Cates. (7) Ileus, postoperative Current Visit: Yes Status: Acute CT of the abdomen and pelvis 04/06/18 showed findings consistent with mild post- op ileus. NG tube placed to straight drain. Management per the general surgery team. - Subjective Interval history: Patient seen and examined. Status post open colectomy 04/04/18. No acute events noted overnight. Patient states overall he feels okay. He states his back pain is improved and he is having minimal pain at the surgical site. Denies any fevers or chills or rigors. Denies chest pain, shortness of breath, or cough. Denies vomiting, diarrhea, constipation. No BM or flatus. He denies any urinary complaints. He denies any numbness or tingling or incontinence. He denies any oral thrush or any skin lesions. NG tube remains to straight drain. Infect Dis PN-Objective Data - Labs CBC & Chem 7: 04/10/18 03:00 04/10/18 03:00 Labs: Laboratory Results - last 24 hr 04/09/18 04/09/18 04/09/18 12:35 16:26 19:52 WBC RBC Hgb Hct MCV MCH MCHC RDW Plt Count MPV Immature Gran % Seg Neutrophils % Lymphocytes % Monocytes % Eosinophils % Basophils % Neutrophils # Lymphocytes # Monocytes # Eosinophils # Basophils # Sodium Potassium Chloride Carbon Dioxide BUN Creatinine Est GFR ( Amer) Est GFR (Non-Af Amer) BUN/Creatinine Ratio Glucose POC Glucose 164 H 137 H 106 H Calculated Osmolality Calcium Phosphorus Magnesium 04/09/18 04/10/18 04/10/18 23:19 03:00 03:00 WBC RBC Hgb Hct MCV MCH MCHC RDW Plt Count MPV Immature Gran % Seg Neutrophils % Lymphocytes % Monocytes % Eosinophils % Basophils % Neutrophils # Lymphocytes # Monocytes # Eosinophils # Basophils # Sodium 130 L Potassium 3.6 Chloride 98 Carbon Dioxide 28 BUN 20 Creatinine 0.54 L Est GFR ( Amer) > 60 Est GFR (Non-Af Amer) > 60 BUN/Creatinine Ratio 37 H Glucose 107 H POC Glucose 137 H Calculated Osmolality 273 L Calcium 8.1 L Phosphorus 3.5 Magnesium 1.7 04/10/18 04/10/18 04/10/18 03:00 04:19 08:07 WBC 5.7 RBC 2.89 L Hgb 8.1 L Hct 25.4 L MCV 87.9 MCH 28.0 MCHC 31.9 RDW 12.7 Plt Count 206 MPV 8.9 L Immature Gran % 0.4 Seg Neutrophils % 60.8 Lymphocytes % 22.3 Monocytes % 15.6 Eosinophils % 0.7 Basophils % 0.2 Neutrophils # 3.5 Lymphocytes # 1.3 Monocytes # 0.9 Eosinophils # 0.0 Basophils # 0.0 Sodium Potassium Chloride Carbon Dioxide BUN Creatinine Est GFR ( Amer) Est GFR (Non-Af Amer) BUN/Creatinine Ratio Glucose POC Glucose 133 H 127 H Calculated Osmolality Calcium Phosphorus Magnesium 04/10/18 11:37 WBC RBC Hgb Hct MCV MCH MCHC RDW Plt Count MPV Immature Gran % Seg Neutrophils % Lymphocytes % Monocytes % Eosinophils % Basophils % Neutrophils # Lymphocytes # Monocytes # Eosinophils # Basophils # Sodium Potassium Chloride Carbon Dioxide BUN Creatinine Est GFR ( Amer) Est GFR (Non-Af Amer) BUN/Creatinine Ratio Glucose POC Glucose 159 H Calculated Osmolality Calcium Phosphorus Magnesium Exam - Constitutional Vitals: Temp Pulse Resp BP Pulse Ox 98.3 F 66 15 126/65 97 04/10/18 11:09 04/10/18 11:09 04/10/18 11:09 04/10/18 11:09 04/10/18 11:09 General appearance: average body habitus, cooperative, no acute distress - Head Head exam: Present: atraumatic, normal inspection, normocephalic - Eye Eye exam: Present: EOMI, normal appearance, PERRL Pupils: Present: normal accommodation - ENT ENT exam: Present: mucous membranes moist - Neck Neck exam: Present: normal inspection - Respiratory Respiratory exam: Present: CTAB. Absent: rales, respiratory distress, rhonchi, wheezes - Cardiovascular Cardiovascular exam: Present: RRR, +S1, +S2 - GI/Abdominal GI/Abdominal exam: Present: distended, firm, hypoactive bowel sounds. Absent: tenderness Additional comments: NGT to straight drain. Melissa catheter noted to be draining clear yellow urine. Midline abdominal incision with dressing C/D/I. - Extremities Exam Extremities exam: Present: normal inspection. Absent: joint swelling, pedal edema, tenderness - Neurological Exam Neurological exam: Present: alert, oriented X3, no focal deficits - Psychiatric Psychiatric exam: Present: normal affect, normal mood - Skin Skin exam: Present: dry, intact, normal color, warm Consult Discharge Plan - Plan Referrals: Flaco Robertson MD [Primary Care Provider] - - Attending Attestation I examined this patient and my medical decision-making was reviewed with the Resident Physician. I agree with the documented findings, disposition and treatment plan as described except to the extent set forth below.
--- NOTE | 2018-04-10 15:16 | General Surgery Progress Note ---
Date of Encounter: 04/10/18 Time of Encounter: 08:30 - Assessment and Plan (1) DVT prophylaxis Current Visit: No Status: Acute heparin sq (2) Vertebral osteomyelitis Current Visit: Yes Status: Acute continue antibiotics and management per ID (3) Adenocarcinoma of colon Current Visit: Yes Status: Acute stage 1, all nodes negative (4) S/P right colectomy Current Visit: Yes Status: Acute pod 6 open right colectomy continue ngt to LIWS some return of bowel function but still distended prn antiemetics PICC/TPN continue gaytan for accurate I/O's serial abdominal exams ambulate/OOB to chair BID (5) Ileus, postoperative Current Visit: Yes Status: Acute continue ngt to liws, hob 30 npo except ice/popcicles continue TPN ileus is not an unexpected outcome of surgery (6) Hypertension Current Visit: Yes Status: Chronic controlled on current regimen continue Qualifiers: Hypertension type: essential hypertension Qualified Code(s): I10 - Essential (primary) hypertension (7) BPH (benign prostatic hyperplasia) Current Visit: No Status: Chronic ok to hold home meds due to ileus Qualifiers: Lower urinary tract symptom presence: unspecified whether lower urinary tract symptoms present Qualified Code(s): N40.0 - Benign prostatic hyperplasia without lower urinary tract symptoms Subjective Patient reports: feels better, still having pain, pain is less, no flatus, no bowel movement, afebrile Narrative: denies nausea or emesis still distended Objective Vital Signs - Last 8 Hours Temp Pulse Resp BP Pulse Ox 04/10/18 14:52 98.7 F 74 15 142/69 98 04/10/18 11:09 98.3 F 66 15 126/65 97 Intake and Output 04/09/18 04/10/18 04/10/18 23:59 07:59 15:59 Intake Total 525 / 525 1385 / 1385 200 / 200 Output Total 850 / 850 350 / 350 550 / 550 Balance -325 / -325 1035 / 1035 -350 / -350 Intake: IV Fluids 200 / 200 550 / 550 200 / 200 Ofirmev 1,000 mg/100 ml 1,000 100 / 100 100 / 100 mg In 100 ml @ 400 mls/hr IVPB Q8HR [facility] Rx#:[id number] Intralipid 20% 250 ML @ 21 mls/ 250 / 250 hr IVPB DAILY@1700 [facility] Rx#: [id number] Pfizerpen 4,000,000 UNIT In 0.9 200 / 200 200 / 200 100 / 100 % Sodium Chloride 100 ML @ 100 mls/hr IVPB Q4HR [facility] Rx#: [id number] Oral 60 / 60 0 / 0 0 / 0 Other 265 / 265 835 / 835 Output: Catheter 850 / 850 250 / 250 450 / 450 Gastric Drainage 100 / 100 100 / 100 Other: Meal NPO Weight 82 kg Blood Glucose* 137 159 Patient Weight 04/10/18 23:59 Weight 82 kg - General physical appearance well developed, well nourished, no distress - Eyes normal ocular movement - ENT normal mucosa, normocephalic - Neck Neck exam: trachea midline - Respiratory normal expansion, normal respiratory effort - Cardiovascular Cardiovascular exam: Present: RRR - Abdomen Abdomen: Present: bowel sounds present, soft, non tender (minimal post op tenderness), distended. Absent: guarding, rebound - Incision Incision: Present: clean and dry, intact - Integumentary no rash, no growths - Neurologic CN 2-12 grossly intact - Musculoskeletal normal posture - Psychiatric oriented to time, oriented to person, oriented to place, speech is normal, memory intact - Labs 04/10/18 03:00 04/10/18 03:00 Diabetes panel 04/10/18 Range/Units 03:00 Sodium 130 L (136-145) mEq/L Potassium 3.6 (3.5-5.1) mEq/L Chloride 98 (98-107) mEq/L Carbon Dioxide 28 (23-29) mEq/L BUN 20 (8-23) mg/dL Creatinine 0.54 L (0.70-1.30) mg/dL Glucose 107 H (70-105) mg/dL Calcium 8.1 L (8.6-10.3) mg/dL Calcium panel 04/10/18 04/10/18 Range/Units 03:00 03:00 Calcium 8.1 L (8.6-10.3) mg/dL Phosphorus 3.5 (2.7-4.5) mg/dL Pituitary panel 04/10/18 Range/Units 03:00 Sodium 130 L (136-145) mEq/L Potassium 3.6 (3.5-5.1) mEq/L Chloride 98 (98-107) mEq/L Carbon Dioxide 28 (23-29) mEq/L BUN 20 (8-23) mg/dL Creatinine 0.54 L (0.70-1.30) mg/dL Glucose 107 H (70-105) mg/dL Calcium 8.1 L (8.6-10.3) mg/dL Adrenal panel 04/10/18 Range/Units 03:00 Sodium 130 L (136-145) mEq/L Potassium 3.6 (3.5-5.1) mEq/L Chloride 98 (98-107) mEq/L Carbon Dioxide 28 (23-29) mEq/L BUN 20 (8-23) mg/dL Creatinine 0.54 L (0.70-1.30) mg/dL Glucose 107 H (70-105) mg/dL Calcium 8.1 L (8.6-10.3) mg/dL Consult Discharge Plan - Plan Referrals: Flaco Robertson MD [Primary Care Provider] -
[2018-04-10] MEDS: Bisacodyl 10 MG RECTAL SUPPOSITORY RC SCH (16:53)
[2018-04-10] MEDS ORDERED: Clinimix E 5%-15% SOLUTION 2,000 ML with MVI, adult with vitamin K 10 ML IVC SCH (17:00)
[2018-04-11] MEDS: *HR* Metoprolol 5 MG/5 ML VIAL IVP SCH ×4 (00:51→18:18)
[2018-04-11] MEDS: Penicillin G Potassium 4,000,000 UNIT in 0.9 % Sodium Chloride 100 ML IVPB SCH ×6 (00:51→21:22)
[2018-04-11] MEDS: Acetaminophen IV 1,000 MG/100 ML INFUS..BTL IVPB SCH ×3 (00:52→18:12)
[2018-04-11] MEDS: Metoclopramide 10 MG/2 ML VIAL IVP SCH ×4 (00:53→18:18)
[2018-04-11] MEDS: OXYCODONE Oral CONC 10 MG/0.5 ML ORAL.SYG SL PRN ×5 (01:06→19:17)
[2018-04-11 05:21] LABS: Basophils % 0.2 %; Eosinophils % 0.5 %; Hematocrit 27.4 % (37.5-50.1); Hemoglobin 8.7 g/dL (12.9-16.9); Immature Granulocytes % 0.5 % (0-4); Lymphocytes # 1.2 K/mcL (0.6-4.6); Lymphocytes % 18.6 %; Mean Corpuscular HGB Conc 31.8 g/dL (31.6-35.5); Mean Corpuscular Volume 88.1 fL (83.0-100.0); Mean Platelet Volume 9.4 fL (9.4-12.4); Monocytes # 1.1 K/mcL (0.0-1.3); Monocytes % 17.1 %; Neutrophils # 4.2 K/mcL (1.6-8.9); Platelet Count 229 K/mcL (140-400); Red Blood Count 3.11 M/mcL (4.19-5.50); Red Cell Distribution Width 13.1 % (11.5-14.5); Segmented Neutrophils % 63.1 %
[2018-04-11 05:47] LABS: Magnesium 1.9 mg/dL (1.6-2.6); Phosphorous 3.6 mg/dL (2.7-4.5)
[2018-04-11 05:48] LABS: Alanine Aminotransferase 12 Units/L (7-52); Albumin 2.8 g/dL (3.5-5.7); Alkaline Phosphatase 64 Units/L (34-104); Aspartate Amino Transferase 13 Units/L (13-39); BUN/Creatinine Ratio 40 (6-26); Bilirubin,Total 0.6 mg/dL (0.3-1.0); Blood Urea Nitrogen 22 mg/dL (8-23); Calcium 8.3 mg/dL (8.6-10.3); Carbon Dioxide 26 mEq/L (23-29); Chloride 97 mEq/L (98-107); Chol/HDL Ratio 2.8 (0-4.9); Cholesterol 88 mg/dL (< 200); Globulin 2.9 g/dL (2.4-3.5); Glucose 112 mg/dL (70-105); HDL Cholesterol 32 mg/dL (40-59); LDL Cholesterol,Calculated 40 mg/dL (0-99); Osmolality,Calculated 272 (280-300); Potassium 3.8 mEq/L (3.5-5.1); Sodium 129 mEq/L (136-145); Total Protein 5.7 g/dL (6.4-8.9); Triglycerides 80 mg/dL (< 150); eGFR For Non-African Americans > 60 (> 60)
[2018-04-11] MEDS: *HR* Heparin 5,000 UNIT/ML VIAL SQ SCH ×2 (06:07→18:32)
[2018-04-11] MEDS: Famotidine 20 MG/2 ML VIAL IVP SCH ×2 (06:07→18:18)
[2018-04-11] MEDS ORDERED: *HR* LORazepam 2 MG/ML VIAL IVP PRN (07:40)
[2018-04-11] MEDS: Simethicone 80 MG TAB.CHEW PO PRN (09:59)
[2018-04-11] MEDS: Bisacodyl 10 MG RECTAL SUPPOSITORY RC SCH (09:59)
[2018-04-11] MEDS: Lidocaine Viscous Oral Soln 15 ML SOLUTION MM SCH ×3 (09:59→21:26)
[2018-04-11] MEDS: Finasteride 5 MG TABLET PO SCH (09:59)
--- NOTE | 2018-04-11 10:34 | Internal Med Progress Note ---
Hospitalist Progress Note - Encounter Date of Encounter: 04/11/18 Time of Encounter: 10:34 - Subjective Interval History: He is seen and examined at the bedside POD 7 s/p R hemicolectomy for suspected adenocarcinoma, he also had bacteremia , which has resolved and vertebral OM which is improving Patient is not having any new complains Yet to have a BM, passing flatus NG tube has been disconnected from suction, patient is still frustrated about having an NG tube in, he is ambulatory and does get OOB to chair This a.m, patient complained of feeling uncomfortable and wanting to walk, back pain is controlled with current meds He is currently controlled on his blood pressure, labs are unremarkable, hyponatremia is stable Nutrition, Surgery, ID is following - Exam Vitals: Temp Pulse Resp BP Pulse Ox 98.1 F 69 15 146/73 97 04/11/18 07:21 04/11/18 07:21 04/11/18 07:21 04/11/18 07:21 04/11/18 07:21 Exam: General: Alert and oriented. Skin:Normal color, no rash. HEENT: NG tube, on gravity Cardiovascular:Normal S1 & S2, no rubs, murmurs or gallops. No JVD. Rhythm regular Lungs:CTAB Abdomen:Soft, mildly distended non-tender, no rigidity. BS present in all quadrants Extremities:trace piting pedal edema Neurological:Normal cognition and motor skills. Pulses:Carotid and radial pulses normal +2. : gaytan with clear urine - Assessment and Plan (1) Hypertension Current Visit: Yes Status: Chronic Assessment and Plan: Now controlled on current regimen, po meds on hold since patient is NPO and has an NG tube Continue hydralazine and metoprolol 15 and 15mg q6hr respectively Ensure pain control and titrate meds prn (2) Low back pain Current Visit: Yes Status: Acute Assessment and Plan: Intractable low back pain secondary to vertebral osteomyelitis and discitis. See results of CT and MRI of lumbar spine. See infectious diseases consult. Pain is improving, Continue antibiotics and pain medications. (3) Constipation due to opioid therapy Current Visit: Yes Status: Acute Assessment and Plan: Colace NPO due to ileus (4) Hyponatremia Current Visit: Yes Status: Acute Assessment and Plan: Continue to monitor. 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 s/p right open colectomy 04/04/18 Biopsy results still pending. (9) Ileus, postoperative Current Visit: Yes Status: Acute Assessment and Plan: POD 7 Has BM, no flatus, no BM Continue NPO status, mgt per surgery - Time Spent with Patient Total time spent is greater than 50% in coordination of care (as documented) at patient's floor/unit and/or counseling patient: Plan of Care Discussed with: patient Internal Medicine: Result - Labs CBC & Chem 7: 04/11/18 03:57 04/11/18 03:57 Labs: Short CBC 04/11/18 Range/Units 03:57 WBC 6.6 (4.3-11.1) K/mcL Hgb 8.7 L (12.9-16.9) g/dL Hct 27.4 L (37.5-50.1) % Plt Count 229 (140-400) K/mcL Neutrophils # 4.2 (1.6-8.9) K/mcL BMP 04/11/18 03:57 Sodium 129 L Potassium 3.8 Chloride 97 L Carbon Dioxide 26 BUN 22 Creatinine 0.55 L Glucose 112 H Calcium 8.3 L Liver Function 04/11/18 Range/Units 03:57 Total Bilirubin 0.6 (0.3-1.0) mg/dL AST 13 (13-39) Units/L ALT 12 (7-52) Units/L Alkaline Phosphatase 64 (34-104) Units/L Albumin 2.8 L (3.5-5.7) g/dL Consult Discharge Plan - Plan Referrals: Flaco Robertson MD [Primary Care Provider] - (1) Hypertension Qualifiers: Hypertension type: essential hypertension Qualified Code(s): I10 - Essential (primary) hypertension (2) Low back pain Qualifiers: Chronicity: acute Back pain laterality: midline Sciatica presence: without sciatica Qualified Code(s): M54.5 - Low back pain (5) Anemia Qualifiers: Anemia type: other cause Other causes of anemia: other cause, not classified Qualified Code(s): D64.89 - Other specified anemias
--- NOTE | 2018-04-11 10:58 | Infectious Disease Progress No ---
Date of Encounter: 04/11/18 Time of Encounter: 10:56 - Assessment and Plan (1) Osteomyelitis Current Visit: Yes Status: Acute Location: L1, L2. Causative organism: S. gallolyticus. Likely secondary to seeding from the abdomen given the patient's recent finding of colon cancer. MRI of the L-spine 02/20/18 showed osteomyelitis/discitis L1-L2. Status post bone biopsy 02/23/18. 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 Pathology was positive for Adenocarcinoma. Continue to have worsening back pain and worsening inflammatory markers so patient was asked to come to the ED for evaluation and was admitted. MRI of the lumbar spine showed severe discitis/Tristin minus that L1-L2 with surrounding paravertebral phlegmon at this level with associated inflammation of both psoas muscles. No paraspinal or psoas abscess was identified. There was also noted to be mild enhancing tissue within the epidural space circumferentially at L1-L2 compatible with extension of the infectious process, but no epidural abscess was appreciated. Ortho-spine consulted. No surgical intervention required at this time. Repeat ESR and CRP--> ESR 47, CRP 154. Continue PCN G 4 million units Q4H. Duration of treatment depends on the clinical picture, but likely a total of 6- 8 weeks. Monitor renal function and dose-adjust antibiotics. Qualifiers: Osteomyelitis type: unspecified type Osteomyelitis location: unspecified site Qualified Code(s): M86.9 - Osteomyelitis, unspecified (2) Bacteremia Current Visit: No Status: Resolved Causative organism: S. gallolyticus. Source likely intra-abdominal. Blood cultures drawn 03/30/18 are negative x 2 sets. (3) Lumbar back pain Current Visit: Yes Status: Acute Likely secondary to discitis/osteomyelitis. Improved initially, but had worsening overnight. Pain management per the primary team. (4) Anemia Current Visit: Yes Status: Acute Qualifiers: Anemia type: other cause Other causes of anemia: other cause, not classified Qualified Code(s): D64.89 - Other specified anemias (5) BPH without urinary obstruction Current Visit: Yes Status: Chronic (6) Adenocarcinoma of colon Current Visit: Yes Status: Acute General surgery consulted to perform colectomy. Status post open colectomy 04/04/[address] Cates. (7) Ileus, postoperative Current Visit: Yes Status: Acute CT of the abdomen and pelvis 04/06/18 showed findings consistent with mild post- op ileus. NG tube placed to straight drain. AAS completed this morning is pending. Management per the general surgery team. (8) Generalized weakness Current Visit: Yes Status: Acute Recommend PT/OT to evaluate and treat. - Subjective Interval history: Patient seen and examined. Status post open colectomy 04/04/18. No acute events noted overnight. Patient states overall he feels okay. He states his back pain is worse today and he is having minimal pain at the surgical site. Denies any fevers or chills or rigors. Denies chest pain, shortness of breath, or cough. Denies vomiting, diarrhea, constipation. Reports that he thought he was going to have a BM yesterday, but did not. REport flatus yesterday, non today. He denies any urinary complaints. He denies any numbness or tingling or incontinence. He denies any oral thrush or any skin lesions. NG tube remains to straight drain. Melissa catheter remains patent. Infect Dis PN-Objective Data - Labs CBC & Chem 7: 04/11/18 03:57 04/11/18 03:57 Labs: Laboratory Results - last 24 hr 04/10/18 04/10/18 04/10/18 11:37 14:20 14:20 WBC RBC Hgb Hct MCV MCH MCHC RDW Plt Count MPV Immature Gran % Seg Neutrophils % Lymphocytes % Monocytes % Eosinophils % Basophils % Neutrophils # Lymphocytes # Monocytes # Eosinophils # Basophils # ESR 47 H Sodium Potassium Chloride Carbon Dioxide BUN Creatinine Est GFR ( Amer) Est GFR (Non-Af Amer) BUN/Creatinine Ratio Glucose POC Glucose 159 H Calculated Osmolality Calcium Phosphorus Magnesium Total Bilirubin AST ALT Alkaline Phosphatase C-Reactive Protein 154 H Serum Total Protein Albumin Globulin Albumin/Globulin Ratio Triglycerides Cholesterol LDL Cholesterol, Calc VLDL Cholesterol, Calc HDL Cholesterol Cholesterol/HDL Ratio 04/10/18 04/10/18 04/11/18 16:21 21:02 03:57 WBC 6.6 RBC 3.11 L Hgb 8.7 L Hct 27.4 L MCV 88.1 MCH 28.0 MCHC 31.8 RDW 13.1 Plt Count 229 MPV 9.4 Immature Gran % 0.5 Seg Neutrophils % 63.1 Lymphocytes % 18.6 Monocytes % 17.1 Eosinophils % 0.5 Basophils % 0.2 Neutrophils # 4.2 Lymphocytes # 1.2 Monocytes # 1.1 Eosinophils # 0.0 Basophils # 0.0 ESR Sodium Potassium Chloride Carbon Dioxide BUN Creatinine Est GFR ( Amer) Est GFR (Non-Af Amer) BUN/Creatinine Ratio Glucose POC Glucose 130 H 135 H Calculated Osmolality Calcium Phosphorus Magnesium Total Bilirubin AST ALT Alkaline Phosphatase C-Reactive Protein Serum Total Protein Albumin Globulin Albumin/Globulin Ratio Triglycerides Cholesterol LDL Cholesterol, Calc VLDL Cholesterol, Calc HDL Cholesterol Cholesterol/HDL Ratio 04/11/18 04/11/18 04/11/18 03:57 03:57 08:08 WBC RBC Hgb Hct MCV MCH MCHC RDW Plt Count MPV Immature Gran % Seg Neutrophils % Lymphocytes % Monocytes % Eosinophils % Basophils % Neutrophils # Lymphocytes # Monocytes # Eosinophils # Basophils # ESR Sodium 129 L Potassium 3.8 Chloride 97 L Carbon Dioxide 26 BUN 22 Creatinine 0.55 L Est GFR ( Amer) > 60 Est GFR (Non-Af Amer) > 60 BUN/Creatinine Ratio 40 H Glucose 112 H POC Glucose 125 H Calculated Osmolality 272 L Calcium 8.3 L Phosphorus 3.6 Magnesium 1.9 Total Bilirubin 0.6 AST 13 ALT 12 Alkaline Phosphatase 64 C-Reactive Protein Serum Total Protein 5.7 L Albumin 2.8 L Globulin 2.9 Albumin/Globulin Ratio 1.0 L Triglycerides 80 Cholesterol 88 LDL Cholesterol, Calc 40 VLDL Cholesterol, Calc 16 HDL Cholesterol 32 L Cholesterol/HDL Ratio 2.8 Exam - Constitutional Vitals: Temp Pulse Resp BP Pulse Ox 98.1 F 69 15 146/73 97 04/11/18 07:21 04/11/18 07:21 04/11/18 07:21 04/11/18 07:21 04/11/18 07:21 General appearance: average body habitus, cooperative, no acute distress - Head Head exam: Present: atraumatic, normal inspection, normocephalic - Eye Eye exam: Present: EOMI, normal appearance, PERRL Pupils: Present: normal accommodation - ENT ENT exam: Present: mucous membranes moist - Neck Neck exam: Present: normal inspection - Respiratory Respiratory exam: Present: CTAB. Absent: rales, respiratory distress, rhonchi, wheezes - Cardiovascular Cardiovascular exam: Present: RRR, +S1, +S2 - GI/Abdominal GI/Abdominal exam: Present: distended, normal bowel sounds, soft, tenderness ( mild, generalized) Additional comments: NG tube to straight drain. Melissa catheter noted to be draining clear yellow urine. - Extremities Exam Extremities exam: Present: normal inspection. Absent: joint swelling, pedal edema, tenderness - Back Exam Back exam: Present: normal inspection. Absent: paraspinal tenderness, vertebral tenderness - Neurological Exam Neurological exam: Present: alert, oriented X3, no focal deficits - Psychiatric Psychiatric exam: Present: normal affect, normal mood - Skin Skin exam: Present: dry, intact, normal color, warm - Additional findings Additional findings: PICC line noted to the RUE with transparent dressing C/D/I. Consult Discharge Plan - Plan Referrals: Flaco Robertson MD [Primary Care Provider] - - Attending Attestation I examined this patient and my medical decision-making was reviewed with the Resident Physician. I agree with the documented findings, disposition and treatment plan as described except to the extent set forth below.
--- NOTE | 2018-04-11 11:35 | General Surgery Progress Note ---
<Krissy Cates Clara - Last Filed: 04/11/18 12:47> Date of Encounter: 04/11/18 - Assessment and Plan (1) DVT prophylaxis Current Visit: No Status: Acute heparin sq (2) Vertebral osteomyelitis Current Visit: Yes Status: Acute continue antibiotics per ID (3) Adenocarcinoma of colon Current Visit: Yes Status: Acute stage 1 per pathology (4) S/P right colectomy Current Visit: Yes Status: Acute pod 7 open right colectomy posto[ ileus passing some flatus no bm;s no nausea still distended continue npo ok ice chips gaytan for accurate I/O's patient has been unable to take his BPH medication serial abodminal exams ambulate TPN continue pt is afebrile, wbc wnl, distended but minimal abdominal discomfort and complains of no abdominal pain (5) Ileus, postoperative Current Visit: Yes Status: Acute (6) Hypertension Current Visit: Yes Status: Chronic controlled, continue current regimen, monitor Qualifiers: Hypertension type: essential hypertension Qualified Code(s): I10 - Essential (primary) hypertension Objective Vital Signs - Last 8 Hours Temp Pulse Resp BP Pulse Ox 04/11/18 10:15 99.0 F 78 15 171/78 96 04/11/18 07:21 98.1 F 69 15 146/73 97 Intake and Output 04/10/18 04/11/18 04/11/18 23:59 07:59 15:59 Intake Total 300 / 300 470 / 470 120 / 120 Output Total 350 / 350 700 / 700 200 / 200 Balance -50 / -50 -230 / -230 -80 / -80 Intake: IV Fluids 300 / 300 350 / 350 Ofirmev 1,000 mg/100 ml 1,000 100 / 100 mg In 100 ml @ 400 mls/hr IVPB Q8HR [facility] Rx#:[id number] Intralipid 20% 250 ML @ 21 mls/ 250 / 250 hr IVPB DAILY@1700 [facility] Rx#: [id number] Pfizerpen 4,000,000 UNIT In 0.9 200 / 200 100 / 100 % Sodium Chloride 100 ML @ 100 mls/hr IVPB Q4HR [facility] Rx#: [id number] Oral 0 / 0 120 / 120 120 / 120 Output: Urine 0 / 0 Catheter 350 / 350 700 / 700 200 / 200 Urethral (Gaytan) 350 / 350 Other: Meal NPO NPO # Bowel Movements 0 0 Weight 82.4 kg Blood Glucose* 135 146 168 Patient Weight 04/11/18 23:59 Weight 82.4 kg - General physical appearance well developed, well nourished, no distress - Eyes normal ocular movement - ENT normal mucosa - Neck Neck exam: trachea midline - Respiratory normal expansion, clear to auscultation - Cardiovascular Cardiovascular exam: Present: RRR - Abdomen Abdomen: Present: bowel sounds present, soft, distended, tender (minimally) Hernia: none - Incision Incision: Present: clean and dry, intact, erythema (slight erythema at middle of wound, two lizzette removed with serosang drainage/? purulent, packed with 1/4 " iodoform packing, covered with 4x4 gauze and medipore tape) - Integumentary no rash, no growths - Neurologic CN 2-12 grossly intact - Musculoskeletal normal posture - Psychiatric oriented to time, oriented to person, oriented to place, speech is normal - Labs 04/11/18 03:57 04/11/18 03:57 Diabetes panel 04/11/18 Range/Units 03:57 Sodium 129 L (136-145) mEq/L Potassium 3.8 (3.5-5.1) mEq/L Chloride 97 L (98-107) mEq/L Carbon Dioxide 26 (23-29) mEq/L BUN 22 (8-23) mg/dL Creatinine 0.55 L (0.70-1.30) mg/dL Glucose 112 H (70-105) mg/dL Calcium 8.3 L (8.6-10.3) mg/dL AST 13 (13-39) Units/L ALT 12 (7-52) Units/L Alkaline Phosphatase 64 (34-104) Units/L Albumin 2.8 L (3.5-5.7) g/dL Triglycerides 80 (< 150) mg/dL HDL Cholesterol 32 L (40-59) mg/dL Calcium panel 04/11/18 04/11/18 Range/Units 03:57 03:57 Calcium 8.3 L (8.6-10.3) mg/dL Phosphorus 3.6 (2.7-4.5) mg/dL Albumin 2.8 L (3.5-5.7) g/dL Pituitary panel 04/11/18 Range/Units 03:57 Sodium 129 L (136-145) mEq/L Potassium 3.8 (3.5-5.1) mEq/L Chloride 97 L (98-107) mEq/L Carbon Dioxide 26 (23-29) mEq/L BUN 22 (8-23) mg/dL Creatinine 0.55 L (0.70-1.30) mg/dL Glucose 112 H (70-105) mg/dL Calcium 8.3 L (8.6-10.3) mg/dL Adrenal panel 04/11/18 Range/Units 03:57 Sodium 129 L (136-145) mEq/L Potassium 3.8 (3.5-5.1) mEq/L Chloride 97 L (98-107) mEq/L Carbon Dioxide 26 (23-29) mEq/L BUN 22 (8-23) mg/dL Creatinine 0.55 L (0.70-1.30) mg/dL Glucose 112 H (70-105) mg/dL Calcium 8.3 L (8.6-10.3) mg/dL Total Bilirubin 0.6 (0.3-1.0) mg/dL AST 13 (13-39) Units/L ALT 12 (7-52) Units/L Alkaline Phosphatase 64 (34-104) Units/L Albumin 2.8 L (3.5-5.7) g/dL - Imaging Abdominal x-ray: report reviewed, image reviewed Consult Discharge Plan - Plan Referrals: Flaco Robertson MD [Primary Care Provider] - - Attending Attestation I examined this patient and my medical decision-making was reviewed with the Resident Physician. I agree with the documented findings, disposition and treatment plan as described except to the extent set forth below. <Maya Couch - Last Filed: 04/11/18 13:14> Date of Encounter: 04/11/18 Time of Encounter: 11:31 - Assessment and Plan (1) S/P right colectomy Current Visit: Yes Status: Acute POD 4 open right colectomy for colon adenocarcinoma; - currently NPO except ice and Popsicle ( not red) - hold NG tube, okay replace only if patient vomit - continue daily suppository - continue reglan - continue supportive care and pain management - continue TPN - continue gaytan - serial abdominal exams - prn anitemetics - ambulate and up to chair bid Still awaiting return of adequate bowel function, further recommendations to follow... (2) Primary adenocarcinoma of ascending colon Current Visit: Yes Status: Acute see above (3) Ileus, postoperative Current Visit: Yes Status: Acute common complication of surgical procedure - see above (4) Anxiety Current Visit: Yes Status: Acute Agitation over medical conditions - continue ativan 0.5 q6 prn anxiety and insomnia Subjective Patient reports: pain is less, flatus, no bowel movement, other (NG fell out while on walk) Objective Vital Signs - Last 8 Hours Temp Pulse Resp BP Pulse Ox 04/11/18 10:15 99.0 F 78 15 171/78 96 04/11/18 07:21 98.1 F 69 15 146/73 97 04/11/18 03:33 98.5 F 72 16 155/61 96 Intake and Output 04/10/18 04/11/18 04/11/18 23:59 07:59 15:59 Intake Total 300 / 300 470 / 470 120 / 120 Output Total 350 / 350 700 / 700 200 / 200 Balance -50 / -50 -230 / -230 -80 / -80 Intake: IV Fluids 300 / 300 350 / 350 Ofirmev 1,000 mg/100 ml 1,000 100 / 100 mg In 100 ml @ 400 mls/hr IVPB Q8HR [facility] Rx#:[id number] Intralipid 20% 250 ML @ 21 mls/ 250 / 250 hr IVPB DAILY@1700 [facility] Rx#: [id number] Pfizerpen 4,000,000 UNIT In 0.9 200 / 200 100 / 100 % Sodium Chloride 100 ML @ 100 mls/hr IVPB Q4HR [facility] Rx#: [id number] Oral 0 / 0 120 / 120 120 / 120 Output: Urine 0 / 0 Catheter 350 / 350 700 / 700 200 / 200 Urethral (Gaytan) 350 / 350 Other: Meal NPO NPO # Bowel Movements 0 0 Weight 82.4 kg Blood Glucose* 135 146 125 Patient Weight 04/11/18 23:59 Weight 82.4 kg - General physical appearance well developed, well nourished, no distress - Eyes normal ocular movement - ENT normal pinna, normal nares, normal mucosa - Respiratory normal expansion, normal respiratory effort, clear to auscultation - Cardiovascular Cardiovascular exam: Present: RRR, no murmurs/rubs/gallops - Abdomen Abdomen: Present: bowel sounds present (decreased), soft, distended Abdominal Tenderness: RLQ Hernia: none - Incision Incision: Present: clean and dry, approximated. Absent: draining, inflamed, erythema - Integumentary no rash, no growths, no abnormal pigmentation - Neurologic CN 2-12 grossly intact, normal coordination, normal sensation - Musculoskeletal normal gait, normal posture - Psychiatric oriented to time, oriented to person, oriented to place, speech is normal, memory intact - Labs 04/11/18 03:57 04/11/18 03:57 Diabetes panel 04/11/18 Range/Units 03:57 Sodium 129 L (136-145) mEq/L Potassium 3.8 (3.5-5.1) mEq/L Chloride 97 L (98-107) mEq/L Carbon Dioxide 26 (23-29) mEq/L BUN 22 (8-23) mg/dL Creatinine 0.55 L (0.70-1.30) mg/dL Glucose 112 H (70-105) mg/dL Calcium 8.3 L (8.6-10.3) mg/dL AST 13 (13-39) Units/L ALT 12 (7-52) Units/L Alkaline Phosphatase 64 (34-104) Units/L Albumin 2.8 L (3.5-5.7) g/dL Triglycerides 80 (< 150) mg/dL HDL Cholesterol 32 L (40-59) mg/dL Calcium panel 04/11/18 04/11/18 Range/Units 03:57 03:57 Calcium 8.3 L (8.6-10.3) mg/dL Phosphorus 3.6 (2.7-4.5) mg/dL Albumin 2.8 L (3.5-5.7) g/dL Pituitary panel 04/11/18 Range/Units 03:57 Sodium 129 L (136-145) mEq/L Potassium 3.8 (3.5-5.1) mEq/L Chloride 97 L (98-107) mEq/L Carbon Dioxide 26 (23-29) mEq/L BUN 22 (8-23) mg/dL Creatinine 0.55 L (0.70-1.30) mg/dL Glucose 112 H (70-105) mg/dL Calcium 8.3 L (8.6-10.3) mg/dL Adrenal panel 04/11/18 Range/Units 03:57 Sodium 129 L (136-145) mEq/L Potassium 3.8 (3.5-5.1) mEq/L Chloride 97 L (98-107) mEq/L Carbon Dioxide 26 (23-29) mEq/L BUN 22 (8-23) mg/dL Creatinine 0.55 L (0.70-1.30) mg/dL Glucose 112 H (70-105) mg/dL Calcium 8.3 L (8.6-10.3) mg/dL Total Bilirubin 0.6 (0.3-1.0) mg/dL AST 13 (13-39) Units/L ALT 12 (7-52) Units/L Alkaline Phosphatase 64 (34-104) Units/L Albumin 2.8 L (3.5-5.7) g/dL
[2018-04-11] MEDS ORDERED: Isovue-370 500 ML INFUS..BTL IV ONE (12:48)
[2018-04-11] MEDS ORDERED: Methylnaltrexone 12 MG/0.6 ML SYRINGE SQ ONE (13:02)
[2018-04-11] MEDS ORDERED: Clinimix E 5%-20% SOLUTION 2,000 ML with MVI, adult with vitamin K 10 ML IVC SCH (17:00)
[2018-04-12] MEDS: OXYCODONE Oral CONC 10 MG/0.5 ML ORAL.SYG SL PRN ×6 (00:18→23:21)
[2018-04-12] MEDS: *HR* Metoprolol 5 MG/5 ML VIAL IVP SCH ×5 (00:19→23:16)
[2018-04-12] MEDS: Acetaminophen IV 1,000 MG/100 ML INFUS..BTL IVPB SCH ×4 (00:20→23:16)
[2018-04-12] MEDS: Metoclopramide 10 MG/2 ML VIAL IVP SCH ×5 (00:20→23:17)
[2018-04-12] MEDS: Penicillin G Potassium 4,000,000 UNIT in 0.9 % Sodium Chloride 100 ML IVPB SCH ×7 (02:25→23:54)
[2018-04-12] MEDS: *HR* Heparin 5,000 UNIT/ML VIAL SQ SCH ×2 (05:41→17:14)
[2018-04-12] MEDS: Famotidine 20 MG/2 ML VIAL IVP SCH ×2 (05:41→17:14)
[2018-04-12 05:52] LABS: Basophils % 0.2 %; Eosinophils # 0.1 K/mcL (0.0-0.6); Eosinophils % 1.8 %; Hematocrit 26.2 % (37.5-50.1); Hemoglobin 8.2 g/dL (12.9-16.9); Immature Granulocytes % 0.6 % (0-4); Lymphocytes # 0.9 K/mcL (0.6-4.6); Lymphocytes % 17.4 %; Mean Corpuscular HGB Conc 31.3 g/dL (31.6-35.5); Mean Corpuscular Volume 89.4 fL (83.0-100.0); Mean Platelet Volume 9.5 fL (9.4-12.4); Monocytes # 0.9 K/mcL (0.0-1.3); Neutrophils # 3.2 K/mcL (1.6-8.9); Platelet Count 227 K/mcL (140-400); Red Blood Count 2.93 M/mcL (4.19-5.50); Red Cell Distribution Width 12.9 % (11.5-14.5)
[2018-04-12 06:09] LABS: Alanine Aminotransferase 12 Units/L (7-52); Albumin 2.6 g/dL (3.5-5.7); Alkaline Phosphatase 72 Units/L (34-104); Aspartate Amino Transferase 12 Units/L (13-39); BUN/Creatinine Ratio 35 (6-26); Bilirubin,Total 0.5 mg/dL (0.3-1.0); Blood Urea Nitrogen 21 mg/dL (8-23); Calcium 8.4 mg/dL (8.6-10.3); Carbon Dioxide 26 mEq/L (23-29); Chloride 99 mEq/L (98-107); Globulin 2.7 g/dL (2.4-3.5); Glucose 115 mg/dL (70-105); Osmolality,Calculated 276 (280-300); Potassium 4.1 mEq/L (3.5-5.1); Sodium 131 mEq/L (136-145); Total Protein 5.3 g/dL (6.4-8.9); eGFR For Non-African Americans > 60 (> 60)
[2018-04-12] MEDS: Lidocaine Viscous Oral Soln 15 ML SOLUTION MM SCH ×4 (08:10→19:59)
[2018-04-12] MEDS: Bisacodyl 10 MG RECTAL SUPPOSITORY RC SCH (08:23)
[2018-04-12] MEDS: Finasteride 5 MG TABLET PO SCH (08:23)
--- NOTE | 2018-04-12 09:41 | Internal Med Progress Note ---
Hospitalist Progress Note - Encounter Date of Encounter: 04/12/18 Time of Encounter: 09:40 - Subjective Interval History: He is seen and examined at the bedside POD 8 s/p R hemicolectomy for suspected adenocarcinoma, he also had bacteremia , which has resolved and vertebral OM which is improving No new complains He is taking po contrast, awaiting Abd/pelvis CT scan Abdomen remains distended, patient is not in pain at time of review - Exam Vitals: Temp Pulse Resp BP Pulse Ox 97.3 F L 64 17 153/75 98 04/12/18 05:00 04/12/18 05:00 04/12/18 05:00 04/12/18 05:00 04/12/18 05:00 Exam: General: Alert and oriented. Skin:Normal color, no rash. HEENT: NG tube, on gravity Cardiovascular:Normal S1 & S2, no rubs, murmurs or gallops. No JVD. Rhythm regular Lungs:CTAB Abdomen:Soft, mildly distended non-tender, abd binder on, no rigidity. BS present in all quadrants Extremities:1+ pitting pedal edema bilaterally Neurological:Normal cognition and motor skills. Pulses:Carotid and radial pulses normal +2. : gaytan with clear urine - Assessment and Plan (1) Hypertension Current Visit: Yes Status: Chronic Assessment and Plan: Controlled NG tube has been removed Resume po meds Continue PRN IV meds (2) Low back pain Current Visit: Yes Status: Acute Assessment and Plan: Intractable low back pain secondary to vertebral osteomyelitis and discitis. See results of CT and MRI of lumbar spine. See infectious diseases consult. Pain is improving, Continue antibiotics and pain medications. (3) Constipation due to opioid therapy Current Visit: Yes Status: Acute Assessment and Plan: Colace NPO due to ileus (4) Hyponatremia Current Visit: Yes Status: Acute Assessment and Plan: Continue to monitor. 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 s/p right open colectomy 04/04/18 Biopsy results noted-invasive adenocarcinoma, invading muscularis propria, nodes negative Will consult oncology after speaking with surgery (9) Ileus, postoperative Current Visit: Yes Status: Acute Assessment and Plan: POD 8 Had a BM yesterday 04/[address] scan scheduled by surgery today Continue NPO status, mgt per surgery - Time Spent with Patient Total time spent is greater than 50% in coordination of care (as documented) at patient's floor/unit and/or counseling patient: Plan of Care Discussed with: patient Internal Medicine: Result - Labs CBC & Chem 7: 04/12/18 04:33 04/12/18 04:33 Labs: Short CBC 04/12/18 Range/Units 04:33 WBC 5.1 (4.3-11.1) K/mcL Hgb 8.2 L (12.9-16.9) g/dL Hct 26.2 L (37.5-50.1) % Plt Count 227 (140-400) K/mcL Neutrophils # 3.2 (1.6-8.9) K/mcL BMP 04/12/18 04:33 Sodium 131 L Potassium 4.1 Chloride 99 Carbon Dioxide 26 BUN 21 Creatinine 0.60 L Glucose 115 H Calcium 8.4 L Liver Function 04/12/18 Range/Units 04:33 Total Bilirubin 0.5 (0.3-1.0) mg/dL AST 12 L (13-39) Units/L ALT 12 (7-52) Units/L Alkaline Phosphatase 72 (34-104) Units/L Albumin 2.6 L (3.5-5.7) g/dL - Impressions Impressions Chest/Abdomen X-ray 04/11/18 07:42 IMPRESSION: 1. Atelectasis in the left lower lobe 2. Abdominal ileus suspected. D/ / Raza Garcia / Raza Garcia Interpreting Provider: Raza Garcia Consult Discharge Plan - Plan Referrals: Flaco Robertson MD [Primary Care Provider] - (1) Hypertension Qualifiers: Hypertension type: essential hypertension Qualified Code(s): I10 - Essential (primary) hypertension (2) Low back pain Qualifiers: Chronicity: acute Back pain laterality: midline Sciatica presence: without sciatica Qualified Code(s): M54.5 - Low back pain (5) Anemia Qualifiers: Anemia type: other cause Other causes of anemia: other cause, not classified Qualified Code(s): D64.89 - Other specified anemias
--- NOTE | 2018-04-12 11:45 | General Surgery Progress Note ---
<Lizet Medel Markus - Last Filed: 04/12/18 11:46> Date of Encounter: 04/12/18 Time of Encounter: 10:30 - Assessment and Plan (1) Adenocarcinoma of colon Current Visit: Yes Status: Acute POD #8 Open right colectomy with Dr. Cates Pathology- Colon: invasive adenocarcinoma, invading muscularis propria, nodes negative NPO TPN for nutritional support- 75ml/hour CT scan of abdomen/pelvis today Supportive care/pain control Out of bed to chair with assistance Continue Gaytan catheter- remove today PPI therapy daily DVT prophylaxis IS every 1 hour while awake Abdominal binder Placement of wound vac today Repeat am labs- CBC, BMP (2) Ileus, postoperative Current Visit: Yes Status: Acute Continue reglan every 6 hours Methylnaltrexone given X 1 yesterday and patient did have a bowel movement (3) Vertebral osteomyelitis Current Visit: Yes Status: Acute Spine recommendations: continue IV antibiotics, serial lab markers, repeat MRI in 2 weeks and follow-up in outpatient office. No acute indication for surgical intervention at this time ID following for management of antibiotics (4) DVT prophylaxis Current Visit: No Status: Acute Heparin 5,000 units SQ twice daily for DVT prophylaxis EPCDs to bilateral lower extremities for DVT prophylaxis Ambulate TID with assistance Subjective Patient reports: no new complaints, feels better, still having pain, pain is less, flatus, bowel movement, afebrile, other (bloating improved after bowel movement) Objective Vital Signs - Last 8 Hours Temp Pulse Resp BP Pulse Ox 04/12/18 10:00 97.0 F L 69 17 160/77 95 04/12/18 05:00 97.3 F L 64 17 153/75 98 Intake and Output 04/11/18 04/12/18 04/12/18 23:59 07:59 15:59 Intake Total 500 / 500 650 / 650 100 / 100 Output Total 1150 / 1150 400 / 400 650 / 650 Balance -650 / -650 250 / 250 -550 / -550 Intake: IV Fluids 200 / 200 650 / 650 100 / 100 Ofirmev 1,000 mg/100 ml 1,000 100 / 100 100 / 100 100 / 100 mg In 100 ml @ 400 mls/hr IVPB Q8HR [facility] Rx#:[id number] Intralipid 20% 250 ML @ 21 mls/ 250 / 250 hr IVPB DAILY@1700 [facility] Rx#: [id number] Pfizerpen 4,000,000 UNIT In 0.9 100 / 100 300 / 300 % Sodium Chloride 100 ML @ 100 mls/hr IVPB Q4HR [facility] Rx#: [id number] Oral 300 / 300 0 / 0 0 / 0 Output: Urine 0 / 0 0 / 0 Catheter 1150 / 1150 400 / 400 650 / 650 Other: Meal Breakfast NPO Percent of Meal Consumed 0% Stool Size Moderate Stool Consistency soft Stool Color Brown # Bowel Movements 1 Weight 86 kg Blood Glucose* 138 142 179 Patient Weight 04/12/18 23:59 Weight 86 kg - General physical appearance well developed, no distress - Eyes normal ocular movement - ENT normal mucosa - Neck Neck exam: trachea midline - Respiratory normal respiratory effort, clear to auscultation - Cardiovascular Cardiovascular exam: Present: RRR - Abdomen Abdomen: Present: bowel sounds present, soft, tender (expected post-operative tenderness mild)), wound (Midline with open area draining serous drainage ( moderate amount)) - Incision Incision: Present: open (Midline with small open area draining moderate amount of serous drainage (no odor), erythema minimal without induraiton) - Genitourinary other (gaytan catheter to SD) - Neurologic CN 2-12 grossly intact - Musculoskeletal other (physical deconditioning noted) - Psychiatric oriented to time, oriented to person, oriented to place, speech is normal, memory intact - Labs 04/12/18 04:33 04/12/18 04:33 Diabetes panel 04/12/18 Range/Units 04:33 Sodium 131 L (136-145) mEq/L Potassium 4.1 (3.5-5.1) mEq/L Chloride 99 (98-107) mEq/L Carbon Dioxide 26 (23-29) mEq/L BUN 21 (8-23) mg/dL Creatinine 0.60 L (0.70-1.30) mg/dL Glucose 115 H (70-105) mg/dL Calcium 8.4 L (8.6-10.3) mg/dL AST 12 L (13-39) Units/L ALT 12 (7-52) Units/L Alkaline Phosphatase 72 (34-104) Units/L Albumin 2.6 L (3.5-5.7) g/dL Calcium panel 04/12/18 Range/Units 04:33 Calcium 8.4 L (8.6-10.3) mg/dL Albumin 2.6 L (3.5-5.7) g/dL Pituitary panel 04/12/18 Range/Units 04:33 Sodium 131 L (136-145) mEq/L Potassium 4.1 (3.5-5.1) mEq/L Chloride 99 (98-107) mEq/L Carbon Dioxide 26 (23-29) mEq/L BUN 21 (8-23) mg/dL Creatinine 0.60 L (0.70-1.30) mg/dL Glucose 115 H (70-105) mg/dL Calcium 8.4 L (8.6-10.3) mg/dL Adrenal panel 04/12/18 Range/Units 04:33 Sodium 131 L (136-145) mEq/L Potassium 4.1 (3.5-5.1) mEq/L Chloride 99 (98-107) mEq/L Carbon Dioxide 26 (23-29) mEq/L BUN 21 (8-23) mg/dL Creatinine 0.60 L (0.70-1.30) mg/dL Glucose 115 H (70-105) mg/dL Calcium 8.4 L (8.6-10.3) mg/dL Total Bilirubin 0.5 (0.3-1.0) mg/dL AST 12 L (13-39) Units/L ALT 12 (7-52) Units/L Alkaline Phosphatase 72 (34-104) Units/L Albumin 2.6 L (3.5-5.7) g/dL Consult Discharge Plan - Plan Referrals: Flaco Robertson MD [Primary Care Provider] - - Attending Attestation For this encounter, I have reviewed the IT PROGRAM AUDITOR or PA documentation, treatment plan, and medical decision making; and I have had face to face time with this patient. <Krissy Cates - Last Filed: 04/13/18 14:35> Date of Encounter: 04/12/18 Time of Encounter: 12:30 - Assessment and Plan (1) DVT prophylaxis Current Visit: No Status: Acute (2) Vertebral osteomyelitis Current Visit: Yes Status: Acute (3) Adenocarcinoma of colon Current Visit: Yes Status: Acute (4) S/P right colectomy Current Visit: Yes Status: Acute (5) Ileus, postoperative Current Visit: Yes Status: Acute (6) Hypertension Current Visit: Yes Status: Chronic Qualifiers: Hypertension type: essential hypertension Qualified Code(s): I10 - Essential (primary) hypertension Subjective Patient reports: no new complaints, feels better, pain is less, flatus, bowel movement, afebrile Objective Vital Signs - Last 8 Hours Temp Pulse Resp BP Pulse Ox 04/13/18 14:02 97.9 F 72 18 138/65 95 04/13/18 10:00 98.5 F 67 16 129/68 95 04/13/18 07:13 98.3 F 63 14 109/61 97 Intake and Output 04/12/18 04/13/18 04/13/18 23:59 07:59 15:59 Intake Total 780 / 780 260 / 260 300 / 300 Output Total 920 / 920 250 / 250 150 / 150 Balance -140 / -140 150 / 150 Intake: IV Fluids 720 / 720 200 / 200 300 / 300 Clinimix E 5%-20% SOLUTION 2, 320 / 320 000 ML @ 70 mls/hr IVC .Q24H [facility] with [facility] Adult 10 ml Rx# :[id number] Ofirmev 1,000 mg/100 ml 1,000 200 / 200 100 / 100 mg In 100 ml @ 400 mls/hr IVPB Q8HR [facility] Rx#:[id number] Pfizerpen 4,000,000 UNIT In 0.9 200 / 200 200 / 200 200 / 200 % Sodium Chloride 100 ML @ 100 mls/hr IVPB Q4HR [facility] Rx#: [id number] Oral 60 / 60 60 / 60 0 / 0 Output: Urine 800 / 800 250 / 250 150 / 150 Wound Drainage 120 / 120 Midline Abd 120 / 120 Other: Meal ice chips NPO Breakfast. Percent of Meal Consumed 0% # Bowel Movements 0 0 Weight 87.2 kg Blood Glucose* 154 166 146 Patient Weight 04/13/18 23:59 Weight 87.2 kg - General physical appearance well developed, no distress - Eyes normal ocular movement - ENT normal mucosa, normocephalic - Neck Neck exam: trachea midline - Respiratory normal expansion, normal respiratory effort - Cardiovascular Cardiovascular exam: Present: RRR - Abdomen Abdomen: Present: bowel sounds present, soft, tender, wound - Integumentary no rash, no growths - Neurologic CN 2-12 grossly intact - Psychiatric oriented to time, oriented to person, oriented to place, speech is normal, memory intact - Labs 04/13/18 04:16 04/13/18 04:16 Diabetes panel 04/13/18 Range/Units 04:16 Sodium 130 L (136-145) mEq/L Potassium 4.3 (3.5-5.1) mEq/L Chloride 99 (98-107) mEq/L Carbon Dioxide 26 (23-29) mEq/L BUN 22 (8-23) mg/dL Creatinine 0.65 L (0.70-1.30) mg/dL Glucose 155 H (70-105) mg/dL Calcium 8.3 L (8.6-10.3) mg/dL AST 9 L (13-39) Units/L ALT 10 (7-52) Units/L Alkaline Phosphatase 67 (34-104) Units/L Albumin 2.4 L (3.5-5.7) g/dL Calcium panel 04/13/18 Range/Units 04:16 Calcium 8.3 L (8.6-10.3) mg/dL Albumin 2.4 L (3.5-5.7) g/dL Pituitary panel 04/13/18 Range/Units 04:16 Sodium 130 L (136-145) mEq/L Potassium 4.3 (3.5-5.1) mEq/L Chloride 99 (98-107) mEq/L Carbon Dioxide 26 (23-29) mEq/L BUN 22 (8-23) mg/dL Creatinine 0.65 L (0.70-1.30) mg/dL Glucose 155 H (70-105) mg/dL Calcium 8.3 L (8.6-10.3) mg/dL Adrenal panel 04/13/18 Range/Units 04:16 Sodium 130 L (136-145) mEq/L Potassium 4.3 (3.5-5.1) mEq/L Chloride 99 (98-107) mEq/L Carbon Dioxide 26 (23-29) mEq/L BUN 22 (8-23) mg/dL Creatinine 0.65 L (0.70-1.30) mg/dL Glucose 155 H (70-105) mg/dL Calcium 8.3 L (8.6-10.3) mg/dL Total Bilirubin 0.5 (0.3-1.0) mg/dL AST 9 L (13-39) Units/L ALT 10 (7-52) Units/L Alkaline Phosphatase 67 (34-104) Units/L Albumin 2.4 L (3.5-5.7) g/dL - Attending Attestation I have personally performed a face to face evaluation on this patient. I have reviewed and agree with the care plan. History and Exam by me shows:
[2018-04-12] MEDS ORDERED: Clinimix E 5%-20% SOLUTION 2,000 ML with MVI, adult with vitamin K 10 ML, Trace Eleme... IVC SCH (17:00)
--- NOTE | 2018-04-12 17:32 | Infectious Disease Progress No ---
Date of Encounter: 04/12/18 Time of Encounter: 11:45 - Assessment and Plan (1) Osteomyelitis Current Visit: Yes Status: Acute Location: L1, L2. Causative organism: S. gallolyticus. Likely secondary to seeding from the abdomen given the patient's recent finding of colon cancer. MRI of the L-spine 02/20/18 showed osteomyelitis/discitis L1-L2. Status post bone biopsy 02/23/18. 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 Pathology was positive for Adenocarcinoma. Continue to have worsening back pain and worsening inflammatory markers so patient was asked to come to the ED for evaluation and was admitted. MRI of the lumbar spine showed severe discitis/Tristin minus that L1-L2 with surrounding paravertebral phlegmon at this level with associated inflammation of both psoas muscles. No paraspinal or psoas abscess was identified. There was also noted to be mild enhancing tissue within the epidural space circumferentially at L1-L2 compatible with extension of the infectious process, but no epidural abscess was appreciated. Ortho-spine consulted. No surgical intervention required at this time. Repeat ESR and CRP--> ESR 47, CRP 154. Continue PCN G 4 million units Q4H. Duration of treatment depends on the clinical picture, but likely a total of 6- 8 weeks. Monitor renal function and dose-adjust antibiotics. Qualifiers: Osteomyelitis type: unspecified type Osteomyelitis location: unspecified site Qualified Code(s): M86.9 - Osteomyelitis, unspecified (2) Bacteremia Current Visit: No Status: Resolved Causative organism: S. gallolyticus. Source likely intra-abdominal. Blood cultures drawn 03/30/18 are negative x 2 sets. (3) Lumbar back pain Current Visit: Yes Status: Acute Likely secondary to discitis/osteomyelitis. Improved today. Pain management per the primary team. (4) Anemia Current Visit: Yes Status: Acute Qualifiers: Anemia type: other cause Other causes of anemia: other cause, not classified Qualified Code(s): D64.89 - Other specified anemias (5) BPH without urinary obstruction Current Visit: Yes Status: Chronic (6) Adenocarcinoma of colon Current Visit: Yes Status: Acute General surgery consulted to perform colectomy. Status post open colectomy 04/04/[address] Cates. (7) Ileus, postoperative Current Visit: Yes Status: Acute CT of the abdomen and pelvis 04/06/18 showed findings consistent with mild post- op ileus. NG tube removed by the patient. Patient had bowel movement and has active bowel sounds this morning. Management per the general surgery team. (8) Generalized weakness Current Visit: Yes Status: Acute Recommend PT/OT to evaluate and treat. - Subjective Interval history: Patient seen and examined with Lili Medel CNP at the bedside. Status post open colectomy 04/04/18. No acute events noted overnight. Patient states overall he feels okay. He states his back pain is better today and he is having minimal pain at the surgical site. Denies any fevers or chills or rigors. Denies chest pain, shortness of breath, or cough. Denies vomiting, diarrhea, constipation. Report BM today. He denies any urinary complaints. He denies any numbness or tingling or incontinence. He denies any oral thrush or any skin lesions. NG tube accidentally pulled out by the patient yesterday. Melissa catheter remains patent. Infect Dis PN-Objective Data - Labs CBC & Chem 7: 04/12/18 04:33 04/12/18 04:33 Labs: Laboratory Results - last 24 hr 04/11/18 04/11/18 04/11/18 06:01 20:59 23:30 WBC RBC Hgb Hct MCV MCH MCHC RDW Plt Count MPV Immature Gran % Seg Neutrophils % Lymphocytes % Monocytes % Eosinophils % Basophils % Neutrophils # Lymphocytes # Monocytes # Eosinophils # Basophils # Sodium Potassium Chloride Carbon Dioxide BUN Creatinine Est GFR ( Amer) Est GFR (Non-Af Amer) BUN/Creatinine Ratio Glucose POC Glucose 146 H 145 H 138 H Calculated Osmolality Calcium Total Bilirubin AST ALT Alkaline Phosphatase Serum Total Protein Albumin Globulin Albumin/Globulin Ratio 04/12/18 04/12/18 04/12/18 03:32 04:33 04:33 WBC 5.1 RBC 2.93 L Hgb 8.2 L Hct 26.2 L MCV 89.4 MCH 28.0 MCHC 31.3 L RDW 12.9 Plt Count 227 MPV 9.5 Immature Gran % 0.6 Seg Neutrophils % 62.0 Lymphocytes % 17.4 Monocytes % 18.0 Eosinophils % 1.8 Basophils % 0.2 Neutrophils # 3.2 Lymphocytes # 0.9 Monocytes # 0.9 Eosinophils # 0.1 Basophils # 0.0 Sodium 131 L Potassium 4.1 Chloride 99 Carbon Dioxide 26 BUN 21 Creatinine 0.60 L Est GFR ( Amer) > 60 Est GFR (Non-Af Amer) > 60 BUN/Creatinine Ratio 35 H Glucose 115 H POC Glucose 153 H Calculated Osmolality 276 L Calcium 8.4 L Total Bilirubin 0.5 AST 12 L ALT 12 Alkaline Phosphatase 72 Serum Total Protein 5.3 L Albumin 2.6 L Globulin 2.7 Albumin/Globulin Ratio 1.0 L 04/12/18 04/12/18 07:49 11:04 WBC RBC Hgb Hct MCV MCH MCHC RDW Plt Count MPV Immature Gran % Seg Neutrophils % Lymphocytes % Monocytes % Eosinophils % Basophils % Neutrophils # Lymphocytes # Monocytes # Eosinophils # Basophils # Sodium Potassium Chloride Carbon Dioxide BUN Creatinine Est GFR ( Amer) Est GFR (Non-Af Amer) BUN/Creatinine Ratio Glucose POC Glucose 142 H 179 H Calculated Osmolality Calcium Total Bilirubin AST ALT Alkaline Phosphatase Serum Total Protein Albumin Globulin Albumin/Globulin Ratio - Impressions Impressions Abdomen/Pelvis CT 04/12/18 11:00 IMPRESSION: 1. Small foci of free intraperitoneal air and free fluid in the abdomen, likely postoperative given recent surgery. 2. Subtle delayed left nephrogram. No identifiable renal vein thrombus or obstructive uropathy. Delayed nephrogram may be due to diminished left renal function compared to right. 3. Cholelithiasis with mild distention of the gallbladder. If patient has right upper quadrant abdominal pain, consider HIDA scan for further evaluation. 4. Sigmoid diverticulosis. No evidence of diverticulitis. 5. Small bilateral pleural effusions with bibasilar compressive atelectasis. 6. Prostatomegaly. 7. Mild circumferential thickening of the rectum. Please correlate with clinical symptoms of proctitis. 8. Bony erosions at the endplates of L1-L2, compatible with discitis osteomyelitis as was seen on prior MR. D/ / 04/12/2018 14:56:05 Isaiah Tracey MD / gilma Interpreting Provider: Isaiah Tracey MD Exam - Constitutional Vitals: Temp Pulse Resp BP Pulse Ox 97.8 F 71 16 158/80 98 04/12/18 14:56 04/12/18 14:56 04/12/18 14:56 04/12/18 14:56 04/12/18 14:56 General appearance: average body habitus, cooperative, no acute distress - Head Head exam: Present: atraumatic, normal inspection, normocephalic - Eye Eye exam: Present: EOMI, normal appearance, PERRL Pupils: Present: normal accommodation - ENT ENT exam: Present: mucous membranes moist - Neck Neck exam: Present: normal inspection - Respiratory Respiratory exam: Present: CTAB. Absent: rales, respiratory distress, rhonchi, wheezes - Cardiovascular Cardiovascular exam: Present: RRR, +S1, +S2 - GI/Abdominal GI/Abdominal exam: Present: distended, normal bowel sounds, soft, tenderness ( mild, generalized) Additional comments: Midline abdominal incision with lizzette intact. Moderate amount of serous drainage noted on the dressing. Small area of wound dehiscence overlying the umbilical area with packing noted. No surrounding erythema or warmth noted. Melissa catheter noted to be draining clear yellow urine. - Extremities Exam Extremities exam: Present: normal inspection. Absent: joint swelling, pedal edema, tenderness - Neurological Exam Neurological exam: Present: alert, oriented X3, no focal deficits - Psychiatric Psychiatric exam: Present: normal affect, normal mood - Skin Skin exam: Present: dry, intact, normal color, warm Consult Discharge Plan - Plan Referrals: Flaco Robertson MD [Primary Care Provider] - - Attending Attestation I examined this patient and my medical decision-making was reviewed with the Resident Physician. I agree with the documented findings, disposition and treatment plan as described except to the extent set forth below.
[2018-04-12] MEDS: Simethicone 80 MG TAB.CHEW PO PRN (23:08)
[2018-04-13] MEDS: *HR* Morphine Soln 10 MG/5 ML UDC PO PRN (01:42)
[2018-04-13] MEDS: Penicillin G Potassium 4,000,000 UNIT in 0.9 % Sodium Chloride 100 ML IVPB SCH ×6 (04:18→23:06)
[2018-04-13 04:41] LABS: Basophils % 0.2 %; Eosinophils % 0.3 %; Hematocrit 23.8 % (37.5-50.1); Hemoglobin 7.7 g/dL (12.9-16.9); Immature Granulocytes % 0.9 % (0-4); Lymphocytes # 0.8 K/mcL (0.6-4.6); Lymphocytes % 12.7 %; Mean Corpuscular HGB Conc 32.4 g/dL (31.6-35.5); Mean Corpuscular Hemoglobin 28.3 pg (28.0-33.3); Mean Corpuscular Volume 87.5 fL (83.0-100.0); Mean Platelet Volume 9.2 fL (9.4-12.4); Monocytes # 0.9 K/mcL (0.0-1.3); Monocytes % 14.3 %; Neutrophils # 4.7 K/mcL (1.6-8.9); Platelet Count 225 K/mcL (140-400); Red Blood Count 2.72 M/mcL (4.19-5.50); Segmented Neutrophils % 71.6 %
[2018-04-13] MEDS: OXYCODONE Oral CONC 10 MG/0.5 ML ORAL.SYG SL PRN ×4 (04:52→21:26)
[2018-04-13 05:01] LABS: Alanine Aminotransferase 10 Units/L (7-52); Albumin 2.4 g/dL (3.5-5.7); Albumin/Globulin Ratio 0.9 (1.1-2.2); Alkaline Phosphatase 67 Units/L (34-104); Aspartate Amino Transferase 9 Units/L (13-39); BUN/Creatinine Ratio 34 (6-26); Bilirubin,Total 0.5 mg/dL (0.3-1.0); Blood Urea Nitrogen 22 mg/dL (8-23); Calcium 8.3 mg/dL (8.6-10.3); Carbon Dioxide 26 mEq/L (23-29); Chloride 99 mEq/L (98-107); Globulin 2.7 g/dL (2.4-3.5); Glucose 155 mg/dL (70-105); Osmolality,Calculated 276 (280-300); Potassium 4.3 mEq/L (3.5-5.1); Sodium 130 mEq/L (136-145); Total Protein 5.1 g/dL (6.4-8.9); eGFR For Non-African Americans > 60 (> 60)
[2018-04-13] MEDS: *HR* Heparin 5,000 UNIT/ML VIAL SQ SCH ×2 (05:34→17:56)
[2018-04-13] MEDS: *HR* Metoprolol 5 MG/5 ML VIAL IVP SCH (05:34)
[2018-04-13] MEDS: Metoclopramide 10 MG/2 ML VIAL IVP SCH ×4 (05:36→23:06)
[2018-04-13] MEDS: Famotidine 20 MG/2 ML VIAL IVP SCH ×2 (05:37→17:48)
[2018-04-13] MEDS: Simethicone 80 MG TAB.CHEW PO PRN ×2 (05:38→09:38)
[2018-04-13] MEDS ORDERED: Methylnaltrexone 12 MG/0.6 ML SYRINGE SQ ONE ×2 (08:00→08:07)
[2018-04-13] MEDS ORDERED: Ketorolac 15 MG/ML VIAL IVP ONE (08:05)
[2018-04-13 08:06] LABS: Iron < 10 mcg/dL (65-175); Transferrin 124 mg/dL (203-362)
--- NOTE | 2018-04-13 08:07 | General Surgery Progress Note ---
Date of Encounter: 04/13/18 Time of Encounter: 07:55 - Assessment and Plan (1) Adenocarcinoma of colon Current Visit: Yes Status: Acute Date of procedure: 04/04/18 Pre-op diagnosis: ascending colon cancer Post-op diagnosis: same Procedure: Open right colectomy Complications: none immediate POD #9 as above. Final pathology notes Colon: invasive adenocarcinoma, invading muscularis propria, nodes negative; AJCC 8th edition pathologic stage: pT2, pN0 (stage I ) Noted postoperative ileus. received methylnatlrexone 04/11 with resultant BM. Reports his abdomen is sore, but improving. Denies flatus or further BM. Denies n/v. States he feels swollen everywhere. He reports ambulating yesterday. [place] is in place. Hypoactive BS noted. 2-3+ pitting edema to the knee BLLE (management per primary team). CT of the abdomen and pelvis with IV and oral contrast on notes a small foci free air consistent with postoperative course, no evidence of bowel obstruction or perforation, very small fat containing right inguinal hernia, cholelithiasis (noted patient is pain-free in the right upper quadrant), sigmoid diverticulosis, small bilateral pleural effusions with compressive atelectasis, prostatomegaly. *Given edema to the LE and findings per CT, OK/recc for diuresis, per primary team, from a surgical perspective. Plan: -continue supportive care and discomfort management while awaiting full return of bowel function -repeat methylnaltrexone now -continue ice chips -continue TPN for severe protein calorie malnutrition while NPO -continue scheduled Ofirmev -ambulate TID per PT and OT recommendations -out of bed to chair at least 3 times daily -continue G.I. and DVT prophylaxis -continue IS Q1H while awake (2) Ileus, postoperative Current Visit: Yes Status: Acute See A/P above (3) Fluid overload Current Visit: Yes Status: Acute Recc/OK to diures from a surgical standpoint given BLLE edema and finding per CT ; will defer to primary team Qualifiers: Hypervolemia type: unspecified Qualified Code(s): E87.70 - Fluid overload, unspecified (4) Osteomyelitis Current Visit: Yes Status: Acute Management per infectious disease. Her spine recommendations continue IV antibiotics, repeat MRI in 2 weeks, no acute surgical indication Qualifiers: Osteomyelitis type: unspecified type Osteomyelitis location: unspecified site Qualified Code(s): M86.9 - Osteomyelitis, unspecified (5) Anemia, chronic disease Current Visit: Yes Status: Acute Hemoglobin 7.7, hematocrit 23.8, RBC 2.72, MPV 9.2. No evidence for concern of acute bleed. Iron less than 10, unable to calculate saturation due to severely low iron, transferrin 124. Will order Venofer 250 mg daily for 5 days Objective Vital Signs - Last 8 Hours Temp Pulse Resp BP Pulse Ox 04/13/18 07:13 98.3 F 63 14 109/61 97 04/13/18 03:21 98.8 F 69 16 109/57 94 Intake and Output 04/12/18 04/12/18 04/13/18 15:59 23:59 07:59 Intake Total 1588 / 1588 780 / 780 260 / 260 Output Total 1300 / 1300 920 / 920 250 / 250 Balance 288 / 288 -140 / -140 Intake: IV Fluids 1588 / 1588 720 / 720 200 / 200 Clinimix E 5%-20% SOLUTION 2, 1288 / 1288 320 / 320 000 ML @ 70 mls/hr IVC .Q24H [place] with M.v.i. Adult 10 ml Rx# :[id number] Ofirmev 1,000 mg/100 ml 1,000 100 / 100 200 / 200 mg In 100 ml @ 400 mls/hr IVPB Q8HR [place] Rx#:[id number] Pfizerpen 4,000,000 UNIT In 0.9 200 / 200 200 / 200 200 / 200 % Sodium Chloride 100 ML @ 100 mls/hr IVPB Q4HR [place] Rx#: [id number] Oral 0 / 0 60 / 60 60 / 60 Output: Urine 200 / 200 800 / 800 250 / 250 Catheter 1100 / 1100 Wound Drainage 120 / 120 Midline Abd 120 / 120 Other: Meal NPO ice chips Percent of Meal Consumed 0% # Bowel Movements 0 0 0 Weight 87.2 kg Blood Glucose* 179 154 166 Patient Weight 04/13/18 23:59 Weight 87.2 kg - Labs 04/13/18 04:16 04/13/18 04:16 Diabetes panel 04/13/18 Range/Units 04:16 Sodium 130 L (136-145) mEq/L Potassium 4.3 (3.5-5.1) mEq/L Chloride 99 (98-107) mEq/L Carbon Dioxide 26 (23-29) mEq/L BUN 22 (8-23) mg/dL Creatinine 0.65 L (0.70-1.30) mg/dL Glucose 155 H (70-105) mg/dL Calcium 8.3 L (8.6-10.3) mg/dL AST 9 L (13-39) Units/L ALT 10 (7-52) Units/L Alkaline Phosphatase 67 (34-104) Units/L Albumin 2.4 L (3.5-5.7) g/dL Calcium panel 04/13/18 Range/Units 04:16 Calcium 8.3 L (8.6-10.3) mg/dL Albumin 2.4 L (3.5-5.7) g/dL Pituitary panel 04/13/18 Range/Units 04:16 Sodium 130 L (136-145) mEq/L Potassium 4.3 (3.5-5.1) mEq/L Chloride 99 (98-107) mEq/L Carbon Dioxide 26 (23-29) mEq/L BUN 22 (8-23) mg/dL Creatinine 0.65 L (0.70-1.30) mg/dL Glucose 155 H (70-105) mg/dL Calcium 8.3 L (8.6-10.3) mg/dL Adrenal panel 04/13/18 Range/Units 04:16 Sodium 130 L (136-145) mEq/L Potassium 4.3 (3.5-5.1) mEq/L Chloride 99 (98-107) mEq/L Carbon Dioxide 26 (23-29) mEq/L BUN 22 (8-23) mg/dL Creatinine 0.65 L (0.70-1.30) mg/dL Glucose 155 H (70-105) mg/dL Calcium 8.3 L (8.6-10.3) mg/dL Total Bilirubin 0.5 (0.3-1.0) mg/dL AST 9 L (13-39) Units/L ALT 10 (7-52) Units/L Alkaline Phosphatase 67 (34-104) Units/L Albumin 2.4 L (3.5-5.7) g/dL Consult Discharge Plan - Plan Referrals: Flaco Robertson MD [Primary Care Provider] -
[2018-04-13] MEDS ORDERED: *HR* Labetalol 20 MG/4 ML SYRINGE IVP PRN (08:22)
[2018-04-13] MEDS: Lidocaine Viscous Oral Soln 15 ML SOLUTION MM SCH ×3 (09:19→12:14)
[2018-04-13] MEDS: Bisacodyl 10 MG RECTAL SUPPOSITORY RC SCH (09:20)
[2018-04-13] MEDS: Finasteride 5 MG TABLET PO SCH (09:20)
[2018-04-13] MEDS: Acetaminophen IV 1,000 MG/100 ML INFUS..BTL IVPB SCH (09:21)
[2018-04-13] MEDS: Iron Sucrose Complex 250 MG in 0.9 % Sodium Chloride 250 ML IVPB SCH (09:22)
--- NOTE | 2018-04-13 10:06 | Internal Med Progress Note ---
Hospitalist Progress Note - Encounter Date of Encounter: 04/13/18 Time of Encounter: 10:06 - Subjective Interval History: He is seen and examined at the bedside POD 8 s/p R hemicolectomy for suspected adenocarcinoma, he also had bacteremia , which has resolved and vertebral OM which is improving No new complains He is taking po contrast, awaiting Abd/pelvis CT scan Abdomen remains distended, patient is not in pain at time of review - Exam Vitals: Temp Pulse Resp BP Pulse Ox 98.3 F 63 14 109/61 97 04/13/18 07:13 04/13/18 07:13 04/13/18 07:13 04/13/18 07:13 04/13/18 07:13 Exam: General: Alert and oriented. Skin:Normal color, no rash. HEENT: NG tube has since been removed Cardiovascular:Normal S1 & S2, no rubs, murmurs or gallops. No JVD. Rhythm regular Lungs:CTAB Abdomen:Soft, mildly distended non-tender, wound vac draining. BS present in all quadrants Extremities:1+ pitting pedal edema bilaterally, up to the delgado Neurological:Normal cognition and motor skills. Pulses:Carotid and radial pulses normal +2. : deferred - Assessment and Plan (1) Hypertension Current Visit: Yes Status: Chronic Assessment and Plan: Controlled Continue po meds Continue PRN IV meds (2) Low back pain Current Visit: Yes Status: Acute Assessment and Plan: Intractable low back pain secondary to vertebral osteomyelitis and discitis. See results of CT and MRI of lumbar spine. See infectious diseases consult. Pain is improving, Continue antibiotics and pain medications. (3) Constipation due to opioid therapy Current Visit: Yes Status: Acute Assessment and Plan: Colace NPO due to ileus He is on ice chips and no diet per surgery, at this time, he is on TPN, continue same (4) Hyponatremia Current Visit: Yes Status: Acute Assessment and Plan: Continue to monitor. Stable at between 130-132 (5) Anemia Current Visit: Yes Status: Acute Assessment and Plan: Patient with hb stable at 8-9 Today Hb is 7.7 And Iron work up sent showed iron deficiency Surgery has started Iron therapy , agree with plan (6) Vertebral osteomyelitis Current Visit: Yes Status: Acute Assessment and Plan: As seen on MRI 02/20/18 with discitis Secondary to S gallolyticus, bacteremia resolved since last admission and there was no bacteremia in this admission Currently on Penicillin G 4 million units q4h ID following, recommendations appreciated (7) BPH without urinary obstruction Current Visit: Yes Status: Chronic Assessment and Plan: Flomax, finesteride, continue same (8) Adenocarcinoma of colon Current Visit: Yes Status: Acute Assessment and Plan: See above. s/p right open colectomy 04/04/18 Biopsy results noted-invasive adenocarcinoma, invading muscularis propria, nodes negative Will consult oncology after speaking with surgery Per surgery, patient can see Oncology as outpatient after discharge, agree with plan (9) Ileus, postoperative Current Visit: Yes Status: Acute Assessment and Plan: POD 9 Had a BM 04/11 and 04/12 after receiving naltrexone,he is also on suppositories Rpt CT scan done 04/12, possible proctitis, cholelithiasis, some small pleural effusion and ascites Continue mgt per surgery (10) Fluid overload Current Visit: Yes Status: Acute Assessment and Plan: Likely due to multiple IVF hydration and TPN in-patient Obtain ECHO, ordered GIven one dose of lasix IVP, continue low dose daily based on renal function Patient has no resp symptoms and chest is clear Continue to monitor - Time Spent with Patient Total time spent is greater than 50% in coordination of care (as documented) at patient's floor/unit and/or counseling patient: Plan of Care Discussed with: patient Internal Medicine: Result - Labs CBC & Chem 7: 04/13/18 04:16 04/13/18 04:16 Labs: Short CBC 04/13/18 Range/Units 04:16 WBC 6.5 (4.3-11.1) K/mcL Hgb 7.7 L (12.9-16.9) g/dL Hct 23.8 L (37.5-50.1) % Plt Count 225 (140-400) K/mcL Neutrophils # 4.7 (1.6-8.9) K/mcL BMP 04/13/18 04:16 Sodium 130 L Potassium 4.3 Chloride 99 Carbon Dioxide 26 BUN 22 Creatinine 0.65 L Glucose 155 H Calcium 8.3 L Liver Function 04/13/18 Range/Units 04:16 Total Bilirubin 0.5 (0.3-1.0) mg/dL AST 9 L (13-39) Units/L ALT 10 (7-52) Units/L Alkaline Phosphatase 67 (34-104) Units/L Albumin 2.4 L (3.5-5.7) g/dL - Impressions Impressions Abdomen/Pelvis CT 04/12/18 11:00 IMPRESSION: 1. Small foci of free intraperitoneal air and free fluid in the abdomen, likely postoperative given recent surgery. 2. Subtle delayed left nephrogram. No identifiable renal vein thrombus or obstructive uropathy. Delayed nephrogram may be due to diminished left renal function compared to right. 3. Cholelithiasis with mild distention of the gallbladder. If patient has right upper quadrant abdominal pain, consider HIDA scan for further evaluation. 4. Sigmoid diverticulosis. No evidence of diverticulitis. 5. Small bilateral pleural effusions with bibasilar compressive atelectasis. 6. Prostatomegaly. 7. Mild circumferential thickening of the rectum. Please correlate with clinical symptoms of proctitis. 8. Bony erosions at the endplates of L1-L2, compatible with discitis osteomyelitis as was seen on prior MR. D/ / 04/12/2018 14:56:05 Isaiah Tracey MD / gilma Interpreting Provider: Isaiah Tracey MD Consult Discharge Plan - Plan Referrals: Flaco Robertson MD [Primary Care Provider] - (1) Hypertension Qualifiers: Hypertension type: essential hypertension Qualified Code(s): I10 - Essential (primary) hypertension (2) Low back pain Qualifiers: Chronicity: acute Back pain laterality: midline Sciatica presence: without sciatica Qualified Code(s): M54.5 - Low back pain (5) Anemia Qualifiers: Anemia type: other cause Other causes of anemia: other cause, not classified Qualified Code(s): D64.89 - Other specified anemias (10) Fluid overload Qualifiers: Hypervolemia type: unspecified Qualified Code(s): E87.70 - Fluid overload, unspecified
[2018-04-13] MEDS: *HR* FentaNYL PATCH 25 MCG PATCH TD SCH (10:44)
--- NOTE | 2018-04-13 16:37 | Infectious Disease Progress No ---
Date of Encounter: 04/14/18 Time of Encounter: 16:35 - Assessment and Plan (1) Osteomyelitis Current Visit: Yes Status: Acute Location: L1, L2. Causative organism: S. gallolyticus. Likely secondary to seeding from the abdomen given the patient's recent finding of colon cancer. MRI of the L-spine 02/20/18 showed osteomyelitis/discitis L1-L2. Status post bone biopsy 02/23/18. 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 Pathology was positive for Adenocarcinoma. Continue to have worsening back pain and worsening inflammatory markers so patient was asked to come to the ED for evaluation and was admitted. MRI of the lumbar spine showed severe discitis/Tristin minus that L1-L2 with surrounding paravertebral phlegmon at this level with associated inflammation of both psoas muscles. No paraspinal or psoas abscess was identified. There was also noted to be mild enhancing tissue within the epidural space circumferentially at L1-L2 compatible with extension of the infectious process, but no epidural abscess was appreciated. Ortho-spine consulted. No surgical intervention required at this time. Repeat ESR and CRP--> ESR 47, CRP 154. Continue PCN G 4 million units Q4H. Duration of treatment depends on the clinical picture, but likely a total of 6- 8 weeks. Monitor renal function and dose-adjust antibiotics. Qualifiers: Osteomyelitis type: unspecified type Osteomyelitis location: unspecified site Qualified Code(s): M86.9 - Osteomyelitis, unspecified (2) Bacteremia Current Visit: No Status: Resolved Causative organism: S. gallolyticus. Source likely intra-abdominal. Blood cultures drawn 03/30/18 are negative x 2 sets. (3) Lumbar back pain Current Visit: Yes Status: Acute Likely secondary to discitis/osteomyelitis. Improved today. Pain management per the primary team. (4) Anemia Current Visit: Yes Status: Acute Qualifiers: Anemia type: other cause Other causes of anemia: other cause, not classified Qualified Code(s): D64.89 - Other specified anemias (5) BPH without urinary obstruction Current Visit: Yes Status: Chronic (6) Adenocarcinoma of colon Current Visit: Yes Status: Acute General surgery consulted to perform colectomy. Status post open colectomy 04/04/[address] Cates. (7) Ileus, postoperative Current Visit: Yes Status: Acute CT of the abdomen and pelvis 04/06/18 showed findings consistent with mild post- op ileus. NG tube removed by the patient. Patient had bowel movement and has active bowel sounds. Management per the general surgery team. (8) Generalized weakness Current Visit: Yes Status: Acute Recommend PT/OT to evaluate and treat. - Subjective Interval history: Patient seen and examined with his at the bedside. Status post open colectomy 04/04/18. No acute events noted overnight. Patient states overall he feels okay. He states his back pain is better today and he is having minimal pain at the surgical site. Denies any fevers or chills or rigors. Denies chest pain, shortness of breath, or cough. Denies vomiting, diarrhea, constipation. Report BM yesterday. He denies any urinary complaints. He denies any numbness or tingling or incontinence. He denies any oral thrush or any skin lesions. Melissa catheter removed. Patient denies urinary complaints. Infect Dis PN-Objective Data - Labs CBC & Chem 7: 04/14/18 04:00 04/14/18 04:00 Labs: Laboratory Results - last 24 hr 04/12/18 04/12/18 04/13/18 16:27 21:21 00:19 WBC RBC Hgb Hct MCV MCH MCHC RDW Plt Count MPV Immature Gran % Seg Neutrophils % Lymphocytes % Monocytes % Eosinophils % Basophils % Neutrophils # Lymphocytes # Monocytes # Eosinophils # Basophils # Sodium Potassium Chloride Carbon Dioxide BUN Creatinine Est GFR ( Amer) Est GFR (Non-Af Amer) BUN/Creatinine Ratio Glucose POC Glucose 137 H 154 H 127 H Calculated Osmolality Calcium Iron % Saturation Transferrin Total Bilirubin AST ALT Alkaline Phosphatase Serum Total Protein Albumin Globulin Albumin/Globulin Ratio 04/13/18 04/13/18 04/13/18 04:07 04:16 04:16 WBC 6.5 RBC 2.72 L Hgb 7.7 L Hct 23.8 L MCV 87.5 MCH 28.3 MCHC 32.4 RDW 13.0 Plt Count 225 MPV 9.2 L Immature Gran % 0.9 Seg Neutrophils % 71.6 Lymphocytes % 12.7 Monocytes % 14.3 Eosinophils % 0.3 Basophils % 0.2 Neutrophils # 4.7 Lymphocytes # 0.8 Monocytes # 0.9 Eosinophils # 0.0 Basophils # 0.0 Sodium 130 L Potassium 4.3 Chloride 99 Carbon Dioxide 26 BUN 22 Creatinine 0.65 L Est GFR ( Amer) > 60 Est GFR (Non-Af Amer) > 60 BUN/Creatinine Ratio 34 H Glucose 155 H POC Glucose 174 H Calculated Osmolality 276 L Calcium 8.3 L Iron < 10 L % Saturation TNP Transferrin 124 L Total Bilirubin 0.5 AST 9 L ALT 10 Alkaline Phosphatase 67 Serum Total Protein 5.1 L Albumin 2.4 L Globulin 2.7 Albumin/Globulin Ratio 0.9 L 04/13/18 16:10 WBC RBC Hgb Hct MCV MCH MCHC RDW Plt Count MPV Immature Gran % Seg Neutrophils % Lymphocytes % Monocytes % Eosinophils % Basophils % Neutrophils # Lymphocytes # Monocytes # Eosinophils # Basophils # Sodium Potassium Chloride Carbon Dioxide BUN Creatinine Est GFR ( Amer) Est GFR (Non-Af Amer) BUN/Creatinine Ratio Glucose POC Glucose 145 H Calculated Osmolality Calcium Iron % Saturation Transferrin Total Bilirubin AST ALT Alkaline Phosphatase Serum Total Protein Albumin Globulin Albumin/Globulin Ratio - Impressions Impressions Abdomen/Pelvis CT 04/12/18 11:00 IMPRESSION: 1. Small foci of free intraperitoneal air and free fluid in the abdomen, likely postoperative given recent surgery. 2. Subtle delayed left nephrogram. No identifiable renal vein thrombus or obstructive uropathy. Delayed nephrogram may be due to diminished left renal function compared to right. 3. Cholelithiasis with mild distention of the gallbladder. If patient has right upper quadrant abdominal pain, consider HIDA scan for further evaluation. 4. Sigmoid diverticulosis. No evidence of diverticulitis. 5. Small bilateral pleural effusions with bibasilar compressive atelectasis. 6. Prostatomegaly. 7. Mild circumferential thickening of the rectum. Please correlate with clinical symptoms of proctitis. 8. Bony erosions at the endplates of L1-L2, compatible with discitis osteomyelitis as was seen on prior MR. D/ / 04/12/2018 14:56:05 Isaiah Tracey MD / gilma Interpreting Provider: Isaiah Tracey MD Exam - Constitutional Vitals: Temp Pulse Resp BP Pulse Ox 97.9 F 72 18 138/65 95 04/13/18 14:02 04/13/18 14:02 04/13/18 14:02 04/13/18 14:02 04/13/18 14:02 General appearance: average body habitus, cooperative, no acute distress - Head Head exam: Present: atraumatic, normal inspection, normocephalic - Eye Eye exam: Present: EOMI, normal appearance, PERRL Pupils: Present: normal accommodation - ENT ENT exam: Present: mucous membranes moist - Neck Neck exam: Present: normal inspection - Respiratory Respiratory exam: Present: CTAB. Absent: rales, respiratory distress, rhonchi, wheezes - Cardiovascular Cardiovascular exam: Present: RRR, +S1, +S2 - GI/Abdominal GI/Abdominal exam: Present: distended, normal bowel sounds, soft. Absent: tenderness Additional comments: Midline abdominal wound VAC dressing C/D/I with sponge well-compressed and dressing intact. No surrounding erythema, warmth, or drainage noted. - Extremities Exam Extremities exam: Present: normal inspection, pedal edema (1+ BLE). Absent: joint swelling, tenderness - Neurological Exam Neurological exam: Present: alert, oriented X3, no focal deficits - Psychiatric Psychiatric exam: Present: normal affect, normal mood - Skin Skin exam: Present: dry, intact, normal color, warm Additional comments: Blancheable area noted to the inside of the right buttock without open sore or tenderness. Consult Discharge Plan - Plan Referrals: Flaco Robertson MD [Primary Care Provider] - - Attending Attestation I examined this patient and my medical decision-making was reviewed with the Resident Physician. I agree with the documented findings, disposition and treatment plan as described except to the extent set forth below.
[2018-04-13] MEDS ORDERED: Clinimix E 5%-20% SOLUTION 2,000 ML with MVI, adult with vitamin K 10 ML IVC SCH (17:00)
[2018-04-13] MEDS ORDERED: Furosemide 40 MG/4 ML VIAL IVP ONE (17:19)
[2018-04-14] MEDS: OXYCODONE Oral CONC 10 MG/0.5 ML ORAL.SYG SL PRN ×5 (01:44→18:06)
[2018-04-14] MEDS: *HR* Morphine Soln 10 MG/5 ML UDC PO PRN ×3 (02:58→19:38)
[2018-04-14 04:29] LABS: Basophils % 0.3 %; Eosinophils % 0.3 %; Hematocrit 24.7 % (37.5-50.1); Immature Granulocytes % 1.3 % (0-4); Lymphocytes % 12.9 %; Mean Corpuscular HGB Conc 32.4 g/dL (31.6-35.5); Mean Corpuscular Hemoglobin 28.3 pg (28.0-33.3); Mean Corpuscular Volume 87.3 fL (83.0-100.0); Mean Platelet Volume 9.2 fL (9.4-12.4); Monocytes # 1.1 K/mcL (0.0-1.3); Monocytes % 14.6 %; Neutrophils # 5.4 K/mcL (1.6-8.9); Platelet Count 261 K/mcL (140-400); Red Blood Count 2.83 M/mcL (4.19-5.50); Red Cell Distribution Width 13.1 % (11.5-14.5); Segmented Neutrophils % 70.6 %
[2018-04-14 04:46] LABS: Alanine Aminotransferase 9 Units/L (7-52); Albumin 2.6 g/dL (3.5-5.7); Albumin/Globulin Ratio 0.9 (1.1-2.2); Alkaline Phosphatase 70 Units/L (34-104); Aspartate Amino Transferase 10 Units/L (13-39); BUN/Creatinine Ratio 38 (6-26); Bilirubin,Total 0.5 mg/dL (0.3-1.0); Blood Urea Nitrogen 26 mg/dL (8-23); Calcium 8.4 mg/dL (8.6-10.3); Carbon Dioxide 26 mEq/L (23-29); Chloride 98 mEq/L (98-107); Globulin 2.9 g/dL (2.4-3.5); Glucose 124 mg/dL (70-105); Osmolality,Calculated 276 (280-300); Potassium 4.2 mEq/L (3.5-5.1); Sodium 130 mEq/L (136-145); Total Protein 5.5 g/dL (6.4-8.9); eGFR For Non-African Americans > 60 (> 60)
[2018-04-14] MEDS: Penicillin G Potassium 4,000,000 UNIT in 0.9 % Sodium Chloride 100 ML IVPB SCH ×3 (05:14→13:58)
[2018-04-14] MEDS: *HR* Heparin 5,000 UNIT/ML VIAL SQ SCH ×2 (05:15→18:05)
[2018-04-14] MEDS: Famotidine 20 MG/2 ML VIAL IVP SCH ×2 (05:15→18:05)
[2018-04-14] MEDS: Metoclopramide 10 MG/2 ML VIAL IVP SCH ×4 (05:15→23:22)
[2018-04-14] MEDS: Finasteride 5 MG TABLET PO SCH (09:00)
[2018-04-14] MEDS: Furosemide 20 MG/2 ML VIAL IVP SCH (09:01)
--- NOTE | 2018-04-14 09:37 | General Surgery Progress Note ---
<Lizet Medel - Last Filed: 04/14/18 09:35> Date of Encounter: 04/14/18 Time of Encounter: 09:15 - Assessment and Plan (1) Adenocarcinoma of colon Current Visit: Yes Status: Acute POD #10 Open right colectomy with Dr. Cates Pathology- Colon: invasive adenocarcinoma, invading muscularis propria, nodes negative NPO except ice chips TPN for nutritional support- 75ml/hour CT scan of abdomen/pelvis- mild ileus, dilated gallbladder, thickened rectum US of RUQ today to further evaluate the gallbladder Supportive care/pain control Out of bed to chair with assistance- ambulate TID PPI therapy daily DVT prophylaxis IS every 1 hour while awake Abdominal binder Wound vac- 125mmHG continuous suction, change every -- per surgery team Place millie aceves today Social service consult for wound vac at home upon discharge (2) RUQ abdominal pain Current Visit: Yes Status: Acute CT scan shows a distended gallbladder on 04/12/18 Will US RUQ for further evaluation given new onset of RUQ pain (3) Ileus, postoperative Current Visit: Yes Status: Acute Mild ileus Continue reglan every 6 hours Methylnaltrexone given X 1 yesterday (2nd dose) (4) Vertebral osteomyelitis Current Visit: Yes Status: Acute Spine recommendations: continue IV antibiotics, serial lab markers, repeat MRI in 2 weeks and follow-up in outpatient office. No acute indication for surgical intervention at this time ID following for management of antibiotics (5) Generalized weakness Current Visit: Yes Status: Acute PT/OT daily for mobilization (6) Anemia, chronic disease Current Visit: Yes Status: Acute Stable Venofer daily X 5 doses (7) DVT prophylaxis Current Visit: No Status: Acute Heparin 5,000 units SQ twice daily for DVT prophylaxis EPCDs to bilateral lower extremities for DVT prophylaxis Ambulate TID with assistance Subjective Patient reports: still having pain (Lower back and RUQ (new pain)), voiding w/o difficulty, flatus, no bowel movement (denies BM yesterday or today), afebrile Objective Vital Signs - Last 8 Hours Temp Pulse Resp BP Pulse Ox 04/14/18 07:18 98.5 F 78 16 96 04/14/18 04:55 98.1 F 72 14 129/64 96 Intake and Output 10/11/18 10/12/18 10/12/18 23:59 07:59 15:59 Intake Total 100 / 100 260 / 260 Output Total 1600 / 1600 500 / 500 150 / 150 Balance -1500 / -1500 -240 / -240 -150 / -150 Intake: IV Fluids 100 / 100 200 / 200 Pfizerpen 4,000,000 UNIT In 0.9 100 / 100 200 / 200 % Sodium Chloride 100 ML @ 100 mls/hr IVPB Q4HR [facility] Rx#: [id number] Oral 0 / 0 60 / 60 Output: Urine 1600 / 1600 500 / 500 150 / 150 Other: Meal NPO # Bowel Movements 0 Weight 87.9 kg Blood Glucose* 122 130 Patient Weight 04/14/18 23:59 Weight 87.9 kg - General physical appearance well developed, no distress, moderate pain - Eyes PERRL, normal ocular movement - ENT normal mucosa, atraumatic, normocephalic - Neck Neck exam: trachea midline - Respiratory normal respiratory effort, clear to auscultation - Cardiovascular Cardiovascular exam: Present: RRR - Abdomen Abdomen: Present: bowel sounds present (hypoactive), soft, tender (RUQ and mild incisional), wound (Wound vac intact with serous drainage noted.) Abdominal Tenderness: RUQ - Incision Incision: Present: open (1 small open area noted to midline with wound vac intact) - Neurologic CN 2-12 grossly intact - Musculoskeletal other (moderate physical deconditioning; pitting edema of bilateral lower extremities noted) - Psychiatric oriented to time, oriented to person, oriented to place, speech is normal, memory intact - Labs 04/14/18 04:00 04/14/18 04:00 Diabetes panel 04/14/18 Range/Units 04:00 Sodium 130 L (136-145) mEq/L Potassium 4.2 (3.5-5.1) mEq/L Chloride 98 (98-107) mEq/L Carbon Dioxide 26 (23-29) mEq/L BUN 26 H (8-23) mg/dL Creatinine 0.69 L (0.70-1.30) mg/dL Glucose 124 H (70-105) mg/dL Calcium 8.4 L (8.6-10.3) mg/dL AST 10 L (13-39) Units/L ALT 9 (7-52) Units/L Alkaline Phosphatase 70 (34-104) Units/L Albumin 2.6 L (3.5-5.7) g/dL Calcium panel 04/14/18 04/14/18 Range/Units 04:00 04:00 Calcium 8.4 L (8.6-10.3) mg/dL Phosphorus 4.5 (2.7-4.5) mg/dL Albumin 2.6 L (3.5-5.7) g/dL Pituitary panel 04/14/18 Range/Units 04:00 Sodium 130 L (136-145) mEq/L Potassium 4.2 (3.5-5.1) mEq/L Chloride 98 (98-107) mEq/L Carbon Dioxide 26 (23-29) mEq/L BUN 26 H (8-23) mg/dL Creatinine 0.69 L (0.70-1.30) mg/dL Glucose 124 H (70-105) mg/dL Calcium 8.4 L (8.6-10.3) mg/dL Adrenal panel 04/14/18 Range/Units 04:00 Sodium 130 L (136-145) mEq/L Potassium 4.2 (3.5-5.1) mEq/L Chloride 98 (98-107) mEq/L Carbon Dioxide 26 (23-29) mEq/L BUN 26 H (8-23) mg/dL Creatinine 0.69 L (0.70-1.30) mg/dL Glucose 124 H (70-105) mg/dL Calcium 8.4 L (8.6-10.3) mg/dL Total Bilirubin 0.5 (0.3-1.0) mg/dL AST 10 L (13-39) Units/L ALT 9 (7-52) Units/L Alkaline Phosphatase 70 (34-104) Units/L Albumin 2.6 L (3.5-5.7) g/dL Consult Discharge Plan - Plan Referrals: Flaco Robertson MD [Primary Care Provider] - - Attending Attestation For this encounter, I have reviewed the KENO CLERK or PA documentation, treatment plan, and medical decision making; and I have had face to face time with this patient. <Krissy Cates - Last Filed: 04/14/18 15:10> Date of Encounter: 04/14/18 Time of Encounter: 08:30 - Assessment and Plan (1) DVT prophylaxis Current Visit: No Status: Acute (2) Vertebral osteomyelitis Current Visit: Yes Status: Acute (3) Adenocarcinoma of colon Current Visit: Yes Status: Acute agree with Michelle Medel KENO CLERK plan (4) S/P right colectomy Current Visit: Yes Status: Acute (5) Ileus, postoperative Current Visit: Yes Status: Acute unable to wean narcotics for patient which is likely contributing to ileus (6) Hypertension Current Visit: Yes Status: Chronic controlled Qualifiers: Hypertension type: essential hypertension Qualified Code(s): I10 - Essential (primary) hypertension Subjective Patient reports: still having pain, voiding w/o difficulty, flatus, no bowel movement, afebrile Objective Vital Signs - Last 8 Hours Temp Pulse Resp BP Pulse Ox 04/14/18 13:55 100.0 F H 74 18 132/69 94 04/14/18 10:03 98.6 F 71 17 102/53 97 04/14/18 07:18 98.5 F 78 16 96 Intake and Output 04/13/18 04/14/18 04/14/18 23:59 07:59 15:59 Intake Total 100 / 100 510 / 510 582.5 / 582.5 Output Total 1600 / 1600 500 / 500 425 / 425 Balance -1500 / -1500 157.5 / 157.5 Intake: IV Fluids 100 / 100 450 / 450 362.5 / 362.5 Intralipid 20% 250 ML @ 21 mls/ 250 / 250 hr IVPB DAILY@1700 [facility] Rx#: [id number] Venofer 250 MG In 0.9 % Sodium 262.5 / 262.5 Chloride 250 ML @ 130 mls/hr IVPB DAILY [facility] Rx#:[id number] Pfizerpen 4,000,000 UNIT In 0.9 100 / 100 200 / 200 100 / 100 % Sodium Chloride 100 ML @ 100 mls/hr IVPB Q4HR [facility] Rx#: [id number] Oral 0 / 0 60 / 60 220 / 220 Output: Urine 1600 / 1600 500 / 500 300 / 300 Wound Drainage 125 / 125 Midline Abd 125 / 125 Other: Meal NPO NPO # Bowel Movements 0 Weight 87.9 kg Blood Glucose* 122 130 132 Patient Weight 04/14/18 23:59 Weight 87.9 kg - General physical appearance well developed, no distress, moderate pain - Eyes PERRL, normal ocular movement - ENT normal mucosa, normocephalic - Neck Neck exam: trachea midline - Respiratory normal expansion, clear to auscultation - Cardiovascular Cardiovascular exam: Present: RRR, murmurs - Abdomen Abdomen: Present: bowel sounds present, soft, tender, wound Abdominal Tenderness: RUQ - Incision Incision: Present: open - Genitourinary normal penis with no external lesions - Integumentary no rash - Neurologic CN 2-12 grossly intact - Musculoskeletal normal posture, other - Psychiatric oriented to time, oriented to person, oriented to place, speech is normal, memory intact - Labs 04/14/18 04:00 04/14/18 04:00 Diabetes panel 04/14/18 Range/Units 04:00 Sodium 130 L (136-145) mEq/L Potassium 4.2 (3.5-5.1) mEq/L Chloride 98 (98-107) mEq/L Carbon Dioxide 26 (23-29) mEq/L BUN 26 H (8-23) mg/dL Creatinine 0.69 L (0.70-1.30) mg/dL Glucose 124 H (70-105) mg/dL Calcium 8.4 L (8.6-10.3) mg/dL AST 10 L (13-39) Units/L ALT 9 (7-52) Units/L Alkaline Phosphatase 70 (34-104) Units/L Albumin 2.6 L (3.5-5.7) g/dL Calcium panel 04/14/18 04/14/18 Range/Units 04:00 04:00 Calcium 8.4 L (8.6-10.3) mg/dL Phosphorus 4.5 (2.7-4.5) mg/dL Albumin 2.6 L (3.5-5.7) g/dL Pituitary panel 04/14/18 Range/Units 04:00 Sodium 130 L (136-145) mEq/L Potassium 4.2 (3.5-5.1) mEq/L Chloride 98 (98-107) mEq/L Carbon Dioxide 26 (23-29) mEq/L BUN 26 H (8-23) mg/dL Creatinine 0.69 L (0.70-1.30) mg/dL Glucose 124 H (70-105) mg/dL Calcium 8.4 L (8.6-10.3) mg/dL Adrenal panel 04/14/18 Range/Units 04:00 Sodium 130 L (136-145) mEq/L Potassium 4.2 (3.5-5.1) mEq/L Chloride 98 (98-107) mEq/L Carbon Dioxide 26 (23-29) mEq/L BUN 26 H (8-23) mg/dL Creatinine 0.69 L (0.70-1.30) mg/dL Glucose 124 H (70-105) mg/dL Calcium 8.4 L (8.6-10.3) mg/dL Total Bilirubin 0.5 (0.3-1.0) mg/dL AST 10 L (13-39) Units/L ALT 9 (7-52) Units/L Alkaline Phosphatase 70 (34-104) Units/L Albumin 2.6 L (3.5-5.7) g/dL - Attending Attestation I have personally performed a face to face evaluation on this patient. I have reviewed and agree with the care plan. History and Exam by me shows:
[2018-04-14] MEDS: Iron Sucrose Complex 250 MG in 0.9 % Sodium Chloride 250 ML IVPB SCH (11:12)
--- NOTE | 2018-04-14 11:46 | Infectious Disease Progress No ---
Date of Encounter: 04/14/18 Time of Encounter: 11:44 - Assessment and Plan (1) Osteomyelitis Current Visit: Yes Status: Acute Location: L1, L2. Causative organism: S. gallolyticus. Likely secondary to seeding from the abdomen given the patient's recent finding of colon cancer. MRI of the L-spine 02/20/18 showed osteomyelitis/discitis L1-L2. Status post bone biopsy 02/23/18. 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 Pathology was positive for Adenocarcinoma. Continued to have worsening back pain and worsening inflammatory markers so patient was asked to come to the ED for evaluation and was admitted. MRI of the lumbar spine showed severe discitis/Tristin minus that L1-L2 with surrounding paravertebral phlegmon at this level with associated inflammation of both psoas muscles. No paraspinal or psoas abscess was identified. There was also noted to be mild enhancing tissue within the epidural space circumferentially at L1-L2 compatible with extension of the infectious process, but no epidural abscess was appreciated. Ortho-spine consulted. No surgical intervention required at this time. Repeat ESR and CRP--> ESR 47, CRP 154. Re-check on Tuesday. Discontinue PCN G. Start Zosyn 3.375 grams IV Q8H to cover gram-negatives as well given the gallbladder thickening noted on CT scan. Duration of treatment depends on the clinical picture, but likely a total of 6- 8 weeks. (day 46) Monitor renal function and dose-adjust antibiotics. Qualifiers: Osteomyelitis type: unspecified type Osteomyelitis location: unspecified site Qualified Code(s): M86.9 - Osteomyelitis, unspecified (2) Thickening of wall of gallbladder Current Visit: Yes Status: Acute Noted on CT of the abdomen and pelvis. RUQ UTS pending completion. Will start Zosyn 3.375 grmas IV Q8H for gram-negative and anaerobic coverage for the gallbladder and coverage for the OM. Duration of treatment depends on the clinical picture. Further management per the surgery team. (3) Lumbar back pain Current Visit: Yes Status: Acute Likely secondary to discitis/osteomyelitis. Worse today. Pain management per the primary team. (4) Anemia Current Visit: Yes Status: Acute Qualifiers: Anemia type: other cause Other causes of anemia: other cause, not classified Qualified Code(s): D64.89 - Other specified anemias (5) BPH without urinary obstruction Current Visit: Yes Status: Chronic (6) Adenocarcinoma of colon Current Visit: Yes Status: Acute General surgery consulted to perform colectomy. Status post open colectomy 04/04/[address] Cates. (7) Ileus, postoperative Current Visit: Yes Status: Acute CT of the abdomen and pelvis 04/06/18 showed findings consistent with mild post- op ileus. NG tube removed by the patient. Patient had bowel movement and has active bowel sounds. CT of the abdomen and pelvis showed findings consistent with mild ileus, dilated gallbladder, and thickened rectum. Management per the general surgery team. (8) Generalized weakness Current Visit: Yes Status: Acute Recommend PT/OT to evaluate and treat. - Subjective Interval history: Patient seen and examined. Status post open colectomy 04/04/18. No acute events noted overnight. Patient states overall he doesn't feel well today. He states his back pain is worse today and he is having minimal pain at the surgical site except when he has to cough to clear his throat. Denies any fevers or chills or rigors. Denies chest pain, shortness of breath, or cough. Denies vomiting, diarrhea, constipation. Reports BM two days ago, small amount last night. He denies any urinary complaints. He denies any numbness or tingling or incontinence. He denies any oral thrush or any skin lesions. Melissa catheter removed. Patient denies urinary complaints. Infect Dis PN-Objective Data - Labs CBC & Chem 7: 04/14/18 04:00 04/14/18 04:00 Labs: Laboratory Results - last 24 hr 04/13/18 04/13/18 04/13/18 04:43 07:22 11:03 WBC RBC Hgb Hct MCV MCH MCHC RDW Plt Count MPV Immature Gran % Seg Neutrophils % Lymphocytes % Monocytes % Eosinophils % Basophils % Neutrophils # Lymphocytes # Monocytes # Eosinophils # Basophils # Sodium Potassium Chloride Carbon Dioxide BUN Creatinine Est GFR ( Amer) Est GFR (Non-Af Amer) BUN/Creatinine Ratio Glucose POC Glucose 164 H 166 H 146 H Calculated Osmolality Calcium Phosphorus Total Bilirubin AST ALT Alkaline Phosphatase Serum Total Protein Albumin Globulin Albumin/Globulin Ratio 04/13/18 04/13/18 04/14/18 16:10 20:42 04:00 WBC 7.6 RBC 2.83 L Hgb 8.0 L Hct 24.7 L MCV 87.3 MCH 28.3 MCHC 32.4 RDW 13.1 Plt Count 261 MPV 9.2 L Immature Gran % 1.3 Seg Neutrophils % 70.6 Lymphocytes % 12.9 Monocytes % 14.6 Eosinophils % 0.3 Basophils % 0.3 Neutrophils # 5.4 Lymphocytes # 1.0 Monocytes # 1.1 Eosinophils # 0.0 Basophils # 0.0 Sodium Potassium Chloride Carbon Dioxide BUN Creatinine Est GFR ( Amer) Est GFR (Non-Af Amer) BUN/Creatinine Ratio Glucose POC Glucose 145 H 122 H Calculated Osmolality Calcium Phosphorus Total Bilirubin AST ALT Alkaline Phosphatase Serum Total Protein Albumin Globulin Albumin/Globulin Ratio 04/14/18 04/14/18 04:00 04:00 WBC RBC Hgb Hct MCV MCH MCHC RDW Plt Count MPV Immature Gran % Seg Neutrophils % Lymphocytes % Monocytes % Eosinophils % Basophils % Neutrophils # Lymphocytes # Monocytes # Eosinophils # Basophils # Sodium 130 L Potassium 4.2 Chloride 98 Carbon Dioxide 26 BUN 26 H Creatinine 0.69 L Est GFR ( Amer) > 60 Est GFR (Non-Af Amer) > 60 BUN/Creatinine Ratio 38 H Glucose 124 H POC Glucose Calculated Osmolality 276 L Calcium 8.4 L Phosphorus 4.5 Total Bilirubin 0.5 AST 10 L ALT 9 Alkaline Phosphatase 70 Serum Total Protein 5.5 L Albumin 2.6 L Globulin 2.9 Albumin/Globulin Ratio 0.9 L - Impressions Impressions Abdomen/Pelvis CT 04/12/18 11:00 IMPRESSION: 1. Small foci of free intraperitoneal air and free fluid in the abdomen, likely postoperative given recent surgery. 2. Subtle delayed left nephrogram. No identifiable renal vein thrombus or obstructive uropathy. Delayed nephrogram may be due to diminished left renal function compared to right. 3. Cholelithiasis with mild distention of the gallbladder. If patient has right upper quadrant abdominal pain, consider HIDA scan for further evaluation. 4. Sigmoid diverticulosis. No evidence of diverticulitis. 5. Small bilateral pleural effusions with bibasilar compressive atelectasis. 6. Prostatomegaly. 7. Mild circumferential thickening of the rectum. Please correlate with clinical symptoms of proctitis. 8. Bony erosions at the endplates of L1-L2, compatible with discitis osteomyelitis as was seen on prior MR. D/ / 04/12/2018 14:56:05 Isaiah Tracey MD / earnold Interpreting Provider: Isaiah Tracey MD Echocardiogram 04/13/18 08:22 Impressions: LVEF 60%. Mild left ventricular diastolic dysfunction. Normal right ventricular structure and function. Mild-moderate mitral regurgitation. Mild tricuspid regurgitation. ADDENDUM: 04/14/18 0949 Impressions: LVEF 60%. Mild left ventricular diastolic dysfunction. Normal right ventricular structure and function. Mild-moderate mitral regurgitation. Mild aortic stenosis. Mild tricuspid regurgitation. Exam - Constitutional Vitals: Temp Pulse Resp BP Pulse Ox 98.6 F 71 17 102/53 97 04/14/18 10:03 04/14/18 10:03 04/14/18 10:03 04/14/18 10:03 04/14/18 10:03 General appearance: average body habitus, cooperative, no acute distress - Head Head exam: Present: atraumatic, normal inspection, normocephalic - Eye Eye exam: Present: EOMI, normal appearance, PERRL Pupils: Present: normal accommodation - ENT ENT exam: Present: mucous membranes moist - Neck Neck exam: Present: normal inspection - Respiratory Respiratory exam: Present: CTAB. Absent: rales, respiratory distress, rhonchi, wheezes - Cardiovascular Cardiovascular exam: Present: RRR, +S1, +S2 - GI/Abdominal GI/Abdominal exam: Present: distended, normal bowel sounds, soft. Absent: tenderness Additional comments: Midline abdominal incision with wound VAC to the central portion with sponge well-compressed and dressing intact. No leak. [place] intact to the remainder of the incision. No surrounding erythema or warmth noted. - Extremities Exam Extremities exam: Present: normal inspection, pedal edema (2+ BLE). Absent: joint swelling, tenderness - Back Exam Back exam: Present: normal inspection. Absent: paraspinal tenderness, vertebral tenderness - Neurological Exam Neurological exam: Present: alert, oriented X3, no focal deficits - Psychiatric Psychiatric exam: Present: normal affect, normal mood - Skin Skin exam: Present: dry, intact, normal color, warm Consult Discharge Plan - Plan Referrals: Flaco Robertson MD [Primary Care Provider] - - Attending Attestation I examined this patient and my medical decision-making was reviewed with the Resident Physician. I agree with the documented findings, disposition and treatment plan as described except to the extent set forth below.
[2018-04-14] MEDS: Piperacillin/Tazobactam 3.375 GM in 0.9 % Sodium Chloride Mini Bag 100 ML IVPB SCH ×2 (16:54→23:21)
[2018-04-14] MEDS ORDERED: Clinimix E 5%-20% SOLUTION 2,000 ML with MVI, adult with vitamin K 10 ML IVC SCH (17:00)
--- NOTE | 2018-04-14 17:22 | Internal Med Progress Note ---
Hospitalist Progress Note - Encounter Date of Encounter: 04/14/18 Time of Encounter: 11:00 - Subjective Interval History: Patient is postop day 10 for right colectomy due to invasive: Adenocarcinoma ( nodes negative). Patient now with right upper quadrant abdominal pain and workup in progress per general surgery team. Patient still requiring TPN for nutrition IV antibiotics continue for bacteremia with vertebral L1-L2 osteomyelitis. - Exam Vitals: Temp Pulse Resp BP Pulse Ox 98.7 F 71 16 112/63 94 04/14/18 15:23 04/14/18 15:23 04/14/18 15:23 04/14/18 15:23 04/14/18 15:23 Exam: Gen.: Nonacute distress, alert and oriented 3 ENT: Mucosal membranes moist Respiratory: Lungs are clear to auscultation bilaterally without any wheezing rhonchi or rales Cardiovascular: Normal S1 and S2 regular rate rhythm no murmurs rubs or gallops Abdomen: Wound VAC with dressing intact Extremities: No lower extremity edema Skin: Normal color - Assessment and Plan (1) Adenocarcinoma of colon Current Visit: Yes Status: Acute Assessment and Plan: Postop day 10 right open colectomy Biopsy results noted-invasive adenocarcinoma, invading muscularis propria, nodes negative Per surgery, patient can see Oncology as outpatient after discharge, agree with plan Wound VAC in place patient on TPN (2) Cholelithiases Current Visit: Yes Status: Acute Assessment and Plan: CT of the abdomen/pelvis showed cholelithiasis with mild distention of gallbladder Right upper quadrant ultrasound pending for further evaluation General surgery following (3) Ileus, postoperative Current Visit: Yes Status: Acute Assessment and Plan: Patient noted to have mild ileus with recommendations for Reglan every 6 hours per surgery (4) Vertebral osteomyelitis Current Visit: Yes Status: Acute Assessment and Plan: MRI of the L-spine 02/20/18 showed osteomyelitis/discitis L1-L2. Secondary to S gallolyticus, bacteremia resolved since last admission and there was no bacteremia in this admission Currently on Penicillin G 4 million units q4h ID following, recommendations appreciated (5) Hypertension Current Visit: Yes Status: Chronic Assessment and Plan: Controlled; continue po meds (6) Hyponatremia Current Visit: Yes Status: Acute Assessment and Plan: Serum sodium 130 this morning Patient with chronic hyponatremia with baseline approximately 130 Continue to monitor (7) Anemia Current Visit: Yes Status: Acute Assessment and Plan: Patient with hb stable at 8-9 Today Hb is 8.0 Patient with iron deficiencies on labs Surgery has started Iron therapy , agree with plan (8) BPH without urinary obstruction Current Visit: Yes Status: Chronic Assessment and Plan: Continue Flomax and finesteride (9) Fluid overload Current Visit: Yes Status: Acute Assessment and Plan: Likely due to multiple IVF hydration and TPN in-patient Echocardiogram showed LVEF of 60% with mild left-ventricular diastolic dysfunction Given one dose of lasix IVP on 04/13/18; continue low dose daily based on renal function Patient has no resp symptoms and chest is clear Continue to monitor (10) Constipation due to opioid therapy Current Visit: Yes Status: Acute Assessment and Plan: Colace NPO due to ileus He is on ice chips and no diet per surgery, at this time, he is on TPN, continue same - Time Spent with Patient Total time spent is greater than 50% in coordination of care (as documented) at patient's floor/unit and/or counseling patient: Internal Medicine: Result - Labs CBC & Chem 7: 04/14/18 04:00 04/14/18 04:00 Labs: Short CBC 04/14/18 Range/Units 04:00 WBC 7.6 (4.3-11.1) K/mcL Hgb 8.0 L (12.9-16.9) g/dL Hct 24.7 L (37.5-50.1) % Plt Count 261 (140-400) K/mcL Neutrophils # 5.4 (1.6-8.9) K/mcL BMP 04/14/18 04:00 Sodium 130 L Potassium 4.2 Chloride 98 Carbon Dioxide 26 BUN 26 H Creatinine 0.69 L Glucose 124 H Calcium 8.4 L Liver Function 04/14/18 Range/Units 04:00 Total Bilirubin 0.5 (0.3-1.0) mg/dL AST 10 L (13-39) Units/L ALT 9 (7-52) Units/L Alkaline Phosphatase 70 (34-104) Units/L Albumin 2.6 L (3.5-5.7) g/dL - Impressions Impressions Echocardiogram 04/13/18 08:22 Impressions: LVEF 60%. Mild left ventricular diastolic dysfunction. Normal right ventricular structure and function. Mild-moderate mitral regurgitation. Mild tricuspid regurgitation. ADDENDUM: 04/14/18 0949 Impressions: LVEF 60%. Mild left ventricular diastolic dysfunction. Normal right ventricular structure and function. Mild-moderate mitral regurgitation. Mild aortic stenosis. Mild tricuspid regurgitation. Consult Discharge Plan - Plan Referrals: Flaco Robertson MD [Primary Care Provider] - (5) Hypertension Qualifiers: Hypertension type: essential hypertension Qualified Code(s): I10 - Essential (primary) hypertension (7) Anemia Qualifiers: Anemia type: other cause Other causes of anemia: other cause, not classified Qualified Code(s): D64.89 - Other specified anemias (9) Fluid overload Qualifiers: Hypervolemia type: unspecified Qualified Code(s): E87.70 - Fluid overload, unspecified
[2018-04-15] MEDS: OXYCODONE Oral CONC 10 MG/0.5 ML ORAL.SYG SL PRN ×4 (03:47→21:21)
[2018-04-15 04:34] LABS: BUN/Creatinine Ratio 34 (6-26); Blood Urea Nitrogen 27 mg/dL (8-23); Calcium 8.6 mg/dL (8.6-10.3); Carbon Dioxide 26 mEq/L (23-29); Chloride 97 mEq/L (98-107); Glucose 120 mg/dL (70-105); Osmolality,Calculated 276 (280-300); Potassium 4.4 mEq/L (3.5-5.1); Sodium 130 mEq/L (136-145); eGFR For Non-African Americans > 60 (> 60)
[2018-04-15] MEDS: Famotidine 20 MG/2 ML VIAL IVP SCH ×2 (05:30→16:29)
[2018-04-15] MEDS: Metoclopramide 10 MG/2 ML VIAL IVP SCH ×3 (05:30→16:29)
[2018-04-15] MEDS: *HR* Heparin 5,000 UNIT/ML VIAL SQ SCH ×2 (05:30→16:28)
[2018-04-15] MEDS: Furosemide 20 MG/2 ML VIAL IVP SCH (08:42)
[2018-04-15] MEDS: Simethicone 80 MG TAB.CHEW PO PRN ×2 (08:42→16:28)
[2018-04-15] MEDS: Iron Sucrose Complex 250 MG in 0.9 % Sodium Chloride 250 ML IVPB SCH (08:42)
[2018-04-15] MEDS: Finasteride 5 MG TABLET PO SCH (08:42)
[2018-04-15] MEDS: Piperacillin/Tazobactam 3.375 GM in 0.9 % Sodium Chloride Mini Bag 100 ML IVPB SCH ×2 (08:42→16:26)
[2018-04-15] MEDS ORDERED: Methylnaltrexone 12 MG/0.6 ML SYRINGE SQ ONE (09:00)
--- NOTE | 2018-04-15 09:30 | Internal Med Progress Note ---
Hospitalist Progress Note - Encounter Date of Encounter: 04/15/18 Time of Encounter: 11:00 - Subjective Interval History: Patient is postop day 11 for right colectomy due to invasive: Adenocarcinoma ( nodes negative). Patient now with right upper quadrant abdominal pain and workup in progress per general surgery team. Patient still requiring TPN for nutrition IV antibiotics continue for bacteremia with vertebral L1-L2 osteomyelitis. Patient with bilateral lower extremity pitting edema - Exam Vitals: Temp Pulse Resp BP Pulse Ox 99.2 F 75 15 126/69 98 04/15/18 03:04 04/15/18 03:04 04/15/18 03:04 04/15/18 03:04 04/15/18 03:04 Exam: Gen.: Nonacute distress, alert and oriented 3 ENT: Mucosal membranes moist Respiratory: Lungs are clear to auscultation bilaterally without any wheezing rhonchi or rales Cardiovascular: Normal S1 and S2 regular rate rhythm no murmurs rubs or gallops Abdomen: Wound VAC with dressing intact Extremities: Bilateral lower extremity 2+ pitting edema Skin: Normal color - Assessment and Plan (1) Adenocarcinoma of colon Current Visit: Yes Status: Acute Assessment and Plan: Postop day 11 right open colectomy Biopsy results noted-invasive adenocarcinoma, invading muscularis propria, nodes negative Per surgery, patient can see Oncology as outpatient after discharge, agree with plan Wound VAC in place patient on TPN (2) Cholelithiases Current Visit: Yes Status: Acute Assessment and Plan: CT of the abdomen/pelvis showed cholelithiasis with mild distention of gallbladder Right upper quadrant ultrasound showed cholelithiasis without evidence of cholecystitis General surgery following (3) Ileus, postoperative Current Visit: Yes Status: Acute Assessment and Plan: Patient noted to have mild ileus with recommendations for Reglan every 6 hours per surgery (4) Vertebral osteomyelitis Current Visit: Yes Status: Acute Assessment and Plan: MRI of the L-spine 02/20/18 showed osteomyelitis/discitis L1-L2. Secondary to S gallolyticus, bacteremia resolved since last admission and there was no bacteremia in this admission Recommendations per infectious disease to discontinue Penicillin G 4 million units q4h and start IV Zosyn 3.375 g IV every 8 to cover for gram negatives as well given findings of gallbladder thickening ID following, recommendations appreciated (5) Hypertension Current Visit: Yes Status: Chronic Assessment and Plan: Controlled; continue po meds (6) Hyponatremia Current Visit: Yes Status: Acute Assessment and Plan: Serum sodium 130 this morning Patient with chronic hyponatremia with baseline approximately 130 Continue to monitor (7) Anemia Current Visit: Yes Status: Acute Assessment and Plan: Patient with hb stable at 8-9 Today Hb is 8.0 Patient with iron deficiencies on labs Surgery has started Iron therapy , agree with plan (8) BPH without urinary obstruction Current Visit: Yes Status: Chronic Assessment and Plan: Continue Flomax and finesteride (9) Fluid overload Current Visit: Yes Status: Acute Assessment and Plan: Likely due to multiple IVF hydration and TPN in-patient Echocardiogram showed LVEF of 60% with mild left-ventricular diastolic dysfunction Patient with bilateral lower extremity 2+ pitting edema Will increase IV Lasix dose from 20 mg daily to 40 mg daily. Continue to monitor (10) Constipation due to opioid therapy Current Visit: Yes Status: Acute Assessment and Plan: Colace NPO due to ileus He is on ice chips and no diet per surgery, at this time, he is on TPN, continue same DVT Prophylaxis: Heparin subcutaneous - Time Spent with Patient Total time spent is greater than 50% in coordination of care (as documented) at patient's floor/unit and/or counseling patient: Internal Medicine: Result - Labs CBC & Chem 7: 04/15/18 10:05 04/15/18 03:53 Labs: BMP 04/15/18 03:53 Sodium 130 L Potassium 4.4 Chloride 97 L Carbon Dioxide 26 BUN 27 H Creatinine 0.80 Glucose 120 H Calcium 8.6 - Impressions Impressions Echocardiogram 04/13/18 08:22 Impressions: LVEF 60%. Mild left ventricular diastolic dysfunction. Normal right ventricular structure and function. Mild-moderate mitral regurgitation. Mild tricuspid regurgitation. ADDENDUM: 04/14/18 0949 Impressions: LVEF 60%. Mild left ventricular diastolic dysfunction. Normal right ventricular structure and function. Mild-moderate mitral regurgitation. Mild aortic stenosis. Mild tricuspid regurgitation. Gallbladder Ultrasound 04/14/18 17:00 IMPRESSION: Cholelithiasis without evidence of cholecystitis. D/ / Kevin Lunsford MD / Kevin Lunsford MD Interpreting Provider: Kevin Lunsford MD Consult Discharge Plan - Plan Referrals: Flaco Robertson MD [Primary Care Provider] - (5) Hypertension Qualifiers: Hypertension type: essential hypertension Qualified Code(s): I10 - Essential (primary) hypertension (7) Anemia Qualifiers: Anemia type: other cause Other causes of anemia: other cause, not classified Qualified Code(s): D64.89 - Other specified anemias (9) Fluid overload Qualifiers: Hypervolemia type: unspecified Qualified Code(s): E87.70 - Fluid overload, unspecified
[2018-04-15 10:31] LABS: Basophils % 0.2 %; Eosinophils % 0.1 %; Hematocrit 25.5 % (37.5-50.1); Hemoglobin 8.2 g/dL (12.9-16.9); Immature Granulocytes % 1.5 % (0-4); Lymphocytes # 1.3 K/mcL (0.6-4.6); Lymphocytes % 11.3 %; Mean Corpuscular HGB Conc 32.2 g/dL (31.6-35.5); Mean Corpuscular Hemoglobin 28.1 pg (28.0-33.3); Mean Corpuscular Volume 87.3 fL (83.0-100.0); Mean Platelet Volume 9.3 fL (9.4-12.4); Monocytes # 1.2 K/mcL (0.0-1.3); Monocytes % 10.8 %; Neutrophils # 8.6 K/mcL (1.6-8.9); Platelet Count 317 K/mcL (140-400); Red Blood Count 2.92 M/mcL (4.19-5.50); Red Cell Distribution Width 13.1 % (11.5-14.5); Segmented Neutrophils % 76.1 %
[2018-04-15] MEDS ORDERED: Furosemide 20 MG/2 ML VIAL IVP ONE (10:37)
--- NOTE | 2018-04-15 13:12 | General Surgery Progress Note ---
Date of Encounter: 04/15/18 Time of Encounter: 13:10 - Assessment and Plan (1) RUQ pain Current Visit: Yes Status: Resolved Resolved pain in RUQ and imaging is not convincing of gallbladder pathology as cause of abdominal discomfort Concern based on previous Ct showed choleithasis but follow up Liver US 04-14 shows cholelithiasis with out evidence of cholecystisis and no dilation of bile duct. (2) S/P right colectomy Current Visit: Yes Status: Acute POD 11 open right colectomy for invasive adenocarcinoma invading muscularis propria but nodes negative X-ray abdominal series; continues to show ileus similar to CT on and X-ray on - continue sips of clears - continue TPN 75 ml/hr at lowest fluid rate to meet caloric needs - continue reglan - PPI therapy daily - continue supportive care and pain management - serial abdominal exams - ambulate tid and up to chair bid - continue millie hose - okay to dieresis per primary team -Wound vac- 125mmHG continuous suction, change every -W- per surgery team - appreciate bilingual social worker for discharge planning with wound vac (3) Primary adenocarcinoma of ascending colon Current Visit: Yes Status: Acute see above (4) Ileus, postoperative Current Visit: Yes Status: Acute common complication of surgical procedure - see above Subjective Patient reports: still having pain (mostly at incsion site, RUQ resolved), tolerating liquids well (sips with out nausea), afebrile Objective Vital Signs - Last 8 Hours Temp Pulse Resp BP Pulse Ox 04/15/18 10:49 98.2 F 70 14 131/69 97 Intake and Output 04/14/18 04/15/18 04/15/18 23:59 07:59 15:59 Intake Total 100 / 100 100 / 100 100 / 100 Output Total 650 / 650 0 / 0 250 / 250 Balance -550 / -550 100 / 100 -150 / -150 Intake: IV Fluids 100 / 100 100 / 100 100 / 100 Zosyn 3.375 GM In 0.9 % Sodium 100 / 100 100 / 100 100 / 100 Chloride (Mini-Bag +) 100 ML @ 25 mls/hr IVPB Q8HR [facility] Rx#: [id number] Oral 0 / 0 0 / 0 0 / 0 Output: Urine 650 / 650 0 / 0 250 / 250 Other: Weight 88.3 kg Blood Glucose* 163 148 163 Patient Weight 04/15/18 23:59 Weight 88.3 kg - General physical appearance well developed, well nourished, no distress - Eyes normal ocular movement - ENT normal pinna, normal nares, normal mucosa - Respiratory normal expansion, normal respiratory effort, clear to percussion - Cardiovascular Cardiovascular exam: Present: RRR, distant heart sounds (pedal edema) - Abdomen Abdomen: Present: bowel sounds present (minimal), soft, distended Abdominal Tenderness: RLQ (at wound) Hernia: none - Incision Incision: Present: clean and dry (wound clear bandage and black sponge at wound), approximated. Absent: draining - Integumentary no rash, no abnormal pigmentation - Neurologic CN 2-12 grossly intact, normal coordination, normal sensation - Musculoskeletal normal gait, normal posture - Psychiatric oriented to time, oriented to person, oriented to place, speech is normal, memory intact - Labs 04/15/18 10:05 04/15/18 03:53 Diabetes panel 04/15/18 Range/Units 03:53 Sodium 130 L (136-145) mEq/L Potassium 4.4 (3.5-5.1) mEq/L Chloride 97 L (98-107) mEq/L Carbon Dioxide 26 (23-29) mEq/L BUN 27 H (8-23) mg/dL Creatinine 0.80 (0.70-1.30) mg/dL Glucose 120 H (70-105) mg/dL Calcium 8.6 (8.6-10.3) mg/dL Calcium panel 04/15/18 Range/Units 03:53 Calcium 8.6 (8.6-10.3) mg/dL Pituitary panel 04/15/18 Range/Units 03:53 Sodium 130 L (136-145) mEq/L Potassium 4.4 (3.5-5.1) mEq/L Chloride 97 L (98-107) mEq/L Carbon Dioxide 26 (23-29) mEq/L BUN 27 H (8-23) mg/dL Creatinine 0.80 (0.70-1.30) mg/dL Glucose 120 H (70-105) mg/dL Calcium 8.6 (8.6-10.3) mg/dL Adrenal panel 04/15/18 Range/Units 03:53 Sodium 130 L (136-145) mEq/L Potassium 4.4 (3.5-5.1) mEq/L Chloride 97 L (98-107) mEq/L Carbon Dioxide 26 (23-29) mEq/L BUN 27 H (8-23) mg/dL Creatinine 0.80 (0.70-1.30) mg/dL Glucose 120 H (70-105) mg/dL Calcium 8.6 (8.6-10.3) mg/dL Consult Discharge Plan - Plan Referrals: Flaco Robertson MD [Primary Care Provider] -
[2018-04-15] MEDS: Clinimix E 5%-20% SOLUTION 2,000 ML with MVI, adult with vitamin K 10 ML IVC SCH (16:26)
[2018-04-16] MEDS: Metoclopramide 10 MG/2 ML VIAL IVP SCH ×4 (00:16→16:47)
[2018-04-16] MEDS: Piperacillin/Tazobactam 3.375 GM in 0.9 % Sodium Chloride Mini Bag 100 ML IVPB SCH ×3 (00:17→16:41)
[2018-04-16] MEDS: OXYCODONE Oral CONC 10 MG/0.5 ML ORAL.SYG SL PRN ×3 (03:39→15:34)
[2018-04-16] MEDS: Famotidine 20 MG/2 ML VIAL IVP SCH ×2 (05:55→16:42)
[2018-04-16] MEDS: *HR* Heparin 5,000 UNIT/ML VIAL SQ SCH ×2 (05:55→16:49)
[2018-04-16] MEDS: Finasteride 5 MG TABLET PO SCH (08:58)
[2018-04-16] MEDS: Furosemide 20 MG/2 ML VIAL IVP SCH (09:00)
--- NOTE | 2018-04-16 09:06 | Internal Med Progress Note ---
Hospitalist Progress Note - Encounter Date of Encounter: 04/16/18 Time of Encounter: 11:00 - Subjective Interval History: Patient is postop day 12 for right colectomy due to invasive: Adenocarcinoma ( nodes negative). Patient still requiring TPN for nutrition IV antibiotics continue for bacteremia with vertebral L1-L2 osteomyelitis. Patient with bilateral lower extremity pitting edema - Exam Vitals: Temp Pulse Resp BP Pulse Ox 98.9 F 103 16 151/77 94 04/16/18 03:43 04/16/18 03:43 04/16/18 03:43 04/16/18 03:43 04/16/18 03:43 Exam: Gen.: Nonacute distress, alert and oriented 3 ENT: Mucosal membranes moist Respiratory: Lungs are clear to auscultation bilaterally without any wheezing rhonchi or rales Cardiovascular: Normal S1 and S2 regular rate rhythm no murmurs rubs or gallops Abdomen: Wound VAC with dressing intact Extremities: Bilateral lower extremity 2+ pitting edema Skin: Normal color - Assessment and Plan (1) Adenocarcinoma of colon Current Visit: Yes Status: Acute Assessment and Plan: Postop day 12 right open colectomy Biopsy results noted-invasive adenocarcinoma, invading muscularis propria, nodes negative Per surgery, patient can see Oncology as outpatient after discharge Wound VAC in place and patient on TPN General surgery managing and appreciate recommendations (2) Cholelithiases Current Visit: Yes Status: Acute Assessment and Plan: CT of the abdomen/pelvis showed cholelithiasis with mild distention of gallbladder Right upper quadrant ultrasound showed cholelithiasis without evidence of cholecystitis General surgery following and appreciate recommendations (3) Ileus, postoperative Current Visit: Yes Status: Acute Assessment and Plan: Patient noted to have mild ileus with recommendations for Reglan every 6 hours per surgery (4) Vertebral osteomyelitis Current Visit: Yes Status: Acute Assessment and Plan: MRI of the L-spine 02/20/18 showed osteomyelitis/discitis L1-L2. Secondary to S gallolyticus, bacteremia resolved since last admission and there was no bacteremia in this admission Recommendations per infectious disease to discontinue Penicillin G 4 million units q4h and start IV Zosyn 3.375 g IV every 8 to cover for gram negatives as well given findings of gallbladder thickening ID following, recommendations appreciated (5) Fluid overload Current Visit: Yes Status: Acute Assessment and Plan: Likely due to multiple IVF hydration and TPN in-patient Echocardiogram showed LVEF of 60% with mild left-ventricular diastolic dysfunction Patient with bilateral lower extremity 2+ pitting edema Will increase IV Lasix dose from 20 mg daily to 40 mg daily. Continue to monitor (6) Hypertension Current Visit: Yes Status: Chronic Assessment and Plan: Controlled; continue po meds (7) Hyponatremia Current Visit: Yes Status: Acute Assessment and Plan: Serum sodium 130 this morning Patient with chronic hyponatremia with baseline approximately 130 Continue to monitor (8) Anemia Current Visit: Yes Status: Acute Assessment and Plan: Patient with hb stable at 8-9 Today Hb is 8.0 Patient with iron deficiencies on labs Surgery has started Iron therapy , agree with plan (9) BPH without urinary obstruction Current Visit: Yes Status: Chronic Assessment and Plan: Continue Flomax and finesteride (10) Constipation due to opioid therapy Current Visit: Yes Status: Acute Assessment and Plan: Colace NPO due to ileus He is on ice chips and no diet per surgery, at this time, he is on TPN, continue same DVT Prophylaxis: Heparin subcutaneous - Time Spent with Patient Total time spent is greater than 50% in coordination of care (as documented) at patient's floor/unit and/or counseling patient: Internal Medicine: Result - Labs CBC & Chem 7: 04/16/18 10:26 04/16/18 10:26 Labs: Short CBC 04/15/18 Range/Units 10:05 WBC 11.2 H (4.3-11.1) K/mcL Hgb 8.2 L (12.9-16.9) g/dL Hct 25.5 L (37.5-50.1) % Plt Count 317 (140-400) K/mcL Neutrophils # 8.6 (1.6-8.9) K/mcL - Impressions Impressions Chest/Abdomen X-ray 04/15/18 12:11 IMPRESSION: 1. No acute cardiopulmonary abnormality. 2. Air-filled loops of both large and small bowel are again seen throughout the abdomen with retained contrast in the colon. Findings may be related to an ileus. D/ / Miah Jones MD / Miah Jones MD Interpreting Provider: Miah Jones MD - VTE Documentation of Mechanical Device: Graduated compression elastic hosiery Consult Discharge Plan - Plan Referrals: Flaco Robertson MD [Primary Care Provider] - (5) Fluid overload Qualifiers: Hypervolemia type: unspecified Qualified Code(s): E87.70 - Fluid overload, unspecified (6) Hypertension Qualifiers: Hypertension type: essential hypertension Qualified Code(s): I10 - Essential (primary) hypertension (8) Anemia Qualifiers: Anemia type: other cause Other causes of anemia: other cause, not classified Qualified Code(s): D64.89 - Other specified anemias
[2018-04-16] MEDS ORDERED: Furosemide 20 MG/2 ML VIAL IVP ONE (09:24)
[2018-04-16] MEDS: *HR* FentaNYL PATCH 25 MCG PATCH TD SCH (10:33)
--- NOTE | 2018-04-16 10:33 | General Surgery Progress Note ---
Date of Encounter: 04/16/18 Time of Encounter: 10:31 - Assessment and Plan (1) S/P right colectomy Current Visit: Yes Status: Acute POD 12 open right colectomy for invasive adenocarcinoma invading muscularis propria but nodes negative . X-ray on 04-15 continues to show ileus - continue TPN 75 ml/hr at lowest fluid rate to meet caloric needs - continue reglan - PPI therapy daily - continue supportive care and pain management - serial abdominal exams - ambulate tid and up to chair bid; Please allow family to provide asstiance for more frequent walking . Nursing is trying to acquire rollator per PT recommendations - continue millie hose - okay to dieresis per primary team -Wound vac every M-W- by surgery team - Plan to give gastrografin to simulate bowel no imaging at this time On Tuesday we would appreciate social professionals for discharge planning with wound vac, home health aids, and PT . Still awaiting return of bowel function and surgery will continue to follow (2) Primary adenocarcinoma of ascending colon Current Visit: Yes Status: Acute see above (3) Ileus, postoperative Current Visit: Yes Status: Acute common complication of surgical procedure that has extended hospital stay - see above (4) RUQ pain Current Visit: Yes Status: Resolved Resolved pain in RUQ and imaging is not convincing of gallbladder pathology as cause of abdominal discomfort Subjective Patient reports: pain is less, no flatus, no bowel movement, afebrile, other (no nausea with sips) Narrative: Patient's is very upset about poor progress and continued hospitalization. She believes he should have returned home last and wants reason for lack of return of normal bowel function. She is upset that staff is only walking him one a day. Objective Vital Signs - Last 8 Hours Temp Pulse Resp BP Pulse Ox 04/16/18 08:00 98.2 F 89 16 164/73 97 04/16/18 03:43 98.9 F 103 16 151/77 94 Intake and Output 04/15/18 04/16/18 04/16/18 23:59 07:59 15:59 Intake Total 300 / 300 100 / 100 100 / 100 Output Total 650 / 650 175 / 175 350 / 350 Balance -350 / -350 -75 / -75 -250 / -250 Intake: IV Fluids 100 / 100 100 / 100 Zosyn 3.375 GM In 0.9 % Sodium 100 / 100 100 / 100 Chloride (Mini-Bag +) 100 ML @ 25 mls/hr IVPB Q8HR [facility] Rx#: [id number] Oral 200 / 200 100 / 100 Output: Urine 650 / 650 175 / 175 350 / 350 Wound Drainage 0 / 0 Midline Abd 0 / 0 Other: Weight 86.9 kg Blood Glucose* 165 127 138 Patient Weight 04/16/18 23:59 Weight 86.9 kg - General physical appearance well developed, well nourished, no distress - Eyes normal ocular movement - ENT normal pinna, normal nares, normal mucosa - Respiratory normal expansion, normal respiratory effort, clear to auscultation - Cardiovascular Cardiovascular exam: Present: RRR, no murmurs/rubs/gallops - Abdomen Abdomen: Present: bowel sounds present (minimal), soft, distended (increased). Absent: guarding, rebound Abdominal Tenderness: LLQ Hernia: none - Incision Incision: Present: clean and dry, approximated. Absent: draining (wpound vac in place, small protrosion of skin along ventral wound) - Integumentary no rash, no growths, no abnormal pigmentation - Neurologic CN 2-12 grossly intact, normal coordination, normal sensation - Musculoskeletal normal gait, normal posture - Psychiatric oriented to time, oriented to person, oriented to place, speech is normal, memory intact - Labs 04/16/18 10:26 04/16/18 10:26 - VTE Documentation of Mechanical Device: Graduated compression elastic hosiery Consult Discharge Plan - Plan Referrals: Flaco Robertson MD [Primary Care Provider] -
[2018-04-16 10:46] LABS: Basophils % 0.3 %; Eosinophils % 0.2 %; Hematocrit 27.6 % (37.5-50.1); Hemoglobin 8.7 g/dL (12.9-16.9); Immature Granulocytes % 2.5 % (0-4); Lymphocytes # 1.2 K/mcL (0.6-4.6); Lymphocytes % 11.8 %; Mean Corpuscular HGB Conc 31.5 g/dL (31.6-35.5); Mean Corpuscular Hemoglobin 27.6 pg (28.0-33.3); Mean Corpuscular Volume 87.6 fL (83.0-100.0); Mean Platelet Volume 9.3 fL (9.4-12.4); Monocytes # 1.1 K/mcL (0.0-1.3); Monocytes % 10.6 %; Neutrophils # 7.5 K/mcL (1.6-8.9); Platelet Count 346 K/mcL (140-400); Red Blood Count 3.15 M/mcL (4.19-5.50); Red Cell Distribution Width 13.2 % (11.5-14.5); Segmented Neutrophils % 74.6 %
[2018-04-16 11:09] LABS: BUN/Creatinine Ratio 35 (6-26); Blood Urea Nitrogen 27 mg/dL (8-23); Calcium 8.7 mg/dL (8.6-10.3); Carbon Dioxide 30 mEq/L (23-29); Chloride 96 mEq/L (98-107); Glucose 127 mg/dL (70-105); Osmolality,Calculated 281 (280-300); Sodium 132 mEq/L (136-145); eGFR For Non-African Americans > 60 (> 60)
[2018-04-16] MEDS: Iron Sucrose Complex 250 MG in 0.9 % Sodium Chloride 250 ML IVPB SCH ×2 (11:30→13:33)
[2018-04-16] MEDS: Clinimix E 5%-20% SOLUTION 2,000 ML with MVI, adult with vitamin K 10 ML IVC SCH ×2 (16:56→16:59)
[2018-04-17] MEDS: Piperacillin/Tazobactam 3.375 GM in 0.9 % Sodium Chloride Mini Bag 100 ML IVPB SCH ×4 (00:09→23:40)
[2018-04-17] MEDS: Metoclopramide 10 MG/2 ML VIAL IVP SCH ×5 (00:09→23:41)
[2018-04-17] MEDS: OXYCODONE Oral CONC 10 MG/0.5 ML ORAL.SYG SL PRN ×6 (03:16→23:43)
[2018-04-17 03:41] LABS: Basophils % 0.3 %; Eosinophils # 0.1 K/mcL (0.0-0.6); Eosinophils % 0.6 %; Hematocrit 25.5 % (37.5-50.1); Immature Granulocytes % 1.9 % (0-4); Lymphocytes # 1.5 K/mcL (0.6-4.6); Lymphocytes % 18.5 %; Mean Corpuscular HGB Conc 31.4 g/dL (31.6-35.5); Mean Corpuscular Hemoglobin 27.9 pg (28.0-33.3); Mean Corpuscular Volume 88.9 fL (83.0-100.0); Mean Platelet Volume 9.2 fL (9.4-12.4); Monocytes # 0.9 K/mcL (0.0-1.3); Monocytes % 11.6 %; Neutrophils # 5.3 K/mcL (1.6-8.9); Platelet Count 287 K/mcL (140-400); Red Blood Count 2.87 M/mcL (4.19-5.50); Red Cell Distribution Width 13.2 % (11.5-14.5); Segmented Neutrophils % 67.1 %
[2018-04-17] MEDS: Famotidine 20 MG/2 ML VIAL IVP SCH ×2 (05:45→17:44)
[2018-04-17] MEDS: *HR* Heparin 5,000 UNIT/ML VIAL SQ SCH ×2 (05:45→17:44)
--- NOTE | 2018-04-17 08:57 | General Surgery Progress Note ---
<Maya Couch M - Last Filed: 04/17/18 14:19> Date of Encounter: 04/17/18 Time of Encounter: 08:00 - Assessment and Plan (1) S/P right colectomy Current Visit: Yes Status: Acute POD 13 open right colectomy for invasive adenocarcinoma invading muscularis propria but nodes negative . X-ray on 04-15 continues to show ileus - continue TPN 75 ml/hr at lowest fluid rate to meet caloric needs - okay to dieresis per primary team - continue millie hose - continue reglan - PPI therapy daily - continue supportive care and pain management - serial abdominal exams - ambulate tid and up to chair bid; Please allow family to provide help for more frequent walking -Wound vac change every M-W- by surgery team Still awaiting return of bowel function despite aggressive medical treatment; - Start gastrografin to simulate bowel - consulted GI for the management of neostigmine, they are planning to hold beta blockers - tomorrow plan for temporary transfer to ICU in order to meet nursing parameters of neostigmine - We are waiting a bed and to see if progress with gastrografin - allow sips of clears at former rate, at midnight NPO except medications in anticipation of possible transfer to ICU We would appreciate 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 Surgery will continue to follow (2) Primary adenocarcinoma of ascending colon Current Visit: Yes Status: Acute see above (3) Ileus, postoperative Current Visit: Yes Status: Acute While ileus is common complication of surgical procedure his lack of bowel function has been well over a week and necessitates transfer to the ICU for neostigmine (4) RUQ pain Current Visit: Yes Status: Resolved Resolved pain in RUQ and imaging is not convincing of gallbladder pathology as cause of abdominal discomfort Objective Vital Signs - Last 8 Hours Temp Pulse Resp BP Pulse Ox 04/17/18 06:26 98.5 F 67 15 143/67 97 04/17/18 02:55 98.5 F 63 17 140/72 96 Intake and Output 04/16/18 04/17/18 04/17/18 23:59 07:59 15:59 Intake Total 2210 / 2210 150 / 150 Output Total 425 / 425 375 / 375 Balance 1785 / 1785 -225 / -225 Intake: IV Fluids 2091 100 / 100 Clinimix E 5%-20% SOLUTION 1991 000 ML @ 70 mls/hr IVC .Q24H [facility] with M.v.i. Adult 10 ml Rx# :[id number] Zosyn 3.375 GM In 0.9 % Sodium 100 / 100 100 / 100 Chloride (Mini-Bag +) 100 ML @ 25 mls/hr IVPB Q8HR [facility] Rx#: [id number] Oral 118 / 118 50 / 50 Output: Urine 425 / 425 375 / 375 Other: Blood Glucose* 137 156 - Labs 04/17/18 03:20 04/17/18 09:15 Diabetes panel 04/16/18 Range/Units 10:26 Sodium 132 L (136-145) mEq/L Potassium 4.0 (3.5-5.1) mEq/L Chloride 96 L (98-107) mEq/L Carbon Dioxide 30 H (23-29) mEq/L BUN 27 H (8-23) mg/dL Creatinine 0.78 (0.70-1.30) mg/dL Glucose 127 H (70-105) mg/dL Calcium 8.7 (8.6-10.3) mg/dL Calcium panel 04/16/18 Range/Units 10:26 Calcium 8.7 (8.6-10.3) mg/dL Pituitary panel 04/16/18 Range/Units 10:26 Sodium 132 L (136-145) mEq/L Potassium 4.0 (3.5-5.1) mEq/L Chloride 96 L (98-107) mEq/L Carbon Dioxide 30 H (23-29) mEq/L BUN 27 H (8-23) mg/dL Creatinine 0.78 (0.70-1.30) mg/dL Glucose 127 H (70-105) mg/dL Calcium 8.7 (8.6-10.3) mg/dL Adrenal panel 04/16/18 Range/Units 10:26 Sodium 132 L (136-145) mEq/L Potassium 4.0 (3.5-5.1) mEq/L Chloride 96 L (98-107) mEq/L Carbon Dioxide 30 H (23-29) mEq/L BUN 27 H (8-23) mg/dL Creatinine 0.78 (0.70-1.30) mg/dL Glucose 127 H (70-105) mg/dL Calcium 8.7 (8.6-10.3) mg/dL - VTE Documentation of Mechanical Device: Graduated compression elastic hosiery Consult Discharge Plan - Plan Referrals: Flaco Robertson MD [Primary Care Provider] - <Krissy Cates - Last Filed: 04/18/18 16:15> Date of Encounter: 04/17/18 Time of Encounter: 18:00 - Assessment and Plan (1) DVT prophylaxis Current Visit: No Status: Acute heparin SQ ambulate (2) Vertebral osteomyelitis Current Visit: Yes Status: Acute antibiotics per ID (3) S/P right colectomy Current Visit: Yes Status: Acute (4) Ileus, postoperative Current Visit: Yes Status: Resolved patient received gastrograffin over weekend, no bowel function currently consult to GI for possible neostigmine (5) Hypertension Current Visit: Yes Status: Chronic controlled Qualifiers: Hypertension type: essential hypertension Qualified Code(s): I10 - Essential (primary) hypertension Subjective Patient reports: no new complaints, still having pain, pain is less, no flatus, no bowel movement, afebrile Objective Vital Signs - Last 8 Hours Temp Pulse Resp BP Pulse Ox 04/18/18 15:15 98.7 F 71 17 137/71 97 04/18/18 10:32 97.9 F 84 16 148/79 96 Intake and Output 04/18/18 04/18/18 04/18/18 07:59 15:59 23:59 Intake Total 100 / 100 1444 / 1444 Output Total 400 / 400 200 / 200 Balance -300 / -300 1244 / 1244 Intake: IV Fluids 100 / 100 Zosyn 3.375 GM In 0.9 % Sodium 100 / 100 Chloride (Mini-Bag +) 100 ML @ 25 mls/hr IVPB Q8HR [facility] Rx#: [id number] Oral 0 / 0 480 / 480 Other 964 / 964 Output: Urine 400 / 400 Stool 200 / 200 Other: Meal Clears Stool Size Large Small Stool Consistency liquid liquid Stool Color Brown Brown # Bowel Movements 1 Blood Glucose* 154 120 - General physical appearance well developed, well nourished, no distress - Eyes PERRL, normal ocular movement - ENT normal mucosa, normocephalic - Neck Neck exam: trachea midline - Respiratory normal expansion, normal respiratory effort - Cardiovascular Cardiovascular exam: Present: RRR - Abdomen Abdomen: Present: bowel sounds present (faint, hypoactive), soft, distended. Absent: tender, guarding, rebound - Incision Incision: Present: clean and dry, open (wound vac in place) - Integumentary no rash, no growths - Neurologic CN 2-12 grossly intact - Musculoskeletal normal gait, normal posture - Psychiatric oriented to time, oriented to person, oriented to place, memory intact - Labs 04/18/18 06:15 04/18/18 06:15 Diabetes panel 04/18/18 Range/Units 06:15 Sodium 135 L (136-145) mEq/L Potassium 3.3 L (3.5-5.1) mEq/L Chloride 98 (98-107) mEq/L Carbon Dioxide 31 H (23-29) mEq/L BUN 23 (8-23) mg/dL Creatinine 0.66 L (0.70-1.30) mg/dL Glucose 132 H (70-105) mg/dL Calcium 8.3 L (8.6-10.3) mg/dL Calcium panel 04/18/18 Range/Units 06:15 Calcium 8.3 L (8.6-10.3) mg/dL Phosphorus 3.0 (2.7-4.5) mg/dL Pituitary panel 04/18/18 Range/Units 06:15 Sodium 135 L (136-145) mEq/L Potassium 3.3 L (3.5-5.1) mEq/L Chloride 98 (98-107) mEq/L Carbon Dioxide 31 H (23-29) mEq/L BUN 23 (8-23) mg/dL Creatinine 0.66 L (0.70-1.30) mg/dL Glucose 132 H (70-105) mg/dL Calcium 8.3 L (8.6-10.3) mg/dL Adrenal panel 04/18/18 Range/Units 06:15 Sodium 135 L (136-145) mEq/L Potassium 3.3 L (3.5-5.1) mEq/L Chloride 98 (98-107) mEq/L Carbon Dioxide 31 H (23-29) mEq/L BUN 23 (8-23) mg/dL Creatinine 0.66 L (0.70-1.30) mg/dL Glucose 132 H (70-105) mg/dL Calcium 8.3 L (8.6-10.3) mg/dL - Attending Attestation I examined this patient and my medical decision-making was reviewed with the Resident Physician. I agree with the documented findings, disposition and treatment plan as described except to the extent set forth below.
[2018-04-17] MEDS: Finasteride 5 MG TABLET PO SCH (09:13)
[2018-04-17] MEDS: Furosemide 40 MG/4 ML VIAL IVP SCH (09:14)
[2018-04-17 09:56] LABS: BUN/Creatinine Ratio 33 (6-26); Blood Urea Nitrogen 24 mg/dL (8-23); Calcium 8.7 mg/dL (8.6-10.3); Carbon Dioxide 30 mEq/L (23-29); Chloride 96 mEq/L (98-107); Glucose 108 mg/dL (70-105); Osmolality,Calculated 283 (280-300); Potassium 3.9 mEq/L (3.5-5.1); Sodium 134 mEq/L (136-145); eGFR For Non-African Americans > 60 (> 60)
[2018-04-17 10:19] LABS: Magnesium 1.9 mg/dL (1.6-2.6)
--- NOTE | 2018-04-17 10:35 | Gastroenterology Consult Note ---
<Kaye Arcos - Last Filed: 04/17/18 11:27> Date of Encounter: 04/17/18 Time of Encounter: 10:33 - Assessment and plan (1) Ileus, postoperative Current Visit: Yes Status: Acute Assessment and plan: Patient has failed multiple treatments including methylnaltrexone, suppositories , bowel rest, ambualtion for post op-ileus. General surgery would like GI to manage neostigmine treatment. -s/p 04/04/2018 POD#13 open right colectomy for invasive adenocarcinoma invading muscularis propria but nodes negative. -Patient had 2 bowel movements after receiving relistor on 04/12 and 04/14/2018. -He reported passing gas 3x last night. Patient denies abdominal pain, nausea, vomiting, fever, chills. -Abdominal exam is distended abdomen, non tender, no bowel sounds -04/15/2018 Chest/ abdomen XR demonstrated ileus -patient has no history of CAD, heart block, lung disease. Plan: -Patient is receiving gastrografin. Will plan to administer neostigmine in the ICU if he has not had a bowel movement by tomorrow. Will hold labetalol as HR will decrease with neostigmine. Patient is aware and agreeable. -Nutrition managing TPN -agree with continue ambulation -continue NPO (2) S/P right colectomy Current Visit: Yes Status: Acute Assessment and plan: s/p 04/04/2018 POD#13 open right colectomy for invasive adenocarcinoma invading muscularis propria but nodes negative (3) Primary adenocarcinoma of ascending colon Current Visit: Yes Status: Acute Assessment and plan: s/p 04/04/2018 POD#13 open right colectomy for invasive adenocarcinoma invading muscularis propria but nodes negative colonoscopy by Dr. Shi on 03/04/2018 that revealed a 30 mm polyp in the mid- ascending colon. - Time Spent With Patient Total time spent is greater than 50% in coordination of care (as documented) at patient's floor/unit and/or counseling patient: GI History of Present Illness - Data of Consult Patient: known to practice within the last 3 years Consult date: 04/17/18 Requesting Physician: Vamsi Ryan - Consult Narrative Reason for consult: Prolonged postoperative ileus, management of neostigamine History of present illness: Mr. Karelis is a 87 year old male with PMH HTN, HLD, GERD who is currently being treated for osteomyelitis and colectomy on 04/04/2018 secondary to invasive adenocarcinoma of the ascending colon. He was admitted on 03/30/2018. Gastroenterology was consulted due to prolonged postop ileus and management of neostigmine. The patient had a colonoscopy by Dr. Shi on 03/04/2018 that revealed a 30 mm polyp in the mid-ascending colon. Pathology resulted with adenocarcinoma for which the patient followed up with Dr. Cates of general surgery for surgical treatment options. The patient's admission has been complicated by his prolonged postop ileus with multiple medication treatment failures. He has been given Relistor and was able to have a bowel movement on 04/12/2018 and 04/14/2018. Infectious disease is managing osteomyelitis. Patient reported passing gas 3 times last night. He denies fever, chills, abdominal pain, nausea, vomiting, bowel movement. He has a family history of colon cancer in 2 of his sisters. He is a former smoker of 3 packs per day for about 50 years. He denied alcohol and drug use. Colonoscopy: 03/04/[address] Shi Past Med Surg Social Fam HX - Past Medical History Attestation: Yes The following information was validated with the patient. Source: patient Medical history: aortic aneurysm, cancer, GERD, hyperlipidemia, hypertension Additional medical history: prostate enlargement Psychiatric history: no psych history - Past Surgical History Surgical History: no surgical history Additional surgical history: cervical disc surgery. pilonidal cyst - Social History Smoking Status: Former smoker Smokeless Tobacco Status: No Alcohol use: rarely Drug use: none - Family History Father History Unknown: Yes Living Status: Mother Living Status: Sister Hx Family Cancer: Yes (Colon cancer) - Gastrointestinal Gastrointestinal: Present: bloating, constipation. Absent: abdominal pain, diarrhea, hematemesis, hematochezia, melena, nausea, vomiting - Constitutional Constitutional: no anorexia, no fatigue, no fever(s) - EENT Nose, mouth and throat: Absent: dysphagia, hoarseness - Cardiovascular Cardiovascular ROS: Absent: chest pain, palpitations - Respiratory Respiratory IM: Absent: cough, dyspnea, hemoptysis - Genitourinary Genitourinary: Absent: change in color, Urinary frequency - Neurological ROS Neurological GI: Absent: confusion, dizziness, headache(s) - Hematologic/Lymphatic Hematologic/Lymphatic pediatric: Absent: easy bleeding - Musculoskeletal Musculoskeletal ROS GI: Present: back pain. Absent: joint swelling - Integumentary Integumentary GI: Present: other (Bilateral lower extremity edema). Absent: jaundice, pruritis, rash - Psychiatric ROS Psychiatric GI: Absent: anxiety - Endocrine Endocrine IM: Absent: fatigue - Constitutional Vitals: Temp Pulse Resp BP Pulse Ox 98.5 F 67 15 143/67 97 04/17/18 06:26 04/17/18 06:26 04/17/18 06:26 04/17/18 06:26 04/17/18 06:26 Exam: Gen.: Vitals noted. No acute distress. AAOx3 HEENT: oropharynx clear, Normocephalic, atraumatic Neck: Supple. No adenopathy. Cardiac: RRR, no murmur, +S1/S2 Pulmonary: CTA bilaterally, no wheezes, rales or rhonchi, equal chest expansion Abdomen: nontender, distended, no bowel sounds noted, no guarding MSK: ROM intact, no joint swelling noted Extremities: +3 BLE edema, nontender calf, no cyanosis or clubbing Neuro: A&Ox3, moves all extremities, no focal deficits Psych: Appropriate mood and behavior Results - Labs CBC & Chem 7: 04/17/18 03:20 04/17/18 09:15 Labs: Last Result ESR 47 mm/hr (0-10) H 04/10/18 14:20 Calcium 8.7 mg/dL (8.6-10.3) 04/17/18 09:15 Iron < 10 mcg/dL (65-175) L 04/13/18 04:16 % Saturation TNP 04/13/18 04:16 Transferrin 124 mg/dL (203-362) L 04/13/18 04:16 C-Reactive Protein 154 mg/L (Less than 10) H 04/10/18 14:20 Triglycerides 80 mg/dL (< 150) 04/11/18 03:57 Entire Visit Hgb 8.0 g/dL (12.9-16.9) L 04/17/18 03:20 Hct 25.5 % (37.5-50.1) L 04/17/18 03:20 Total Bilirubin 0.5 mg/dL (0.3-1.0) 04/14/18 04:00 AST 10 Units/L (13-39) L 04/14/18 04:00 ALT 9 Units/L (7-52) 04/14/18 04:00 Consult Discharge Plan - Plan Referrals: Flaco Robertson MD [Primary Care Provider] - <Florentin Shi - Last Filed: 04/17/18 17:27> Date of Encounter: 04/17/18 Time of Encounter: 14:00 - Time Spent With Patient Total time spent is greater than 50% in coordination of care (as documented) at patient's floor/unit and/or counseling patient: GI History of Present Illness - Data of Consult Requesting Physician: Vamsi Ryan - Consult Narrative History of present illness: Mr. Burkett is a 87 year old male - Constitutional Vitals: Temp Pulse Resp BP Pulse Ox 98.5 F 74 15 169/80 97 04/17/18 14:02 04/17/18 14:02 04/17/18 14:02 04/17/18 14:02 04/17/18 14:02 Results - Labs CBC & Chem 7: 04/17/18 03:20 04/17/18 09:15 Labs: Last Result ESR 47 mm/hr (0-10) H 04/10/18 14:20 Calcium 8.7 mg/dL (8.6-10.3) 04/17/18 09:15 Iron < 10 mcg/dL (65-175) L 04/13/18 04:16 % Saturation TNP 04/13/18 04:16 Transferrin 124 mg/dL (203-362) L 04/13/18 04:16 C-Reactive Protein 154 mg/L (Less than 10) H 04/10/18 14:20 Triglycerides 80 mg/dL (< 150) 04/11/18 03:57 Entire Visit Hgb 8.0 g/dL (12.9-16.9) L 04/17/18 03:20 Hct 25.5 % (37.5-50.1) L 04/17/18 03:20 Total Bilirubin 0.5 mg/dL (0.3-1.0) 04/14/18 04:00 AST 10 Units/L (13-39) L 04/14/18 04:00 ALT 9 Units/L (7-52) 04/14/18 04:00 - Attending Attestation I examined this patient and my medical decision-making was reviewed with the Resident Physician. I agree with the documented findings, disposition and treatment plan as described except to the extent set forth below. Patient seen along with Dr. Flores. Agree with her assessment and plan. Patient with postoperative ileus. CT scan reviewed no mechanical obstruction on examination abdomen is distended and tympanic. Assessment: Postop ileus Recommendation: We will hold beta paulo and we will give her neostigmine tomorrow if no bowel movement by tomorrow
--- NOTE | 2018-04-17 12:18 | Infectious Disease Progress No ---
Date of Encounter: 04/17/18 Time of Encounter: 12:15 - Assessment and Plan (1) Osteomyelitis Current Visit: Yes Status: Acute Location: L1, L2. Causative organism: S. gallolyticus. Likely secondary to seeding from the abdomen given the patient's recent finding of colon cancer. MRI of the L-spine 02/20/18 showed osteomyelitis/discitis L1-L2. Status post bone biopsy 02/23/18. 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 Pathology was positive for Adenocarcinoma. Continued to have worsening back pain and worsening inflammatory markers so patient was asked to come to the ED for evaluation and was admitted. MRI of the lumbar spine showed severe discitis/Tristin minus that L1-L2 with surrounding paravertebral phlegmon at this level with associated inflammation of both psoas muscles. No paraspinal or psoas abscess was identified. There was also noted to be mild enhancing tissue within the epidural space circumferentially at L1-L2 compatible with extension of the infectious process, but no epidural abscess was appreciated. Ortho-spine consulted. No surgical intervention required at this time. Repeat ESR and CRP--> ESR 47, CRP 154. Re-check on Tuesday. Continue PCN G 4 million units IV Q4H. Duration of treatment depends on the clinical picture, but likely a total of 6- 8 weeks. (day 49) Monitor renal function and dose-adjust antibiotics. Qualifiers: Osteomyelitis type: unspecified type Osteomyelitis location: unspecified site Qualified Code(s): M86.9 - Osteomyelitis, unspecified (2) Bacteremia Current Visit: No Status: Resolved Causative organism: S. gallolyticus. Source likely intra-abdominal. Blood cultures drawn 03/30/18 are negative x 2 sets. (3) Thickening of wall of gallbladder Current Visit: Yes Status: Acute Noted on CT of the abdomen and pelvis. RUQ UTS showed cholelithiasis, but negative for cholecystitis and pain has resolved. Further management per the surgery team. (4) Lumbar back pain Current Visit: Yes Status: Acute Likely secondary to discitis/osteomyelitis. Stable. Pain management per the primary team. (5) Anemia Current Visit: Yes Status: Acute Qualifiers: Anemia type: other cause Other causes of anemia: other cause, not classified Qualified Code(s): D64.89 - Other specified anemias (6) BPH without urinary obstruction Current Visit: Yes Status: Chronic (7) Adenocarcinoma of colon Current Visit: Yes Status: Acute General surgery consulted to perform colectomy. Status post open colectomy 04/04/[address] Cates. (8) Ileus, postoperative Current Visit: Yes Status: Acute CT of the abdomen and pelvis 04/06/18 showed findings consistent with mild post- op ileus. NG tube removed by the patient. Patient had bowel movement and has active bowel sounds. CT of the abdomen and pelvis showed findings consistent with mild ileus, dilated gallbladder, and thickened rectum. AAS again shows persistent ileus. Management per the general surgery team. (9) Generalized weakness Current Visit: Yes Status: Acute Recommend PT/OT to evaluate and treat. - Subjective Interval history: Patient seen and examined sitting up in the bedside chair. Status post open colectomy 04/04/18. No acute events noted overnight. Patient states overall he doesn't feel well today. He states his back pain is okay, but he recently took pain medication. Denies any fevers or chills or rigors. Denies chest pain, shortness of breath, or cough. Denies vomiting, diarrhea, constipation.Reports flatus, denies bowel movement. He denies any urinary complaints. He denies any numbness or tingling or incontinence. He denies any oral thrush or any skin lesions. Melissa catheter removed. Patient denies urinary complaints. Status post abdominal imaging that shows persistent ileus. Infect Dis PN-Objective Data - Labs CBC & Chem 7: 04/17/18 03:20 04/17/18 09:15 Labs: Laboratory Results - last 24 hr 04/16/18 04/16/18 04/16/18 03:40 08:05 11:59 WBC RBC Hgb Hct MCV MCH MCHC RDW Plt Count MPV Immature Gran % Seg Neutrophils % Lymphocytes % Monocytes % Eosinophils % Basophils % Neutrophils # Lymphocytes # Monocytes # Eosinophils # Basophils # Sodium Potassium Chloride Carbon Dioxide BUN Creatinine Est GFR ( Amer) Est GFR (Non-Af Amer) BUN/Creatinine Ratio Glucose POC Glucose 127 H 138 H 150 H Calculated Osmolality Calcium Magnesium 10/14/18 10/15/18 10/15/18 16:33 02:59 03:20 WBC 7.9 RBC 2.87 L Hgb 8.0 L Hct 25.5 L MCV 88.9 MCH 27.9 L MCHC 31.4 L RDW 13.2 Plt Count 287 MPV 9.2 L Immature Gran % 1.9 Seg Neutrophils % 67.1 Lymphocytes % 18.5 Monocytes % 11.6 Eosinophils % 0.6 Basophils % 0.3 Neutrophils # 5.3 Lymphocytes # 1.5 Monocytes # 0.9 Eosinophils # 0.1 Basophils # 0.0 Sodium Potassium Chloride Carbon Dioxide BUN Creatinine Est GFR ( Amer) Est GFR (Non-Af Amer) BUN/Creatinine Ratio Glucose POC Glucose 128 H 129 H Calculated Osmolality Calcium Magnesium 04/17/18 09:15 WBC RBC Hgb Hct MCV MCH MCHC RDW Plt Count MPV Immature Gran % Seg Neutrophils % Lymphocytes % Monocytes % Eosinophils % Basophils % Neutrophils # Lymphocytes # Monocytes # Eosinophils # Basophils # Sodium 134 L Potassium 3.9 Chloride 96 L Carbon Dioxide 30 H BUN 24 H Creatinine 0.72 Est GFR ( Amer) > 60 Est GFR (Non-Af Amer) > 60 BUN/Creatinine Ratio 33 H Glucose 108 H POC Glucose Calculated Osmolality 283 Calcium 8.7 Magnesium 1.9 Exam - Constitutional Vitals: Temp Pulse Resp BP Pulse Ox 98.5 F 67 15 143/67 97 04/17/18 06:26 04/17/18 06:26 04/17/18 06:26 04/17/18 06:26 04/17/18 06:26 General appearance: average body habitus, cooperative, no acute distress - Head Head exam: Present: atraumatic, normal inspection, normocephalic - Eye Eye exam: Present: EOMI, normal appearance, PERRL Pupils: Present: normal accommodation - ENT ENT exam: Present: mucous membranes moist - Neck Neck exam: Present: normal inspection - Respiratory Respiratory exam: Present: CTAB. Absent: rales, respiratory distress, rhonchi, wheezes - Cardiovascular Cardiovascular exam: Present: RRR, +S1, +S2 - GI/Abdominal GI/Abdominal exam: Present: distended, normal bowel sounds, soft. Absent: tenderness Additional comments: Midline abdominal incision with wound VAC dressing noted with sponge well- compressed. No leak. No drainage noted. No surrounding erythema or tenderness noted. - Extremities Exam Extremities exam: Present: pedal edema (1+ BLE). Absent: joint swelling, tenderness - Neurological Exam Neurological exam: Present: alert, oriented X3, no focal deficits - Psychiatric Psychiatric exam: Present: normal affect, normal mood - Skin Skin exam: Present: dry, intact, normal color, warm - VTE Documentation of Mechanical Device: Graduated compression elastic hosiery Consult Discharge Plan - Plan Referrals: Flaco Robertson MD [Primary Care Provider] - - Attending Attestation I examined this patient and my medical decision-making was reviewed with the Resident Physician. I agree with the documented findings, disposition and treatment plan as described except to the extent set forth below.
[2018-04-17] MEDS: Iron Sucrose Complex 250 MG in 0.9 % Sodium Chloride 250 ML IVPB SCH (13:21)
[2018-04-17] MEDS ORDERED: Clinimix E 5%-20% SOLUTION 2,000 ML with MVI, adult with vitamin K 10 ML, Trace Eleme... IVC SCH (17:00)
[2018-04-17] MEDS: Clinimix E 5%-20% SOLUTION 2,000 ML with MVI, adult with vitamin K 10 ML IVC SCH (17:45)
--- NOTE | 2018-04-17 19:47 | Internal Med Progress Note ---
Hospitalist Progress Note - Encounter Date of Encounter: 04/17/18 Time of Encounter: 11:00 - Subjective Interval History: Patient is postop day 13 for right colectomy due to invasive: Adenocarcinoma ( nodes negative). Patient still requiring TPN for nutrition IV antibiotics continue for bacteremia with vertebral L1-L2 osteomyelitis. Patient with bilateral lower extremity pitting edema Patient now with unresolved postop ileus - Exam Vitals: Temp Pulse Resp BP Pulse Ox 98.5 F 74 15 169/80 97 04/17/18 14:02 04/17/18 14:02 04/17/18 14:02 04/17/18 14:02 04/17/18 14:02 Exam: Gen.: Nonacute distress, alert and oriented 3 ENT: Mucosal membranes moist Respiratory: Lungs are clear to auscultation bilaterally without any wheezing rhonchi or rales Cardiovascular: Normal S1 and S2 regular rate rhythm no murmurs rubs or gallops Abdomen: Wound VAC with dressing intact Extremities: Bilateral lower extremity 2+ pitting edema Skin: Normal color - Assessment and Plan (1) Adenocarcinoma of colon Current Visit: Yes Status: Acute Assessment and Plan: Postop day 13 right open colectomy Biopsy results noted-invasive adenocarcinoma, invading muscularis propria, nodes negative Per surgery, patient can see Oncology as outpatient after discharge Wound VAC in place and patient on TPN General surgery managing and appreciate recommendations (2) Cholelithiases Current Visit: Yes Status: Acute Assessment and Plan: CT of the abdomen/pelvis showed cholelithiasis with mild distention of gallbladder Right upper quadrant ultrasound showed cholelithiasis without evidence of cholecystitis General surgery following and appreciate recommendations (3) Ileus, postoperative Current Visit: Yes Status: Acute Assessment and Plan: GI has been consulted with recommendations for Gastrografin If still no improvement recommendations for administration of neostigmine in the ICU if he has not had a bowel movement (4) Vertebral osteomyelitis Current Visit: Yes Status: Acute Assessment and Plan: MRI of the L-spine 02/20/18 showed osteomyelitis/discitis L1-L2. Secondary to S gallolyticus, bacteremia resolved since last admission and there was no bacteremia in this admission Recommendations per infectious disease to discontinue Penicillin G 4 million units q4h and start IV Zosyn 3.375 g IV every 8 to cover for gram negatives as well given findings of gallbladder thickening ID following, recommendations appreciated (5) Fluid overload Current Visit: Yes Status: Acute Assessment and Plan: Likely due to multiple IVF hydration and TPN in-patient Echocardiogram showed LVEF of 60% with mild left-ventricular diastolic dysfunction Patient with bilateral lower extremity 2+ pitting edema Will increase IV Lasix dose from 20 mg daily to 40 mg daily. Continue to monitor (6) Hypertension Current Visit: Yes Status: Chronic Assessment and Plan: Controlled; continue po meds (7) Hyponatremia Current Visit: Yes Status: Acute Assessment and Plan: Serum sodium 130 this morning Patient with chronic hyponatremia with baseline approximately 130 Continue to monitor (8) Anemia Current Visit: Yes Status: Acute Assessment and Plan: Patient with hb stable at 8-9 Today Hb is 8.0 Patient with iron deficiencies on labs Surgery has started Iron therapy , agree with plan (9) BPH without urinary obstruction Current Visit: Yes Status: Chronic Assessment and Plan: Continue Flomax and finesteride (10) Constipation due to opioid therapy Current Visit: Yes Status: Acute Assessment and Plan: Colace NPO due to ileus He is on ice chips and no diet per surgery, at this time, he is on TPN, continue same DVT Prophylaxis: Heparin subcutaneous - Time Spent with Patient Total time spent is greater than 50% in coordination of care (as documented) at patient's floor/unit and/or counseling patient: Internal Medicine: Result - Labs CBC & Chem 7: 04/17/18 03:20 04/17/18 09:15 Labs: Short CBC 04/17/18 Range/Units 03:20 WBC 7.9 (4.3-11.1) K/mcL Hgb 8.0 L (12.9-16.9) g/dL Hct 25.5 L (37.5-50.1) % Plt Count 287 (140-400) K/mcL Neutrophils # 5.3 (1.6-8.9) K/mcL BMP 04/17/18 09:15 Sodium 134 L Potassium 3.9 Chloride 96 L Carbon Dioxide 30 H BUN 24 H Creatinine 0.72 Glucose 108 H Calcium 8.7 - VTE Documentation of Mechanical Device: Graduated compression elastic hosiery Consult Discharge Plan - Plan Referrals: Flaco Robertson MD [Primary Care Provider] - (5) Fluid overload Qualifiers: Hypervolemia type: unspecified Qualified Code(s): E87.70 - Fluid overload, unspecified (6) Hypertension Qualifiers: Hypertension type: essential hypertension Qualified Code(s): I10 - Essential (primary) hypertension (8) Anemia Qualifiers: Anemia type: other cause Other causes of anemia: other cause, not classified Qualified Code(s): D64.89 - Other specified anemias
[2018-04-18] MEDS: OXYCODONE Oral CONC 10 MG/0.5 ML ORAL.SYG SL PRN ×3 (04:42→18:03)
[2018-04-18] MEDS: Famotidine 20 MG/2 ML VIAL IVP SCH ×2 (05:59→17:48)
[2018-04-18] MEDS: *HR* Heparin 5,000 UNIT/ML VIAL SQ SCH ×2 (05:59→17:48)
[2018-04-18] MEDS: Metoclopramide 10 MG/2 ML VIAL IVP SCH ×3 (05:59→17:48)
[2018-04-18 06:29] LABS: Basophils % 0.2 %; Eosinophils # 0.1 K/mcL (0.0-0.6); Eosinophils % 0.5 %; Hematocrit 26.4 % (37.5-50.1); Hemoglobin 8.3 g/dL (12.9-16.9); Immature Granulocytes % 1.3 % (0-4); Lymphocytes # 1.3 K/mcL (0.6-4.6); Lymphocytes % 13.9 %; Mean Corpuscular HGB Conc 31.4 g/dL (31.6-35.5); Mean Corpuscular Hemoglobin 28.1 pg (28.0-33.3); Monocytes # 0.9 K/mcL (0.0-1.3); Monocytes % 9.7 %; Neutrophils # 6.8 K/mcL (1.6-8.9); Platelet Count 317 K/mcL (140-400); Red Blood Count 2.95 M/mcL (4.19-5.50); Red Cell Distribution Width 13.2 % (11.5-14.5); Segmented Neutrophils % 74.4 %
[2018-04-18 06:30] LABS: Mean Corpuscular Volume 89.5 fL (83.0-100.0)
[2018-04-18 06:52] LABS: BUN/Creatinine Ratio 35 (6-26); Blood Urea Nitrogen 23 mg/dL (8-23); Calcium 8.3 mg/dL (8.6-10.3); Carbon Dioxide 31 mEq/L (23-29); Chloride 98 mEq/L (98-107); Glucose 132 mg/dL (70-105); Magnesium 1.8 mg/dL (1.6-2.6); Osmolality,Calculated 286 (280-300); Potassium 3.3 mEq/L (3.5-5.1); Sodium 135 mEq/L (136-145); eGFR For Non-African Americans > 60 (> 60)
[2018-04-18] MEDS: Piperacillin/Tazobactam 3.375 GM in 0.9 % Sodium Chloride Mini Bag 100 ML IVPB SCH (08:01)
--- NOTE | 2018-04-18 08:33 | General Surgery Progress Note ---
<Maya Couch M - Last Filed: 04/18/18 11:06> Date of Encounter: 04/18/18 Time of Encounter: 08:30 - Assessment and Plan (1) S/P right colectomy Current Visit: Yes Status: Acute POD 14 open right colectomy for invasive adenocarcinoma invading muscularis propria but nodes negative ; Ileus clinically improved with several bowel movements after gastrografin - continue TPN 75 ml/hr at lowest fluid rate to meet caloric needs - okay to dieresis per primary team - continue millie hose - continue reglan - PPI therapy daily - continue supportive care and pain management - serial abdominal exams - ambulate tid and up to chair bid; Please allow family to provide help for more frequent walking -Wound vac change every M-W- by surgery team - consulted GI for the management of neostigmine - appreciate their help but may no longer be needed - cancel transfer to ICU -start clears unlimited volume Social work consulted for discharge planning with wound vac, home health aids, IV antibiotics per ID and PT . Surgery will continue to follow (2) Primary adenocarcinoma of ascending colon Current Visit: Yes Status: Acute see above (3) Ileus, postoperative Current Visit: Yes Status: Acute see above Subjective Patient reports: feels better, pain is less, tolerating liquids well (limited clears), flatus, bowel movement, afebrile Narrative: He has had three bowel moments since last night with last having formed stool with no pain and decreased feeling of fullness. No change in color. Nilesh pain or nausea. Patient wants to go home Objective Vital Signs - Last 8 Hours Temp Pulse Resp BP Pulse Ox 04/18/18 05:35 98.2 F 82 15 165/80 95 Intake and Output 04/17/18 04/18/18 04/18/18 23:59 07:59 15:59 Intake Total 100 / 100 100 / 100 964 / 964 Output Total 300 / 300 400 / 400 Balance -200 / -200 -300 / -300 964 / 964 Intake: IV Fluids 100 / 100 100 / 100 Zosyn 3.375 GM In 0.9 % Sodium 100 / 100 100 / 100 Chloride (Mini-Bag +) 100 ML @ 25 mls/hr IVPB Q8HR [facility] Rx#: [id number] Oral 0 / 0 0 / 0 Other 964 / 964 Output: Urine 300 / 300 400 / 400 Other: Stool Size Moderate Large Stool Consistency loose liquid Stool Characteristics Normal for Patient Stool Color Brown Brown # Bowel Movements 1 1 Blood Glucose* 144 154 - General physical appearance well developed, well nourished, no distress - Eyes normal ocular movement - ENT normal pinna, normal nares, normal mucosa - Respiratory normal expansion, normal respiratory effort, clear to auscultation - Cardiovascular Cardiovascular exam: Present: RRR, no murmurs/rubs/gallops - Abdomen Abdomen: Present: bowel sounds present, soft, non tender, distended (improved). Absent: guarding, rebound Hernia: none - Incision Incision: Present: approximated (wound vac covering). Absent: draining, red, inflamed, erythema - Integumentary no rash, no growths, no abnormal pigmentation - Neurologic CN 2-12 grossly intact, normal coordination, normal sensation - Musculoskeletal normal gait, normal posture - Psychiatric oriented to time, oriented to person, oriented to place, speech is normal, memory intact - Labs 04/18/18 06:15 04/18/18 06:15 Diabetes panel 04/17/18 04/18/18 Range/Units 09:15 06:15 Sodium 134 L 135 L (136-145) mEq/L Potassium 3.9 3.3 L (3.5-5.1) mEq/L Chloride 96 L 98 (98-107) mEq/L Carbon Dioxide 30 H 31 H (23-29) mEq/L BUN 24 H 23 (8-23) mg/dL Creatinine 0.72 0.66 L (0.70-1.30) mg/dL Glucose 108 H 132 H (70-105) mg/dL Calcium 8.7 8.3 L (8.6-10.3) mg/dL Calcium panel 04/17/18 04/18/18 Range/Units 09:15 06:15 Calcium 8.7 8.3 L (8.6-10.3) mg/dL Phosphorus 3.0 (2.7-4.5) mg/dL Pituitary panel 04/17/18 04/18/18 Range/Units 09:15 06:15 Sodium 134 L 135 L (136-145) mEq/L Potassium 3.9 3.3 L (3.5-5.1) mEq/L Chloride 96 L 98 (98-107) mEq/L Carbon Dioxide 30 H 31 H (23-29) mEq/L BUN 24 H 23 (8-23) mg/dL Creatinine 0.72 0.66 L (0.70-1.30) mg/dL Glucose 108 H 132 H (70-105) mg/dL Calcium 8.7 8.3 L (8.6-10.3) mg/dL Adrenal panel 04/17/18 04/18/18 Range/Units 09:15 06:15 Sodium 134 L 135 L (136-145) mEq/L Potassium 3.9 3.3 L (3.5-5.1) mEq/L Chloride 96 L 98 (98-107) mEq/L Carbon Dioxide 30 H 31 H (23-29) mEq/L BUN 24 H 23 (8-23) mg/dL Creatinine 0.72 0.66 L (0.70-1.30) mg/dL Glucose 108 H 132 H (70-105) mg/dL Calcium 8.7 8.3 L (8.6-10.3) mg/dL - VTE Documentation of Mechanical Device: Graduated compression elastic hosiery Consult Discharge Plan - Plan Referrals: Flaco Robertson MD [Primary Care Provider] - <Krissy Cates - Last Filed: 04/18/18 16:19> Date of Encounter: 04/18/18 - Assessment and Plan (1) DVT prophylaxis Current Visit: No Status: Acute heparin sq (2) Vertebral osteomyelitis Current Visit: Yes Status: Acute antibiotics per ID (3) S/P right colectomy Current Visit: Yes Status: Acute having bm's and passing flatus tolerating clears, ok to advance to fulls, supplements wound vac - change M, W, F if continues to tolerate diet will DC tpn tomorrow ambulate OOB in chair TID for meals (4) Ileus, postoperative Current Visit: Yes Status: Resolved appears to be improving, monitor trialing fulls (5) Hypertension Current Visit: Yes Status: Chronic controlled Qualifiers: Hypertension type: essential hypertension Qualified Code(s): I10 - Essential (primary) hypertension Subjective Patient reports: no new complaints, pain is less, tolerating liquids well, flatus, bowel movement, afebrile Objective Vital Signs - Last 8 Hours Temp Pulse Resp BP Pulse Ox 04/18/18 15:15 98.7 F 71 17 137/71 97 04/18/18 10:32 97.9 F 84 16 148/79 96 Intake and Output 04/18/18 04/18/18 04/18/18 07:59 15:59 23:59 Intake Total 100 / 100 1444 / 1444 Output Total 400 / 400 200 / 200 Balance -300 / -300 1244 / 1244 Intake: IV Fluids 100 / 100 Zosyn 3.375 GM In 0.9 % Sodium 100 / 100 Chloride (Mini-Bag +) 100 ML @ 25 mls/hr IVPB Q8HR [facility] Rx#: [id number] Oral 0 / 0 480 / 480 Other 964 / 964 Output: Urine 400 / 400 Stool 200 / 200 Other: Meal Clears Stool Size Large Small Stool Consistency liquid liquid Stool Color Brown Brown # Bowel Movements 1 Blood Glucose* 154 120 - General physical appearance well developed, well nourished, no distress - Eyes normal ocular movement - ENT normal mucosa, normocephalic - Neck Neck exam: trachea midline - Respiratory normal expansion, normal respiratory effort - Cardiovascular Cardiovascular exam: Present: RRR - Abdomen Abdomen: Present: bowel sounds present, soft, non tender, distended (less than yesterday) - Incision Incision: Present: clean and dry, open (wound vac ), approximated - Integumentary no rash, no growths - Neurologic CN 2-12 grossly intact - Musculoskeletal normal posture - Psychiatric oriented to time, oriented to person, oriented to place, speech is normal, memory intact - Labs 04/18/18 06:15 04/18/18 06:15 Diabetes panel 04/18/18 Range/Units 06:15 Sodium 135 L (136-145) mEq/L Potassium 3.3 L (3.5-5.1) mEq/L Chloride 98 (98-107) mEq/L Carbon Dioxide 31 H (23-29) mEq/L BUN 23 (8-23) mg/dL Creatinine 0.66 L (0.70-1.30) mg/dL Glucose 132 H (70-105) mg/dL Calcium 8.3 L (8.6-10.3) mg/dL Calcium panel 04/18/18 Range/Units 06:15 Calcium 8.3 L (8.6-10.3) mg/dL Phosphorus 3.0 (2.7-4.5) mg/dL Pituitary panel 04/18/18 Range/Units 06:15 Sodium 135 L (136-145) mEq/L Potassium 3.3 L (3.5-5.1) mEq/L Chloride 98 (98-107) mEq/L Carbon Dioxide 31 H (23-29) mEq/L BUN 23 (8-23) mg/dL Creatinine 0.66 L (0.70-1.30) mg/dL Glucose 132 H (70-105) mg/dL Calcium 8.3 L (8.6-10.3) mg/dL Adrenal panel 04/18/18 Range/Units 06:15 Sodium 135 L (136-145) mEq/L Potassium 3.3 L (3.5-5.1) mEq/L Chloride 98 (98-107) mEq/L Carbon Dioxide 31 H (23-29) mEq/L BUN 23 (8-23) mg/dL Creatinine 0.66 L (0.70-1.30) mg/dL Glucose 132 H (70-105) mg/dL Calcium 8.3 L (8.6-10.3) mg/dL - Attending Attestation I examined this patient and my medical decision-making was reviewed with the Resident Physician. I agree with the documented findings, disposition and treatment plan as described except to the extent set forth below.
--- NOTE | 2018-04-18 08:45 | Gastroenterology Progress Note ---
<Kaye Arcos - Last Filed: 04/18/18 10:48> Date of Encounter: 04/18/18 Time of Encounter: 08:43 - Assessment and plan (1) Ileus, postoperative Current Visit: Yes Status: Acute Assessment and plan: Patient has failed multiple treatments including methylnaltrexone, suppositories , bowel rest, ambualtion for post op-ileus. General surgery would like GI to manage neostigmine treatment. -s/p 04/04/2018 open right colectomy for invasive adenocarcinoma invading muscularis propria but nodes negative. -Patient had 2 bowel movements after receiving relistor on 04/12 and 04/14/2018. -04/15/2018 Chest/ abdomen XR demonstrated ileus -patient has no history of CAD, heart block, lung disease. -Patient denies abdominal pain, nausea, vomiting, fever, chills. -Abdominal exam is distended abdomen, non tender, no bowel sounds Plan: -He had 3 bowel movements last night and passed gas. We will no longer be giving the patient neostigmine today. Spoke with Dr. Cates and she is agreeable. GI will sign off at this time. -agree with bowel regimen and clear liquid diet -agree with continue ambulation (2) S/P right colectomy Current Visit: Yes Status: Acute Assessment and plan: s/p 04/04/2018 POD#13 open right colectomy for invasive adenocarcinoma invading muscularis propria but nodes negative (3) Primary adenocarcinoma of ascending colon Current Visit: Yes Status: Acute Assessment and plan: s/p 04/04/2018 POD#13 open right colectomy for invasive adenocarcinoma invading muscularis propria but nodes negative colonoscopy by Dr. Shi on 03/04/2018 that revealed a 30 mm polyp in the mid- ascending colon. - Time Spent With Patient Total time spent is greater than 50% in coordination of care (as documented) at patient's floor/unit and/or counseling patient: - Subjective Interval history: Patient was seen and examined at bedside. He is alert and oriented times 3 and no acute distress. The patient and his nurse reported that he had 3 bowel movements overnight and passed gas. He believes that his abdominal distension has gone down. He denies fever, chills, abdominal pain, nausea, vomiting, melena, hematochezia. At this time he is requesting ice chips. - Constitutional Vitals: Temp Pulse Resp BP Pulse Ox 98.2 F 82 15 165/80 95 04/18/18 05:35 04/18/18 05:35 04/18/18 05:35 04/18/18 05:35 04/18/18 05:35 Exam: Gen.: Vitals noted. No acute distress. AAOx3 HEENT: oropharynx clear, Normocephalic, atraumatic Neck: Supple. No adenopathy. Cardiac: RRR, no murmur, +S1/S2 Pulmonary: CTA bilaterally, no wheezes, rales or rhonchi, equal chest expansion Abdomen: nontender, distended, no bowel sounds noted, no guarding MSK: ROM intact, no joint swelling noted Extremities: +3 BLE edema, nontender calf, no cyanosis or clubbing Neuro: A&Ox3, moves all extremities, no focal deficits Psych: Appropriate mood and behavior Results - Labs CBC & Chem 7: 04/18/18 06:15 04/18/18 06:15 Labs: Last Result ESR 47 mm/hr (0-10) H 04/10/18 14:20 Calcium 8.3 mg/dL (8.6-10.3) L 04/18/18 06:15 Iron < 10 mcg/dL (65-175) L 04/13/18 04:16 % Saturation TNP 04/13/18 04:16 Transferrin 124 mg/dL (203-362) L 04/13/18 04:16 C-Reactive Protein 154 mg/L (Less than 10) H 04/10/18 14:20 Triglycerides 80 mg/dL (< 150) 04/11/18 03:57 Entire Visit Hgb 8.3 g/dL (12.9-16.9) L 04/18/18 06:15 Hct 26.4 % (37.5-50.1) L 04/18/18 06:15 Total Bilirubin 0.5 mg/dL (0.3-1.0) 04/14/18 04:00 AST 10 Units/L (13-39) L 04/14/18 04:00 ALT 9 Units/L (7-52) 04/14/18 04:00 - VTE Documentation of Mechanical Device: Graduated compression elastic hosiery Consult Discharge Plan - Plan Referrals: Flaco Robertson MD [Primary Care Provider] - <Florentin Shi - Last Filed: 04/18/18 15:03> Date of Encounter: 04/18/18 Time of Encounter: 15:00 - Time Spent With Patient Total time spent is greater than 50% in coordination of care (as documented) at patient's floor/unit and/or counseling patient: - Constitutional Vitals: Temp Pulse Resp BP Pulse Ox 97.9 F 84 16 148/79 96 04/18/18 10:32 04/18/18 10:32 04/18/18 10:32 04/18/18 10:32 04/18/18 10:32 Results - Labs CBC & Chem 7: 04/18/18 06:15 04/18/18 06:15 Labs: Last Result ESR 52 mm/hr (0-10) H 04/18/18 10:14 Calcium 8.3 mg/dL (8.6-10.3) L 04/18/18 06:15 Iron < 10 mcg/dL (65-175) L 04/13/18 04:16 % Saturation TNP 04/13/18 04:16 Transferrin 124 mg/dL (203-362) L 04/13/18 04:16 C-Reactive Protein 62 mg/L (Less than 10) H 04/18/18 06:15 Triglycerides 80 mg/dL (< 150) 04/11/18 03:57 Entire Visit Hgb 8.3 g/dL (12.9-16.9) L 04/18/18 06:15 Hct 26.4 % (37.5-50.1) L 04/18/18 06:15 Total Bilirubin 0.5 mg/dL (0.3-1.0) 04/14/18 04:00 AST 10 Units/L (13-39) L 04/14/18 04:00 ALT 9 Units/L (7-52) 04/14/18 04:00 - Attending Attestation I have personally performed a face to face evaluation on this patient. I have reviewed and agree with the care plan. History and Exam by me shows: Patient seen. Had multiple bowel movements today. per patient abdominal distention is less. Assessment : patient with postoperative ileus. Rec: Patient is currently moving his bowels no need for IV neostigmine
[2018-04-18] MEDS: Finasteride 5 MG TABLET PO SCH (09:55)
[2018-04-18] MEDS: Furosemide 40 MG/4 ML VIAL IVP SCH (09:56)
[2018-04-18 10:52] LABS: C-Reactive Protein 62 mg/L (Less than 10)
[2018-04-18] MEDS ORDERED: Dextrose Gel 15 GM/37.5 ML TUBE PO PRN ×2 (12:16)
[2018-04-18] MEDS ORDERED: *HR* Dextrose 50 % in Water (Syg) 50 ML SYRINGE IVP PRN (12:16)
[2018-04-18] MEDS ORDERED: D5% in Water 1,000 ML IVC PRN (12:16)
--- NOTE | 2018-04-18 15:00 | Infectious Disease Progress No ---
Date of Encounter: 04/18/18 Time of Encounter: 11:30 - Assessment and Plan (1) Osteomyelitis Current Visit: Yes Status: Acute Location: L1, L2. Causative organism: S. gallolyticus. Likely secondary to seeding from the abdomen given the patient's recent finding of colon cancer. MRI of the L-spine 02/20/18 showed osteomyelitis/discitis L1-L2. Status post bone biopsy 02/23/18. 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 Pathology was positive for Adenocarcinoma. Continued to have worsening back pain and worsening inflammatory markers so patient was asked to come to the ED for evaluation and was admitted. MRI of the lumbar spine showed severe discitis/Tristin minus that L1-L2 with surrounding paravertebral phlegmon at this level with associated inflammation of both psoas muscles. No paraspinal or psoas abscess was identified. There was also noted to be mild enhancing tissue within the epidural space circumferentially at L1-L2 compatible with extension of the infectious process, but no epidural abscess was appreciated. Ortho-spine consulted. No surgical intervention required at this time. Repeat ESR and CRP--> ESR 47, CRP 154. Re-check today. Discontinue Zosyn. Re-start PCN G 4 million units IV Q4H. Duration of treatment depends on the clinical picture, but likely a total of 6- 8 weeks. (day 50) Monitor renal function and dose-adjust antibiotics. Qualifiers: Osteomyelitis type: unspecified type Osteomyelitis location: unspecified site Qualified Code(s): M86.9 - Osteomyelitis, unspecified (2) Bacteremia Current Visit: No Status: Resolved Causative organism: S. gallolyticus. Source likely intra-abdominal. Blood cultures drawn 03/30/18 are negative x 2 sets. (3) Thickening of wall of gallbladder Current Visit: Yes Status: Acute Noted on CT of the abdomen and pelvis. RUQ UTS showed cholelithiasis, but negative for cholecystitis and pain has resolved. Okay to stop Zosyn and re-start PCN G. Further management per the surgery team. (4) Lumbar back pain Current Visit: Yes Status: Acute Likely secondary to discitis/osteomyelitis. Stable. Pain management per the primary team. (5) Anemia Current Visit: Yes Status: Acute Qualifiers: Anemia type: other cause Other causes of anemia: other cause, not classified Qualified Code(s): D64.89 - Other specified anemias (6) BPH without urinary obstruction Current Visit: Yes Status: Chronic (7) Adenocarcinoma of colon Current Visit: Yes Status: Acute General surgery consulted to perform colectomy. Status post open colectomy 04/04/[address] Cates. (8) Ileus, postoperative Current Visit: Yes Status: Resolved CT of the abdomen and pelvis 04/06/18 showed findings consistent with mild post- op ileus. NG tube removed by the patient. Patient had bowel movement and has active bowel sounds. Management per the general surgery team. (9) Generalized weakness Current Visit: Yes Status: Acute Recommend PT/OT to evaluate and treat. - Subjective Interval history: Patient seen and examined just getting back to his room after a walk. Status post open colectomy 04/04/18. No acute events noted overnight. Patient states he feels better today. He states his back pain is better. Denies any fevers or chills or rigors. Denies chest pain, shortness of breath, or cough. Denies vomiting, diarrhea, constipation.Reports flatus and states he hash had two bowel movements today. Diet has been advanced to clears. He denies any urinary complaints. He denies any numbness or tingling or incontinence. He denies any oral thrush or any skin lesions. Melissa catheter removed. Patient denies urinary complaints. Infect Dis PN-Objective Data - Labs CBC & Chem 7: 04/18/18 06:15 04/18/18 06:15 Labs: Laboratory Results - last 24 hr 04/17/18 04/17/18 04/17/18 07:27 11:09 16:11 WBC RBC Hgb Hct MCV MCH MCHC RDW Plt Count MPV Immature Gran % Seg Neutrophils % Lymphocytes % Monocytes % Eosinophils % Basophils % Neutrophils # Lymphocytes # Monocytes # Eosinophils # Basophils # ESR Sodium Potassium Chloride Carbon Dioxide BUN Creatinine Est GFR ( Amer) Est GFR (Non-Af Amer) BUN/Creatinine Ratio Glucose POC Glucose 156 H 137 H 166 H Calculated Osmolality Calcium Phosphorus Magnesium C-Reactive Protein Specimen Rejected 04/17/18 04/18/18 04/18/18 20:06 00:19 05:32 WBC RBC Hgb Hct MCV MCH MCHC RDW Plt Count MPV Immature Gran % Seg Neutrophils % Lymphocytes % Monocytes % Eosinophils % Basophils % Neutrophils # Lymphocytes # Monocytes # Eosinophils # Basophils # ESR Sodium Potassium Chloride Carbon Dioxide BUN Creatinine Est GFR ( Amer) Est GFR (Non-Af Amer) BUN/Creatinine Ratio Glucose POC Glucose 144 H 140 H Calculated Osmolality Calcium Phosphorus Magnesium C-Reactive Protein Specimen Rejected MCV Delta 04/18/18 04/18/18 04/18/18 06:15 06:15 10:14 WBC 9.1 RBC 2.95 L Hgb 8.3 L Hct 26.4 L MCV 89.5 MCH 28.1 MCHC 31.4 L RDW 13.2 Plt Count 317 MPV 9.0 L Immature Gran % 1.3 Seg Neutrophils % 74.4 Lymphocytes % 13.9 Monocytes % 9.7 Eosinophils % 0.5 Basophils % 0.2 Neutrophils # 6.8 Lymphocytes # 1.3 Monocytes # 0.9 Eosinophils # 0.1 Basophils # 0.0 ESR 52 H Sodium 135 L Potassium 3.3 L Chloride 98 Carbon Dioxide 31 H BUN 23 Creatinine 0.66 L Est GFR ( Amer) > 60 Est GFR (Non-Af Amer) > 60 BUN/Creatinine Ratio 35 H Glucose 132 H POC Glucose Calculated Osmolality 286 Calcium 8.3 L Phosphorus 3.0 Magnesium 1.8 C-Reactive Protein 62 H Specimen Rejected Exam - Constitutional Vitals: Temp Pulse Resp BP Pulse Ox 97.9 F 84 16 148/79 96 04/18/18 10:32 04/18/18 10:32 04/18/18 10:32 04/18/18 10:32 04/18/18 10:32 General appearance: average body habitus, cooperative, no acute distress - Head Head exam: Present: atraumatic, normal inspection, normocephalic - Eye Eye exam: Present: EOMI, normal appearance, PERRL Pupils: Present: normal accommodation - ENT ENT exam: Present: mucous membranes moist - Neck Neck exam: Present: normal inspection - Respiratory Respiratory exam: Present: CTAB. Absent: rales, respiratory distress, rhonchi, wheezes - Cardiovascular Cardiovascular exam: Present: RRR, +S1, +S2 - GI/Abdominal GI/Abdominal exam: Present: normal bowel sounds, soft. Absent: distended, tenderness Additional comments: Midline abdominal incision with wound VAC dressing C/D/I with sponge well- compressed and dressing intact. No surrounding erythema, warmth, or drainage noted. Abdominal binder in place. - Extremities Exam Extremities exam: Present: pedal edema (2+ BLE). Absent: joint swelling, tenderness - Neurological Exam Neurological exam: Present: alert, oriented X3, no focal deficits - Psychiatric Psychiatric exam: Present: normal affect, normal mood - Skin Skin exam: Present: dry, intact, normal color, warm - VTE Documentation of Mechanical Device: Graduated compression elastic hosiery Consult Discharge Plan - Plan Referrals: Flaco Robertson MD [Primary Care Provider] - - Attending Attestation I examined this patient and my medical decision-making was reviewed with the Resident Physician. I agree with the documented findings, disposition and treatment plan as described except to the extent set forth below.
[2018-04-18] MEDS: Penicillin G Potassium 4,000,000 UNIT in 0.9 % Sodium Chloride 100 ML IVPB SCH ×2 (16:58→20:21)
[2018-04-18] MEDS ORDERED: Clinimix E 5%-20% SOLUTION 2,000 ML with MVI, adult with vitamin K 10 ML, Trace Eleme... IVC SCH (17:00)
--- NOTE | 2018-04-18 17:00 | Internal Med Progress Note ---
<Winnie Villa - Last Filed: 04/18/18 16:53> Hospitalist Progress Note - Encounter Date of Encounter: 04/18/18 Time of Encounter: 10:00 - Subjective Interval History: Mr. Burkett was seen at bedside chair this morning. His vitals remained stable overnight and He was standing up when I saw him. It was noted his potassium was low but he is on TPN. He noted he is no longer having difficulty with bowel movements and has had 5 today so far. He had no complaints but did say he is hungry and would like to eat soon. He denied fever, chills, nausea, emesis, shortness of breath or chest pain. - Exam Vitals: Temp Pulse Resp BP Pulse Ox 98.7 F 71 17 137/71 97 04/18/18 15:15 04/18/18 15:15 04/18/18 15:15 04/18/18 15:15 04/18/18 15:15 Exam: Constitutional: Alert, laying in bed, on nasal canula HEENT: Normocephalic, atraumatic, moist mucus membranes Heart: Normal, regular rate and rhythm, no murmurs Lungs: Clear to auscultation at all lung lobes, no wheeze, no crackles Abdomen: Soft, bowel sounds active, has dressing intact with a wound vac Extremities: +2 pitting edema bilateral lower extremities, warm, nontender Skin: Skin warm and dry, no lesions, no rashes, no jaundice Psych: thought content congruent, appropriate affect Neurological: Alert and oriented x 3 - Assessment and Plan (1) Adenocarcinoma of colon Current Visit: Yes Status: Acute Assessment and Plan: Postop day 15 right open colectomy Biopsy results noted-invasive adenocarcinoma, invading muscularis propria, nodes negative Plan: Wound VAC in place and patient on TPN General surgery managing and appreciate recommendations Per surgery, patient can see Oncology as outpatient after discharge Diet by general surgery (2) Vertebral osteomyelitis Current Visit: Yes Status: Acute Assessment and Plan: MRI of the L-spine 02/20/18 showed osteomyelitis/discitis L1-L2. 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 Plan: ID consulted, recommends continuing penicillin IV Zosyn discontinued, received 5 days treatment Continue to dose antibiotics renally Total treatment of 6-8 weeks, currently day 50 (3) Hypertension Current Visit: Yes Status: Chronic Assessment and Plan: Controlled; continue po meds (4) Constipation due to opioid therapy Current Visit: Yes Status: Resolved Assessment and Plan: Resolved. He had 5 bowel movements today. Surgery is monitoring his diet. He is currently on TPN. Plan: Continue full liquid diet Supplementary diet Dulcolax ordered PRN as he is on opiods for pain s/o surgery (5) Hyponatremia Current Visit: Yes Status: Acute Assessment and Plan: Improved since admission as it was 126 at admission. Likely due to poor oral intake and on TPN. His serum sodium today is 135. Should continue to improve with oral intake. Plan: Clear liquid diet Continue to monitor (6) Anemia Current Visit: Yes Status: Acute Assessment and Plan: Patient with hb stable at 8-9. Appears to be chronic. Iron show mixed picture-- chronic iron deficiency and low iron. He has adenocarcinoma s/p right colectomy Could be due to cancer and poor oral intake. Today Hb is 8.3, yesterday 8.0. Plan: Continue to monitor May require outpatient iron supplement (7) BPH without urinary obstruction Current Visit: Yes Status: Chronic Assessment and Plan: Continue Flomax and finesteride (8) Ileus, postoperative Current Visit: Yes Status: Resolved Assessment and Plan: Resolved, had 5 BM today. (9) Fluid overload Current Visit: Yes Status: Acute Assessment and Plan: Likely due to multiple IVF hydration and TPN in-patient Echocardiogram showed LVEF of 60% with mild left-ventricular diastolic dysfunction Patient with bilateral lower extremity 2+ pitting edema Plan: Continue 40 mg IV furosemide Continue moving around Continue to monitor (10) Cholelithiases Current Visit: Yes Status: Acute Assessment and Plan: CT of the abdomen/pelvis showed cholelithiasis with mild distention of gallbladder Right upper quadrant ultrasound showed cholelithiasis without evidence of cholecystitis General surgery following and appreciate recommendations (11) DVT prophylaxis Current Visit: Yes Status: Acute Assessment and Plan: SUBQ heparin - Time Spent with Patient Total time spent is greater than 50% in coordination of care (as documented) at patient's floor/unit and/or counseling patient: less than 15 minutes Plan of Care Discussed with: patient Internal Medicine: Result - Labs CBC & Chem 7: 04/18/18 06:15 04/18/18 06:15 Labs: Short CBC 04/18/18 Range/Units 06:15 WBC 9.1 (4.3-11.1) K/mcL Hgb 8.3 L (12.9-16.9) g/dL Hct 26.4 L (37.5-50.1) % Plt Count 317 (140-400) K/mcL Neutrophils # 6.8 (1.6-8.9) K/mcL BMP 04/18/18 06:15 Sodium 135 L Potassium 3.3 L Chloride 98 Carbon Dioxide 31 H BUN 23 Creatinine 0.66 L Glucose 132 H Calcium 8.3 L - VTE Documentation of Mechanical Device: Graduated compression elastic hosiery Consult Discharge Plan - Plan Referrals: Flaco Robertson MD [Primary Care Provider] - <Nata Elise - Last Filed: 04/18/18 17:54> Hospitalist Progress Note - Encounter Date of Encounter: 04/18/18 - Exam Vitals: Temp Pulse Resp BP Pulse Ox 98.7 F 71 17 137/71 97 04/18/18 15:15 04/18/18 15:15 04/18/18 15:15 04/18/18 15:15 04/18/18 15:15 - Assessment and Plan (1) Hypertension Current Visit: Yes Status: Chronic (2) Constipation due to opioid therapy Current Visit: Yes Status: Resolved (3) Hyponatremia Current Visit: Yes Status: Acute (4) Anemia Current Visit: Yes Status: Acute (5) Vertebral osteomyelitis Current Visit: Yes Status: Acute (6) BPH without urinary obstruction Current Visit: Yes Status: Chronic (7) Adenocarcinoma of colon Current Visit: Yes Status: Acute (8) Ileus, postoperative Current Visit: Yes Status: Resolved (9) Fluid overload Current Visit: Yes Status: Acute (10) Cholelithiases Current Visit: Yes Status: Acute (11) DVT prophylaxis Current Visit: Yes Status: Acute - Time Spent with Patient Total time spent is greater than 50% in coordination of care (as documented) at patient's floor/unit and/or counseling patient: Internal Medicine: Result - Labs CBC & Chem 7: 04/18/18 06:15 04/18/18 06:15 Labs: Short CBC 04/18/18 Range/Units 06:15 WBC 9.1 (4.3-11.1) K/mcL Hgb 8.3 L (12.9-16.9) g/dL Hct 26.4 L (37.5-50.1) % Plt Count 317 (140-400) K/mcL Neutrophils # 6.8 (1.6-8.9) K/mcL BMP 04/18/18 06:15 Sodium 135 L Potassium 3.3 L Chloride 98 Carbon Dioxide 31 H BUN 23 Creatinine 0.66 L Glucose 132 H Calcium 8.3 L - Attending Attestation I examined this patient and my medical decision-making was reviewed with the Resident Physician Dr. Villa. I agree with the documented findings, disposition and treatment plan as described except to the extent set forth below. Mr. Burkett is a 87 year old male with PMH HTN, HLD, GERD who is currently being treated for vertebral osteomyelitis, had adeno carcinoma of colon. Pt had Rt open colectomy POD # 14. He had prolong ileus which improved now. He is off the NG tube. Tolerating liquid diet ok. Passing gas +. Gen: A, A, O x 3 Chest: Diminished BS b/l, Heart: S1S2+ RRR No murmurs Ext: 2+ Pitting edema a/p 1. Adenocarcinoma of colon 2. Post op Ileus s/p Rt Open colectomy POD # 14 Cont TPN until he tolerates PO intake well 3. Volume overload 4. b/l LE edema Improving cont Lasix <Winnie Villa - Last Filed: 04/18/18 16:53> (3) Hypertension Qualifiers: Hypertension type: essential hypertension Qualified Code(s): I10 - Essential (primary) hypertension (6) Anemia Qualifiers: Anemia type: other cause Other causes of anemia: other cause, not classified Qualified Code(s): D64.89 - Other specified anemias (9) Fluid overload Qualifiers: Hypervolemia type: unspecified Qualified Code(s): E87.70 - Fluid overload, unspecified <Nata Elise - Last Filed: 04/18/18 17:54> (1) Hypertension Qualifiers: Hypertension type: essential hypertension Qualified Code(s): I10 - Essential (primary) hypertension (4) Anemia Qualifiers: Anemia type: other cause Other causes of anemia: other cause, not classified Qualified Code(s): D64.89 - Other specified anemias (9) Fluid overload Qualifiers: Hypervolemia type: unspecified Qualified Code(s): E87.70 - Fluid overload, unspecified
[2018-04-18] MEDS: Insulin LISPRO 300 UNITS/3 ML VIAL SQ SCH (18:05)
[2018-04-19] MEDS: Penicillin G Potassium 4,000,000 UNIT in 0.9 % Sodium Chloride 100 ML IVPB SCH ×6 (00:25→22:12)
[2018-04-19] MEDS: Metoclopramide 10 MG/2 ML VIAL IVP SCH ×4 (00:25→17:14)
[2018-04-19] MEDS: OXYCODONE Oral CONC 10 MG/0.5 ML ORAL.SYG SL PRN ×4 (01:10→22:14)
[2018-04-19] MEDS: Insulin LISPRO 300 UNITS/3 ML VIAL SQ SCH ×4 (03:14→18:31)
[2018-04-19 05:19] LABS: Basophils % 0.1 %; Eosinophils % 0.5 %; Hematocrit 25.1 % (37.5-50.1); Immature Granulocytes % 1.2 % (0-4); Lymphocytes # 1.4 K/mcL (0.6-4.6); Lymphocytes % 18.4 %; Mean Corpuscular HGB Conc 31.9 g/dL (31.6-35.5); Mean Corpuscular Hemoglobin 28.3 pg (28.0-33.3); Mean Corpuscular Volume 88.7 fL (83.0-100.0); Mean Platelet Volume 8.9 fL (9.4-12.4); Monocytes # 0.8 K/mcL (0.0-1.3); Monocytes % 10.1 %; Neutrophils # 5.3 K/mcL (1.6-8.9); Platelet Count 288 K/mcL (140-400); Red Blood Count 2.83 M/mcL (4.19-5.50); Red Cell Distribution Width 13.2 % (11.5-14.5); Segmented Neutrophils % 69.7 %
[2018-04-19 05:38] LABS: BUN/Creatinine Ratio 31 (6-26); Blood Urea Nitrogen 18 mg/dL (8-23); Calcium 8.4 mg/dL (8.6-10.3); Carbon Dioxide 31 mEq/L (23-29); Chloride 97 mEq/L (98-107); Glucose 143 mg/dL (70-105); Osmolality,Calculated 286 (280-300); Potassium 3.4 mEq/L (3.5-5.1); Sodium 136 mEq/L (136-145); Triglycerides 80 mg/dL (< 150); eGFR For Non-African Americans > 60 (> 60)
[2018-04-19] MEDS: *HR* Heparin 5,000 UNIT/ML VIAL SQ SCH ×2 (05:42→17:13)
[2018-04-19] MEDS: Famotidine 20 MG/2 ML VIAL IVP SCH ×2 (05:42→17:14)
[2018-04-19] MEDS ORDERED: Lactobacillus 1 EACH CAP.SPRINK PO SCH (09:00)
[2018-04-19] MEDS: Furosemide 40 MG/4 ML VIAL IVP SCH (09:16)
[2018-04-19] MEDS: Finasteride 5 MG TABLET PO SCH (09:17)
[2018-04-19] MEDS: *HR* FentaNYL PATCH 25 MCG PATCH TD SCH (11:21)
--- NOTE | 2018-04-19 14:05 | General Surgery Progress Note ---
<Lizet Medel - Last Filed: 04/19/18 14:03> Date of Encounter: 04/19/18 Time of Encounter: 13:30 - Assessment and Plan (1) Adenocarcinoma of colon Status: Acute POD #15 Open right colectomy with Dr. Cates Pathology- Colon: invasive adenocarcinoma, invading muscularis propria, nodes negative Advance to soft diet with protein supplements TPN for nutritional support- stop today Supportive care/pain control Out of bed to chair with assistance- ambulate TID PPI therapy daily DVT prophylaxis IS every 1 hour while awake Abdominal binder Wound vac- 125mmHG continuous suction, change every M-W-F per surgery team Jorge aceves to bilateral lower extremities Social service consult for wound vac at home upon discharge May discharge from a surgery standpoint when patient medically ready (2) RUQ abdominal pain Status: Resolved (3) Ileus, postoperative Status: Resolved Advance to soft with with protein supplements today Stop TPN (4) Vertebral osteomyelitis Status: Acute Spine recommendations: continue IV antibiotics, serial lab markers, repeat MRI in 2 weeks and follow-up in outpatient office. No acute indication for surgical intervention at this time ID following for management of antibiotics (5) Generalized weakness Status: Acute PT/OT daily for mobilization (6) Anemia, chronic disease Status: Acute Stable (7) DVT prophylaxis Status: Acute Heparin 5,000 units SQ twice daily for DVT prophylaxis EPCDs to bilateral lower extremities for DVT prophylaxis Ambulate TID with assistance Subjective Patient reports: no new complaints, feels better, still having pain, pain is less, tolerating a regular diet, voiding w/o difficulty, flatus, bowel movement, afebrile Objective Vital Signs - Last 8 Hours Temp Pulse Resp BP Pulse Ox 04/19/18 11:10 97.4 F L 64 18 166/81 96 04/19/18 06:50 98.7 F 74 18 165/81 96 Intake and Output 04/18/18 04/19/18 04/19/18 23:59 07:59 15:59 Intake Total 320 / 320 200 / 200 580 / 580 Output Total 0 / 0 200 / 200 150 / 150 Balance 320 / 320 0 / 0 430 / 430 Intake: IV Fluids 200 / 200 200 / 200 100 / 100 Pfizerpen 4,000,000 UNIT In 0.9 200 / 200 200 / 200 100 / 100 % Sodium Chloride 100 ML @ 100 mls/hr IVPB Q4HR [place] Rx#: [id number] Oral 120 / 120 0 / 0 480 / 480 Output: Urine 0 / 0 200 / 200 150 / 150 Other: Meal Lunch Percent of Meal Consumed 5% 50% Stool Size Moderate Stool Consistency liquid Stool Characteristics Normal for Patient Stool Color Brown # Bowel Movement Diapers 1 Weight 86.9 kg Blood Glucose* 136 107 146 Patient Weight 04/19/18 23:59 Weight 86.9 kg - General physical appearance well developed, well nourished, no distress - Eyes normal ocular movement - ENT normal mucosa, atraumatic, normocephalic - Neck Neck exam: trachea midline - Respiratory normal respiratory effort, clear to auscultation - Cardiovascular Cardiovascular exam: Present: RRR - Abdomen Abdomen: Present: bowel sounds present, soft, tender (minimal, expected tenderness with examinaiton), wound (Wound vac intact to midline with no drainage noted (change every -W-) per surgery team) - Incision Incision: Present: open (Midline with wound vac intact, no drainage noted, no erythema or induration noted) - Neurologic CN 2-12 grossly intact - Psychiatric oriented to time, oriented to person, oriented to place, speech is normal, memory intact - Labs 04/19/18 04:51 04/19/18 04:51 Diabetes panel 04/19/18 Range/Units 04:51 Sodium 136 (136-145) mEq/L Potassium 3.4 L (3.5-5.1) mEq/L Chloride 97 L (98-107) mEq/L Carbon Dioxide 31 H (23-29) mEq/L BUN 18 (8-23) mg/dL Creatinine 0.59 L (0.70-1.30) mg/dL Glucose 143 H (70-105) mg/dL Calcium 8.4 L (8.6-10.3) mg/dL Triglycerides 80 (< 150) mg/dL Calcium panel 04/19/18 Range/Units 04:51 Calcium 8.4 L (8.6-10.3) mg/dL Pituitary panel 04/19/18 Range/Units 04:51 Sodium 136 (136-145) mEq/L Potassium 3.4 L (3.5-5.1) mEq/L Chloride 97 L (98-107) mEq/L Carbon Dioxide 31 H (23-29) mEq/L BUN 18 (8-23) mg/dL Creatinine 0.59 L (0.70-1.30) mg/dL Glucose 143 H (70-105) mg/dL Calcium 8.4 L (8.6-10.3) mg/dL Adrenal panel 04/19/18 Range/Units 04:51 Sodium 136 (136-145) mEq/L Potassium 3.4 L (3.5-5.1) mEq/L Chloride 97 L (98-107) mEq/L Carbon Dioxide 31 H (23-29) mEq/L BUN 18 (8-23) mg/dL Creatinine 0.59 L (0.70-1.30) mg/dL Glucose 143 H (70-105) mg/dL Calcium 8.4 L (8.6-10.3) mg/dL - VTE Documentation of Mechanical Device: Graduated compression elastic hosiery Consult Discharge Plan - Plan Additional Instructions: Midline wound- cleanse with soap and water and pat dry, apply adaptic to wound bed, apply small black foam and place to 125mmHG continuous suction; change every -- per home health care General Surgical Discharge Instructions 1. No pushing, pulling, or lifting greater than 15 lbs for 6 weeks 2. You may shower 3. You may resume driving when you are off narcotics and are safe to react in a car. 4. Take pain medications as needed and as prescribed 5. Take stool softeners (Colace) or a water based laxative (Miralax) while taking narcotics. You may hold for loose stools. 6. Report any fevers greater than 100.5F, increase abdominal discomfort, drainage that looks like pus, increased redness or pain at the surgical site, or any vomiting. 7. Report any pain in the calves, shortness of breath, or rapid heartbeat. 8. Follow-up in the office as directed. 9. If you were prescribed antibiotics, do not stop them without talking to your provider. Referrals: Krissy Cates MD [Partnered Physician] - 04/27/18 9:55 am (hospital follow- up) - Attending Attestation For this encounter, I have reviewed the BENDER MACHINE or PA documentation, treatment plan, and medical decision making; and I have had face to face time with this patient. <Krissy Cates - Last Filed: 04/21/18 13:29> - Assessment and Plan (1) DVT prophylaxis Status: Acute (2) Vertebral osteomyelitis Status: Acute (3) S/P right colectomy Status: Acute (4) Ileus, postoperative Status: Resolved ileus resolved tolerating diet prn pain control gi/dvt prophylaxis dc planning wound vac changes M, W, F (5) Hypertension Status: Chronic Qualifiers: Hypertension type: essential hypertension Qualified Code(s): I10 - Essent ial (primary) hypertension Subjective Patient reports: feels better, still having pain, pain is less, tolerating a regular diet, voiding w/o difficulty, flatus, bowel movement, afebrile Objective - General physical appearance well developed, well nourished, no distress - Eyes normal ocular movement - ENT normal mucosa, atraumatic - Neck Neck exam: trachea midline - Respiratory normal expansion, normal respiratory effort - Cardiovascular Cardiovascular exam: Present: RRR - Abdomen Abdomen: Present: bowel sounds present, soft, tender - Incision Incision: Present: open - Integumentary no rash - Neurologic CN 2-12 grossly intact - Musculoskeletal normal gait, normal posture - Psychiatric oriented to time, oriented to person, oriented to place, speech is normal, memory intact - Labs 04/20/18 05:00 04/20/18 05:00 - Attending Attestation I have personally performed a face to face evaluation on this patient. I have reviewed and agree with the care plan. History and Exam by me shows:
--- NOTE | 2018-04-19 14:41 | Infectious Disease Progress No ---
Date of Encounter: 04/19/18 Time of Encounter: 13:45 - Assessment and Plan (1) Osteomyelitis Current Visit: Yes Status: Acute Location: L1, L2. Causative organism: S. gallolyticus. Likely secondary to seeding from the abdomen given the patient's recent finding of colon cancer. MRI of the L-spine 02/20/18 showed osteomyelitis/discitis L1-L2. Status post bone biopsy 02/23/18. 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 Pathology was positive for Adenocarcinoma. Continued to have worsening back pain and worsening inflammatory markers so patient was asked to come to the ED for evaluation and was admitted. MRI of the lumbar spine showed severe discitis/Tristin minus that L1-L2 with surrounding paravertebral phlegmon at this level with associated inflammation of both psoas muscles. No paraspinal or psoas abscess was identified. There was also noted to be mild enhancing tissue within the epidural space circumferentially at L1-L2 compatible with extension of the infectious process, but no epidural abscess was appreciated. Ortho-spine consulted. No surgical intervention required at this time. Repeat ESR and CRP--> ESR 47, CRP 154. Re-check today.--> ESR 52, CRP 62. Continue PCN G 4 million units IV Q4H. (day 51) Duration of treatment depends on the clinical picture, but likely a total of 8 weeks. Continue antibiotics through at least Tuesday. Will plan to repeat inflammatory markers on Tuesday and if continued to improve, will plan on stopping antibiotics. Monitor renal function and dose-adjust antibiotics. Qualifiers: Osteomyelitis type: unspecified type Osteomyelitis location: unspecified site Qualified Code(s): M86.9 - Osteomyelitis, unspecified (2) Bacteremia Current Visit: No Status: Resolved Causative organism: S. gallolyticus. Source likely intra-abdominal. Blood cultures drawn 03/30/18 are negative x 2 sets. (3) Thickening of wall of gallbladder Current Visit: Yes Status: Acute Noted on CT of the abdomen and pelvis. RUQ UTS showed cholelithiasis, but negative for cholecystitis and pain has resolved. Further management per the surgery team. (4) Lumbar back pain Current Visit: Yes Status: Acute Likely secondary to discitis/osteomyelitis. Stable. Pain management per the primary team. (5) Anemia Current Visit: Yes Status: Acute Qualifiers: Anemia type: other cause Other causes of anemia: other cause, not classified Qualified Code(s): D64.89 - Other specified anemias (6) BPH without urinary obstruction Current Visit: Yes Status: Chronic (7) Adenocarcinoma of colon Current Visit: Yes Status: Acute General surgery consulted to perform colectomy. Status post open colectomy 04/04/[address] Cates. (8) Ileus, postoperative Current Visit: Yes Status: Resolved CT of the abdomen and pelvis 04/06/18 showed findings consistent with mild post- op ileus. NG tube removed by the patient. Patient had bowel movement and has active bowel sounds. Management per the general surgery team. (9) Generalized weakness Current Visit: Yes Status: Acute Recommend PT/OT to evaluate and treat. - Subjective Interval history: Patient seen and examined. No acute events noted overnight. Status post open colectomy 04/04/18. Patient states he feels better today. He states his back pain is better. Denies any fevers or chills or rigors. Denies chest pain, shortness of breath, or cough. Denies vomiting, diarrhea, constipation. Reports flatus and states he hash had several bowel movements. Diet has been advanced to full liquid and tolerating well. He denies any urinary complaints. He denies any numbness or tingling or incontinence. He denies any oral thrush or any skin lesions. Melissa catheter removed. Patient denies urinary complaints. Infect Dis PN-Objective Data - Labs CBC & Chem 7: 04/19/18 04:51 04/19/18 04:51 Labs: Laboratory Results - last 24 hr 04/18/18 04/19/18 04/19/18 20:18 04:51 04:51 WBC 7.5 RBC 2.83 L Hgb 8.0 L Hct 25.1 L MCV 88.7 MCH 28.3 MCHC 31.9 RDW 13.2 Plt Count 288 MPV 8.9 L Immature Gran % 1.2 Seg Neutrophils % 69.7 Lymphocytes % 18.4 Monocytes % 10.1 Eosinophils % 0.5 Basophils % 0.1 Neutrophils # 5.3 Lymphocytes # 1.4 Monocytes # 0.8 Eosinophils # 0.0 Basophils # 0.0 Sodium 136 Potassium 3.4 L Chloride 97 L Carbon Dioxide 31 H BUN 18 Creatinine 0.59 L Est GFR ( Amer) > 60 Est GFR (Non-Af Amer) > 60 BUN/Creatinine Ratio 31 H Glucose 143 H POC Glucose 136 H Calculated Osmolality 286 Calcium 8.4 L Triglycerides 80 04/19/18 04/19/18 04/19/18 04:51 06:54 11:14 WBC RBC Hgb Hct MCV MCH MCHC RDW Plt Count MPV Immature Gran % Seg Neutrophils % Lymphocytes % Monocytes % Eosinophils % Basophils % Neutrophils # Lymphocytes # Monocytes # Eosinophils # Basophils # Sodium Potassium Chloride Carbon Dioxide BUN Creatinine Est GFR ( Amer) Est GFR (Non-Af Amer) BUN/Creatinine Ratio Glucose POC Glucose 163 H 107 H 146 H Calculated Osmolality Calcium Triglycerides Exam - Constitutional Vitals: Temp Pulse Resp BP Pulse Ox 97.4 F L 64 18 166/81 96 04/19/18 11:10 04/19/18 11:10 04/19/18 11:10 04/19/18 11:10 04/19/18 11:10 General appearance: average body habitus, cooperative, no acute distress - Head Head exam: Present: atraumatic, normal inspection, normocephalic - Eye Eye exam: Present: EOMI, normal appearance, PERRL Pupils: Present: normal accommodation - ENT ENT exam: Present: mucous membranes moist - Neck Neck exam: Present: normal inspection - Respiratory Respiratory exam: Present: CTAB. Absent: rales, respiratory distress, rhonchi, wheezes - Cardiovascular Cardiovascular exam: Present: RRR, +S1, +S2 - GI/Abdominal GI/Abdominal exam: Present: normal bowel sounds, soft. Absent: distended, tenderness Additional comments: Midline abdominal incision noted with wound VAC dressing intact without erythema, warmth, or tenderness noted. Small amount of serous drainage noted in the canister. Abdominal binder in place. - Extremities Exam Extremities exam: Present: normal inspection, pedal edema (1+ BLE). Absent: joint swelling, tenderness - Neurological Exam Neurological exam: Present: alert, oriented X3, no focal deficits - Psychiatric Psychiatric exam: Present: normal affect, normal mood - Skin Skin exam: Present: dry, intact, normal color, warm - VTE Documentation of Mechanical Device: Graduated compression elastic hosiery Consult Discharge Plan - Plan Additional Instructions: Midline wound- cleanse with soap and water and pat dry, apply adaptic to wound bed, apply small black foam and place to 125mmHG continuous suction; change every M-W- per home health care General Surgical Discharge Instructions 1. No pushing, pulling, or lifting greater than 15 lbs for 6 weeks 2. You may shower 3. You may resume driving when you are off narcotics and are safe to react in a car. 4. Take pain medications as needed and as prescribed 5. Take stool softeners (Colace) or a water based laxative (Miralax) while taking narcotics. You may hold for loose stools. 6. Report any fevers greater than 100.5F, increase abdominal discomfort, drainage that looks like pus, increased redness or pain at the surgical site, or any vomiting. 7. Report any pain in the calves, shortness of breath, or rapid heartbeat. 8. Follow-up in the office as directed. 9. If you were prescribed antibiotics, do not stop them without talking to your provider. Referrals: Krissy Cates MD [Partnered Physician] - 04/27/18 9:55 am (hospital follow- up) Flaco Robertson MD [Primary Care Provider] - - Attending Attestation I examined this patient and my medical decision-making was reviewed with the Resident Physician. I agree with the documented findings, disposition and treatment plan as described except to the extent set forth below.
--- NOTE | 2018-04-19 14:50 | Internal Med Progress Note ---
<Winnie Villa - Last Filed: 04/19/18 14:35> Hospitalist Progress Note - Encounter Date of Encounter: 04/19/18 Time of Encounter: 10:05 - Subjective Interval History: Mr. Burkett was seen at bedside this morning. His vitals remained stable overnight. He noted 5 bowel movements yesterday and had no bowel movements today. He is tolerating a diet. He denies any abdominal pain, nausea, emesis, fever, chills, shortness of breath or chest pain. - Exam Vitals: Temp Pulse Resp BP Pulse Ox 97.4 F L 64 18 166/81 96 04/19/18 11:10 04/19/18 11:10 04/19/18 11:10 04/19/18 11:10 04/19/18 11:10 Exam: Constitutional: Alert, laying in bed comfortable on room air HEENT: Normocephalic, atraumatic, moist mucus membranes Heart: Normal, regular rate and rhythm, no murmurs Lungs: Clear to auscultation at all lung lobes, no wheeze, no crackles Abdomen: Soft, bowel sounds active, has dressing intact with a wound vac Extremities: +2 pitting edema bilateral lower extremities, warm, nontender Skin: Skin warm and dry, no lesions, no rashes, no jaundice Psych: thought content congruent, appropriate affect Neurological: Alert and oriented x 3 - Assessment and Plan (1) Adenocarcinoma of colon Current Visit: Yes Status: Acute Assessment and Plan: Postop day 16 right open colectomy Biopsy results noted-invasive adenocarcinoma, invading muscularis propria, nodes negative Plan: Wound VAC in place and patient on TPN General surgery managing and appreciate recommendations Per surgery, patient can see Oncology as outpatient after discharge Diet by general surgery: soft diet with supplement (2) Vertebral osteomyelitis Current Visit: Yes Status: Acute Assessment and Plan: MRI of the L-spine 02/20/18 showed osteomyelitis/discitis L1-L2. 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 Plan: ID consulted, recommends continuing penicillin IV Zosyn discontinued, received 5 days treatment Continue to dose antibiotics renally Total treatment of 6-8 weeks, currently day 50 (3) Hypertension Current Visit: Yes Status: Chronic Assessment and Plan: Controlled; continue po meds--labetalol and furosemide (4) Constipation due to opioid therapy Current Visit: Yes Status: Resolved Assessment and Plan: Resolved. He had 5 bowel movements yerday. Surgery is monitoring his diet. TPN stopped, soft diet and supplements. Plan: Continue full liquid diet Supplementary diet Continue culturelle Dulcolax ordered PRN as he is on opiods for pain s/o surgery (5) Hyponatremia Current Visit: Yes Status: Acute Assessment and Plan: Resolved. At admission as it was 126 at admission. Likely due to poor oral intake and on TPN. His serum sodium today is 136. Should continue to improve with oral intake. Plan: Clear liquid diet Continue to monitor (6) Anemia Current Visit: Yes Status: Acute Assessment and Plan: Patient with hb stable at 8-9. Appears to be chronic. Iron show mixed picture-- chronic iron deficiency and low iron. He has adenocarcinoma s/p right colectomy Could be due to cancer and poor oral intake. Today Hb is 8.0, yesterday 8.3. Plan: Continue to monitor May require outpatient iron supplement (7) BPH without urinary obstruction Current Visit: Yes Status: Chronic Assessment and Plan: Continue Flomax and finesteride, currently no urinary hesitancy (8) Ileus, postoperative Current Visit: Yes Status: Resolved Assessment and Plan: Resolved, had 5 BM yesterday Plan: Continue oral diet Continue culturelle Continue dulcolax PRN (9) Fluid overload Current Visit: Yes Status: Acute Assessment and Plan: Likely due to multiple IVF hydration and TPN in-patient Echocardiogram showed LVEF of 60% with mild left-ventricular diastolic dysfunction Patient with bilateral lower extremity 2+ pitting edema Plan: Continue 40 mg IV furosemide Daily Continue moving around Continue to monitor I/Os (10) Cholelithiases Current Visit: Yes Status: Acute Assessment and Plan: CT of the abdomen/pelvis showed cholelithiasis with mild distention of gallbladder Right upper quadrant ultrasound showed cholelithiasis without evidence of cholecystitis General surgery following and appreciate recommendations (11) DVT prophylaxis Current Visit: Yes Status: Acute Assessment and Plan: SUBQ heparin - Time Spent with Patient Total time spent is greater than 50% in coordination of care (as documented) at patient's floor/unit and/or counseling patient: less than 15 minutes Plan of Care Discussed with: patient Internal Medicine: Result - Labs CBC & Chem 7: 04/19/18 04:51 04/19/18 04:51 Labs: Short CBC 04/19/18 Range/Units 04:51 WBC 7.5 (4.3-11.1) K/mcL Hgb 8.0 L (12.9-16.9) g/dL Hct 25.1 L (37.5-50.1) % Plt Count 288 (140-400) K/mcL Neutrophils # 5.3 (1.6-8.9) K/mcL BMP 04/19/18 04:51 Sodium 136 Potassium 3.4 L Chloride 97 L Carbon Dioxide 31 H BUN 18 Creatinine 0.59 L Glucose 143 H Calcium 8.4 L - VTE Documentation of Mechanical Device: Graduated compression elastic hosiery Consult Discharge Plan - Plan Additional Instructions: Midline wound- cleanse with soap and water and pat dry, apply adaptic to wound bed, apply small black foam and place to 125mmHG continuous suction; change every M-W- per home health care General Surgical Discharge Instructions 1. No pushing, pulling, or lifting greater than 15 lbs for 6 weeks 2. You may shower 3. You may resume driving when you are off narcotics and are safe to react in a car. 4. Take pain medications as needed and as prescribed 5. Take stool softeners (Colace) or a water based laxative (Miralax) while taking narcotics. You may hold for loose stools. 6. Report any fevers greater than 100.5F, increase abdominal discomfort, drainage that looks like pus, increased redness or pain at the surgical site, or any vomiting. 7. Report any pain in the calves, shortness of breath, or rapid heartbeat. 8. Follow-up in the office as directed. 9. If you were prescribed antibiotics, do not stop them without talking to your provider. Referrals: Krissy Cates MD [Partnered Physician] - 04/27/18 9:55 am (hospital follow- up) Flaco Robertson MD [Primary Care Provider] - <Nata Elise - Last Filed: 04/19/18 18:15> Hospitalist Progress Note - Encounter Date of Encounter: 04/19/18 - Exam Vitals: Temp Pulse Resp BP Pulse Ox 97.3 F L 67 16 134/68 91 04/19/18 16:34 04/19/18 16:34 04/19/18 16:34 04/19/18 16:34 04/19/18 16:34 - Assessment and Plan (1) Hypertension Current Visit: Yes Status: Chronic (2) Constipation due to opioid therapy Current Visit: Yes Status: Resolved (3) Hyponatremia Current Visit: Yes Status: Acute (4) Anemia Current Visit: Yes Status: Acute (5) Vertebral osteomyelitis Current Visit: Yes Status: Acute (6) BPH without urinary obstruction Current Visit: Yes Status: Chronic (7) Adenocarcinoma of colon Current Visit: Yes Status: Acute (8) Ileus, postoperative Current Visit: Yes Status: Resolved (9) Fluid overload Current Visit: Yes Status: Acute (10) Cholelithiases Current Visit: Yes Status: Acute (11) DVT prophylaxis Current Visit: Yes Status: Acute - Time Spent with Patient Total time spent is greater than 50% in coordination of care (as documented) at patient's floor/unit and/or counseling patient: Internal Medicine: Result - Labs CBC & Chem 7: 04/19/18 04:51 04/19/18 04:51 Labs: Short CBC 04/19/18 Range/Units 04:51 WBC 7.5 (4.3-11.1) K/mcL Hgb 8.0 L (12.9-16.9) g/dL Hct 25.1 L (37.5-50.1) % Plt Count 288 (140-400) K/mcL Neutrophils # 5.3 (1.6-8.9) K/mcL BMP 04/19/18 04:51 Sodium 136 Potassium 3.4 L Chloride 97 L Carbon Dioxide 31 H BUN 18 Creatinine 0.59 L Glucose 143 H Calcium 8.4 L - Attending Attestation I examined this patient and my medical decision-making was reviewed with the Resident Physician Dr. Villa. I agree with the documented findings, disposition and treatment plan as described except to the extent set forth below. Mr. Burkett is a 87 year old male with PMH HTN, HLD, GERD who is currently being treated for vertebral osteomyelitis, had adeno carcinoma of colon. Pt had Rt open colectomy POD # 14. He had prolong ileus which improved now. He is off the NG tube. Tolerating liquid diet ok. Passing gas +. Gen: A, A, O x 3 Chest: Diminished BS b/l, Heart: S1S2+ RRR No murmurs Ext: 2+ Pitting edema a/p 1. Adenocarcinoma of colon 2. Post op Ileus s/p Rt Open colectomy POD # 15 will wean him off the TPN today 3. Volume overload 4. b/l LE edema Improving cont Lasix 5. Vertebral Osteomyelitis on IV Pencillin G continue till Tuesday Possible d/c home in AM with Home health services <Winnie Villa - Last Filed: 04/19/18 14:35> (3) Hypertension Qualifiers: Hypertension type: essential hypertension Qualified Code(s): I10 - Essential (primary) hypertension (6) Anemia Qualifiers: Anemia type: other cause Other causes of anemia: other cause, not classified Qualified Code(s): D64.89 - Other specified anemias (9) Fluid overload Qualifiers: Hypervolemia type: unspecified Qualified Code(s): E87.70 - Fluid overload, unspecified <Nata Elise - Last Filed: 04/19/18 18:15> (1) Hypertension Qualifiers: Hypertension type: essential hypertension Qualified Code(s): I10 - Essential (primary) hypertension (4) Anemia Qualifiers: Anemia type: other cause Other causes of anemia: other cause, not classified Qualified Code(s): D64.89 - Other specified anemias (9) Fluid overload Qualifiers: Hypervolemia type: unspecified Qualified Code(s): E87.70 - Fluid overload, unspecified
[2018-04-19] MEDS: *HR* OxyCODONE/APAP 5/325 TABLET PO PRN (18:35)
[2018-04-19 19:57] VITALS: BP 155/71
[2018-04-20] MEDS: *HR* OxyCODONE/APAP 5/325 TABLET PO PRN (00:48)
[2018-04-20] MEDS: Penicillin G Potassium 4,000,000 UNIT in 0.9 % Sodium Chloride 100 ML IVPB SCH (00:49)
[2018-04-20] MEDS: Metoclopramide 10 MG/2 ML VIAL IVP SCH (00:50)
[2018-04-20] MEDS ORDERED: Ibuprofen 800 MG TABLET PO ONE ×2 (09:19→11:36)
[2018-04-20] MEDS ORDERED: Furosemide 40 MG/4 ML VIAL IV ONE (11:36)
[2018-04-20] MEDS ORDERED: *HR* Heparin 5,000 UNIT/ML VIAL IVP ONE ×2 (11:36)
[2018-04-20] MEDS ORDERED: *HR* Labetalol 20 MG/4 ML SYRINGE IVP ONE (11:36)
[2018-04-20] MEDS ORDERED: Lactobacillus 1 EACH CAP.SPRINK PO ONE (11:36)
[2018-04-20] MEDS ORDERED: Finasteride 5 MG TABLET PO ONE (11:36)
[2018-04-20] MEDS ORDERED: Metoclopramide 10 MG/2 ML VIAL IVP ONE (11:36)
[2018-04-20] MEDS ORDERED: OXYCODONE Oral CONC 10 MG/0.5 ML ORAL.SYG PO ONE (11:36)
[2018-04-20] MEDS ORDERED: Famotidine 20 MG/2 ML VIAL IVP ONE (11:36)
[2018-04-20 11:41] LABS: Basophils % 0.1 %; Eosinophils # 0.1 K/mcL (0.0-0.6); Eosinophils % 0.6 %; Hematocrit 27.6 % (37.5-50.1); Hemoglobin 8.8 g/dL (12.9-16.9); Immature Platelets 2.1 % (1.1-6.1); Lymphocytes % 24.4 %; Mean Corpuscular HGB Conc 31.9 g/dL (31.6-35.5); Mean Corpuscular Hemoglobin 28.5 pg (28.0-33.3); Mean Corpuscular Volume 89.3 fL (83.0-100.0); Mean Platelet Volume 9.8 fL (9.4-12.4); Monocytes # 0.7 K/mcL (0.0-1.3); Monocytes % 8.7 %; Neutrophils # 5.2 K/mcL (1.6-8.9); Platelet Count 348 K/mcL (140-400); Red Blood Count 3.09 M/mcL (4.19-5.50); Red Cell Distribution Width 13.6 % (11.5-14.5); Segmented Neutrophils % 65.2 %
[2018-04-20 11:48] LABS: BUN/Creatinine Ratio 23 (6-26); Blood Urea Nitrogen 15 mg/dL (8-23); Calcium 8.5 mg/dL (8.6-10.3); Carbon Dioxide 30 mEq/L (23-29); Chloride 96 mEq/L (98-107); Glucose 96 mg/dL (70-105); Osmolality,Calculated 279 (280-300); Potassium 3.6 mEq/L (3.5-5.1); Sodium 134 mEq/L (136-145); eGFR For Non-African Americans > 60 (> 60)
--- NOTE | 2018-04-20 11:52 | Discharge Summary ---
<Winnie Villa - Last Filed: 04/20/18 19:44> - NOTES TO OUTPATIENT PROVIDER Notes to Outpatient Provider: Mr. Burkett presented to the ED due to lower back pain. He has history of osteomyelitis. He had history of adenocarcinoma of the right colon. He underwent colectomy. He is on IV antibiotics and will remain on it until 04/24/18. Orders not resulted at time of discharge: Pending orders 04/20/18 04:00 BMP [Basic Metabolic Panel] AM 0400 Complete Blood Count [HEME] AM 0400 Magnesium AM 0400 04/24/18 06:00 CRP [C-Reactive Protein] Routine Erythrocyte Sedimentation Rate [HEME] Routine Date of Encounter: 04/20/18 Time of Encounter: 10:15 - Discharge Diagnosis (1) Adenocarcinoma of colon Priority: Primary Status: Acute (2) Vertebral osteomyelitis Priority: Secondary Status: Acute (3) Hypertension Priority: Secondary Status: Chronic Qualifiers: Hypertension type: essential hypertension Qualified Code(s): I10 - Essential (primary) hypertension (4) Constipation due to opioid therapy Priority: Secondary Status: Resolved (5) Hyponatremia Priority: Secondary Status: Acute (6) Anemia Priority: Secondary Status: Acute Qualifiers: Anemia type: other cause Other causes of anemia: other cause, not classified Qualified Code(s): D64.89 - Other specified anemias (7) BPH without urinary obstruction Priority: Secondary Status: Chronic (8) Ileus, postoperative Priority: Secondary Status: Resolved (9) Fluid overload Priority: Secondary Status: Acute Qualifiers: Hypervolemia type: unspecified Qualified Code(s): E87.70 - Fluid overload, unspecified (10) Cholelithiases Priority: Secondary Status: Acute Qualifiers: Cholecystitis presence: without cholecystitis Biliary obstruction: without biliary obstruction Qualified Code(s): K80.20 - Calculus of gallbladder without cholecystitis without obstruction (11) DVT prophylaxis Priority: Secondary Status: Resolved Hospital course: Mr. Burkett presented to the ED complaining of back pain. In February 20 MRI of the lumbar spine revealed vertebral osteomyelitis in L1-L2 which showed sterp gallolyticus. He was receiving IV rocephin every morning after his osteomyelitis outpatient. After his pain worsened infectious disease recommended presenting to the ED. Spinal surgery was consulted and they recommended continued 8 week course of antibiotics. They also recommended follow up as an outpatient. He had a colonoscopy on March 04 which showed a tumor of the ascending colon which tested positive for adenocarcinoma of the ascending colon. General surgery was consulted for colectomy as outpatient he was scheduled for surgical intervention for the adenocarcinoma. On April 03 he had a right open colectomy. After the colectomy he has a small bowel obstruction for over 10 days. Finally two days ago he started having regular bowel movements. He has good oral input. He is on a wound van and will have home health with antibiotics for three more days. Discharge discussed with: patient - Time Spent with Patient Total time spent providing and/or coordinating discharge services: Less than 30 minutes - Discharge Medications Home Medications: RX: Finasteride [Proscar] 5 mg PO DAILY 02/26/18 [History] RX: Tamsulosin [Flomax] 0.4 mg PO DAILY 02/26/18 [History] RX: Sennosides/Docusate Sodium [Senna Plus] 1 each PO BID #30 tablet 03/05/18 [Rx] RX: Simethicone [Gas-X] 80 mg PO TID PRN #30 tab.chew 03/05/18 [Rx] RX: Sodium Chloride 1,000 mg MC DAILY 03/30/18 [History] RX: Labetalol [Trandate] 100 mg PO BID 04/02/18 [History] Allergies/Adverse Reactions: Allergy/AdvReac Type Severity Reaction Status Date / Time morphine AdvReac Vomiting Verified 03/30/18 17:37 Date of admission: 03/31/18 16:27 Primary care physician: Flaco Robertson MD Consults: 03/30/18 17:31 Consult to Infectious Diseases [CONS] Stat Consulting Provider: Infectious Disease Tayler Reason for Consult: lumbar osteo Call Completed: No 03/30/18 18:58 Consult to Health Information Coder [CONS] Routine Reason for SW Consult: Re-admit, has tayler for management of PICC 03/31/18 15:04 Consult to Surgery [CONS] Routine Consulting Provider: Krissy Cates Reason for Consult: colon cancer, family request Call Completed: No 04/03/18 07:34 Consult to Orthopedic Surgery [CONS] Routine Consulting Provider: Andrea Gonzalez Jr Reason for Consult: osteomyelitis of spine, paravertebral phlegmen Time Notified: 07:35 Call Completed: Yes 04/06/18 08:26 Consult to Invasive Line Access Team [CONS] Routine Reason for Consult: picc Line Type: PICC PICC line indications: Parental nutrition Time Notified: 08:26 Call Completed: No Consult to Nutrition [CONS] Routine Comment: Consulting Provider: NUTRITION Reason for Dietary Consult: TPN Start and Manage 04/06/18 08:56 Consult to Invasive Line Access Team [CONS] Routine Reason for Consult: Picc Line Insertion Line Type: PICC 04/11/18 12:26 Consult to Physical Therapy [CONS] Routine Comment: Evaluate, develop and implement POC Reason for Consult: deconditioned Does patient have active BEDREST order?: No Is patient medically & hemodynamically stable?: Yes Patient assessed for mobility or mobilized this visit?: No OT [Consult to Occupational Therapy] [CONS] Routine Comment: Evaluate, develop and implement POC Reason for Consult: deconditioning Does patient have active BEDREST order?: No Is patient medically & hemodynamically stable?: Yes Patient assessed for mobility or mobilized this visit?: No 04/13/18 14:22 Consult to Health Information Coder [CONS] Routine Reason for SW Consult: Will need wound vac for home with home health care 04/17/18 08:13 Consult to Gastroenterology [CONS] Stat Consulting Provider: Gastroenterbhaskar Lester Reason for Consult: prolonged postoperative ileus. Neostigmine; spoke to Dr. Shi's RN Time Notified: 08:14 Call Completed: Yes Discharging clinician: Winnie Villa Anticipated date of discharge: 04/20/18 - Constitutional Vitals: Temp Pulse Resp BP Pulse Ox 98.1 F 69 14 155/71 94 04/19/18 19:55 04/19/18 19:55 04/19/18 19:55 04/19/18 19:55 04/19/18 19:55 General appearance: Present: A&O X 3, answers questions appropriately Exam: Awake, alert and oriented - Head Head exam: Present: atraumatic, normocephalic - Eye Eye exam: Present: EOMI, normal appearance, sclera anicteric - ENT ENT exam: Present: mucous membranes moist - Neck Neck exam general surgery: Present: full ROM, trachea midline - Respiratory Respiratory exam: Present: CTAB. Absent: rhonchi, stridor, wheezes - Cardiovascular Cardiovascular exam: Present: JVD, +S1, +S2 - GI/Abdominal GI/Abdominal exam: Present: normal bowel sounds, soft. Absent: firm, rigid, tenderness Additional comments: wound vac and dressing intact - Extremities Exam Extremities exam: Present: pedal edema (+2 pitting edema bilateral lower extremities), warm. Absent: tenderness - Neurological Exam Neurological exam: Present: alert, oriented X3 - Psychiatric Psychiatric exam: Present: normal affect, normal mood - Skin Skin exam: Present: dry, warm. Absent: rash - Patient Status Disposition: Home Health Service Condition: Fair - Discharge Instructions Follow Up With: Krissy Cates MD [Partnered Physician] - 04/27/18 9:55 am (hospital follow- up) Additional Instructions: Midline wound- cleanse with soap and water and pat dry, apply adaptic to wound bed, apply small black foam and place to 125mmHG continuous suction; change chris ry M-W-F per home health care General Surgical Discharge Instructions 1. No pushing, pulling, or lifting greater than 15 lbs for 6 weeks 2. You may shower 3. You may resume driving when you are off narcotics and are safe to react in a car. 4. Take pain medications as needed and as prescribed 5. Take stool softeners (Colace) or a water based laxative (Miralax) while taking narcotics. You may hold for loose stools. 6. Report any fevers greater than 100.5F, increase abdominal discomfort, drainage that looks like pus, increased redness or pain at the surgical site, or any vomiting. 7. Report any pain in the calves, shortness of breath, or rapid heartbeat. 8. Follow-up in the office as directed. 9. If you were prescribed antibiotics, do not stop them without talking to your provider. - VTE Documentation of Mechanical Device: Graduated compression elastic hosiery <Nata Elise - Last Filed: 04/21/18 08:26> - Discharge Diagnosis (1) Hypertension Status: Chronic Qualifiers: Hypertension type: essential hypertension Qualified Code(s): I10 - Essential (primary) hypertension (2) Constipation due to opioid therapy Status: Resolved (3) Hyponatremia Status: Acute (4) Anemia Status: Acute Qualifiers: Anemia type: other cause Other causes of anemia: other cause, not classified Qualified Code(s): D64.89 - Other specified anemias (5) Vertebral osteomyelitis Status: Acute (6) BPH without urinary obstruction Status: Chronic (7) Adenocarcinoma of colon Status: Acute (8) Ileus, postoperative Status: Resolved (9) Fluid overload Status: Acute Qualifiers: Hypervolemia type: unspecified Qualified Code(s): E87.70 - Fluid overload, unspecified (10) Cholelithiases Status: Acute Qualifiers: Cholecystitis presence: without cholecystitis Biliary obstruction: without biliary obstruction Qualified Code(s): K80.20 - Calculus of gallbladder without cholecystitis without obstruction (11) DVT prophylaxis Status: Resolved Hospital course: Mr. Burkett is a 87 year old male - Time Spent with Patient Total time spent providing and/or coordinating discharge services: Date of admission: 03/31/18 16:27 Primary care physician: Flaco Robertson MD Consults: 03/30/18 17:31 Consult to Infectious Diseases [CONS] Stat Consulting Provider: Infectious Disease Dustin Reason for Consult: lumbar osteo Call Completed: No 03/30/18 18:58 Consult to Health Information Coder [CONS] Routine Reason for SW Consult: Re-admit, has tayler for management of PICC 03/31/18 15:04 Consult to Surgery [CONS] Routine Consulting Provider: Krissy Cates Reason for Consult: colon cancer, family request Call Completed: No 04/03/18 07:34 Consult to Orthopedic Surgery [CONS] Routine Consulting Provider: Andrea Gonzalez Jr Reason for Consult: osteomyelitis of spine, paravertebral phlegmen Time Notified: 07:35 Call Completed: Yes 04/06/18 08:26 Consult to Invasive Line Access Team [CONS] Routine Reason for Consult: picc Line Type: PICC PICC line indications: Parental nutrition Time Notified: 08:26 Call Completed: No Consult to Nutrition [CONS] Routine Comment: Consulting Provider: NUTRITION Reason for Dietary Consult: TPN Start and Manage 04/06/18 08:56 Consult to Invasive Line Access Team [CONS] Routine Reason for Consult: Picc Line Insertion Line Type: PICC 04/11/18 12:26 Consult to Physical Therapy [CONS] Routine Comment: Evaluate, develop and implement POC Reason for Consult: deconditioned Does patient have active BEDREST order?: No Is patient medically & hemodynamically stable?: Yes Patient assessed for mobility or mobilized this visit?: No OT [Consult to Occupational Therapy] [CONS] Routine Comment: Evaluate, develop and implement POC Reason for Consult: deconditioning Does patient have active BEDREST order?: No Is patient medically & hemodynamically stable?: Yes Patient assessed for mobility or mobilized this visit?: No 04/13/18 14:22 Consult to Health Information Coder [CONS] Routine Reason for SW Consult: Will need wound vac for home with home health care 04/17/18 08:13 Consult to Gastroenterology [CONS] Stat Consulting Provider: Gastroenterology Tayler Reason for Consult: prolonged postoperative ileus. Neostigmine; spoke to Dr. Shi's RN Time Notified: 08:14 Call Completed: Yes - Constitutional Vitals: Temp Pulse Resp BP Pulse Ox 98.1 F 69 14 155/71 94 04/19/18 19:55 04/19/18 19:55 04/19/18 19:55 04/19/18 19:55 04/19/18 19:55 - Attending Attestation I examined this patient and my medical decision-making was reviewed with the Resident Physician Dr. Villa. I agree with the documented findings, disposition and treatment plan as described except to the extent set forth below. Mr. Burkett is a 87 year old male with PMH HTN, HLD, GERD who is currently being treated for vertebral osteomyelitis, had adeno carcinoma of colon. Pt had Rt open colectomy. He had prolong ileus which improved now. He is off the NG tube. Tolerating liquid diet ok. Passing gas +. Gen: A, A, O x 3 Chest: Diminished BS b/l, Heart: S1S2+ RRR No murmurs Ext: 2+ Pitting edema a/p 1. Adenocarcinoma of colon 2. Post op Ileus s/p Rt Open colectomy POD # 16 Tolerating PO intake well. 3. Volume overload 4. b/l LE edema Improving cont Lasix for another 7 days 5. Vertebral Osteomyelitis on IV Pencillin G continue till Tuesday Stable to go home today
--- NOTE | 2018-04-20 12:28 | Physician Discharge Referral ---
Home Health/Hosp Referral Info Transfer to: Home Health Provider in Charge Post Discharge: PCP - Diagnosis (1) Hypertension Status: Chronic (2) Constipation due to opioid therapy Status: Resolved (3) Hyponatremia Status: Acute (4) Anemia Status: Acute (5) Vertebral osteomyelitis Status: Acute (6) BPH without urinary obstruction Status: Chronic (7) Adenocarcinoma of colon Status: Acute (8) Ileus, postoperative Status: Resolved (9) Fluid overload Status: Acute (10) Cholelithiases Status: Acute (11) DVT prophylaxis Status: Acute - Respiratory Orders Smoking Cessation: Smoking cessation has been advised. For more information, call the [place] Tobacco Quit Line at 5-567-ICWK-NOW. - Services Needed Following services are medically necessary services: Nursing, Physical Therapy, Occupational Therapy - Transfer Medications Home Medications: Finasteride [Proscar] 5 mg PO DAILY 02/26/18 [History] Tamsulosin [Flomax] 0.4 mg PO DAILY 02/26/18 [History] cefTRIAXone [Rocephin] 2,000 mg IVPB DAILY #42 vial 03/01/18 [Rx] Polyethylene Glycol 3350 [MiraLAX] 17 gm PO DAILY #30 powd.pack 03/05/18 [Rx] Sennosides/Docusate Sodium [Senna Plus] 1 each PO BID #30 tablet 03/05/18 [Rx] Simethicone [Gas-X] 80 mg PO TID PRN #30 tab.chew 03/05/18 [Rx] OxyCODONE Immed Rel [Roxicodone 10 MG] 10 - 20 mg PO Q6H PRN 03/30/18 [History] Sodium Chloride 1,000 mg MC DAILY 03/30/18 [History] Labetalol [Trandate] 100 mg PO BID 04/02/18 [History] Allergies/Adverse Reactions: Allergy/AdvReac Type Severity Reaction Status Date / Time morphine AdvReac Vomiting Verified 03/30/18 17:37 Certification: Further, I certify that my clinical findings support that this patient is homebound (i.e. absences from home require considerable and taxing effort and are for medical reasons or restorationist services or infrequently or short duration when for other reasons) because: Homebound Reason: Patient requires assistance of a person or device to safely leave home Attestation: My signature below is to certify that this patient is under my care and that I, or nurse practitioner, or a physician's lead recreation assistant working with me, has a [id number] encounter with this patient.
--- NOTE | 2018-04-20 13:49 | Infectious Disease Progress No ---
Date of Encounter: 04/20/18 Time of Encounter: 10:20 - Assessment and Plan (1) Osteomyelitis Status: Acute Location: L1, L2. Causative organism: S. gallolyticus. Likely secondary to seeding from the abdomen given the patient's recent finding of colon cancer. MRI of the L-spine 02/20/18 showed osteomyelitis/discitis L1-L2. Status post bone biopsy 02/23/18. 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 Pathology was positive for Adenocarcinoma. Continued to have worsening back pain and worsening inflammatory markers so patient was asked to come to the ED for evaluation and was admitted. MRI of the lumbar spine showed severe discitis/Tristin minus that L1-L2 with surrounding paravertebral phlegmon at this level with associated inflammation of both psoas muscles. No paraspinal or psoas abscess was identified. There was also noted to be mild enhancing tissue within the epidural space circumferentially at L1-L2 compatible with extension of the infectious process, but no epidural abscess was appreciated. Ortho-spine consulted. No surgical intervention required at this time. Repeat ESR and CRP--> ESR 47, CRP 154. Re-check today.--> ESR 52, CRP 62. Continue PCN G 4 million units IV Q4H. (day 52) Duration of treatment depends on the clinical picture, but likely a total of 8 weeks. Continue antibiotics through at least Tuesday. Will plan to repeat i nflammatory markers on Tuesday and if continued to improve, will plan on stopping antibiotics. Monitor renal function and dose-adjust antibiotics. Qualifiers: Osteomyelitis type: unspecified type Osteomyelitis location: unspecified site Qualified Code(s): M86.9 - Osteomyelitis, unspecified (2) Bacteremia Status: Resolved Causative organism: S. gallolyticus. Source likely intra-abdominal. Blood cultures drawn 03/30/18 are negative x 2 sets. (3) Thickening of wall of gallbladder Status: Acute Noted on CT of the abdomen and pelvis. RUQ UTS showed cholelithiasis, but negative for cholecystitis and pain has resolved. Further management per the surgery team. (4) Lumbar back pain Status: Acute Likely secondary to discitis/osteomyelitis. Stable. Pain management per the primary team. (5) Anemia Status: Acute Qualifiers: Anemia type: other cause Other causes of anemia: other cause, not classified Qualified Code(s): D64.89 - Other specified anemias (6) BPH without urinary obstruction Status: Chronic (7) Adenocarcinoma of colon Status: Acute General surgery consulted to perform colectomy. Status post open colectomy 04/04/[address] Cates. (8) Ileus, postoperative Status: Resolved CT of the abdomen and pelvis 04/06/18 showed findings consistent with mild post- op ileus. NG tube removed by the patient. Patient had bowel movement and has active bowel sounds. Management per the general surgery team. (9) Generalized weakness Status: Acute Recommend PT/OT to evaluate and treat. - Subjective Interval history: Patient seen and examined. No acute events noted overnight. Status post open colectomy 04/04/18. Patient states he feels better today. He states his back pain is better. Denies any fevers or chills or rigors. Denies chest pain, s hortness of breath, or cough. Denies vomiting, diarrhea, constipation. Reports flatus and states he hash had several bowel movements. Diet has been advanced to full and tolerating well. He denies any urinary complaints. He denies any numbness or tingling or incontinence. He denies any oral thrush or any skin lesions. Melissa catheter removed. Patient denies urinary complaints. Infect Dis PN-Objective Data - Labs CBC & Chem 7: 04/20/18 05:00 04/20/18 05:00 Labs: Laboratory Results - last 24 hr 04/18/18 04/18/18 04/18/18 04:44 07:25 11:30 WBC RBC Hgb Hct MCV MCH MCHC RDW Plt Count MPV Immature Gran % Seg Neutrophils % Lymphocytes % Monocytes % Eosinophils % Basophils % Neutrophils # Lymphocytes # Monocytes # Eosinophils # Basophils # Immature Plt Fraction Sodium Potassium Chloride Carbon Dioxide BUN Creatinine Est GFR ( Amer) Est GFR (Non-Af Amer) BUN/Creatinine Ratio Glucose POC Glucose 132 H 152 H 120 H Calculated Osmolality Calcium Magnesium 04/18/18 04/19/18 04/19/18 17:00 00:49 16:32 WBC RBC Hgb Hct MCV MCH MCHC RDW Plt Count MPV Immature Gran % Seg Neutrophils % Lymphocytes % Monocytes % Eosinophils % Basophils % Neutrophils # Lymphocytes # Monocytes # Eosinophils # Basophils # Immature Plt Fraction Sodium Potassium Chloride Carbon Dioxide BUN Creatinine Est GFR ( Amer) Est GFR (Non-Af Amer) BUN/Creatinine Ratio Glucose POC Glucose 159 H 169 H 134 H Calculated Osmolality Calcium Magnesium 04/20/18 04/20/18 04/20/18 05:00 05:00 05:00 WBC 8.0 RBC 3.09 L Hgb 8.8 L Hct 27.6 L MCV 89.3 MCH 28.5 MCHC 31.9 RDW 13.6 Plt Count 348 MPV 9.8 Immature Gran % 1.0 Seg Neutrophils % 65.2 Lymphocytes % 24.4 Monocytes % 8.7 Eosinophils % 0.6 Basophils % 0.1 Neutrophils # 5.2 Lymphocytes # 2.0 Monocytes # 0.7 Eosinophils # 0.1 Basophils # 0.0 Immature Plt Fraction 2.1 Sodium 134 L Potassium 3.6 Chloride 96 L Carbon Dioxide 30 H BUN 15 Creatinine 0.66 L Est GFR ( Amer) > 60 Est GFR (Non-Af Amer) > 60 BUN/Creatinine Ratio 23 Glucose 96 POC Glucose Calculated Osmolality 279 L Calcium 8.5 L Magnesium 1.8 Cultures: Cultures 03/30/18 17:36 Blood Culture - Final Peripheral Venipuncture No growth. Final report. 03/30/18 17:36 Blood Culture - Final Peripheral Venipuncture No growth. Final report. Exam - Constitutional Vitals: Temp Pulse Resp BP Pulse Ox 98.1 F 69 14 155/71 94 04/19/18 19:55 04/19/18 19:55 04/19/18 19:55 04/19/18 19:55 04/19/18 19:55 General appearance: average body habitus, cooperative, no acute distress - Head Head exam: Present: atraumatic, normal inspection, normocephalic - Eye Eye exam: Present: EOMI, normal appearance, PERRL Pupils: Present: normal accommodation - ENT ENT exam: Present: mucous membranes moist - Neck Neck exam: Present: normal inspection - Respiratory Respiratory exam: Present: CTAB. Absent: rales, respiratory distress, rhonchi, wheezes - Cardiovascular Cardiovascular exam: Present: RRR, +S1, +S2 - GI/Abdominal GI/Abdominal exam: Present: normal bowel sounds, soft. Absent: distended, tenderness Additional comments: Midline abdominal incision with wound VAC drain with sponge well-compressed and dressing intact. No surrounding erythema, warmth, or tenderness noted. - Extremities Exam Extremities exam: Present: normal inspection. Absent: joint swelling, pedal edema, tenderness - Neurological Exam Neurological exam: Present: alert, oriented X3, no focal deficits - Psychiatric Psychiatric exam: Present: normal affect, normal mood - Skin Skin exam: Present: dry, intact, normal color, warm - VTE Documentation of Mechanical Device: Graduated compression elastic hosiery Consult Discharge Plan - Plan Additional Instructions: Midline wound- cleanse with soap and water and pat dry, apply adaptic to wound bed, apply small black foam and place to 125mmHG continuous suction; change every M-W- per home health care General Surgical Discharge Instructions 1. No pushing, pulling, or lifting greater than 15 lbs for 6 weeks 2. You may shower 3. You may resume driving when you are off narcotics and are safe to react in a car. 4. Take pain medications as needed and as prescribed 5. Take stool softeners (Colace) or a water based laxative (Miralax) while taking narcotics. You may hold for loose stools. 6. Report any fevers greater than 100.5F, increase abdominal discomfort, drainage that looks like pus, increased redness or pain at the surgical site, or any vomiting. 7. Report any pain in the calves, shortness of breath, or rapid heartbeat. 8. Follow-up in the office as directed. 9. If you were prescribed antibiotics, do not stop them without talking to your provider. Referrals: Krissy Cates MD [Partnered Physician] - 04/27/18 9:55 am (hospital follow- up) - Attending Attestation I examined this patient and my medical decision-making was reviewed with the Resident Physician. I agree with the documented findings, disposition and treatment plan as described except to the extent set forth below.
== END 2018-04-20 11:37 | disposition home health service (06) | DRG 330 ==
LOC: 3ANU 17:04 → EMEROOARM 17:04 → SUATTDRO 17:39 → 3ANU 18:14 → SUATTDRO 03-31 16:27 → 3ANU 04-15 10:53
PROVIDERS: ADMIT Internal Medicine; ATTEND Family Medicine